=== PATIENT | female | born 1950 | race Caucasian/White ===

== ENCOUNTER 2016-09-11 22:02 | Observation (INO) | payer OTHER ==
[~2016-09-11] VITALS: Ht 149.9 cm; Wt 76.3 kg
[~2016-09-11 22:02] MED LIST: ALBU18HF IH; ALBU6.7H IH; AMOX500C; ASPI81TA50 PO; ATOR10TA PO; AZIT250T6 PO; BENZ100C2 PO; CALC200T3 PO; CETI10TA16 PO; CLON0.5T3 PO; CLOP75TA PO; EPIN0.3A4 IJ; FLUT1DIS3 IH; FLUT9.9S NS; GABA-585 PO; GUAI-42 PO; HYDR-2666 PO; HYDR-2762 PO; IPRA0.2S5 IH; IPRA3AMP IH; IPRA3AMP NEB; LEVO500T38 PO; LORA0.5T PO; METO10TA81 PO; METO25TA4 PO; MONT10TA6 PO; OMEP20CA5 PO; PANT40TA3 PO; PARO40TA3; PRED-220 PO; PRED20TA PO; RANI150T2 PO; RANI150T6 PO; SIMV10TA PO; SODI30SP NS; duoneb INH
--- NOTE | 2016-09-11 22:05 | ED.ADGEN ---
Past History Past Medical History: Asthma, CAD, COPD, GERD Past Surgical History: Knee Replacement, Tonsillectomy, Tubal ligation Smoking: Quit Greater Than 1 Year Alcohol Use: None Drug Use: None Adult General Chief Complaint Chief Complaint ".. I ve been short of breath...".. " I ve been sick the last 3 days.. fever, chills.. cough.. and now some yellow sputum.. I did go out to the bar last night... but now I am really short of breath..." HPI HPI Patient is a 66 year old female who presents with above hx and complaints of increased dyspnea. Found to be hypoxic 80 by paramedics. Pt. normally not on oxygen. Does have a history of cardiac disease and COPD. Patient no longer smokes. Patient did have stents placed in January and February for severe coronary artery stenosis. Patient has been seen both at [facility] and [facility] for her cardiac disease. Patient normally follows with Dr. Schmidt.. Patient denies any travel. Pt. denies any specific ill contacts. Patient denies any noncompliance with her hypertensive or other cardiac meds. Review of Systems Review of Systems Constitutional: Hx. of fever or chills [] Eyes: Denies change in visual acuity, redness, or eye pain [] HENT: Denies nasal congestion or sore throat [] Respiratory: hx of cough and shortness of breath [] Cardiovascular: No additional information not addressed in HPI [] GI: Denies abdominal pain, nausea, vomiting, bloody stools or diarrhea [] : Denies dysuria or hematuria [] Musculoskeletal: Denies back pain or joint pain [] Integument: Denies rash or skin lesions [] Neurologic: Denies headache, focal weakness or sensory changes [] Endocrine: Denies polyuria or polydipsia [] Family History Family History Noncontributory Current Medications Current Medications Current Medications Medications (Trade) Dose Ordered Sig/Linda Start Time Stop Time Status Last Admin Dose Admin Albuterol/ Ipratropium 3 ml 3 ml 1X ONCE 09/11/16 22:30 09/11/16 22:31 DC 09/11/16 22:47 3 ML Aspirin 324 mg 324 mg 1X ONCE 09/11/16 22:30 09/11/16 22:31 DC 09/12/16 00:46 324 MG Azithromycin (Zithromax) 500 mg 1X ONCE 09/11/16 23:00 09/11/16 23:01 DC 09/12/16 00:46 500 MG Ceftriaxone Sodium/Sodium Chloride (Rocephin/Iv Sodium Chloride 0.9% 50ml) 50 ml @ 100 mls/hr 1X ONCE 09/11/16 23:00 09/11/16 23:29 DC Enoxaparin Sodium (Lovenox 80mg Syringe) 80 mg Q12HR 09/12/16 00:00 09/12/16 00:45 80 MG Info (Anti-Coagulation Monitoring By Pharmacy) 1 each PRN DAILY PRN 09/11/16 23:45 Lactated Ringer's (Iv Lactated Ringers) 1,000 ml @ 100 mls/hr Q10H 09/11/16 22:30 09/12/16 00:47 100 MLS/HR Ondansetron HCl (Zofran) 4 mg PRN Q4HRS PRN 09/12/16 00:00 09/12/16 23:59 09/12/16 00:44 4 MG See Nursing for home meds Allergies Allergies Allergies Coded Allergies Type Severity Reaction Last Updated Verified venom-honey bee Allergy Severe Shortness of Air 11/22/13 Yes cimetidine Allergy Intermediate "toxic" 01/12/15 Yes cimetidine HCl Allergy Intermediate "toxic" 01/12/15 Yes Physical Exam Physical Exam Constitutional: Moderate distress, non-toxic appearance. [] HENT: Normocephalic, atraumatic, bilateral external ears normal, oropharynx moist, injected pharynx, , no oral exudates, nose rhinorrhea. Eyes: PERRLA, EOMI, conjunctiva normal, no discharge. [] Neck: Normal range of motion, no tenderness, supple, no stridor. [] Cardiovascular:bradycardia heart rate regular rhythm, no murmur , PMI to lt. Lungs & Thorax: Bilateral breath sounds equal at apexes with scattered wheezes on auscultation [] Abdomen: Bowel sounds normal, soft, no tenderness, no masses, no pulsatile masses. Obese. Old surgical scar. Skin: Warm, dry, no erythema, no rash. [] Back: No tenderness, no CVA tenderness. [] Extremities: No tenderness, no cyanosis, no clubbing, ROM intact, trace ankle edema. No cording. Neurologic: Alert and oriented X 3, normal motor function, normal sensory function, no focal deficits noted. [] Psychologic: Affect anxious, judgement normal, mood normal. [] Current Patient Data Vital Signs Vital Signs Date Time Temp Pulse Resp B/P Pulse Ox O2 Delivery O2 Flow Rate FiO2 09/11/16 22:48 99 Nasal Cannula 3.0 09/11/16 22:14 73 22 09/11/16 22:05 97.8 129/74 Lab Results Laboratory Tests Test 09/11/16 22:35 09/11/16 23:25 White Blood Count 6.1x10^3/uL (4.0-11.0) Red Blood Count 4.96x10^6/uL (3.50-5.40) Hemoglobin 14.4g/dL (12.0-15.5) Hematocrit 43.6% (36.0-47.0) Mean Corpuscular Volume 88fL (79-100) Mean Corpuscular Hemoglobin 29pg (25-35) Mean Corpuscular Hemoglobin Concent 33g/dL (31-37) Red Cell Distribution Width 15.0% (11.5-14.5) H Platelet Count 231x10^3/uL (140-400) Neutrophils (%) (Auto) 42% (31-73) Lymphocytes (%) (Auto) 35% (24-48) Monocytes (%) (Auto) 9% (0-9) Eosinophils (%) (Auto) 12% (0-3) H Basophils (%) (Auto) 2% (0-3) Neutrophils # (Auto) 2.6x10^3uL (1.8-7.7) Lymphocytes # (Auto) 2.2x10^3/uL (1.0-4.8) Monocytes # (Auto) 0.5x10^3/uL (0.0-1.1) Eosinophils # (Auto) 0.7x10^3/uL (0.0-0.7) Basophils # (Auto) 0.1x10^3/uL (0.0-0.2) Prothrombin Time 10.3SEC (9.4-11.4) Prothrombin Time INR 1.0 (0.9-1.1) PTT 24SEC (23-33) D-Dimer (Tracy) 0.43mg/L (0.00-0.50) Sodium Level 141mmol/L (136-145) Potassium Level 3.8mmol/L (3.5-5.1) Chloride Level 106mmol/L (98-107) Carbon Dioxide Level 29mmol/L (21-32) Anion Gap 6 (6-14) Blood Urea Nitrogen 12mg/dL (7-20) Creatinine 0.9mg/dL (0.6-1.0) Estimated GFR (Cockcroft-Gault) 63.0 Glucose Level 91mg/dL (70-99) Calcium Level 9.0mg/dL (8.5-10.1) Magnesium Level 2.1mg/dL (1.8-2.4) Total Bilirubin 0.3mg/dL (0.2-1.0) Direct Bilirubin 0.1mg/dL (0.0-0.2) Aspartate Amino Transferase (AST) 20U/L (15-37) Alanine Aminotransferase (ALT) 28U/L (14-59) Alkaline Phosphatase 58U/L (46-116) Creatine Kinase 67U/L (26-192) Creatine Kinase MB (Mass) 0.8ng/mL (0.0-3.6) Creatine Kinase MB Relative Index 1.2% (0-4) Troponin I Quantitative < 0.017ng/mL (0-0.055) Total Protein 6.8g/dL (6.4-8.2) Albumin 3.8g/dL (3.4-5.0) Lipase 216U/L (73-393) Urine Opiates Screen Pos (NEG) Urine Methadone Screen Neg (NEG) Urine Barbiturates Neg (NEG) Urine Phencyclidine Screen Neg (NEG) Urine Amphetamine/Methamphetamine Neg (NEG) Urine Benzodiazepines Screen Neg (NEG) Urine Cocaine Screen Neg (NEG) Urine Cannabinoids Screen Neg (NEG) Urine Ethyl Alcohol Neg (NEG) Group A Streptococcus Rapid Negative (NEGATIVE) EKG EKG My interpretation of EKG shows a rate of 66 with a Lt axis, and intra ventricular block. [] Radiology/Procedures Radiology/Procedures My interpretation of CXR shows chronic changes COPD in appearance.. Somewhat patchy in appearance. No large consolidation [] Course & Med Decision Making Course & Med Decision Making Pertinent Labs and Imaging studies reviewed. (See chart for details). Discussed presentation, testing and tx. plan with Dr. Walsh. Will admit for further eval. and tx. [] Final Impression Final Impression 1. Dyspnea[] 2. Respiratory Failure- Hypoxia 3. Hx of BBBlock- 4. Hx. CADz- Stents in and 2015. 5. Elevated eosinophils 6. COPD exacerbation Problems: Dragon Disclaimer Dragon Disclaimer This electronic medical record was generated, in whole or in part, using a voice recognition dictation system. DAVID MCLAUGHLIN MD Sep 11, 2016 22:05
[2016-09-11] MEDS ORDERED: ASPIRIN 81 MG TAB.CHEW PO ONE (22:30)
[2016-09-11] MEDS ORDERED: IPRATRPIUM/ALBUTEROL 0.5/2.5MG 3 ML NEBU. NEB ONE (22:30)
[2016-09-11] MEDS ORDERED: IV RINGERS SOLUTION,LACTATED 1,000 ML IV SCH (22:30)
--- NOTE | 2016-09-11 22:31 | EKG ---
[address] [address] Test Date: 2016-09-11 Test Time: 22:26:47 Pat Name: ALEXY LANGE Department: Room: Gender: F Facialist: FEI : 1950 Requested By: DAVID MCLAUGHLIN Order Number: [id number] Reading MD: Measurements Intervals [place] Rate: 66 P: 43 PA: 158 QRS: -14 QRSD: 126 T: 73 QT: 442 QTc: 465 Interpretive Statements SINUS RHYTHM LEFTWARD AXIS NON SPECIFIC INTRAVENTRICULAR BLOCK ABNORMAL ECG RI6.01 Unconfirmed report Compared to ECG 07/19/2016 18:37:15 Left-axis deviation now present
[2016-09-11] MEDS ORDERED: CEFTRIAXONE SODIUM 1 GM in IV NORMAL SALINE 50ML 50 ML IV ONE (23:00)
[2016-09-11] MEDS ORDERED: AZITHROMYCIN 250 MG TABLET. PO ONE (23:00)
[2016-09-11 23:02] LABS: BASO # 0.1 x10^3/uL (0.0-0.2); BASO % 2 % (0-3); EOS # 0.7 x10^3/uL (0.0-0.7); EOS % 12 % (0-3); HEMATOCRIT 43.6 % (36.0-47.0); HEMOGLOBIN 14.4 g/dL (12.0-15.5); LYMPH # 2.2 x10^3/uL (1.0-4.8); LYMPH % 35 % (24-48); MEAN CORPUSCULAR HEMOGLOBIN 29 pg (25-35); MEAN CORPUSCULAR HGB CONC 33 g/dL (31-37); MEAN CORPUSCULAR VOLUME 88 fL (79-100); MONO # 0.5 x10^3/uL (0.0-1.1); MONO % 9 % (0-9); NEUT # 2.6 x10^3uL (1.8-7.7); NEUT % 42 % (31-73); PLATELET COUNT 231 x10^3/uL (140-400); RED BLOOD COUNT 4.96 x10^6/uL (3.50-5.40); WHITE BLOOD COUNT 6.1 x10^3/uL (4.0-11.0)
[2016-09-11 23:27] LABS: ALBUMIN 3.8 g/dL (3.4-5.0); CREATININE 0.9 mg/dL (0.6-1.0); DIRECT BILIRUBIN 0.1 mg/dL (0.0-0.2); MAGNESIUM 2.1 mg/dL (1.8-2.4); POTASSIUM 3.8 mmol/L (3.5-5.1); TOTAL BILIRUBIN 0.3 mg/dL (0.2-1.0); TOTAL PROTEIN 6.8 g/dL (6.4-8.2)
[2016-09-11] MEDS ORDERED: ANTI-COAG MONITOR BY PHARMACY. MC PRN (23:45)
[2016-09-12 00:16] LABS: BARBITURATES NEG (NEG); BENZODIAZEPINES NEG (NEG); CANNABINOIDS NEG (NEG); COCAINE NEG (NEG); METHADONE NEG (NEG); OPIATES POS (NEG); PHENCYCLIDINE NEG (NEG)
[2016-09-12 00:17] LABS: AMPHETAMINE/METHAMPHETAMINE NEG (NEG)
[2016-09-12] MEDS ORDERED: IV NORMAL SALINE 50ML 50 ML ONE (00:36)
[2016-09-12] MEDS ORDERED: CEFTRIAXONE SODIUM 1 GM VIAL IV ONE (00:37)
[2016-09-12] MEDS: ONDANSETRON PF 4 MG/2 ML VIAL. IV PRN ×2 (00:44→19:02)
[2016-09-12] MEDS: ENOXAPARIN ** NOTE DOSE ** SYRINGE SQ SCH ×2 (00:45→08:18)
[2016-09-12] MEDS ORDERED: methylPREDNISolone SOD SUCC PF 125 MG/2 ML VIAL. IV ONE (00:55)
[2016-09-12] MEDS ORDERED: methylPREDNISolone SOD SUCC PF 125 MG/2 ML VIAL. ONE (00:56)
[2016-09-12] MEDS: CEFTRIAXONE SODIUM 1 GM in IV NORMAL SALINE 50ML 50 ML IV SCH (02:00)
[2016-09-12 02:16] LABS: INFLUENZA B PATIENT POSITIVE (NEGATIVE)
[2016-09-12 02:32] VITALS: BP 117/61
[2016-09-12] MEDS ORDERED: OSELTAMIVIR 75 MG CAPSULE PO ONE (02:37)
[2016-09-12 02:41] LABS: BILIRUBIN,URINE NEG (NEG); CLARITY,URINE HAZY; COLOR,URINE YELLOW; GLUCOSE,URINE NEG (NEG)
[2016-09-12 02:42] LABS: BACTERIA,URINE FEW /HPF (0-FEW); NITRITE,URINE NEG (NEG); RBC,URINE OCC /HPF (0-2); SQUAMOUS EPITHELIAL CELL,UR OCC /LPF; UROBILINOGEN,URINE 0.2 mg/dL (0.2 mg/dL)
[2016-09-12] MEDS ORDERED: IPRATRPIUM/ALBUTEROL 0.5/2.5MG 3 ML NEBU. ONE (03:49)
[2016-09-12] MEDS ORDERED: ALBUTEROL SULFATE 8GM INHALER. IH PRN (06:00)
[2016-09-12] MEDS ORDERED: LORAZEPAM 0.5 MG TABLET PO PRN (06:00)
[2016-09-12] MEDS ORDERED: ALBUTEROL SULFATE 2.5 MG/3 ML NEBU. NEB PRN (06:15)
[2016-09-12 06:48] LABS: BASO % 0 % (0-3); EOS % 1 % (0-3); HEMATOCRIT 43.9 % (36.0-47.0); HEMOGLOBIN 14.4 g/dL (12.0-15.5); LYMPH # 0.9 x10^3/uL (1.0-4.8); LYMPH % 15 % (24-48); MEAN CORPUSCULAR HEMOGLOBIN 29 pg (25-35); MEAN CORPUSCULAR HGB CONC 33 g/dL (31-37); MEAN CORPUSCULAR VOLUME 88 fL (79-100); MONO # 0.1 x10^3/uL (0.0-1.1); MONO % 1 % (0-9); NEUT % 83 % (31-73); PLATELET COUNT 224 x10^3/uL (140-400); RED BLOOD COUNT 4.99 x10^6/uL (3.50-5.40); RED CELL DISTRIBUTION WIDTH 15.1 % (11.5-14.5)
--- NOTE | 2016-09-12 06:54 | ACF ---
Admission Criteria Forms COPD Clinical Indications for Admission to Inpatient Care (Place 'X' for any and all applicable criteria): Admission is indicated for ANY ONE of the following (1)(2)(3): [ ]I. Acute exacerbation by high-risk comorbidity (e.g., pneumonia, dysrhythmia, heart failure, pleural effusion, pneumothorax) or severe underlying COPD (e.g., steroid dependent) [ ]II. Inpatient admission required rather than observation care (see Chronic Obstructive Pulmonary Disease: Observation Care) because of ANY ONE of the following: [ ]a) New or pre-existing signs or symptoms of COPD (eg, dyspnea or Tachypnea at rest or with minimal activity) that persist despite outpatient and observation care treatment [ ]b) New-onset hypoxemia (room air SaO2 less than 90%, PO2 less than 60 mm Hg (8.0 kPa)) that persists despite outpatient and observation care treatment [ ]c) Worsening of pre-existing hypoxemia (eg, new or increased requirement for supplemental oxygen to maintain oxygenation at baseline level) that persists despite outpatient and observation care treatment, with oxygen treatment needs performable only in acute inpatient setting [ ]d) Hypercarbia (PCO2 greater than 40 mm Hg (5.3 kPa))-induced respiratory acidosis (pH less than 7.35) that persists despite outpatient and observation care treatment [ ]e) Supplemental oxygen or respiratory treatments for over 24 hours that are performable only in acute inpatient setting [ ]f) Chest tube placement with active evacuation (e.g., suction, drainage) (5) [ ]g) Other condition, treatment or monitoring requiring inpatient admission [ ]III. Planned invasive surgical or diagnostic procedures requiring acute- care hospitalization [X]IV. Acute respiratory failure (e.g., uncompensated hypercarbia, severe hypoxemia) [ ]V. Severe comorbid condition (e.g., severe steroid myopathy, acute vertebral fracture) that has acutely worsened pulmonary function [ ]. Confusion state, lethargy, obtundation, stupor or coma Extended stay beyond goal length of stay may be needed for (31)(32): [ ]a ) Respiratory Failure. [ ]b) Severe or persisting hypoxemia or hypercarbia [ ]c) Severe or persistent dyspnea [ ]d) Comorbidities (e.g. chronic heart failure, atrial fibrillation with rapid response, pneumonia) [ ]e) Malnutrition The original [facility] content created by [facility] has been revised. The portions of the content which have been revised are identified through the use of italic text or in bold, and [facility] has neither reviewed nor approved the modified material. All other unmodified content is copyright [facility]. Please see references footnoted in the original [facility] edition 2016 Admission Criteria Met?: Yes VELMA WELCH Sep 12, 2016 06:54
[2016-09-12 07:08] LABS: ALBUMIN 3.6 g/dL (3.4-5.0); ALBUMIN/GLOBULIN RATIO 1.2 (1.0-1.7); CALCIUM 8.9 mg/dL (8.5-10.1); CREATININE 1.2 mg/dL (0.6-1.0); GFR 45.2; POTASSIUM 3.4 mmol/L (3.5-5.1); TOTAL BILIRUBIN 0.2 mg/dL (0.2-1.0); TOTAL PROTEIN 6.7 g/dL (6.4-8.2)
[2016-09-12] MEDS ORDERED: IPRATRPIUM/ALBUTEROL 0.5/2.5MG 3 ML NEBU. NEB SCH (08:00)
[2016-09-12] MEDS: AZITHROMYCIN 250 MG TABLET. PO SCH (08:15)
[2016-09-12] MEDS: OSELTAMIVIR 75 MG CAPSULE PO SCH ×2 (08:15→20:45)
[2016-09-12] MEDS: PANTOPRAZOLE 40 MG TABLET. PO SCH (08:15)
[2016-09-12] MEDS: ASPIRIN ENTERIC COATED 81 MG TABLET.DR. PO SCH (08:15)
--- NOTE | 2016-09-12 08:15 | RAD ---
Indication: Dyspnea today. Technique: Two-view chest radiograph was obtained and compared to a study from July 19, 2016. Findings: Minimal atelectasis or scarring is noted in the left lung base. The lungs otherwise are clear. Irregularity at the first costochondral junction is greater on the left, similar in appearance to prior. This has a similar appearance compared to a July 10, 2015 study as well. The heart is not enlarged and there is no heart failure. There is atheromatous disease in the thoracic aorta. There is no pleural effusion. Bony structures are intact. Impression: Minimal atelectasis or scarring in the left lung base.
[2016-09-12] MEDS: METOPROLOL TART IMMED RELEASE 25 MG TABLET PO SCH (08:16)
[2016-09-12] MEDS: CETIRIZINE HCL 10 MG TABLET PO SCH (08:16)
[2016-09-12] MEDS: CLOPIDOGREL BISULFATE 75 MG TABLET PO SCH (08:16)
[2016-09-12] MEDS: methylPREDNISolone SOD SUCC PF 125 MG/2 ML VIAL. IV SCH (08:17)
[2016-09-12 08:28] LABS: INFLUENZA A PATIENT POSITIVE (NEGATIVE)
[2016-09-12] MEDS ORDERED: FLUTICASONE 50MCG/NASAL SPRAY 16GM BOTTLE. NS SCH (09:00)
[2016-09-12] MEDS ORDERED: ASPIRIN 81 MG TAB.CHEW PO SCH (09:00)
[2016-09-12] MEDS ORDERED: ENOXAPARIN ** NOTE DOSE ** SYRINGE SQ SCH (09:00)
[2016-09-12] MEDS: HYDROCODONE/APAP 7.5/325MG TABLET. PO PRN ×3 (09:15→17:01)
--- NOTE | 2016-09-12 10:41 | PDOC ---
PROVIDER NOTE PROVIDER NOTE PROVIDER NOTE CARDIOLOGY CONSULT NOTE HPI Patient is a 66 y.o woman presenting with shortness of breath. Has a history of CAD but denies any chest pain. She has had multiple prior admissions for COPD exacerbation. Currently with Influenza a/b positivity on serology (rare but possible). Denies any syncope or palpitations. PAST MEDICAL HISTORY Cardiovascular: CAD (stent to unknown target 10/2015; remains on DAPT), HTN, Syncope Pulmonary: Asthma, COPD, Pneumonia CENTRAL NERVOUS SYSTEM: Other (none) GI: GERD, Other (esophageal stricture which needs repeat dilatation but can not be completed due to DAPT) Heme/Onc: No pertinent hx Hepatobiliary: Hep A/B/C (? of hepatitis B in her 20s) Psych: Anxiety Musculoskeletal: Osteoarthritis Rheumatologic: No pertinent hx Infectious disease: No pertinent hx ENT: Allergic Rhinitis Renal/: No pertinent hx ( ), Other (endometriosis) Endocrine: No pertinent hx Dermatology: No pertinent hx PAST SURGICAL HISTORY Past Surgical History: Total knee replacement (right), Tonsillectomy, Other ( left wrist compound fracture with surgical repair; [facility], 10/2015) FAMILY HISTORY Family History: Coronary Artery Disease (mother with CABG; half sister with heart disease - details unclear), Diabetes (maternal grandmother), Other ( father - cerebral aneurysm; sister with bipolar disorder) SOCIAL HISTORY Smoke: No ALCOHOL: occassional Drugs: None Lives: Friends (significant other) MEDS: Atorvastatin Plavix ASA Metoprolol 12.5mg bid PHYSICAL EXAM: VSS Gen: CVS: RRR, no m/r/g LUNGS: Rhonchi bilaterally ABD: Soft, NT/ND +BS EXT: No edema NEURO:No focal deficits MSK: No trauma Labs reviewed: Trop negative x 3 Echo in 12/2015 wnl Nuc 12/2015 wnl. Impression: 1. COPD exacerbation 2. Known CAD but stable RECS: 1. Supportive care from CV standpoint 2. Continue current medical therapy 3. Outpt f/u with primary cardiology for further eval as needed. LA RAMIREZ MD Sep 12, 2016 10:41
[2016-09-12 12:00] VITALS: BP 99/66
[2016-09-12] MEDS: IPRATRPIUM/ALBUTEROL 0.5/2.5MG 3 ML NEBU. NEB SCH ×3 (12:00→20:40)
--- NOTE | 2016-09-12 14:12 | HP ---
ADMIT DATE: 09/12/2016 HISTORY OF PRESENT ILLNESS: The patient is a 66-year-old female patient, who came to the Emergency Room complaining of shortness of breath, having been sick for the last 3 days. She has also fever, chills, and cough with some yellowish sputum. She was evaluated in the Emergency Room and was found to be positive for both influenza A and B and her chest x-ray showed that there is minimal atelectasis or scarring in the left lung base and basically she was admitted with flu and COPD exacerbation and was started on IV antibiotic in the form of ceftriaxone and Zithromax as well as Tamiflu. PAST MEDICAL HISTORY: Significant for gastroesophageal reflux disease, hyperlipidemia, chronic obstructive pulmonary disease, generalized osteoarthritis, gastritis and gastric ulcers. PAST SURGICAL HISTORY: Significant for left wrist fracture, status post open reduction and internal fixation, right total knee arthroplasty, tubal ligation and tonsillectomy. ALLERGIES: She is allergic to TAGAMET and BEE VENOM. FAMILY HISTORY: She has 2 half-brothers and 4 half-sisters. Her biological father because of ruptured cerebral aneurysm at the edge of 80 and her mother is still alive at age of 83. She is known to have coronary artery disease with 5 stents in her heart. SOCIAL HISTORY: She is , has 2 daughters. She quit smoking about 9 years ago. She used to smoke half to 1 pack a day and smoked for about 24 years. She does not drink alcohol or use recreational drugs. She is currently retired. REVIEW OF SYSTEMS: The patient denied any blurring of vision, cataract, glaucoma or macular degeneration. Denied any earache, tinnitus or sensorineural deafness. Denied any stuffy nose, nosebleed or postnasal drip. Denied any sore throat, sore tongue, toothache, hoarseness of voice or difficulty swallowing. Denied any nausea, vomiting, diarrhea or constipation. Denied any hematemesis, melena or hematochezia. Denied any dysuria, frequency, and hematuria. Did complain of shortness of breath, cough with yellowish sputum as well as fevers and chills. MEDICATIONS: She is currently on the following home medications. She is on albuterol sulfate 2 puffs every 4 hours, aspirin 81 mg once a day, atorvastatin calcium 10 mg at bedtime, cetirizine 10 mg, Plavix 75 mg once a day, epinephrine as needed for anaphylactic shock, Flonase 2 sprays to each nostril once a day, Advair Diskus 250/50 one puff twice a day, hydrocodone/APAP 7.5/325 one tablet every 8 hours. She is on DuoNeb 4 times a day, lorazepam 0.5 mg every 6 hours, metoprolol tartrate 25 mg half tablet once a day, Protonix 40 mg once a day, and prednisone 20 mg twice a day. PHYSICAL EXAMINATION: GENERAL: On arrival to the Emergency Room, the patient was clearly tachypneic, pale, but no jaundice, cyanosis or thyromegaly. No jugular venous distention. No limb edema. VITAL SIGNS: Her heart rate was 78, blood pressure was 129/74, temperature was 97.8, respiratory rate was 24, and oxygen saturation was 90% on room air. HEAD, EYES, EARS, NOSE, AND THROAT: Showed normocephalic, atraumatic. NECK: Supple. HEART: Showed normal first and second heart sounds with no gallop, rub or murmur. CHEST: Clear to auscultation. No crepitation or rhonchi. There were some scattered wheezes, but no crackles. ABDOMEN: Slightly distended, soft, and nontender. No guarding or rigidity. No organomegaly. All hernial orifices are intact. Bowel sounds are normal. NEUROLOGIC: She was awake, alert, responding appropriately. All cranial nerves are intact. EXTREMITIES: She moves her extremities without difficulty. She ambulates without assistance or assistive devices. LABORATORY DATA: While in the Emergency Room, she has had lab work done, showed that her white cell count was 6100, hemoglobin 14.4, hematocrit 44, MCV was 88 and platelet count 231,000. Her chemistry showed a serum sodium 141, potassium 3.8, chloride 106, bicarbonate 29, anion gap of 6, BUN 12, creatinine 0.9, estimated GFR was 63 mL per minute. Her glucose was 91, calcium was 9, magnesium 2.1. Total bilirubin, AST, ALT, and alkaline phosphatase were normal. Her total protein was 6.8, albumin was 3.8. Serum lipase was 216. Her prothrombin time was 10.3, INR of 1, aPTT was 24. D-dimer was 0.43. Urinalysis was unremarkable. Urine toxicology screen was positive for opiates and she tested positive for influenza A and B and was negative for group A streptococcus rapid test. IMAGING: Her chest x-ray was unremarkable and showed only minimal atelectasis or scarring in the left lung base. ASSESSMENT AND PLAN: This is a 66-year-old female patient, who came in with shortness of breath, cough with yellowish sputum. She was diagnosed with influenza A and B, acute bronchitis and chronic obstructive pulmonary disease exacerbation. We will continue with IV ceftriaxone and Zithromax as well as Tamiflu. Continue with steroids and inhalers. Continue with all other medications. Follow her closely and decide on further management accordingly. DANE CAMERON MD DR: VALORIE/nick JOB#: [id number] / [id number]
[2016-09-12] MEDS: POTASSIUM CHLORIDE 20 MEQ TABLET.ER. PO SCH ×2 (14:45→20:45)
[2016-09-12 19:00] VITALS: BP 104/56
[2016-09-12] MEDS: ATORVASTATIN CALCIUM 20 MG TABLET PO SCH (20:45)
[2016-09-12] MEDS ORDERED: TRIAMCINOLONE ACETONIDE 0.1% TOPICAL CREAM 15GM TUBE. TP PRN (21:00)
[2016-09-12] MEDS ORDERED: ATORVASTATIN CALCIUM 10 MG TABLET. PO SCH (21:00)
[2016-09-13 05:36] VITALS: BP 112/61
[2016-09-13] MEDS: PANTOPRAZOLE 40 MG TABLET. PO SCH (05:48)
[2016-09-13] MEDS: IPRATRPIUM/ALBUTEROL 0.5/2.5MG 3 ML NEBU. NEB SCH ×4 (05:58→19:21)
[2016-09-13] MEDS: HYDROCODONE/APAP 7.5/325MG TABLET. PO PRN ×3 (06:13→16:07)
[2016-09-13 06:47] LABS: BASO % 0 % (0-3); EOS % 0 % (0-3); HEMATOCRIT 38.3 % (36.0-47.0); HEMOGLOBIN 12.6 g/dL (12.0-15.5); LYMPH % 15 % (24-48); MEAN CORPUSCULAR HEMOGLOBIN 29 pg (25-35); MEAN CORPUSCULAR HGB CONC 33 g/dL (31-37); MEAN CORPUSCULAR VOLUME 88 fL (79-100); MONO % 8 % (0-9); NEUT # 10.1 x10^3uL (1.8-7.7); NEUT % 77 % (31-73); PLATELET COUNT 217 x10^3/uL (140-400); RED BLOOD COUNT 4.37 x10^6/uL (3.50-5.40); RED CELL DISTRIBUTION WIDTH 15.2 % (11.5-14.5); WHITE BLOOD COUNT 13.1 x10^3/uL (4.0-11.0)
[2016-09-13 06:55] LABS: CALCIUM 8.5 mg/dL (8.5-10.1); GFR 55.8; POTASSIUM 4.6 mmol/L (3.5-5.1)
[2016-09-13] MEDS: FLUTICASONE 50MCG/NASAL SPRAY 16GM BOTTLE. NS SCH (09:00)
[2016-09-13] MEDS: OSELTAMIVIR 75 MG CAPSULE PO SCH (09:44)
[2016-09-13] MEDS: ASPIRIN ENTERIC COATED 81 MG TABLET.DR. PO SCH (09:44)
[2016-09-13] MEDS: AZITHROMYCIN 250 MG TABLET. PO SCH (09:44)
[2016-09-13] MEDS: CLOPIDOGREL BISULFATE 75 MG TABLET PO SCH (09:44)
[2016-09-13] MEDS: POTASSIUM CHLORIDE 20 MEQ TABLET.ER. PO SCH ×3 (09:44→20:53)
[2016-09-13] MEDS: methylPREDNISolone SOD SUCC PF 125 MG/2 ML VIAL. IV SCH (09:44)
[2016-09-13] MEDS: CETIRIZINE HCL 10 MG TABLET PO SCH (09:46)
[2016-09-13] MEDS: ENOXAPARIN 40 MG/0.4 ML DISP.SYRIN. SQ SCH (09:47)
[2016-09-13 10:00] VITALS: BP 108/52
[2016-09-13] MEDS: METOPROLOL TART IMMED RELEASE 25 MG TABLET PO SCH (10:02)
[2016-09-13 16:00] VITALS: BP 112/60
[2016-09-13] MEDS ORDERED: ONDANSETRON ODT 4 MG TAB.RAPDIS PO PRN (18:00)
[2016-09-13] MEDS: CEFTRIAXONE SODIUM 1 GM in IV NORMAL SALINE 50ML 50 ML IV SCH (20:53)
[2016-09-13] MEDS: ATORVASTATIN CALCIUM 20 MG TABLET PO SCH (20:53)
[2016-09-13] MEDS: OSELTAMIVIR 30 MG CAPSULE PO SCH (20:53)
[2016-09-13] MEDS ORDERED: SENNOSIDES/DOCUSATE 8.6/50MG TABLET. PO ONE (21:00)
--- NOTE | 2016-09-13 22:45 | PN ---
DATE: 09/13/2016 PROBLEMS: 1. Influenza type B. 2. Dyspnea. 3. History of coronary artery disease. 4. COPD exacerbation. 5. Anxiety. SUBJECTIVE: A 66-year-old female who states that she had gone into bar that was a private club and so was smoking there. Since she had a poor sense of smile she did not realize it until she had been there for 3 hours when she noticed someone smoking. She has not feel well since then and tested positive for both influenza type A and B. She is on antibiotics, Tamiflu, breathing treatments, and steroids. She is complaining of a little left-sided rib pain. OBJECTIVE: VITAL SIGNS: Blood pressure 108/52, pulse is 93, respirations 20, pulse ox is 97% on room air, height 59 inches, and weight 163.3 pounds. GENERAL: She is resting comfortably in bed. HEENT: Her throat was clear. She is edentulous. NECK: Supple. LUNGS: With a few scattered wheezes very few, moving air well. CARDIOVASCULAR: Regular rhythm and rate. ABDOMEN: Soft and nontender. EXTREMITIES: Without edema. She does have some left-sided rib pain and did hear her coughing earlier. PLAN: Decrease steroids and start planning for discharge possible tomorrow . MALORIE YANEZ DO DR: NADER/nick JOB#: [id number] / [id number]
[2016-09-14 00:28] VITALS: BP 115/62
[2016-09-14] MEDS: IPRATRPIUM/ALBUTEROL 0.5/2.5MG 3 ML NEBU. NEB SCH ×2 (05:37→09:39)
[2016-09-14] MEDS: HYDROCODONE/APAP 7.5/325MG TABLET. PO PRN (06:06)
[2016-09-14 07:28] LABS: BASO % 0 % (0-3); EOS % 0 % (0-3); HEMATOCRIT 39.3 % (36.0-47.0); HEMOGLOBIN 12.9 g/dL (12.0-15.5); LYMPH # 2.8 x10^3/uL (1.0-4.8); LYMPH % 25 % (24-48); MEAN CORPUSCULAR HEMOGLOBIN 29 pg (25-35); MEAN CORPUSCULAR HGB CONC 33 g/dL (31-37); MEAN CORPUSCULAR VOLUME 88 fL (79-100); MONO # 0.7 x10^3/uL (0.0-1.1); MONO % 6 % (0-9); NEUT % 69 % (31-73); PLATELET COUNT 216 x10^3/uL (140-400); RED BLOOD COUNT 4.46 x10^6/uL (3.50-5.40); RED CELL DISTRIBUTION WIDTH 15.3 % (11.5-14.5); WHITE BLOOD COUNT 11.5 x10^3/uL (4.0-11.0)
[2016-09-14 07:43] LABS: ALBUMIN 3.4 g/dL (3.4-5.0); ALBUMIN/GLOBULIN RATIO 1.2 (1.0-1.7); CALCIUM 8.7 mg/dL (8.5-10.1); CREATININE 0.9 mg/dL (0.6-1.0); MAGNESIUM 2.1 mg/dL (1.8-2.4); POTASSIUM 4.1 mmol/L (3.5-5.1); TOTAL BILIRUBIN 0.2 mg/dL (0.2-1.0); TOTAL PROTEIN 6.3 g/dL (6.4-8.2)
[2016-09-14] MEDS: FLUTICASONE 50MCG/NASAL SPRAY 16GM BOTTLE. NS SCH (08:55)
[2016-09-14] MEDS: ENOXAPARIN 40 MG/0.4 ML DISP.SYRIN. SQ SCH (08:55)
[2016-09-14] MEDS: PANTOPRAZOLE 40 MG TABLET. PO SCH (08:55)
[2016-09-14] MEDS: ASPIRIN ENTERIC COATED 81 MG TABLET.DR. PO SCH (08:55)
[2016-09-14] MEDS: METOPROLOL TART IMMED RELEASE 25 MG TABLET PO SCH (08:56)
[2016-09-14] MEDS: OSELTAMIVIR 30 MG CAPSULE PO SCH (08:56)
[2016-09-14] MEDS: POTASSIUM CHLORIDE 20 MEQ TABLET.ER. PO SCH (08:56)
[2016-09-14] MEDS: CLOPIDOGREL BISULFATE 75 MG TABLET PO SCH (08:56)
[2016-09-14] MEDS: CETIRIZINE HCL 10 MG TABLET PO SCH (08:56)
[2016-09-14] MEDS: AZITHROMYCIN 250 MG TABLET. PO SCH (08:57)
[2016-09-14] MEDS ORDERED: methylPREDNISolone SOD SUCC PF 40 MG/ML VIAL. IV SCH ×2 (09:00)
[2016-09-14 09:39] VITALS: BP 119/68
[2016-09-14 10:03] VITALS: BP 106/66
[2016-09-14] MEDS ORDERED: DOXY100C14 PO (10:33)
[2016-09-14] MEDS ORDERED: PRED20TA PO (10:33)
--- NOTE | 2016-09-14 17:25 | DS ---
DATE OF DISCHARGE: 09/14/2016 DISCHARGE DIAGNOSES: 1. Influenza type A. 2. Influenza type B. 3. Dyspnea. 4. Acute exacerbation of chronic obstructive pulmonary disease. 5. Coronary artery disease -- stable. 6. Anxiety. HOSPITAL COURSE: A 66-year-old female developed dyspnea and a fever after a night in a private club where there was smoking. She was not aware, total a 3 hours that there had been smoking. She was treated with Tamiflu, antibiotics and oral steroids, tolerated well and has had breathing treatments. PHYSICAL EXAMINATION: VITAL SIGNS: On the day of discharge, her blood pressure 106/66, pulse 72, respirations 20, temperature 97.9. Pulse ox 93% on room air, 95% on room air. LUNGS: Clear and did not hear her cough. CARDIOVASCULAR: Regular rhythm and rate. EXTREMITIES: Without edema. DISPOSITION: To home. DISCHARGE MEDICATIONS: See MRAD. MALORIE YANEZ DO DR: NADER/nick JOB#: [id number] / [id number]
== END 2016-09-14 11:30 | disposition home or self-care (01) ==
LOC: ER 22:02 → INTOOBSV 09-12 00:03 → 1 SOUTH 09-12 00:03
PROVIDERS: ADMIT Internal Medicine; ATTEND Internal Medicine
DX: J09.X2 Influenza due to identified novel influenza A virus with other respiratory manifestations (principal); J11.1 Influenza due to unidentified influenza virus with other respiratory manifestations; J44.1 Chronic obstructive pulmonary disease with (acute) exacerbation; I25.10 Atherosclerotic heart disease of native coronary artery without angina pectoris; J44.0 Chronic obstructive pulmonary disease with (acute) lower respiratory infection; F41.9 Anxiety disorder, unspecified; K21.9 Gastro-esophageal reflux disease without esophagitis; E78.5 Hyperlipidemia, unspecified; M15.9 Polyosteoarthritis, unspecified; J45.909 Unspecified asthma, uncomplicated; I10 Essential (primary) hypertension; F17.210 Nicotine dependence, cigarettes, uncomplicated; Z79.899 Other long term (current) drug therapy; Z82.49 Family history of ischemic heart disease and other diseases of the circulatory system; Z83.3 Family history of diabetes mellitus
CPT/HCPCS: 36415; 71020; 80048; 80053; 80076; 81001; 82553; 83690; 83735; 84443; 84484; 85027; 85379; 85610; 85730; 87040; 87070; 87086; 87186; 87804; 87880; 93005; 94640; 94760; 96361; 96365; 96366; 96372; 96375; 96376; 99285; G0238; G0378; G0481; J0456; J0696; J1650; J2405; J2920; J2930; J7120; J7613; J7620; Q0162; G0379

== ENCOUNTER 2016-09-16 10:07 | Emergency (ER) | payer OTHER ==
[~2016-09-16 10:07] MED LIST changes: +DOXY100C14 PO
[2016-09-16] MEDS ORDERED: ONDANSETRON ODT 4 MG TAB.RAPDIS ONE (10:22)
[2016-09-16] MEDS: ONDANSETRON ODT 4 MG TAB.RAPDIS PO ONE (10:24)
[2016-09-16 11:40] VITALS: BP 131/78
--- NOTE | 2016-09-20 08:25 | ED.ADGEN ---
Past History Past Medical History: Asthma, CAD, COPD, GERD Past Surgical History: Knee Replacement, Tonsillectomy, Tubal ligation Smoking: Quit Greater Than 1 Year Alcohol Use: Occasionally Drug Use: None Adult General Chief Complaint Chief Complaint Vomiting and diarrhea [facility] HPI Patient is a 66-year-old female presents with acute onset of vomiting diarrhea earlier today. Patient reports nausea. Denies abdominal pain. Denies dizziness lightheadedness, blood in stool or blood in vomit. No recent antibiotic use or known GI illness exposures. No other acute symptoms or complaints. Review of Systems Review of Systems ROS as per HPI. All other review symptoms regular. Current Medications Current Medications Current Medications Medications (Trade) Dose Ordered Sig/Linda Start Time Stop Time Status Last Admin Dose Admin Ondansetron HCl (Zofran Odt) 4 mg STK-MED ONCE 09/16/16 10:22 09/16/16 10:23 DC Allergies Allergies Allergies Coded Allergies Type Severity Reaction Last Updated Verified venom-honey bee Allergy Severe Shortness of Air 11/22/13 Yes cimetidine Allergy Intermediate "toxic" 01/12/15 Yes cimetidine HCl Allergy Intermediate "toxic" 01/12/15 Yes Physical Exam Physical Exam Constitutional: Well developed, well nourished, no acute distress, non-toxic appearance. [] HENT: Normocephalic, atraumatic, bilateral external ears normal, oropharynx moist, no oral exudates, nose normal. [] Eyes: PERRLA, EOMI, conjunctiva normal, no discharge. [] Neck: Normal range of motion, no tenderness, supple, no stridor. [] Cardiovascular:Heart rate regular rhythm, no murmur [] Lungs & Thorax: Bilateral breath sounds clear to auscultation [] Abdomen: Bowel sounds normal, soft, no tenderness, no masses, no pulsatile masses. [] Skin: Warm, dry, no erythema, no rash. [] Back: No tenderness, no CVA tenderness. [] Extremities: No tenderness, no cyanosis, no clubbing, ROM intact, no edema. [] Neurologic: Alert and oriented X 3, normal motor function, normal sensory function, no focal deficits noted. [] Psychologic: Affect normal, judgement normal, mood normal. [] Current Patient Data Vital Signs Vital Signs Date Time Temp Pulse Resp B/P Pulse Ox O2 Delivery O2 Flow Rate FiO2 09/16/16 11:40 67 18 131/78 95 Room Air 09/16/16 10:07 97.7 EKG EKG [] Radiology/Procedures Radiology/Procedures [] Impressions: Vomiting and diarrhea Course & Med Decision Making Course & Med Decision Making Pertinent Labs and Imaging studies reviewed. (See chart for details) [Symptoms improved with medication in the ED]. Treat supportively with PCP follow-up. Return precautions reviewed. Final Impression Final Impression [Vomiting and diarrhea] Problems: Dragon Disclaimer Dragon Disclaimer This electronic medical record was generated, in whole or in part, using a voice recognition dictation system. ELADIO CORNELL DO Sep 20, 2016 08:25
== END 2016-09-16 11:40 | disposition home or self-care (01) ==
LOC: ER 10:07
DX: R11.10 Vomiting, unspecified (principal); R19.7 Diarrhea, unspecified; K21.9 Gastro-esophageal reflux disease without esophagitis; J44.9 Chronic obstructive pulmonary disease, unspecified; I25.10 Atherosclerotic heart disease of native coronary artery without angina pectoris; J45.909 Unspecified asthma, uncomplicated; Z87.891 Personal history of nicotine dependence; Z88.8 Allergy status to other drugs, medicaments and biological substances; Z91.030 Bee allergy status
CPT/HCPCS: 99283; Q0162

== ENCOUNTER 2017-01-04 00:24 | Emergency (ER) | payer MEDICAID, OTHER ==
[~2017-01-04 00:24] MED LIST changes: +BENZ100C15 PO; -BENZ100C2 PO; +GUAI-107 PO; -GUAI-42 PO; -HYDR-2666 PO; +HYDR-2758 PO; -LEVO500T38 PO; +LEVO500T59 PO
[2017-01-04] MEDS ORDERED: CYCL-331 PO (01:47)
[2017-01-04] MEDS ORDERED: METH4TAB2 PO (01:47)
--- NOTE | 2017-01-04 01:48 | PHYS DOC ---
Past History Past Medical History: Asthma, CAD, COPD, GERD Past Surgical History: Knee Replacement, Tonsillectomy, Tubal ligation Smoking: Quit Greater Than 1 Year Alcohol Use: Occasionally Drug Use: None Adult General Chief Complaint Chief Complaint: LOWER EXT PAIN HPI HPI Patient is a 66 year old female who presents with complaint of left hip pain. Patient states that her pain has been present over the past 3 weeks. Patient states that the pain has come and gone but over the past week the pain has become more constant. Patient states that the pain is sharp and radiates from her left hip all the way down to her toes. Patient states that the pain worsens with movement. Patient states that she has been taking Tylenol with no relief in symptoms. Patient states that she has [place] prescription at home from a previous knee replacement. Patient states she has taken only one of these tablets which she stated did not help much with her pain. Patient denies history of similar symptoms. Patient denies any trauma associated with onset of symptoms. Patient denies saddle anesthesia, loss of bowel or bladder control, or foot drop. Review of Systems Review of Systems Constitutional: Denies fever or chills [] Eyes: Denies change in visual acuity, redness, or eye pain [] HENT: Denies nasal congestion or sore throat [] Respiratory: Denies cough or shortness of breath [] Cardiovascular: Denies chest pain or edema [] GI: Denies abdominal pain, nausea, vomiting, bloody stools or diarrhea [] : Denies dysuria or hematuria [] Musculoskeletal: Left hip and lower extremity pain [] Integument: Denies rash or skin lesions [] Neurologic: Denies headache, focal weakness or sensory changes [] Allergies Allergies Allergies Coded Allergies Type Severity Reaction Last Updated Verified venom-honey bee Allergy Severe Shortness of Air 11/22/13 Yes cimetidine Allergy Intermediate "toxic" 01/12/15 Yes cimetidine HCl Allergy Intermediate "toxic" 01/12/15 Yes Physical Exam Physical Exam Constitutional: Alert, afebrile, appears in mild to moderate discomfort. [] HENT: Normocephalic, atraumatic, bilateral external ears normal, oropharynx moist, no oral exudates, nose normal. [] Eyes: PERRLA, EOMI, conjunctiva normal, no discharge. [] Neck: Normal range of motion, no tenderness, supple, no stridor. [] Cardiovascular:Heart rate regular rhythm, no murmur [] Lungs & Thorax: Bilateral breath sounds clear to auscultation [] Abdomen: Bowel sounds normal, soft, no tenderness, no masses, no pulsatile masses. [] Skin: Warm, dry, no erythema, no rash. [] Back: No midline tenderness or paraspinous muscle tenderness, tenderness to palpation along left upper portion of bilateral ear distribution of sciatic nerve, positive straight leg test in left lower extremity. [] Extremities: No obvious deformities, no cyanosis, no clubbing, ROM intact, no edema. [] Neurologic: Alert and oriented X 3, normal motor function, normal sensory function, no focal deficits noted. [] Current Patient Data Vital Signs Vital Signs Date Time Temp Pulse Resp B/P (MAP) Pulse Ox O2 Delivery O2 Flow Rate FiO2 01/04/17 00:31 98.1 85 18 94 Room Air EKG EKG Not performed [] Radiology/Procedures Radiology/Procedures Not performed [] Course & Med Decision Making Course & Med Decision Making Pertinent Labs and Imaging studies reviewed. (See chart for details) Patient's symptoms appear consistent with sciatica. Patient given IM Toradol in the emergency department. The patient will continue on outpatient treatment with Flexeril and Medrol Dosepak. Advise follow-up in 3-4 days with patient's primary doctor for reevaluation and return to emergency department for any worsening symptoms. Patient voiced understanding and in agreement with treatment plan. Dragon Disclaimer Dragon Disclaimer This chart was dictated in whole or in part using Voice Recognition software in a busy, high-work load, and often noisy Emergency Department environment. It may contain unintended and wholly unrecognized errors or omissions. Departure Departure: Impression: Primary Impression: Sciatic leg pain Disposition: HOME, SELF-CARE Condition: STABLE Referrals: PRAKASH LUU (PCP) Patient Instructions: Sciatica Additional Instructions: Follow-up with your primary doctor in the next 3-4 days for reevaluation. Return to emergency department for any worsening symptoms. Scripts Cyclobenzaprine Hcl (CYCLOBENZAPRINE HCL) 10 Mg Tablet 1 TAB PO TID Y for MUSCLE PAIN, #30 TAB Prov: KATHRYN SALES MD 01/04/17 Methylprednisolone (MEDROL) 4 Mg Tab.ds.pk 1 PKG PO UD, #1 PKG Prov: KATHRYN SALES MD 01/04/17 KATHRYN SALES MD Jan 04, 2017 01:48
[2017-01-04 02:00] VITALS: BP 148/84
[2017-01-04] MEDS ORDERED: KETOROLAC 60 MG/2 ML VIAL. IM ONE (02:00)
[2017-01-05] MEDS ORDERED: NAPR250T2 PO (20:40)
[2017-01-05] MEDS ORDERED: OXYC-323 PO (20:40)
[2017-01-05] MEDS ORDERED: DOCU-109 PO (20:40)
== END 2017-01-04 02:13 | disposition home or self-care (01) ==
LOC: ER 00:24
DX: M54.32 Sciatica, left side (principal); M25.552 Pain in left hip; I25.10 Atherosclerotic heart disease of native coronary artery without angina pectoris; J44.9 Chronic obstructive pulmonary disease, unspecified; K21.9 Gastro-esophageal reflux disease without esophagitis; Z87.891 Personal history of nicotine dependence; Z88.8 Allergy status to other drugs, medicaments and biological substances; Z91.038 Other insect allergy status
CPT/HCPCS: 96372; 99283; J1885

== ENCOUNTER 2017-01-05 19:04 | Emergency (ER) | payer OTHER ==
[~2017-01-05 19:04] MED LIST changes: +CYCL-331 PO; +METH4TAB2 PO
[2017-01-05 19:21] VITALS: BP 154/87
--- NOTE | 2017-01-05 19:35 | ED.ADGEN ---
Past History Past Medical History: Anxiety, Asthma, CAD, COPD, GERD Past Surgical History: Knee Replacement, Tonsillectomy, Tubal ligation Smoking: Quit Greater Than 1 Year Alcohol Use: Occasionally Drug Use: None Adult General HPI HPI Patient is a 46-year-old woman, history of COPD, CAD, anxiety, hypertension, who presents to the emergency department with complaint of right hand pain after a fall. Patient states that she tripped over her dog, and fell landing on her outstretched hand, states that "I landed straight on my thumb". She states that this occurred about 20 minutes prior to arrival. She has not taken any medication prior to come to the ED, is complaining of pain in the thumb and in the palmar aspect of the hand. No elbow pain, no shoulder pain, denies striking her head, denies pain in any other extremities. No shortness of breath or chest pain, no headache, no numbness or tingling, denies any preceding symptoms. Patient was brought to the ED by family. Review of Systems Review of Systems Constitutional: Denies fever or chills [] Eyes: Denies change in visual acuity, redness, or eye pain [] HENT: Denies nasal congestion or sore throat [] Respiratory: Denies cough or shortness of breath [] Cardiovascular: No additional information not addressed in HPI [] GI: Denies abdominal pain, nausea, vomiting, bloody stools or diarrhea [] : Denies dysuria or hematuria [] Musculoskeletal: Denies back pain, pain in the right thumb, wrist, and palmar aspect of the right hand. Integument: Denies rash or skin lesions [] Neurologic: Denies headache, focal weakness or sensory changes [] Endocrine: Denies polyuria or polydipsia [] Current Medications Current Medications Current Medications Medications (Trade) Dose Ordered Sig/Linda Start Time Stop Time Status Last Admin Dose Admin Oxycodone/ Acetaminophen (Percocet 5/325) 1 tab 1X ONCE 01/05/17 19:45 01/05/17 19:46 DC 01/05/17 19:37 1 TAB Allergies Allergies Allergies Coded Allergies Type Severity Reaction Last Updated Verified venom-honey bee Allergy Severe Shortness of Air 11/22/13 Yes cimetidine Allergy Intermediate "toxic" 01/12/15 Yes cimetidine HCl Allergy Intermediate "toxic" 01/12/15 Yes Physical Exam Physical Exam Constitutional: Well developed, well nourished, mild distress secondary to pain , ice pack in place over hand, non-toxic appearance. [] HENT: Normocephalic, atraumatic, bilateral external ears normal, oropharynx moist, no oral exudates, nose normal. [] Eyes: PERRLA, EOMI, conjunctiva normal, no discharge. [] Neck: Normal range of motion, no tenderness, supple, no stridor. [] Cardiovascular:Heart rate regular rhythm, no murmur, S1, S2, rubs or gallops. [] Lungs & Thorax: Bilateral breath sounds clear to auscultation, no wheezing, rhonchi, rales. No chest wall crepitus or tenderness. [] Abdomen: Bowel sounds normal, soft, no rebound, rigidity, no guarding, no tenderness, no masses, no pulsatile masses. [] Skin: Warm, dry, no erythema, no rash. [] Back: No midline or paraspinal tenderness, no CVA tenderness. [] Extremities: Patient with tenderness palpation across the thenar eminence of the right hand, no deformity identified, no tenderness to palpation across the dorsal aspect, patient with full range of motion of the fingers aside from the thumb, mild pain with axial loading, does have range of motion of the wrist with some pain, no tenderness to palpation or pain in the forearm, elbow, shoulder, other extremities, skin is intact. No cyanosis, no clubbing, ROM intact, no edema. [] Neurologic: Alert and oriented X 3, normal motor function, normal sensory function, no focal deficits noted. [] Psychologic: Affect normal, judgement normal, mood normal. [] Current Patient Data Vital Signs Vital Signs Date Time Temp Pulse Resp B/P (MAP) Pulse Ox O2 Delivery O2 Flow Rate FiO2 01/05/17 19:37 20 96 Room Air 01/05/17 19:21 97.6 77 EKG EKG Not indicated. [] Radiology/Procedures Radiology/Procedures Right hand x-ray: Three-view: Patient with evidence of degenerative joint changes, no evidence of acute fracture or subluxation noted, no significant soft tissue swelling or other concerning findings identified. As interpreted by me. [] Course & Med Decision Making Course & Med Decision Making Pertinent Labs and Imaging studies reviewed. (See chart for details) Patient without significant swelling or obvious deformity to the hand. X-ray does not reveal evidence of acutely concerning findings. However, patient patient's pain with axial loading, and location of pain along the thenar eminence, thumb and into the wrist, patient was placed in a thumb spica splint for support and protection, and instructed to follow-up with Dr. lesa de la torre of orthopedics for additional evaluation and repeat x-ray as needed. Discussed with patient that sometimes x-ray findings can be delayed, also discussed the patient's x-rays of the over read by radiology in the morning and if any changes are identified she'll be contacted via telephone. Patient received Percocet in the emergency department, with improvement of symptoms, although she continued to have pain. We discussed concerning symptoms that were prompt return to the emergency department, and states use of medication. Patient discharged home in stable condition with prescription, precautions and plan as above Final Impression Final Impression [] Problems: Dragon Disclaimer Dragon Disclaimer This electronic medical record was generated, in whole or in part, using a voice recognition dictation system. Departure: Impression: Primary Impression: Right hand pain Disposition: 01 HOME, SELF-CARE Condition: IMPROVED Scripts Naproxen (NAPROXEN) 250 Mg Tablet 250 MG PO PRN BID Y for PAIN, #8 TAB Prov: NIURKA DUMONT DO 01/05/17 Docusate Sodium (COLACE) 100 Mg Capsule 1 CAP PO BID Y for CONSTIPATION, #20 CAP Prov: NIURKA DUMONT DO 01/05/17 Oxycodone Hcl/Acetaminophen (PERCOCET 5-325 MG TABLET) 1 Each Tablet 1 EACH PO PRN Q6HRS Y for PAIN, #12 TAB Prov: NIURKA DUMONT DO 01/05/17 Splinting [PATIENT/GUARDIAN/FAMILY:"Patient"] informed of findings. Right thumb spica splint applied by nurse Wendy, patient evaluated by myself, Dr. Dumont. Approximate stabilization, patient neurovascularly intact pre-and post- application. NIURKA DUMONT DO Jan 05, 2017 19:35
[2017-01-05] MEDS ORDERED: oxyCODONE/APAP 5/325 1 TAB TABLET PO ONE (19:45)
[2017-01-05] MEDS ORDERED: DOCU-109 PO (20:40)
[2017-01-05] MEDS ORDERED: OXYC-323 PO (20:40)
[2017-01-05] MEDS ORDERED: NAPR250T2 PO (20:40)
--- NOTE | 2017-01-06 07:51 | RAD ---
Right hand and right wrist radiograph 01/05/2017 at 1958 hours Indication: Fall, hand/wrist pain Comparison: None available Technique: 3 views of the right hand and 3 views of the right wrist are provided. Findings: Right hand: There is no acute fracture or dislocation. Mild interphalangeal joint space narrowing. No soft tissue swelling. No osseous erosion or soft tissue gas. Mild demineralization of the visualized osseous structures. Right wrist: There is joint space narrowing at the first carpometacarpal joint with tiny osteophytes. Distal radius and ulna are intact. Mild soft tissue swelling is noted. Impression: 1. No acute fracture or dislocation. 2. 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
== END 2017-01-05 21:05 | disposition home or self-care (01) ==
LOC: ER 19:04
DX: M79.641 Pain in right hand (principal); I25.10 Atherosclerotic heart disease of native coronary artery without angina pectoris; J44.9 Chronic obstructive pulmonary disease, unspecified; K21.9 Gastro-esophageal reflux disease without esophagitis; I10 Essential (primary) hypertension; Z87.891 Personal history of nicotine dependence; Z88.8 Allergy status to other drugs, medicaments and biological substances; Z91.030 Bee allergy status; W01.0XXA Fall on same level from slipping, tripping and stumbling without subsequent striking against object, initial encounter; Y93.89 Activity, other specified; Y99.8 Other external cause status; Y92.89 Other specified places as the place of occurrence of the external cause
CPT/HCPCS: 29125; 73110; 73130; 99284-25

== ENCOUNTER 2017-02-05 15:52 | Emergency (ER) | payer OTHER ==
[~2017-02-05] VITALS: Ht 149.9 cm; Wt 77.7 kg
[~2017-02-05 15:52] MED LIST changes: +DOCU-109 PO; +NAPR250T2 PO; +OXYC-323 PO
--- NOTE | 2017-02-05 17:08 | RAD ---
EXAM: Head CT without contrast. HISTORY: Fall. Headache. Dizziness. TECHNIQUE: Computed tomographic images of the head were obtained without contrast. *One or more of the following individualized dose reduction techniques were utilized for this examination: 1. Automated exposure control. 2. Adjustment of the mA and/or kV according to patient size. 3. Use of iterative reconstruction technique. COMPARISON: None. FINDINGS: There is no acute or subacute extra-axial or intraparenchymal hemorrhage. There is no mass effect or midline shift. There is no hydrocephalus. There are areas of decreased attenuation within the cerebral white matter, nonspecific and likely related to chronic small vessel disease. There is moderate to severe ethmoid sinus mucosal thickening. The mastoid air cells and orbits are unremarkable. No calvarial lesion is seen. IMPRESSION: 1. No acute intracranial finding. 2. Subtle areas of hypodensity within the cerebral white matter, a nonspecific finding likely due to chronic small vessel disease. Electronically signed by: Vikki Ceballos MD (02/05/2017 5:05 PM) [facility]
--- NOTE | 2017-02-05 17:42 | PHYS DOC ---
Past History Past Medical History: Anxiety, Asthma, CAD, COPD, GERD Past Surgical History: Knee Replacement, Tonsillectomy, Tubal ligation Smoking: Quit Greater Than 1 Year Alcohol Use: Occasionally Drug Use: None Adult General Chief Complaint Chief Complaint: HEAD INJURY/TRAUMA [facility] HPI Patient is a 66 year old F who presents with a fall. Lucia states that she fell just prior to arrival hitting her head. She feels that the pain in her head and neck are not different from her chronic pain. Review of Systems Review of Systems Constitutional: Denies fever or chills [] Eyes: Denies change in visual acuity, redness, or eye pain [] HENT: Denies nasal congestion or sore throat [] Respiratory: Denies cough or shortness of breath [] Cardiovascular: No additional information not addressed in HPI [] GI: Denies abdominal pain, nausea, vomiting, bloody stools or diarrhea [] : Denies dysuria or hematuria [] Musculoskeletal: Denies back pain or joint pain [] Integument: Denies rash or skin lesions [] Neurologic: Negative except history of present illness Endocrine: Denies polyuria or polydipsia [] Family History Family History Noncontributory Current Medications Current Medications Medications reviewed Allergies Allergies Allergies Coded Allergies Type Severity Reaction Last Updated Verified venom-honey bee Allergy Severe Shortness of Air 11/22/13 Yes cimetidine Allergy Intermediate "toxic" 01/12/15 Yes cimetidine HCl Allergy Intermediate "toxic" 01/12/15 Yes Physical Exam Physical Exam Constitutional: Well developed, well nourished, no acute distress, non-toxic appearance. [] HENT: Normocephalic, atraumatic, bilateral external ears normal, oropharynx moist, no oral exudates, nose normal. [] Eyes: PERRLA, EOMI, conjunctiva normal, no discharge. [] Neck: Normal range of motion,supple, no stridor. [] Perispinal muscle spasms Cardiovascular:Heart rate regular rhythm, no murmur [] Lungs & Thorax: Bilateral breath sounds clear to auscultation [] Abdomen: Bowel sounds normal, soft, no tenderness, no masses, no pulsatile masses. [] Skin: Warm, dry, no erythema, no rash. [] Back: No tenderness, no CVA tenderness. [] Extremities: No tenderness, no cyanosis, no clubbing, ROM intact, no edema. [] Neurologic: Alert and oriented X 3, normal motor function, normal sensory function, no focal deficits noted. [] Psychologic: Affect normal, judgement normal, mood normal. [] Current Patient Data Vital Signs Reviewed and within normal limits EKG EKG [] Radiology/Procedures Radiology/Procedures Head CT showed no acute disease [] Course & Med Decision Making Course & Med Decision Making Pertinent Labs and Imaging studies reviewed. (See chart for details) [] Dragon Disclaimer Dragon Disclaimer This chart was dictated in whole or in part using Voice Recognition software in a busy, high-work load, and often noisy Emergency Department environment. It may contain unintended and wholly unrecognized errors or omissions. Departure Departure: Impression: Primary Impression: Muscle spasm Disposition: 01 HOME, SELF-CARE Condition: STABLE Referrals: PRAKASH LUU (PCP) Additional Instructions: Lucia was seen in the ER for a fall. No emergency medical condition was found on his and physical exam. She did have normal imaging of her head. Her symptoms are most consistent with muscle spasm. She was given a prescription for muscle relaxer. She was strongly advised to consider yoga. She was advised to follow- up with her primary care doctor as soon as possible for further management of her chronic medical condition TREVOR ELAM MD Feb 05, 2017 17:42
[2017-02-05 17:55] VITALS: BP 159/85
== END 2017-02-05 17:55 | disposition home or self-care (01) ==
LOC: ER 15:52
DX: M62.838 Other muscle spasm (principal); G89.29 Other chronic pain; R51 Headache; M54.2 Cervicalgia; J44.9 Chronic obstructive pulmonary disease, unspecified; K21.9 Gastro-esophageal reflux disease without esophagitis; I25.10 Atherosclerotic heart disease of native coronary artery without angina pectoris; Z87.891 Personal history of nicotine dependence; Z88.8 Allergy status to other drugs, medicaments and biological substances; Z91.030 Bee allergy status; W18.09XA Striking against other object with subsequent fall, initial encounter; Y93.89 Activity, other specified; Y99.8 Other external cause status; Y92.89 Other specified places as the place of occurrence of the external cause
CPT/HCPCS: 70450; 99284-25

== ENCOUNTER 2017-04-16 17:48 | Emergency (ER) | payer OTHER ==
[~2017-04-16] VITALS: Ht 149.9 cm; Wt 77.7 kg
[~2017-04-16 17:48] MED LIST changes: -GUAI-107 PO; +GUAI-108 PO; -NAPR250T2 PO; +NAPR250T6 PO
[2017-04-16 18:20] VITALS: BP 110/65
--- NOTE | 2017-04-16 18:20 | ED.ADGEN ---
Past History Past Medical History: Anxiety, Asthma, CAD, COPD, GERD Past Surgical History: Knee Replacement, Tonsillectomy, Tubal ligation Smoking: Quit Greater Than 1 Year Alcohol Use: Occasionally Drug Use: None Adult General Chief Complaint Chief Complaint " My dog '[place]".. she tripped me up yesterday.. and I went down.. and hurt this hand and wrist..." (rt) " I am here with Mrs. Banks.. We are Neighbors.. are husbands hated each other... but they both this year... And we are the best friends now..." HPI HPI Patient is a 66 year old female who presents with Rt. hand wrist pain. Distal capillary refill less than 2 seconds. Patient is right hand dominant. Patient localizes pain in right scaphoid area and up on loading of thumb and first finger. Patient unable to pinch left forefinger and thumb because of pain. Patient does have findings of neuropathy on percussion of the medial nerve area. Patient does have findings of arthritic changes. Initial injury was a FOOSH type injury during a fall when she tripped over her dog yesterday. Patient does do extensive computer typing which seems to exacerbate the pain in right median nerve. Pain is worse at night. Patient denies history of gout or pseudogout. Patient denies any history of other injury from the fall. Patient normally follows with Dr. Hou. No recent travel or immunosuppression. Does have a history of hypertension. She has also lost her this year and accompanied patient in room A who has dental pain. Review of Systems Review of Systems Constitutional: Denies fever or chills [] Eyes: Denies change in visual acuity, redness, or eye pain [] HENT: Denies nasal congestion or sore throat [] Respiratory: Denies cough or shortness of breath [] Cardiovascular: No additional information not addressed in HPI [] GI: Denies abdominal pain, nausea, vomiting, bloody stools or diarrhea [] : Denies dysuria or hematuria [] Musculoskeletal: Denies back pain or joint pain [] Integument: Denies rash or skin lesions [] Neurologic: Denies headache, focal weakness or sensory changes [] Endocrine: Denies polyuria or polydipsia [] Family History Family History Noncontributory Current Medications Current Medications Current Medications Medications (Trade) Dose Ordered Sig/Linda Start Time Stop Time Status Last Admin Dose Admin Ketorolac Tromethamine (Toradol) 60 mg 1X ONCE 04/16/17 18:30 04/16/17 18:31 DC 04/16/17 18:30 60 MG See nursing for home medications Allergies Allergies Allergies Coded Allergies Type Severity Reaction Last Updated Verified venom-honey bee Allergy Severe Shortness of Air 11/22/13 Yes cimetidine Allergy Intermediate "toxic" 01/12/15 Yes cimetidine HCl Allergy Intermediate "toxic" 01/12/15 Yes Physical Exam Physical Exam Constitutional: Well developed, well nourished, in moderately acute distress, non-toxic appearance. [] HENT: Normocephalic, atraumatic, bilateral external ears normal, oropharynx moist, no oral exudates, nose normal. [] Eyes: PERRLA, EOMI, conjunctiva normal, no discharge. [] Neck: Normal range of motion, no tenderness, supple, no stridor. [] Cardiovascular:Heart rate regular rhythm, no murmur [] Lungs & Thorax: Bilateral breath sounds clear to auscultation [] Abdomen: Bowel sounds normal, soft, no tenderness, no masses, no pulsatile masses. [] Skin: Warm, dry, no erythema, no rash. [] Back: No tenderness, no CVA tenderness. [] Extremities: Right wrist and hand tenderness as per history of present illness, no cyanosis, no clubbing, ROM intact, no edema except in right hand. Patient is right-hand dominant. Arthritic changes. Bilateral knee surgery scars Neurologic: Alert and oriented X 3, normal motor function, normal sensory function, no focal deficits noted. [] Psychologic: Affect anxious, judgement normal, mood normal. [] Current Patient Data Vital Signs Vital Signs Date Time Temp Pulse Resp B/P (MAP) Pulse Ox O2 Delivery O2 Flow Rate FiO2 04/16/17 18:20 97.8 83 16 93 Room Air EKG EKG [] Radiology/Procedures Radiology/Procedures My interpretation of hand and wrist shows degenerative joint changes. There is some suspect degenerative joint area in right scaphoid and base of right thumb. [] Course & Med Decision Making Course & Med Decision Making Pertinent Labs and Imaging studies reviewed. (See chart for details). Ice, rest, elevation, splint, and consider re-x-ray in 2 weeks to see if there is callus formation of scaphoid. This may require orthopedic follow-up. Would not return to extensive computer work up to allow healing. May eventually need surgery consult for carpal tunnel syndrome. Tylenol and ibuprofen for pain. Follow-up primary care. Return if any concerns. Recommend follow-up orthopedics. [] Final Impression Final Impression 1. Hand Rt.[] and wrist injury 2. Degenerative joint changes 3. Possible scaphoid injury-fracture 4. Findings consistent with carpal tunnel syndrome Problems: Dragon Disclaimer Dragon Disclaimer This electronic medical record was generated, in whole or in part, using a voice recognition dictation system. DAVID MCLAUGHLIN MD Apr 16, 2017 18:20
[2017-04-16] MEDS ORDERED: KETOROLAC 60 MG/2 ML VIAL. IM ONE (18:30)
[2017-04-16] MEDS ORDERED: HYDR-79 PO (19:02)
--- NOTE | 2017-04-17 08:24 | RAD ---
Three-view right wrist radiographs 04/16/2017 Clinical history: Fall with injury to the right wrist. PA, lateral and oblique digital radiographs of the right wrist were obtained. No fracture or dislocation of the right wrist is seen. Mild to moderate degenerative changes are seen involving the radiocarpal joint, midcarpal joint and first carpometacarpal joint. Impression: No fracture or dislocation of the right wrist is seen.
--- NOTE | 2017-04-17 08:25 | RAD ---
Three-view right hand radiographs 04/16/2017 Clinical history: Fall with injury to the right hand. PA, lateral and oblique digital radiographs of the right hand were obtained. No fracture or dislocation of the right hand is seen. Mild to moderate degenerative changes are seen throughout the interphalangeal joints of the right hand along with the MCP joints and first carpometacarpal joint. Impression: No fracture or dislocation of the right hand is seen.
== END 2017-04-16 19:20 | disposition home or self-care (01) ==
LOC: ER 17:48
DX: S69.91XA Unspecified injury of right wrist, hand and finger(s), initial encounter (principal); G56.01 Carpal tunnel syndrome, right upper limb; M19.031 Primary osteoarthritis, right wrist; I25.10 Atherosclerotic heart disease of native coronary artery without angina pectoris; J44.9 Chronic obstructive pulmonary disease, unspecified; K21.9 Gastro-esophageal reflux disease without esophagitis; I10 Essential (primary) hypertension; F41.9 Anxiety disorder, unspecified; Z87.891 Personal history of nicotine dependence; Z88.8 Allergy status to other drugs, medicaments and biological substances; Z91.030 Bee allergy status; W01.0XXA Fall on same level from slipping, tripping and stumbling without subsequent striking against object, initial encounter; Y93.89 Activity, other specified; Y99.8 Other external cause status; Y92.89 Other specified places as the place of occurrence of the external cause
CPT/HCPCS: 29125; 73110; 73130; 96372; 99284; J1885; 99283

== ENCOUNTER 2017-08-17 01:25 | Observation (INO) | payer MEDICARE, OTHER ==
[~2017-08-17] VITALS: Ht 152.4 cm; Wt 77.6 kg
[~2017-08-17 01:25] MED LIST changes: +BENZ-8 PO; -BENZ100C15 PO; +HYDR-79 PO
--- NOTE | 2017-08-17 01:33 | ED.ADGEN ---
Past History Past Medical History: Anxiety, Asthma, CAD, COPD, GERD Past Surgical History: Knee Replacement, Tonsillectomy, Tubal ligation Smoking: Quit Greater Than 1 Year Alcohol Use: Occasionally Drug Use: None Adult General Chief Complaint Chief Complaint ".. This asthma and copd thing is kicking me again..." HPI HPI Patient is a 67 year old female who presents with above hx and complaints dyspnea, severe coughing episodes, wheezing, myalgia, malaise, and fevers. No recent travel or specific ill contacts. No history immunosuppression. Patient normally follows with Dr. Schmidt. Pt. does have hx of COPD, Asthma, and Arthritis. Review of Systems Review of Systems Constitutional: Subjective history of fever or chills [] Eyes: Denies change in visual acuity, redness, or eye pain [] HENT: History of nasal congestion and sore throat [] Respiratory: Severe coughing spasms and wheezing] Cardiovascular: No additional information not addressed in HPI [] GI: Denies abdominal pain, nausea, vomiting, bloody stools or diarrhea [] : Denies dysuria or hematuria [] Musculoskeletal: Denies back pain or joint pain [] Integument: Denies rash or skin lesions [] Neurologic: Denies headache, focal weakness or sensory changes [] Endocrine: Denies polyuria or polydipsia [] All other systems were reviewed and found to be within normal limits, except as documented in this note. Family History Family History Noncontributory Current Medications Current Medications Current Medications Medications (Trade) Dose Ordered Sig/Linda Start Time Stop Time Status Last Admin Dose Admin Albuterol/ Ipratropium (Duoneb) 3 ml 1X ONCE 08/17/17 04:00 08/17/17 04:15 DC 08/17/17 04:00 3 ML Aspirin (Huyen Aspirin) 325 mg 1X ONCE 08/17/17 02:00 08/17/17 02:01 DC 08/17/17 03:58 325 MG Azithromycin (Zithromax) 500 mg 1X ONCE 08/17/17 02:00 08/17/17 02:01 DC 08/17/17 03:58 500 MG Ceftriaxone Sodium 1 gm/ Sodium Chloride 50 ml @ 100 mls/hr 1X ONCE 08/17/17 01:45 08/17/17 02:14 UNV Ceftriaxone Sodium (Rocephin) 1 gm 1X ONCE 08/17/17 02:00 08/17/17 02:01 DC 08/17/17 02:00 1 GM Diphenhydramine HCl (Benadryl Oral Elixir) 25 mg 1X ONCE 08/17/17 05:30 08/17/17 05:31 DC 08/17/17 05:24 25 MG Enoxaparin Sodium (Lovenox 60mg Syringe) 60 mg 1X ONCE 08/17/17 05:15 08/17/17 05:16 UNV Enoxaparin Sodium (Lovenox 80mg Syringe) 70 mg BID 08/17/17 05:30 08/17/17 05:24 70 MG Info (Anti-Coagulation Monitoring By Pharmacy) 1 each PRN DAILY PRN 08/17/17 05:30 Methylprednisolone Sodium Succinate (SOLU-Medrol 125MG VIAL) 125 mg 1X ONCE 08/17/17 02:00 08/17/17 02:01 DC 08/17/17 03:58 125 MG Morphine Sulfate (Morphine 10mg Syringe) 10 mg 1X ONCE 08/17/17 05:30 08/17/17 05:31 DC 08/17/17 05:24 10 MG Ondansetron HCl (Zofran) 4 mg PRN Q4HRS PRN 08/17/17 05:00 08/18/17 04:59 Potassium Chloride (KCl Oral Soln) 40 meq 1X ONCE 08/17/17 05:30 08/17/17 05:31 DC Sodium Chloride 1,000 ml @ 100 mls/hr Q10H 08/17/17 02:00 08/17/17 11:59 08/17/17 03:58 100 MLS/HR See nursing for home meds Allergies Allergies Allergies Coded Allergies Type Severity Reaction Last Updated Verified venom-honey bee Allergy Severe Shortness of Air 11/22/13 Yes adhesive Allergy Intermediate 08/17/17 Yes cimetidine Allergy Intermediate "toxic" 01/12/15 Yes cimetidine HCl Allergy Intermediate "toxic" 01/12/15 Yes Physical Exam Physical Exam Constitutional: Moderately acute distress, non-toxic appearance. [] HENT: Normocephalic, atraumatic, bilateral external ears normal, oropharynx moist, injected pharynx, no oral exudates, nose rhinorrhea Eyes: PERRLA, EOMI, conjunctiva normal, no discharge. [] Neck: Normal range of motion, no tenderness, supple, no stridor. [] Cardiovascular:Heart rate regular rhythm, no murmur [] Lungs & Thorax: Bilateral breath sounds equal with scattered wheezes throughout on auscultation []Severe episodes of periodic coughing spasms. Abdomen: Bowel sounds normal, soft, no tenderness, no masses, no pulsatile masses. [] Skin: Warm, dry, no erythema, no rash. [] Back: No tenderness, no CVA tenderness. [] Extremities: No tenderness, no cyanosis, no clubbing, ROM intact, no edema. No cording appreciated. Knee surgical scars. Neurologic: Alert and oriented X 3, normal motor function, normal sensory function, no focal deficits noted. [] Psychologic: Affect anxious, judgement normal, mood normal. [] Current Patient Data Vital Signs Vital Signs Date Time Temp Pulse Resp B/P (MAP) Pulse Ox O2 Delivery O2 Flow Rate FiO2 08/17/17 05:32 104 18 122/65 (84) 94 Room Air 08/17/17 02:34 98.7 Lab Results Laboratory Tests Test 08/17/17 01:47 08/17/17 01:51 08/17/17 01:55 08/17/17 04:08 Urine Collection Type Unknown Urine Color Yellow Urine Clarity Clear Urine pH 5.0 Urine Specific [place] 1.015 Urine Protein Neg (NEG-TRACE) Urine Glucose (UA) Neg mg/dL (NEG) Urine Ketones (Stick) Trace mg/dL (NEG) Urine Blood Small (NEG) Urine Nitrite Neg (NEG) Urine Bilirubin Neg (NEG) Urine Urobilinogen Dipstick 0.2 mg/dL (0.2 mg/dL) Urine Leukocyte Esterase Large (NEG) Urine RBC Occ /HPF (0-2) Urine WBC >40 /HPF (0-4) Urine Squamous Epithelial Cells Occ /LPF Urine Bacteria Few /HPF (0-FEW) Urine Opiates Screen Neg (NEG) Urine Methadone Screen Neg (NEG) Urine Barbiturates Neg (NEG) Urine Phencyclidine Screen Neg (NEG) Urine Amphetamine/Methamphetamine Neg (NEG) Urine Benzodiazepines Screen Neg (NEG) Urine Cocaine Screen Neg (NEG) Urine Cannabinoids Screen Neg (NEG) Urine Ethyl Alcohol Neg (NEG) Influenza Type A (Rapid) Negative (NEGATIVE) Influenza Type B (Rapid) Negative (NEGATIVE) Group A Streptococcus Rapid Negative (NEGATIVE) White Blood Count 12.8 x10^3/uL (4.0-11.0) H Red Blood Count 5.22 x10^6/uL (3.50-5.40) Hemoglobin 15.5 g/dL (12.0-15.5) Hematocrit 46.3 % (36.0-47.0) Mean Corpuscular Volume 89 fL (79-100) Mean Corpuscular Hemoglobin 30 pg (25-35) Mean Corpuscular Hemoglobin Concent 33 g/dL (31-37) Red Cell Distribution Width 14.3 % (11.5-14.5) Platelet Count 221 x10^3/uL (140-400) Neutrophils (%) (Auto) 67 % (31-73) Lymphocytes (%) (Auto) 22 % (24-48) L Monocytes (%) (Auto) 7 % (0-9) Eosinophils (%) (Auto) 4 % (0-3) H Basophils (%) (Auto) 1 % (0-3) Neutrophils # (Auto) 8.5 x10^3uL (1.8-7.7) H Lymphocytes # (Auto) 2.8 x10^3/uL (1.0-4.8) Monocytes # (Auto) 0.8 x10^3/uL (0.0-1.1) Eosinophils # (Auto) 0.5 x10^3/uL (0.0-0.7) Basophils # (Auto) 0.1 x10^3/uL (0.0-0.2) Prothrombin Time 10.7 SEC (9.4-11.4) Prothrombin Time INR 1.0 (0.9-1.1) PTT 22 SEC (23-33) L D-Dimer (Tracy) 0.55 mg/L (0.00-0.50) H Sodium Level 140 mmol/L (136-145) Potassium Level 3.2 mmol/L (3.5-5.1) L Chloride Level 104 mmol/L (98-107) Carbon Dioxide Level 24 mmol/L (21-32) Anion Gap 12 (6-14) Blood Urea Nitrogen 9 mg/dL (7-20) Creatinine 0.7 mg/dL (0.6-1.0) Estimated GFR (Cockcroft-Gault) 84.0 Glucose Level 117 mg/dL (70-99) H Calcium Level 8.6 mg/dL (8.5-10.1) Magnesium Level 1.8 mg/dL (1.8-2.4) Total Bilirubin 0.5 mg/dL (0.2-1.0) Direct Bilirubin 0.1 mg/dL (0.0-0.2) Aspartate Amino Transferase (AST) 21 U/L (15-37) Alanine Aminotransferase (ALT) 27 U/L (14-59) Alkaline Phosphatase 56 U/L (46-116) Creatine Kinase 158 U/L (26-192) Creatine Kinase MB (Mass) < 0.5 ng/mL (0.0-3.6) Creatine Kinase MB Relative Index 0.3 % (0-4) Troponin I Quantitative < 0.017 ng/mL (0-0.055) XN-Sxc-I-Type Natriuretic Peptide 54 pg/mL (0-124) Total Protein 6.9 g/dL (6.4-8.2) Albumin 3.8 g/dL (3.4-5.0) Lipase 135 U/L (73-393) EKG EKG My interpretation EKG shows a sinus rhythm at 88 bpm. No findings acute STEMI. With contralateral changes .There is some nonspecific T-wave changes in the lateral leads.[] Radiology/Procedures Radiology/Procedures My interpretation chest x-ray shows emphysema/COPD type pattern. No large infiltrate. [] Course & Med Decision Making Course & Med Decision Making Pertinent Labs and Imaging studies reviewed. (See chart for details)- Pt. has had multiple blood draws- Full labs pending at time of admission. Discussed presentation, testing and tx. plan with Dr. Canas.- will admit for further eval and tx. 0500. [] Final Impression Final Impression 1. COPD exacerbation[] 2. Leukocytosis 3. UTI 4. Hypokalemia 5. Elevated D-dimer Problems: Dragon Disclaimer Dragon Disclaimer This electronic medical record was generated, in whole or in part, using a voice recognition dictation system. DAVID MCLAUGHLIN MD Aug 17, 2017 01:33
--- NOTE | 2017-08-17 01:47 | EKG ---
[address] [address] Test Date: 2017-08-17 Test Time: 01:35:48 Pat Name: ALEXY LANGE Department: Room: Gender: F Drilling Inspector: : [id number] Requested By: DAVID MCLAUGHLIN Order Number: [id number] Reading MD: Tito Rooney Measurements Intervals [place] Rate: 88 P: 17 WV: 140 QRS: 33 QRSD: 94 T: 84 QT: 350 QTc: 427 Interpretive Statements SINUS RHYTHM ANTERIOR ST ELEVATION T ABNORMALITY IN LATERAL LEADS ABNORMAL ECG RI6.01 Electronically Signed On 08-17-2017 12:43:56 HANDICAPPED TEACHER by Tito Rooney
[2017-08-17] MEDS ORDERED: IV NORMAL SALINE 1,000ML 1,000 ML IV SCH (02:00)
[2017-08-17] MEDS ORDERED: AZITHROMYCIN 250 MG TABLET. PO ONE (02:00)
[2017-08-17] MEDS ORDERED: methylPREDNISolone SOD SUCC PF 125 MG/2 ML VIAL. IV ONE (02:00)
[2017-08-17] MEDS ORDERED: ASPIRIN 325 MG TABLET PO ONE (02:00)
[2017-08-17] MEDS ORDERED: cefTRIAXone IV Push 1 GM VIAL. IVP ONE (02:00)
[2017-08-17] MEDS ORDERED: IPRATRPIUM/ALBUTEROL 0.5/2.5MG 3 ML NEBU. NEB ONE ×3 (02:00→10:15)
[2017-08-17 02:28] LABS: AMPHETAMINE/METHAMPHETAMINE NEG (NEG); BARBITURATES NEG (NEG); BENZODIAZEPINES NEG (NEG); CANNABINOIDS NEG (NEG); COCAINE NEG (NEG); METHADONE NEG (NEG); OPIATES NEG (NEG); PHENCYCLIDINE NEG (NEG)
[2017-08-17 02:41] LABS: BACTERIA,URINE FEW /HPF (0-FEW); BILIRUBIN,URINE NEG (NEG); CLARITY,URINE CLEAR; COLOR,URINE YELLOW; GLUCOSE,URINE NEG (NEG); NITRITE,URINE NEG (NEG); RBC,URINE OCC /HPF (0-2); SQUAMOUS EPITHELIAL CELL,UR OCC /LPF; UROBILINOGEN,URINE 0.2 mg/dL (0.2 mg/dL); WBC,URINE >40 /HPF (0-4)
[2017-08-17 02:45] LABS: INFLUENZA A PATIENT NEGATIVE (NEGATIVE); INFLUENZA B PATIENT NEGATIVE (NEGATIVE)
[2017-08-17 04:28] LABS: BASO # 0.1 x10^3/uL (0.0-0.2); BASO % 1 % (0-3); EOS # 0.5 x10^3/uL (0.0-0.7); EOS % 4 % (0-3); HEMATOCRIT 46.3 % (36.0-47.0); HEMOGLOBIN 15.5 g/dL (12.0-15.5); LYMPH # 2.8 x10^3/uL (1.0-4.8); LYMPH % 22 % (24-48); MEAN CORPUSCULAR HEMOGLOBIN 30 pg (25-35); MEAN CORPUSCULAR HGB CONC 33 g/dL (31-37); MEAN CORPUSCULAR VOLUME 89 fL (79-100); MONO # 0.8 x10^3/uL (0.0-1.1); MONO % 7 % (0-9); NEUT # 8.5 x10^3uL (1.8-7.7); NEUT % 67 % (31-73); PLATELET COUNT 221 x10^3/uL (140-400); RED BLOOD COUNT 5.22 x10^6/uL (3.50-5.40); RED CELL DISTRIBUTION WIDTH 14.3 % (11.5-14.5); WHITE BLOOD COUNT 12.8 x10^3/uL (4.0-11.0)
[2017-08-17] MEDS ORDERED: ONDANSETRON PF 4 MG/2 ML VIAL. IV PRN (05:00)
[2017-08-17 05:02] LABS: ALBUMIN 3.8 g/dL (3.4-5.0); ALK PHOS 56 U/L (46-116); ALT (SGPT) 27 U/L (14-59); ANION GAP 12 (6-14); AST (SGOT) 21 U/L (15-37); BLOOD UREA NITROGEN 9 mg/dL (7-20); CALCIUM 8.6 mg/dL (8.5-10.1); CARBON DIOXIDE 24 mmol/L (21-32); CHLORIDE 104 mmol/L (98-107); CREATININE 0.7 mg/dL (0.6-1.0); DIRECT BILIRUBIN 0.1 mg/dL (0.0-0.2); GLUCOSE 117 mg/dL (70-99); LIPASE 135 U/L (73-393); MAGNESIUM 1.8 mg/dL (1.8-2.4); POTASSIUM 3.2 mmol/L (3.5-5.1); SODIUM 140 mmol/L (136-145); TOTAL BILIRUBIN 0.5 mg/dL (0.2-1.0); TOTAL PROTEIN 6.9 g/dL (6.4-8.2)
[2017-08-17] MEDS ORDERED: ENOXAPARIN ** NOTE DOSE ** SYRINGE SQ ONE (05:15)
[2017-08-17] MEDS ORDERED: diphenhydrAMINE ORAL ELIXIR 12.5 MG/5 ML ML PO ONE (05:30)
[2017-08-17] MEDS ORDERED: ENOXAPARIN ** NOTE DOSE ** SYRINGE SQ SCH (05:30)
[2017-08-17] MEDS ORDERED: ANTI-COAG MONITOR BY PHARMACY. MC PRN (05:30)
[2017-08-17] MEDS ORDERED: POTASSIUM CHLORIDE 20 MEQ/15 ML ORAL LIQUID. PO ONE (05:30)
[2017-08-17] MEDS ORDERED: MORPHINE SULFATE 10 MG/ML SYRINGE. SQ ONE (05:30)
[2017-08-17 06:48] VITALS: BP 103/62
--- NOTE | 2017-08-17 07:13 | RAD ---
Chest, 2 views, 08/17/2017: History: Cough, dyspnea Comparison is made to a study from 09/11/2016. The heart size and pulmonary vascularity are within normal limits. There is calcific plaquing of the thoracic aorta. No pulmonary infiltrate is seen. There is no evidence of pleural fluid. Mild scattered spurs are present in the spine. IMPRESSION: No acute cardiopulmonary abnormality is detected.
[2017-08-17] MEDS: methylPREDNISolone SOD SUCC PF 125 MG/2 ML VIAL. IV SCH (09:00)
[2017-08-17] MEDS ORDERED: METO25TA2 PO (09:05)
[2017-08-17] MEDS ORDERED: OXYC-323 PO (09:05)
[2017-08-17] MEDS ORDERED: MONT10TA9 PO (09:05)
--- NOTE | 2017-08-17 09:21 | RAD ---
Bilateral lower extremity venous ultrasound, 08/17/2017: History: Elevated d-dimer Duplex evaluation of the deep veins in the lower extremities was performed including grayscale, color-flow and spectral Doppler analysis. The femoral and popliteal veins demonstrate normal compressibility and normal responses to distal augmentation maneuvers. Color imaging of those vessels shows no evidence of intraluminal clot. The visualized deep veins in both calves are patent. IMPRESSION: There is no sonographic evidence of deep vein thrombosis in either lower extremity.
[2017-08-17] MEDS ORDERED: CLOPIDOGREL BISULFATE 75 MG TABLET PO SCH (09:30)
[2017-08-17] MEDS ORDERED: ASPIRIN ENTERIC COATED 81 MG TABLET.DR. PO SCH (09:30)
[2017-08-17] MEDS ORDERED: METOPROLOL SUCC 24HR ER 25 MG TAB.ER.24H. PO SCH (09:30)
[2017-08-17] MEDS ORDERED: MONTELUKAST 10 MG TABLET. PO SCH (09:30)
[2017-08-17] MEDS: LACTOBACILLUS RHAMNOSUS GG 1 CAPSULE. PO SCH ×2 (10:02→20:33)
[2017-08-17] MEDS: FLUTICASONE 50MCG/NASAL SPRAY 16GM BOTTLE. NS SCH (10:03)
[2017-08-17] MEDS: METOPROLOL SUCC 24HR ER 25 MG TAB.ER.24H. PO SCH (10:03)
[2017-08-17] MEDS: IPRATRPIUM/ALBUTEROL 0.5/2.5MG 3 ML NEBU. NEB SCH ×4 (10:03→21:01)
[2017-08-17] MEDS: ASPIRIN ENTERIC COATED 81 MG TABLET.DR. PO SCH (10:03)
[2017-08-17] MEDS: CLOPIDOGREL BISULFATE 75 MG TABLET PO SCH (10:03)
[2017-08-17] MEDS: MONTELUKAST 10 MG TABLET. PO SCH (10:10)
[2017-08-17] MEDS ORDERED: HYDROcodone/CHLORPHEN POLIS 5 ML SUS.ER.12H PO PRN (10:15)
[2017-08-17] MEDS ORDERED: HYDROcodone/CHLORPHEN POLIS 5 ML SUS.ER.12H PO ONE (10:15)
[2017-08-17 10:26] VITALS: BP 103/55
[2017-08-17] MEDS: ALBUTEROL SULFATE 2.5 MG/3 ML NEBU. NEB SCH ×2 (12:00→18:00)
[2017-08-17] MEDS: BUDESONIDE 0.5 MG/2 ML NEBU NEB SCH ×2 (12:00→21:01)
--- NOTE | 2017-08-17 13:34 | HP ---
ADMIT DATE: 08/17/2017 REASON FOR ADMISSION: This is a 67-year-old female who I previously cared for, who reports a 2-3 day history of aching and being cold. She tried to treat herself with some chicken noodle soup and home remedies; however, continued to be achy and cold and with some sputum production went from [id number], now it's greenish-yellow. Blood pressure also was up 2 nights ago and was up a lot yesterday. She also felt quite sick Tuesday night, was dizzy and disoriented and weak. She is due to have a knee replacement this week, but it will have to be postponed. PAST MEDICAL HISTORY: Reflux, hyperlipidemia, COPD, osteoarthritis, gastritis, gastric ulcers, anxiety. PAST SURGICAL HISTORY: Left wrist fracture, had an open reduction and internal fixation of the left wrist, right total knee, tubal ligation and tonsillectomy. ALLERGIES: TAGAMET and BEE VENOM, and ADHESIVE. REVIEW OF SYSTEMS: As per HPI, also chronic left knee pain due to osteoarthritis and need for knee replacement. OBJECTIVE: VITAL SIGNS: Blood pressure is 103/55, pulse 97, temperature 97.7, respirations 20, pulse ox 99% on room air. She also had 92% on room air earlier this morning noted. GENERAL: Mildly ill appearing. She had a high-pitched cough. HEENT: Hearing is normal. Eyes clear. Throat is clear. She is edentulous, does have some congestion. NECK: Supple without adenopathy. LUNGS: With diffuse wheezes. CARDIOVASCULAR: Regular rhythm and rate. ABDOMEN: Soft, nontender. EXTREMITIES: Without edema. LABORATORY AND DIAGNOSTIC DATA: White blood cell count 12.8. Chemistry: Potassium 3.2. Troponin is 0.017. D-dimer is 0.55, V/Q scan is pending. Urinalysis is greater than 40 white cells, leukocyte esterase large. Influenza is negative. Strep is negative. ASSESSMENT: 1. Acute exacerbation of chronic obstructive pulmonary disease. 2. Acute bronchitis. 3. Leukocytosis does not appear septic. 4. Elevated D-dimer. VQ scan is pending. 5. Hypokalemia. We will replace. 6. Urinary tract infection. PLAN: IV antibiotics, steroids, breathing treatments, V/Q scan, and IV fluids. MALORIE YANEZ DO DR: Sebas JOB#: [id number] / [id number]
[2017-08-17 14:41] VITALS: BP 98/64
--- NOTE | 2017-08-17 15:53 | RAD ---
Ventilation/perfusion lung scan, 08/17/1999 813: History: Elevated d-dimer The ventilation study was performed utilizing 10 mCi of xenon-133. Activity in the lungs is homogeneous. There is mild patchy retention of activity in both lungs on the washout phase. Perfusion imaging was performed utilizing 5.5 mCi of technetium 99m MAA. A similar pattern of activity is present in the lungs. No segmental or unmatched perfusion defects are seen. IMPRESSION: 1. Abnormal ventilation study suggesting obstructive pulmonary disease. 2. No VQ findings to suggest pulmonary emboli.
[2017-08-17 19:23] VITALS: BP 113/63
[2017-08-17] MEDS: ATORVASTATIN CALCIUM 20 MG TABLET PO SCH (20:33)
[2017-08-17] MEDS ORDERED: NON FORMULARY ITEM (Fluticasone/Salmeterol (Advair 250-50 Diskus) 1 EACH) IH SCH (21:00)
[2017-08-17] MEDS: cefTRIAXone IV Push 1 GM VIAL. IVP SCH (21:52)
[2017-08-17 22:55] VITALS: BP 102/58
[2017-08-18] MEDS: oxyCODONE/APAP 5/325 1 TAB TABLET PO PRN ×2 (02:18→23:49)
[2017-08-18 04:50] VITALS: BP 125/74
[2017-08-18] MEDS: ALBUTEROL SULFATE 2.5 MG/3 ML NEBU. NEB SCH ×5 (05:58→21:45)
[2017-08-18 06:58] LABS: BASO % 0 % (0-3); EOS % 0 % (0-3); HEMATOCRIT 41.3 % (36.0-47.0); HEMOGLOBIN 13.7 g/dL (12.0-15.5); LYMPH # 2.2 x10^3/uL (1.0-4.8); LYMPH % 18 % (24-48); MEAN CORPUSCULAR HEMOGLOBIN 30 pg (25-35); MEAN CORPUSCULAR HGB CONC 33 g/dL (31-37); MEAN CORPUSCULAR VOLUME 90 fL (79-100); MONO # 1.1 x10^3/uL (0.0-1.1); MONO % 9 % (0-9); NEUT # 9.1 x10^3uL (1.8-7.7); NEUT % 73 % (31-73); PLATELET COUNT 219 x10^3/uL (140-400); RED BLOOD COUNT 4.61 x10^6/uL (3.50-5.40); RED CELL DISTRIBUTION WIDTH 14.6 % (11.5-14.5); WHITE BLOOD COUNT 12.4 x10^3/uL (4.0-11.0)
[2017-08-18 07:17] LABS: ALBUMIN 3.4 g/dL (3.4-5.0); ALBUMIN/GLOBULIN RATIO 1.1 (1.0-1.7); CALCIUM 8.3 mg/dL (8.5-10.1); CREATININE 0.8 mg/dL (0.6-1.0); POTASSIUM 3.8 mmol/L (3.5-5.1); TOTAL BILIRUBIN 0.2 mg/dL (0.2-1.0); TOTAL PROTEIN 6.5 g/dL (6.4-8.2)
[2017-08-18] MEDS ORDERED: METOPROLOL TART IMMED RELEASE 25 MG TABLET PO SCH (09:00)
[2017-08-18] MEDS: FLUTICASONE 50MCG/NASAL SPRAY 16GM BOTTLE. NS SCH (09:00)
[2017-08-18] MEDS ORDERED: NON FORMULARY ITEM (Fluticasone Propionate (Flonase Allergy Relief) 2 SPRAYS) NS SCH (09:00)
[2017-08-18] MEDS: MONTELUKAST 10 MG TABLET. PO SCH (09:33)
[2017-08-18] MEDS: ASPIRIN ENTERIC COATED 81 MG TABLET.DR. PO SCH (09:33)
[2017-08-18] MEDS: LACTOBACILLUS RHAMNOSUS GG 1 CAPSULE. PO SCH ×2 (09:33→20:06)
[2017-08-18] MEDS: METOPROLOL SUCC 24HR ER 25 MG TAB.ER.24H. PO SCH (09:34)
[2017-08-18] MEDS: CLOPIDOGREL BISULFATE 75 MG TABLET PO SCH (09:34)
[2017-08-18] MEDS: AZITHROMYCIN 250 MG TABLET. PO SCH (09:34)
[2017-08-18] MEDS: methylPREDNISolone SOD SUCC PF 125 MG/2 ML VIAL. IV SCH (09:35)
[2017-08-18] MEDS: ENOXAPARIN 40 MG/0.4 ML DISP.SYRIN. SQ SCH (09:50)
[2017-08-18] MEDS: BUDESONIDE 0.5 MG/2 ML NEBU NEB SCH ×3 (10:51→21:45)
[2017-08-18 11:00] VITALS: BP 118/75
[2017-08-18] MEDS ORDERED: SODIUM CHLORIDE 0.65% NASAL SPRAY 45ML BOTTLE. NS PRN (12:30)
--- NOTE | 2017-08-18 12:49 | PN ---
DATE: 08/18/2017 CURRENT PROBLEMS: 1. Sepsis with UTI, culture pending. 2. Acute exacerbation of COPD. 3. Acute on chronic hypoxic respiratory failure. 4. Elevated D-dimer. V/Q scan negative. Doing a little bit better today, still short of breath, still sat 91% on room air, still very congested and weak. OBJECTIVE: VITAL SIGNS: Blood pressure 102/58, pulse 102, respirations 18, temperature 98.3, pulse ox 91-93% on room air. HEENT: The patient still has a lot of nasal congestion. Throat was clear. NECK: Supple. LUNGS: With scattered wheezes. CARDIOVASCULAR: Regular rhythm and rate. ABDOMEN: Soft, nontender. EXTREMITIES: Without edema. LABORATORY DATA: Shows elevated white count, probably compounded by steroids. PLAN: Continue antibiotics and wait for the urine culture, probably could benefit from ____. She is drinking fluids, so we will not initiate IV fluids, but we will keep an eye on her blood pressure. MALORIE YANEZ DO DR: NADER/nick JOB#: [id number] / [id number]
[2017-08-18 14:57] VITALS: BP 99/56
[2017-08-18 19:11] VITALS: BP 107/66
[2017-08-18] MEDS: cefTRIAXone IV Push 1 GM VIAL. IVP SCH (20:06)
[2017-08-18] MEDS: ATORVASTATIN CALCIUM 20 MG TABLET PO SCH (20:06)
[2017-08-18 23:05] VITALS: BP 136/68
[2017-08-19 05:02] VITALS: BP 136/76
[2017-08-19] MEDS: ALBUTEROL SULFATE 2.5 MG/3 ML NEBU. NEB SCH ×2 (05:56→09:47)
[2017-08-19] MEDS: FLUTICASONE 50MCG/NASAL SPRAY 16GM BOTTLE. NS SCH (09:00)
[2017-08-19] MEDS: CLOPIDOGREL BISULFATE 75 MG TABLET PO SCH (09:02)
[2017-08-19] MEDS: ASPIRIN ENTERIC COATED 81 MG TABLET.DR. PO SCH (09:02)
[2017-08-19] MEDS: AZITHROMYCIN 250 MG TABLET. PO SCH (09:02)
[2017-08-19] MEDS: LACTOBACILLUS RHAMNOSUS GG 1 CAPSULE. PO SCH (09:02)
[2017-08-19] MEDS: methylPREDNISolone SOD SUCC PF 125 MG/2 ML VIAL. IV SCH (09:02)
[2017-08-19] MEDS: ENOXAPARIN 40 MG/0.4 ML DISP.SYRIN. SQ SCH (09:03)
[2017-08-19] MEDS: MONTELUKAST 10 MG TABLET. PO SCH (09:03)
[2017-08-19] MEDS: METOPROLOL SUCC 24HR ER 25 MG TAB.ER.24H. PO SCH (09:03)
[2017-08-19] MEDS ORDERED: PRED20TA PO (09:31)
[2017-08-19] MEDS ORDERED: HYDROcodone/CHLORPHEN POLIS PO (09:31)
[2017-08-19] MEDS ORDERED: DOXY100C14 PO (09:36)
[2017-08-19] MEDS ORDERED: PANT40TA3 PO (09:43)
[2017-08-19] MEDS: BUDESONIDE 0.5 MG/2 ML NEBU NEB SCH (09:47)
[2017-08-19 11:03] VITALS: BP 110/64
[2017-08-19] MEDS ORDERED: FOSFOMYCIN TROMETHAMINE 3 GM PACKET PO ONE (13:00)
--- NOTE | 2017-08-19 22:20 | DS ---
DATE OF DISCHARGE: 08/19/2017 DISCHARGE DIAGNOSES: 1. Sepsis with urinary tract infection. Culture is pending. 2. Acute exacerbation of chronic obstructive pulmonary disease. 3. Hypoxic respiratory failure. HOSPITAL COURSE: A 67-year-old was admitted for the above problems. She was treated with IV steroids, IV antibiotics. ____her VQ scan was negative for PE. She improved during her hospital stay and was ready for discharge on 08/19/2017. Blood pressure 99/56, temperature 97.3, pulse 88, respirations 20, pulse ox was 91% to 93% on room air. DISPOSITION: To home. She received Zithromax and ceftriaxone in the hospital. We will give her 1 dose of fosfomycin prior to discharge. MALORIE YANEZ DO DR: NADER/nick JOB#: [id number] / [id number]
== END 2017-08-19 14:41 | disposition home or self-care (01) ==
LOC: ER 01:25 → INTOOBSV 05:59 → 1 SOUTH 05:59
PROVIDERS: ADMIT Family Medicine; ATTEND Family Medicine
DX: A41.9 Sepsis, unspecified organism (principal); J96.00 Acute respiratory failure, unspecified whether with hypoxia or hypercapnia; J44.1 Chronic obstructive pulmonary disease with (acute) exacerbation; D72.829 Elevated white blood cell count, unspecified; R79.1 Abnormal coagulation profile; E87.6 Hypokalemia; N39.0 Urinary tract infection, site not specified; J20.9 Acute bronchitis, unspecified; E78.5 Hyperlipidemia, unspecified; M19.90 Unspecified osteoarthritis, unspecified site; K21.9 Gastro-esophageal reflux disease without esophagitis; Z87.891 Personal history of nicotine dependence
CPT/HCPCS: 36415; 71046; 78582; 80048; 80053; 80076; 80307; 81001; 82553; 83690; 83735; 83880; 84443; 84484; 85025; 85379; 85610; 85730; 87040; 87070; 87086; 87804; 87880; 93005; 93970; 94640; 96361; 96372; 96374; 96375; 96376; 99285; A9540; A9558; G0378; J0456; J0696; J1650; J2270; J2930; J7613; J7620; J7626; 96360; G0379; G0479; J7030

== ENCOUNTER 2017-12-28 01:02 | Observation (INO) | payer OTHER ==
[2017-12-28] VITALS (8 sets, daily range): BP systolic 106–148; BP diastolic 60–86
[~2017-12-28] VITALS: Ht 152.4 cm; Wt 76.7 kg
[~2017-12-28 01:02] MED LIST changes: +CLON0.5T11 PO; -CLON0.5T3 PO; +HYDROcodone/CHLORPHEN POLIS PO; -IPRA3AMP IH; -IPRA3AMP NEB; +IPRA3AMP29 IH; +IPRA3AMP29 NEB; +METO25TA2 PO; +MONT10TA9 PO; +RANI150T21 PO; -RANI150T6 PO
--- NOTE | 2017-12-28 01:13 | ED.ADGEN ---
Past History Past Medical History: Anxiety, Asthma, Bronchitis, COPD, Depression, GERD, IBS , Other Past Surgical History: No Surgical History, Angioplasty, Hysterectomy, Knee Replacement, Other Smoking: Quit Greater Than 1 Year Alcohol Use: None Drug Use: None Adult General Chief Complaint Chief Complaint ".. I was diagnosed with Rhinovirus.. but I have not gotten better... still short of breath.. fatigued..." " Tonight I started getting Hives.. itchy everywhere.. . .. almost like I got an allergic reaction...but I am not on any antibiotics.. and have done nothing new" HPI HPI Patient is a 67 year old female who presents with above hx and complaints congestion, hives, urticaria, pruritus, nausea, dyspnea, fever, malaise, myalgia and fatigue. Pt. follows with Dr. Schmidt as primary and Dr. Mcfadden cardiology. Pt. last admitted at [facility]. 12/14/17. Pt. completed medrol dose pack 4 days ago. Non- productive cough. Denies hx of immunosuppression, specific ill contacts or recent travel. No changes in foods , hygiene products, soaps, or new meds such as antibiotics. Pt has hx of exacerbation of Asthma like complaints with abrupt cessation of steroids. No specific hx of triggers of her asthma exacerbations. Pt. has not smoked for years. Est. 40 pack yrs. Tob. use. Pt. does not know her best peak flow or PFT's findings. Pt. has hx of rheumatological modalities. Pt. denies any work up for vasculitis or specific inflammatory disorders. Pt. has hx COPD, CARDz with 3 stents, HTN, Hx. Steroid dependent Asthma / Reactive airway, Nausea, GERD, Depression, Anxiety, Dysphagia, Chronic Pain, LBB, Osteoarthritis , IBS, Chronic Pain, Gait disorder ect. Review of Systems Review of Systems Constitutional: Hx. of fever or chills [] Eyes: Denies change in visual acuity, redness, or eye pain [] HENT: Hx. nasal congestion and sore throat [] Respiratory: Hx of cough , wheezing and shortness of breath [] Cardiovascular: No additional information not addressed in HPI [] GI: Denies abdominal pain,, vomiting, bloody stools or diarrhea [] Hx. of nausea : Denies dysuria or hematuria [] Musculoskeletal: Denies back pain or joint pain [] Integument: Denies rash or skin lesions [] Neurologic: Denies headache, focal weakness or sensory changes [] Endocrine: Denies polyuria or polydipsia [] All other systems were reviewed and found to be within normal limits, except as documented in this note. Family History Family History CADz, HTN, DM Current Medications Current Medications Current Medications Medications (Trade) Dose Ordered Sig/Linda Start Time Stop Time Status Last Admin Dose Admin Albuterol/ Ipratropium (Duoneb) 3 ml 1X ONCE 12/28/17 01:30 12/28/17 01:31 DC 12/28/17 01:47 3 ML Aspirin (Children'S Aspirin) 324 mg 1X ONCE 12/28/17 01:30 12/28/17 01:31 DC 12/28/17 01:46 324 MG Ceftriaxone Sodium 1 gm/ Sodium Chloride 50 ml @ 100 mls/hr 1X ONCE 12/28/17 02:30 12/28/17 02:59 UNV Diphenhydramine HCl (Benadryl) 25 mg 1X ONCE 12/28/17 02:00 12/28/17 02:01 DC 12/28/17 02:12 25 MG Famotidine (Pepcid Vial) 20 mg 1X ONCE 12/28/17 02:00 12/28/17 02:01 DC 12/28/17 02:04 20 MG Lactated Ringer's 1,000 ml @ 100 mls/hr Q10H 12/28/17 01:30 12/28/17 11:29 12/28/17 01:50 100 MLS/HR Methylprednisolone Sodium Succinate (SOLU-Medrol 125MG VIAL) 125 mg 1X ONCE 12/28/17 01:30 12/28/17 01:31 DC 12/28/17 01:51 125 MG See Nursing for home Allergies Allergies Allergies Coded Allergies Type Severity Reaction Last Updated Verified venom-honey bee Allergy Severe Shortness of Air 11/22/13 Yes adhesive Allergy Intermediate 08/17/17 Yes cimetidine Allergy Intermediate "toxic" 01/12/15 Yes cimetidine HCl Allergy Intermediate "toxic" 01/12/15 Yes Physical Exam Physical Exam Constitutional: in acute distress, non-toxic appearance. [] HENT: Normocephalic, atraumatic, bilateral external ears normal, oropharynx moist, no oral exudates, nose normal. [] Eyes: PERRLA, EOMI, conjunctiva normal, no discharge. [] Neck: Normal range of motion, no tenderness, supple, no stridor. [] Cardiovascular:Heart rate regular rhythm, no murmur []PMI to the left. Lungs & Thorax: Bilateral breath sounds equal at apex, few scattered wheezes, decreased bases bilaterally on auscultation [] Abdomen: Bowel sounds normal, soft, no tenderness, no masses, no pulsatile masses. Old surgery scar. Skin: Warm, dry, scattered erythemic hives and urticaria Back: No tenderness, no CVA tenderness. [] Extremities: No tenderness, no cyanosis, no clubbing, ROM intact, no edema. Bilateral knee scars. No cording appreciated. Neurologic: Alert and oriented X 3, normal motor function, normal sensory function, no focal deficits noted. [] Psychologic: Affect anxious, judgement normal, mood normal. [] Current Patient Data Vital Signs Vital Signs Date Time Temp Pulse Resp B/P (MAP) Pulse Ox O2 Delivery O2 Flow Rate FiO2 12/28/17 02:24 75 20 162/62 (95) 95 Room Air 12/28/17 01:05 98.3 Lab Results Laboratory Tests Test 12/28/17 01:13 12/28/17 01:20 12/28/17 01:25 Urine Collection Type Unknown Urine Color Yellow Urine Clarity Clear Urine pH 8.0 Urine Specific [place] 1.015 Urine Protein Neg (NEG-TRACE) Urine Glucose (UA) Neg mg/dL (NEG) Urine Ketones (Stick) Neg mg/dL (NEG) Urine Blood Neg (NEG) Urine Nitrite Neg (NEG) Urine Bilirubin Neg (NEG) Urine Urobilinogen Dipstick 0.2 mg/dL (0.2 mg/dL) Urine Leukocyte Esterase Small (NEG) Urine RBC 0 /HPF (0-2) Urine WBC 5-10 /HPF (0-4) Urine Squamous Epithelial Cells Occ /LPF Urine Bacteria Few /HPF (0-FEW) Urine Mucus Slight /LPF White Blood Count 8.4 x10^3/uL (4.0-11.0) Red Blood Count 5.26 x10^6/uL (3.50-5.40) Hemoglobin 15.4 g/dL (12.0-15.5) Hematocrit 46.6 % (36.0-47.0) Mean Corpuscular Volume 89 fL (79-100) Mean Corpuscular Hemoglobin 29 pg (25-35) Mean Corpuscular Hemoglobin Concent 33 g/dL (31-37) Red Cell Distribution Width 14.9 % (11.5-14.5) H Platelet Count 301 x10^3/uL (140-400) Neutrophils (%) (Auto) 64 % (31-73) Lymphocytes (%) (Auto) 26 % (24-48) Monocytes (%) (Auto) 6 % (0-9) Eosinophils (%) (Auto) 4 % (0-3) H Basophils (%) (Auto) 1 % (0-3) Neutrophils # (Auto) 5.4 x10^3uL (1.8-7.7) Lymphocytes # (Auto) 2.1 x10^3/uL (1.0-4.8) Monocytes # (Auto) 0.5 x10^3/uL (0.0-1.1) Eosinophils # (Auto) 0.3 x10^3/uL (0.0-0.7) Basophils # (Auto) 0.1 x10^3/uL (0.0-0.2) Erythrocyte Sedimentation Rate 5 (0-25) Prothrombin Time 9.6 SEC (9.4-11.4) Prothrombin Time INR 0.9 (0.9-1.1) PTT 24 SEC (23-33) D-Dimer (Tracy) 0.83 mg/L (0.00-0.50) H Sodium Level 137 mmol/L (136-145) Potassium Level 3.7 mmol/L (3.5-5.1) Chloride Level 101 mmol/L (98-107) Carbon Dioxide Level 26 mmol/L (21-32) Anion Gap 10 (6-14) Blood Urea Nitrogen 9 mg/dL (7-20) Creatinine 0.8 mg/dL (0.6-1.0) Estimated GFR (Cockcroft-Gault) 72.0 Glucose Level 106 mg/dL (70-99) H Calcium Level 8.9 mg/dL (8.5-10.1) Magnesium Level 2.2 mg/dL (1.8-2.4) Total Bilirubin 0.3 mg/dL (0.2-1.0) Direct Bilirubin 0.1 mg/dL (0.0-0.2) Aspartate Amino Transferase (AST) 22 U/L (15-37) Alanine Aminotransferase (ALT) 28 U/L (14-59) Alkaline Phosphatase 69 U/L (46-116) Creatine Kinase 157 U/L (26-192) Creatine Kinase MB (Mass) 1.1 ng/mL (0.0-3.6) Creatine Kinase MB Relative Index 0.7 % (0-4) Troponin I Quantitative < 0.017 ng/mL (0-0.055) C-Reactive Protein 2.1 mg/L (0-3.3) EG-Ffw-X-Type Natriuretic Peptide 267 pg/mL (0-124) H Total Protein 7.3 g/dL (6.4-8.2) Albumin 3.8 g/dL (3.4-5.0) Lipase 138 U/L (73-393) Urine Opiates Screen Pos (NEG) Urine Methadone Screen Neg (NEG) Urine Barbiturates Neg (NEG) Urine Phencyclidine Screen Neg (NEG) Urine Amphetamine/Methamphetamine Neg (NEG) Urine Benzodiazepines Screen Neg (NEG) Urine Cocaine Screen Neg (NEG) Urine Cannabinoids Screen Neg (NEG) Urine Ethyl Alcohol Neg (NEG) Group A Streptococcus Rapid Negative (NEGATIVE) EKG EKG My interpretation of EKG shows a sinus rhythm at 67 bpm. There is some nonspecific left bundle-branch block/interventricular delay. No findings acute STEMI with contralateral changes.[] Radiology/Procedures Radiology/Procedures My interpretation chest x-ray shows no free air under the diaphragm. Some chronic changes. Possible hilar adenopathy. Some linear atelectasis . Cardiac Stents are visible on the lateral film. []DJD. Calcified aorta. No obvious large consolidations. Course & Med Decision Making Course & Med Decision Making Pertinent Labs and Imaging studies reviewed. (See chart for details) Request for records from [facility]- pending at time of admit. Discussed presentation, testing and tx plan with Dr. Walsh- will admit for further tx. and evaluation. Pt. symptoms had improved at time of admission, but still complained of some dyspnea. CT and US pending at time of admit. [] Final Impression Final Impression 1. Hx. recent Upper Respiratory Infection[] 2. Asthma /COPD exacerbation 3. Hives- Allergic rx.-Urticaria 4. UTI 5. Lt. Bundle Branch Block 6. Chronic Pain 7. Elevated D-dimer 8, Chronic Cough- Asthma, GERD, Inflammatory Disorders. Dragon Disclaimer Dragon Disclaimer This electronic medical record was generated, in whole or in part, using a voice recognition dictation system. DAVID MCLAUGHLIN MD Dec 28, 2017 01:13
[2017-12-28] MEDS ORDERED: IV RINGERS SOLUTION,LACTATED 1,000 ML IV SCH ×2 (01:30→09:00)
[2017-12-28] MEDS ORDERED: ASPIRIN 81 MG TAB.CHEW PO ONE (01:30)
[2017-12-28] MEDS ORDERED: methylPREDNISolone SOD SUCC PF 125 MG/2 ML VIAL. IV ONE (01:30)
[2017-12-28] MEDS ORDERED: IPRATRPIUM/ALBUTEROL 0.5/2.5MG 3 ML NEBU. NEB ONE (01:30)
[2017-12-28 01:48] LABS: BASO # 0.1 x10^3/uL (0.0-0.2); BASO % 1 % (0-3); EOS # 0.3 x10^3/uL (0.0-0.7); EOS % 4 % (0-3); HEMATOCRIT 46.6 % (36.0-47.0); HEMOGLOBIN 15.4 g/dL (12.0-15.5); LYMPH # 2.1 x10^3/uL (1.0-4.8); LYMPH % 26 % (24-48); MEAN CORPUSCULAR HEMOGLOBIN 29 pg (25-35); MEAN CORPUSCULAR HGB CONC 33 g/dL (31-37); MEAN CORPUSCULAR VOLUME 89 fL (79-100); MONO # 0.5 x10^3/uL (0.0-1.1); MONO % 6 % (0-9); NEUT # 5.4 x10^3uL (1.8-7.7); NEUT % 64 % (31-73); PLATELET COUNT 301 x10^3/uL (140-400); RED BLOOD COUNT 5.26 x10^6/uL (3.50-5.40); RED CELL DISTRIBUTION WIDTH 14.9 % (11.5-14.5); WHITE BLOOD COUNT 8.4 x10^3/uL (4.0-11.0)
[2017-12-28 01:52] LABS: AMPHETAMINE/METHAMPHETAMINE NEG (NEG); BARBITURATES NEG (NEG); BENZODIAZEPINES NEG (NEG); CANNABINOIDS NEG (NEG); COCAINE NEG (NEG); METHADONE NEG (NEG); OPIATES POS (NEG); PHENCYCLIDINE NEG (NEG)
[2017-12-28 01:56] LABS: BACTERIA,URINE FEW /HPF (0-FEW); BILIRUBIN,URINE NEG (NEG); CLARITY,URINE CLEAR; COLOR,URINE YELLOW; GLUCOSE,URINE NEG (NEG); NITRITE,URINE NEG (NEG); RBC,URINE 0 /HPF (0-2); SQUAMOUS EPITHELIAL CELL,UR OCC /LPF; UROBILINOGEN,URINE 0.2 mg/dL (0.2 mg/dL)
[2017-12-28] MEDS ORDERED: diphenhydrAMINE 50 MG/ML VIAL IVP ONE (02:00)
[2017-12-28] MEDS ORDERED: FAMOTIDINE 20 MG/2 ML VIAL IVP ONE (02:00)
[2017-12-28 02:05] LABS: ALBUMIN 3.8 g/dL (3.4-5.0); CALCIUM 8.9 mg/dL (8.5-10.1); CREATININE 0.8 mg/dL (0.6-1.0); DIRECT BILIRUBIN 0.1 mg/dL (0.0-0.2); MAGNESIUM 2.2 mg/dL (1.8-2.4); POTASSIUM 3.7 mmol/L (3.5-5.1); TOTAL BILIRUBIN 0.3 mg/dL (0.2-1.0); TOTAL PROTEIN 7.3 g/dL (6.4-8.2)
[2017-12-28] MEDS ORDERED: ENOXAPARIN ** NOTE DOSE ** SYRINGE SQ ONE (03:00)
[2017-12-28] MEDS ORDERED: cefTRIAXone IV Push 1 GM VIAL. IVP ONE ×2 (03:00→03:15)
[2017-12-28] MEDS ORDERED: CONTRAST GIVEN MC PRN (03:00)
[2017-12-28] MEDS ORDERED: IOHEXOL 300 MG/ML 75 ML VIAL. IV ONE (03:00)
--- NOTE | 2017-12-28 03:48 | RAD ---
INDICATION: [id number] Omni 300 75cc: PE protocol: Dyspnea, cough, congestion, elevated d-dimer COMPARISON: Chest x-ray earlier same day TECHNIQUE: Axial CT images obtained through the chest. Intravenous contrast utilized. Angiogram 3D images processed per protocol. One or more of the following individualized dose reduction techniques were utilized for this examination: 1. Automated exposure control; 2. Adjustment of the mA and/or kV according to patient size; 3. Use of iterative reconstruction technique. FINDINGS: Nodular opacity in the lingula measuring up to about 13 mm. Linear opacities lower lungs. No evidence of pneumothorax. There are some minimal groundglass opacities. Partially visualized liver is low-attenuation. Exophytic cystic lesion right kidney. Nodular thickening of the right adrenal gland. Moderate calcific atherosclerosis. Portion of a ascending thoracic aorta obscured by motion but no definite aneurysm or dissection flap in the visualized portions. Coronary artery calcific atherosclerosis as well as suspected stent at right coronary artery. If the patient does not have a stent the region and could be from calcific atherosclerosis. Small fluid in pericardial recess which is a common finding. There are some scattered prominent lymph nodes in the mediastinum. Degenerative changes spine. No central pulmonary embolus IMPRESSION: No central pulmonary embolus. There is some linear opacities at lung bases as well as a nodular opacity within the lingula. These could all be from atelectasis but given that the lingular opacity is nodular in nature may be helpful to obtain a follow-up exam in a few months to ensure no growth to exclude other causes such as a lung nodule. Electronically signed by: Silas Nicholson MD (12/28/2017 3:45 AM) [facility]
[2017-12-28] MEDS: IPRATRPIUM/ALBUTEROL 0.5/2.5MG 3 ML NEBU. NEB SCH ×4 (05:47→20:47)
[2017-12-28] MEDS ORDERED: HYDR-2758 PO (05:57)
[2017-12-28] MEDS ORDERED: LORA0.5T PO (05:57)
[2017-12-28] MEDS ORDERED: ATOR10TA60 PO (05:57)
[2017-12-28] MEDS ORDERED: FLUT9.9S16 NS (05:57)
[2017-12-28] MEDS ORDERED: DIPH25CA58 PO (05:57)
[2017-12-28] MEDS ORDERED: CYPR4TAB31 PO (05:57)
[2017-12-28] MEDS ORDERED: METO25TA4 PO (05:57)
[2017-12-28] MEDS ORDERED: ALBU8.5H8 INH (05:57)
[2017-12-28] MEDS ORDERED: OLOP5DRO EACHEYE (05:57)
[2017-12-28] MEDS ORDERED: MONT10TA6 PO (05:57)
[2017-12-28] MEDS ORDERED: NITR0.4T22 SL (05:57)
--- NOTE | 2017-12-28 06:24 | EKG ---
[address] [address] Test Date: 2017-12-28 Test Time: 01:39:48 Pat Name: ALEXY LANGE Department: Room: 105 A Gender: F Pre Press Manager: JEFF : 1950 Requested By: DAVID MCLAUGHLIN Order Number: [id number] Reading MD: Clay So MD Measurements Intervals [place] Rate: 67 P: 52 WA: 156 QRS: 1 QRSD: 126 T: 54 QT: 436 QTc: 464 Interpretive Statements SINUS RHYTHM LBBB Electronically Signed On 12-29-2017 12:57:36 CDT by Clay So MD
--- NOTE | 2017-12-28 07:40 | RAD ---
EXAM: Chest, 2 views HISTORY: Dyspnea COMPARISON: 08/17/2017 FINDINGS: Frontal and lateral views of the chest are obtained. There is suspected lingular and left lower lobe atelectasis. There is no infiltrate, pleural effusion or pneumothorax. The heart is normal in size. IMPRESSION: Suspected lingular and left lower lobe atelectasis. Electronically signed by: Vikki Ceballos MD (12/28/2017 7:37 AM) [facility]
[2017-12-28] MEDS ORDERED: HYDROcodone/APAP 5/325MG 1 TAB TABLET PO PRN ×2 (09:30)
[2017-12-28] MEDS ORDERED: ONDANSETRON PF 4 MG/2 ML VIAL. IV PRN (09:30)
[2017-12-28] MEDS: methylPREDNISolone SOD SUCC PF 40 MG/ML VIAL. IV SCH (09:34)
[2017-12-28] MEDS: FAMOTIDINE 20 MG TABLET PO SCH (09:35)
[2017-12-28] MEDS: LACTOBACILLUS RHAMNOSUS GG 1 CAPSULE. PO SCH ×2 (09:35→21:19)
[2017-12-28] MEDS: diphenhydrAMINE 50 MG/ML VIAL IVP SCH ×4 (09:35→21:19)
--- NOTE | 2017-12-28 15:22 | RAD ---
EXAM: Bilateral lower extremity venous Doppler sonogram. HISTORY: Elevated d-dimer. Swelling. TECHNIQUE: Marc scale and color Doppler sonographic evaluation of the bilateral lower extremity veins with spectral waveform analysis was performed. FINDINGS: There is normal color flow, normal compressibility and there are normal spectral waveforms in the common femoral, superficial femoral, popliteal, posterior tibial and greater saphenous veins. IMPRESSION: No Doppler evidence of lower extremity deep venous thrombosis. Electronically signed by: Vikki Ceballos MD (12/28/2017 3:19 PM) [facility]
[2017-12-28] MEDS: IV RINGERS SOLUTION,LACTATED 1,000 ML IV SCH (18:32)
[2017-12-28] MEDS ORDERED: ENOXAPARIN 40 MG/0.4 ML SYRINGE. SQ SCH (21:00)
[2017-12-28] MEDS ORDERED: ENOXAPARIN ** NOTE DOSE ** SYRINGE SQ SCH (21:00)
[2017-12-29] MEDS: IV RINGERS SOLUTION,LACTATED 1,000 ML IV SCH ×2 (00:45→06:59)
[2017-12-29 05:31] VITALS: BP 124/81
[2017-12-29] MEDS: IPRATRPIUM/ALBUTEROL 0.5/2.5MG 3 ML NEBU. NEB SCH ×2 (05:58→11:15)
[2017-12-29] MEDS ORDERED: cefTRIAXone IV Push 1 GM VIAL. IVP SCH (06:00)
[2017-12-29 06:24] LABS: BASO % 0 % (0-3); EOS % 0 % (0-3); HEMATOCRIT 41.2 % (36.0-47.0); HEMOGLOBIN 13.4 g/dL (12.0-15.5); LYMPH # 1.9 x10^3/uL (1.0-4.8); LYMPH % 13 % (24-48); MEAN CORPUSCULAR HEMOGLOBIN 29 pg (25-35); MEAN CORPUSCULAR HGB CONC 33 g/dL (31-37); MEAN CORPUSCULAR VOLUME 89 fL (79-100); MONO # 0.7 x10^3/uL (0.0-1.1); MONO % 5 % (0-9); NEUT # 11.9 x10^3uL (1.8-7.7); NEUT % 82 % (31-73); PLATELET COUNT 259 x10^3/uL (140-400); RED BLOOD COUNT 4.63 x10^6/uL (3.50-5.40); RED CELL DISTRIBUTION WIDTH 15.1 % (11.5-14.5); WHITE BLOOD COUNT 14.6 x10^3/uL (4.0-11.0)
[2017-12-29 06:34] LABS: ALBUMIN 3.1 g/dL (3.4-5.0); CALCIUM 8.5 mg/dL (8.5-10.1); CREATININE 0.7 mg/dL (0.6-1.0); POTASSIUM 3.9 mmol/L (3.5-5.1); TOTAL BILIRUBIN 0.2 mg/dL (0.2-1.0); TOTAL PROTEIN 6.2 g/dL (6.4-8.2)
[2017-12-29 08:55] LABS: % BANDS 0 % (0-9); % BASOS 0 % (0-3); % EOS 1 % (0-5); % LYMPHS 13 % (24-48); % MONOS 5 % (0-10); % SEGS 81 % (35-66); PLT ESTIMATE ADEQUATE (ADEQUATE)
[2017-12-29] MEDS: diphenhydrAMINE 50 MG/ML VIAL IVP SCH (09:29)
[2017-12-29] MEDS: methylPREDNISolone SOD SUCC PF 40 MG/ML VIAL. IV SCH (09:29)
[2017-12-29] MEDS: LACTOBACILLUS RHAMNOSUS GG 1 CAPSULE. PO SCH (09:29)
[2017-12-29] MEDS: FAMOTIDINE 20 MG TABLET PO SCH (09:30)
[2017-12-29 10:33] VITALS: BP 173/68
[2017-12-29] MEDS ORDERED: CEFP200T PO (11:43)
--- NOTE | 2017-12-29 13:38 | DS ---
DATE OF DISCHARGE: 12/29/2017 HOSPITAL COURSE: The patient was admitted with multiple complaints including congestion, hives, urticaria, pruritus, nausea, dyspnea, fever, malaise, myalgia, fatigue. She follows with Dr. Jiang, primary care physician. She was admitted recently to [facility] on 12/14/2017. She has completed Medrol Dosepak 4 days ago and started having nonproductive cough. Denied any history of venous suppression. She was evaluated in the Emergency Room and was admitted with upper respiratory tract infection, asthma, COPD exacerbation, allergic reaction, UTI, left bundle branch block, chronic pain syndrome, elevated D-dimer. Given she has elevated D-dimer, she was started on Lovenox. She underwent CT angio of the chest, which was negative for pulmonary emboli. Bilateral Doppler ultrasound was negative for lower extremity deep vein thrombosis. She did actually very well and has had no further episode of skin rash, no cough, and generally stated that she is back to her baseline and would like to go home. PHYSICAL EXAMINATION: GENERAL: When I saw her today, she looked well and was clearly in no apparent respiratory distress, pale, but no jaundice, cyanosis, or thyromegaly. No jugular venous distention. No limb edema. VITAL SIGNS: Her heart rate was 79, blood pressure was 170/68, temperature was 97.3, respiratory rate was 20, and oxygen saturation was 98% on room air. HEAD, EYES, EARS, NOSE AND THROAT: Showed normocephalic, atraumatic. NECK: Supple. HEART: Showed normal first and second heart sounds with no gallop, rub, or murmur. CHEST: Clear to auscultation. No crepitation or rhonchi. ABDOMEN: Distended, soft, nontender. No guarding or rigidity. No organomegaly. All hernia orifices intact. Bowel sounds normal. NEUROLOGIC: She was awake, alert, responding appropriately. All her cranial nerves are intact. She moves extremities without difficulty. She was actually able to walk with her cane steadily without any problem. Her intake over the last 24 hours was 3400 and no output was recorded. LABORATORY DATA: Her lab work showed a white cell count of 14,600, hemoglobin 13, hematocrit 41, MCV 89, and platelet count of 259,000. Her prothrombin time was 9.6, INR was 0.9, aPTT was 24, and D-dimer was 0.83. Her chemistry today showed a serum sodium 142, potassium 3.9, chloride 107, bicarbonate 27, anion gap of 8, BUN 9, creatinine 0.7, estimated GFR was 84 mL per minute. Her glucose was 137, calcium was 8.5. Total bilirubin, AST, ALT, alkaline phosphatase were normal. Total protein was 6.2, albumin was 3.1. Her TSH was 2.436. C-reactive protein was 2.1. Her sedimentation rate was only 5 mm per hour. Urinalysis was unremarkable and tox screen was positive only for opiates. DISCHARGE MEDICATIONS: She was discharged home to continue on cefpodoxime 200 mg twice a day for 5 more days, albuterol sulfate 2 puffs every 4 hours, aspirin 81 mg once a day, atorvastatin 20 mg at bedtime, Plavix 75 mg once a day, cyproheptadine 4 mg 3 times a day, diphenhydramine 25 mg every 6 hours as needed for itching, Flonase 2 sprays to each nostril daily, fluticasone/Advair 250/50 one puff twice a day, hydrocodone/APAP 5/325 one to two tablets twice a day, lorazepam 0.5 mg once a day, metoprolol tartrate 12.5 mg twice a day, nitroglycerin 0.4 mg sublingually for 5 minutes x 3, olopatadine for Patanol 1 drop to each eye twice a day, and Protonix 40 mg once a day. FINAL DISCHARGE DIAGNOSES: Asthma, chronic obstructive pulmonary disease exacerbation, allergic reaction, urinary tract infection, chronic pain syndrome, elevated D-dimer with negative CT angiogram of the chest as well as bilateral Doppler ultrasound. DANE CAMERON MD DR: VALORIE/nick JOB#: [id number] / [id number]
--- NOTE | 2017-12-30 10:14 | HP ---
ADMIT DATE: 12/28/2017 HISTORY OF PRESENT ILLNESS: The patient is a 67-year-old female patient who came to the Emergency Room complaining of congestion, hives, urticaria, pruritus, nausea, dyspnea, fever, malaise, myalgia, fatigue. She follows with Dr. Schmidt, her primary care physician and Dr. Mcfadden, her digital media sales consultant. She was admitted recently to [facility] on 12/14/2017. She completed Medrol Dosepak 4 days ago and started having nonproductive cough. Denied any history of immunosuppression. Denied any specific ill contact or recent travel. She has a history of exacerbation of asthma. The patient has not smoked for years. She quit smoking 15 years ago. She smoked for 40 years. Does not know her best peak flow. She was evaluated in the Emergency Room extensively and was admitted with a recent upper respiratory tract infection, asthma/COPD exacerbation, allergic reaction, UTI, left bundle branch block, chronic pain syndrome, elevated D-dimer, chronic cough. She was started on IV antibiotic, IV fluid as well as steroids and Lovenox as her D-dimer was elevated. She underwent CT angiogram, which basically showed no central pulmonary emboli. There are some linear opacities at lung bases as well as nodular opacity within the lingula. These could be due from atelectasis, but given that the lingular opacity is nodular in nature, it may be helpful to obtain a followup exam in a few months to ensure no growth to exclude other causes such as lung nodes. PAST MEDICAL HISTORY: Significant for bronchial asthma/COPD, gastroesophageal reflux disease, hypertension, hyperlipidemia, left bundle branch block. She has coronary artery disease status post PCI with stent deployment x 3. Her last stress test was about a year ago. PAST SURGICAL HISTORY: Significant for percutaneous coronary intervention with stent deployment x 3, exploratory laparotomy for endometriosis, tonsillectomy, left wrist compound fracture, and bilateral total knee arthroplasty. ALLERGIES: She is allergic to ADHESIVES, CIMETIDINE, VENOM HONEY BEE. MEDICATIONS: She is currently on following medications: She is on diphenhydramine 25 mg every 6 hours, cyproheptadine 4 mg 3 times a day, albuterol sulfate 2 puffs every 4 hours. She is on Plavix 75 mg once a day, atorvastatin calcium 10 mg at bedtime, nitroglycerin 0.4 mg sublingual every 5 minutes x 3, metoprolol tartrate 12.5 mg twice a day, aspirin 81 mg once a day, hydrocodone/APAP 5/325 1-2 tablets twice a day, lorazepam 0.5-1 mg daily, Advair Diskus 250/50 one puff twice a day. She is on montelukast for Singulair 10 mg at bedtime, olopatadine for Patanol 1 drop to each eye twice a day, Flonase 2 sprays to each nostril once a day, Protonix 40 mg once a day. FAMILY HISTORY: She has no full brothers or sisters. Her father at the age of 71 because of brain cancer. Her mother is still alive and has breast cancer for which she is getting oral chemotherapy and radiation treatment. SOCIAL HISTORY: She is twice. She has 2 daughters. She quit smoking about 15 years ago. She smoked half to 1 pack a day for almost 40 years. She does not drink alcohol or use any recreational drugs. REVIEW OF SYSTEMS: The patient denied any blurring of vision, cataract, glaucoma, or macular degeneration. Did complain of tinnitus. Denied any earache or sensorineural deafness. Denied any nosebleed, but did complain of nasal stuffiness and postnasal drip. Denied any sore throat, sore tongue, toothache, hoarseness of voice, or difficulty swallowing. Denied any nausea, vomiting, diarrhea, or constipation. Denied any hematemesis, melena, or hematochezia. Denied any dysuria, frequency, or hematuria. Denied any chest pain. Did complain of shortness of breath and cough. No hemoptysis. Did complain of dizziness, lightheadedness, but no vertigo. PHYSICAL EXAMINATION: GENERAL: On arrival to the Emergency Room, the patient looked slightly pale, but no jaundice, cyanosis, or thyromegaly. No jugular venous distention. No limb edema. VITAL SIGNS: Her heart rate was 75, blood pressure was 162/62, temperature was 98.3, respiratory rate 22, and oxygen saturation was 95% on room air. HEAD, EYES, EARS, NOSE AND THROAT: Showed normocephalic, atraumatic. NECK: Supple. HEART: Showed normal first and second heart sounds. No gallop, rub, or murmur. CHEST: Clear to auscultation. No crepitation or rhonchi. ABDOMEN: Distended, soft, nontender. No guarding or rigidity. No organomegaly. All hernial orifices intact. Bowel sounds normal. NEUROLOGIC: She is awake, alert, responding appropriately. All cranial nerves intact. She moves extremities without difficulty. She ambulates without assistance or assistive devices. LABORATORY DATA: While in the Emergency Room, she had lab work done which showed a white cell count of 8400, hemoglobin 15, hematocrit 45, MCV 89, and platelet count of 301,000 with normal manual differential. Her sed rate was only 4 mm per hour. Her chemistry showed a serum sodium of 137, potassium 3.7, chloride 101, bicarbonate 26, anion gap of 10, BUN 9, creatinine 0.98. Estimated GFR was 72 mL per minute. Her glucose was 106. Calcium was 8.9. Total protein 7.3, albumin 3.8, calcium was 8.9, magnesium 2.2. Total bilirubin, AST, ALT, alkaline phosphatase were normal. Her lipase was 138. TSH was 2.436 and C-reactive protein was 2.1 mg/dL. Her prothrombin time was 9.6, INR was 0.9, APTT was 24, and D-dimer was 0.83. Urinalysis showed the urine was yellow, clear with pH of 8, specific gravity of 1.015. The urine was negative for glucose, ketones, blood, nitrite, bilirubin, and dipstick. Her urine toxicology screen was positive for opiates, negative for all other medications. Her group A Streptococcus rapid test was negative. Her chest x-ray showed that there is suspected lingular and left lower lobe atelectasis. There is no infiltrate, pleural effusion, or pneumothorax. The heart is normal in size. Given the elevated D-dimer, she underwent CT angio which basically showed that there is no central pulmonary embolism. There is some linear opacities at the lung bases as well as nodular opacity within the lingula. These could all be from atelectasis, but given that the lingular opacity is nodular in nature, it may be helpful to obtain a followup exam in a few months. Her bilateral lower extremities Doppler ultrasound showed no evidence of deep vein thrombosis. PLAN: My plan is to cut down her Lovenox. Meanwhile, we will continue with all other medications. DANE CAMERON MD DR: Roxann JOB#: [id number] / [id number]
[2018-01-02 16:18] LABS: C ANCA <1:20 titer (Neg:<1:20); P ANCA <1:20 titer (Neg:<1:20)
[2018-01-02 19:14] LABS: ANA INTERP Negative (.)
== END 2017-12-29 13:10 | disposition home or self-care (01) ==
LOC: ER 01:02 → INTOOBSV 02:30 → 1 SOUTH 02:30
PROVIDERS: ADMIT Internal Medicine; ATTEND Internal Medicine
DX: J44.1 Chronic obstructive pulmonary disease with (acute) exacerbation (principal); L50.9 Urticaria, unspecified; L29.9 Pruritus, unspecified; R11.0 Nausea; R50.9 Fever, unspecified; R53.1 Weakness; M79.1 Myalgia; E78.5 Hyperlipidemia, unspecified; I10 Essential (primary) hypertension; I25.10 Atherosclerotic heart disease of native coronary artery without angina pectoris; I44.7 Left bundle-branch block, unspecified; K21.9 Gastro-esophageal reflux disease without esophagitis; K58.9 Irritable bowel syndrome, unspecified; N39.0 Urinary tract infection, site not specified; Z80.3 Family history of malignant neoplasm of breast; Z80.8 Family history of malignant neoplasm of other organs or systems; Z82.49 Family history of ischemic heart disease and other diseases of the circulatory system; Z83.3 Family history of diabetes mellitus; Z87.891 Personal history of nicotine dependence; Z95.5 Presence of coronary angioplasty implant and graft; G89.4 Chronic pain syndrome; Z79.52 Long term (current) use of systemic steroids; Z79.899 Other long term (current) drug therapy
CPT/HCPCS: 36415; 71046; 71275; 80048; 80053; 80076; 80307; 81001; 82553; 83690; 83735; 83880; 84443; 84484; 85007; 85025; 85379; 85610; 85651; 85730; 86021; 86038; 86140; 87040; 87070; 87086; 87880; 93005; 93970; 94640; 96361; 96372; 96374; 96375; 96376; 99285; G0238; G0378; J0696; J1200; J1650; J2405; J2920; J2930; J7120; J7620; Q9967; S0028; G0379; G0479

== ENCOUNTER 2018-01-24 14:24 | Emergency (ER) | payer OTHER ==
[~2018-01-24 14:24] MED LIST changes: +ALBU8.5H8 INH; +ATOR10TA60 PO; +CEFP200T PO; +CYPR4TAB31 PO; +DIPH25CA58 PO; +FLUT9.9S16 NS; +NITR0.4T22 SL; +OLOP5DRO EACHEYE
[2018-01-24] MEDS ORDERED: LORazepam 2 MG/ML VIAL IV ONE (15:15)
[2018-01-24 15:33] LABS: BASO # 0.1 x10^3/uL (0.0-0.2); BASO % 1 % (0-3); EOS # 0.5 x10^3/uL (0.0-0.7); EOS % 9 % (0-3); HEMATOCRIT 43.5 % (36.0-47.0); HEMOGLOBIN 14.7 g/dL (12.0-15.5); LYMPH # 1.4 x10^3/uL (1.0-4.8); LYMPH % 23 % (24-48); MEAN CORPUSCULAR HEMOGLOBIN 30 pg (25-35); MEAN CORPUSCULAR HGB CONC 34 g/dL (31-37); MEAN CORPUSCULAR VOLUME 87 fL (79-100); MONO # 0.6 x10^3/uL (0.0-1.1); MONO % 11 % (0-9); NEUT # 3.3 x10^3uL (1.8-7.7); NEUT % 56 % (31-73); PLATELET COUNT 272 x10^3/uL (140-400); RED BLOOD COUNT 4.99 x10^6/uL (3.50-5.40); RED CELL DISTRIBUTION WIDTH 14.5 % (11.5-14.5); WHITE BLOOD COUNT 5.9 x10^3/uL (4.0-11.0)
--- NOTE | 2018-01-24 15:34 | RAD ---
Single view of the chest. 01/24/2018 3:24 PM Indication: CHEST PAIN AND DIZZY Comparison: Chest radiograph December 28, 2017 Findings: Mild interstitial coarsening is stable from prior study. No pneumothorax or pleural effusion is identified. Heart size is within normal limits. No focal infiltrate is seen. Coronary stents noted. No acute osseous changes are identified. IMPRESSION: No evidence of acute cardiopulmonary process is identified. Electronically signed by: Jose Elias Salazar MD (01/24/2018 3:30 PM) [facility]
--- NOTE | 2018-01-24 15:44 | EKG ---
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
--- NOTE | 2018-01-24 15:46 | PHYS DOC ---
Past History Past Medical History: Anxiety, Asthma, Bronchitis, COPD, Depression, GERD, Hypertension, IBS, Other Past Surgical History: Angioplasty, Hysterectomy, Knee Replacement, Other Smoking: Non-smoker, Quit Greater Than 1 Year Alcohol Use: Rarely Drug Use: None Adult General Chief Complaint Chief Complaint: SHORTNESS OF BREATH [facility] HPI 67-year-old female patient being of several medical problem. Patient complaining of intermittent episodes of dizziness with a standing up for one week and episodes of fall because of dizziness since yesterday. Patient states she had 3 episodes of fall today without loss of consciousness or injury to her head. Patient also complaining of episodes of substernal chest pain for the last 2 days as a aching pain in substernal area without radiation. Patient complaining of intermittent episodes of shortness of breath and palpitation and lightheadedness. Patient also complaining of episodes of diarrhea and states she had 3 episodes of diarrhea yesterday and 3 episodes of diarrhea today. She denies fever and chills, cough and congestion, focal neuro deficit. Review of Systems Review of Systems Constitutional: Denies fever or chills [] Eyes: Denies change in visual acuity, redness, or eye pain [] HENT: Denies nasal congestion or sore throat [] Respiratory: Reports shortness of breath [] Cardiovascular: No additional information not addressed in HPI [] GI: Denies abdominal pain, nausea, vomiting, bloody stools or diarrhea [] : Denies dysuria or hematuria [] Musculoskeletal: Denies back pain or joint pain [] Integument: Denies rash or skin lesions [] Neurologic: Denies headache, focal weakness or sensory changes, [reports dizziness] Endocrine: Denies polyuria or polydipsia [] All other systems were reviewed and found to be within normal limits, except as documented in this note. Current Medications Current Medications Current Medications Medications (Trade) Dose Ordered Sig/Linda Start Time Stop Time Status Last Admin Dose Admin Lorazepam (Ativan) 1 mg 1X ONCE 01/24/18 15:15 01/24/18 15:16 DC Allergies Allergies Allergies Coded Allergies Type Severity Reaction Last Updated Verified venom-honey bee Allergy Severe Shortness of Air 11/22/13 Yes adhesive Allergy Intermediate 08/17/17 Yes cimetidine Allergy Intermediate "toxic" 01/12/15 Yes cimetidine HCl Allergy Intermediate "toxic" 7/19/15 Yes Physical Exam Physical Exam Constitutional: Well developed, well nourished, mild distress, non-toxic appearance. [] HENT: Normocephalic, atraumatic, bilateral external ears normal, oropharynx moist, no oral exudates, nose normal. [] Eyes: PERRLA, EOMI, conjunctiva normal, no discharge. [] Neck: Normal range of motion, no tenderness, supple, no stridor. [] Cardiovascular:Heart rate regular rhythm, no murmur [] Lungs & Thorax: Bilateral breath sounds clear to auscultation [] Abdomen: Bowel sounds normal, soft, no tenderness, no masses, no pulsatile masses. [] Skin: Warm, dry, no erythema, no rash. [] Back: No tenderness, no CVA tenderness. [] Extremities: No tenderness, no cyanosis, no clubbing, ROM intact, no edema. [] Neurologic: Alert and oriented X 3, normal motor function, normal sensory function, no focal deficits noted, NIH scale of 0 Psychologic: Affect anxious, judgement normal, mood normal. [] Current Patient Data Vital Signs Vital Signs Date Time Temp Pulse Resp B/P (MAP) Pulse Ox O2 Delivery O2 Flow Rate FiO2 01/24/18 14:30 97.7 73 24 94 Room Air Lab Results Laboratory Tests Test 01/24/18 15:15 White Blood Count 5.9 x10^3/uL (4.0-11.0) Red Blood Count 4.99 x10^6/uL (3.50-5.40) Hemoglobin 14.7 g/dL (12.0-15.5) Hematocrit 43.5 % (36.0-47.0) Mean Corpuscular Volume 87 fL (79-100) Mean Corpuscular Hemoglobin 30 pg (25-35) Mean Corpuscular Hemoglobin Concent 34 g/dL (31-37) Red Cell Distribution Width 14.5 % (11.5-14.5) Platelet Count 272 x10^3/uL (140-400) Neutrophils (%) (Auto) 56 % (31-73) Lymphocytes (%) (Auto) 23 % (24-48) L Monocytes (%) (Auto) 11 % (0-9) H Eosinophils (%) (Auto) 9 % (0-3) H Basophils (%) (Auto) 1 % (0-3) Neutrophils # (Auto) 3.3 x10^3uL (1.8-7.7) Lymphocytes # (Auto) 1.4 x10^3/uL (1.0-4.8) Monocytes # (Auto) 0.6 x10^3/uL (0.0-1.1) Eosinophils # (Auto) 0.5 x10^3/uL (0.0-0.7) Basophils # (Auto) 0.1 x10^3/uL (0.0-0.2) EKG EKG EKG interpreted by me. EKG at 1536 showed normal sinus rhythm at rate of 70, left fourth axis, left bundle branch block,, no acute ST and T-wave abnormalities[] Radiology/Procedures Radiology/Procedures [][address] [address] IMAGING REPORT Signed PATIENT: ALEXY LANGE ACCOUNT: [id number] : 1950 LOCATION: ER AGE: 67 SEX: F EXAM STATUS: REG ER ORD. PHYSICIAN: OMA MCGEE MD REASON: dizziness and chest pain PROCEDURE: PORTABLE CHEST 1V Single view of the chest. 01/24/2018 3:24 PM Indication: CHEST PAIN AND DIZZY Comparison: Chest radiograph December 28, 2017 Findings: Mild interstitial coarsening is stable from prior study. No pneumothorax or pleural effusion is identified. Heart size is within normal limits. No focal infiltrate is seen. Coronary stents noted. No acute osseous changes are identified. IMPRESSION: No evidence of acute cardiopulmonary process is identified. Electronically signed by: Jose Elias Hope MD (01/24/2018 3:30 PM) [id number] DICTATED AND SIGNED BY: JOSE ELIAS HOPE MD DATE: 01/24/18 1529 CC: PRAKASH LUU MD; OMA MCGEE MD ~ [address] [address] IMAGING REPORT Signed PATIENT: ALEXY LANGE ACCOUNT: [id number] : 1950 LOCATION: ER AGE: 67 SEX: F EXAM STATUS: REG ER ORD. PHYSICIAN: OMA MCGEE MD REASON: dizziness and chest pain PROCEDURE: CT HEAD WO CONTRAST CT HEAD INDICATION: FREQUENT FALLS, HEADACHE AND DIZZINESS COMPARISON: None Available. TECHNIQUE: 5 mm contiguous axial images were obtained from the skull base to the vertex in both bone and soft tissue algorithm. Exposure: One or more of the following individualized dose reduction techniques were utilized for this examination: 1. Automated exposure control 2. Adjustment of the mA and/or kV according to patient size 3. Use of iterative reconstruction technique FINDINGS: No abnormal attenuation within the brain parenchyma. No evidence of acute intracranial hemorrhage. No extra-axial fluid collections. No mass effect or midline shift. Ventricular size is appropriate. Basal cisterns are patent. No fractures identified.Marc-white differentiation is preserved.Globes and orbits are within normal limits. Mild mucosal thickening identified in the maxillary sinuses IMPRESSION: No acute intracranial findings. Electronically signed by: Brandon Hadley MD (01/24/2018 3:44 PM) [id number] DICTATED AND SIGNED BY: BRANDON HADLEY MD DATE: 01/24/18 1536 CC: PRAKASH LUU MD; OMA MCGEE MD ~ Course & Med Decision Making Course & Med Decision Making Pertinent Labs and Imaging studies reviewed. (See chart for details) Evaluation of patient in ER showed 67-year-old female patient with multiple complaints including dizziness, shortness of breath, frequent falls, and intermittent episodes of chest pain for several days. Patient had unremarkable physical exam and labs and CT head and chest x-ray. She treated with Ativan and felt better. Patient was interpreted without problem. Patient psychiatric to follow up with her primary care physician regarding dizziness and increase fluid intake. Dragon Disclaimer Dragon Disclaimer This electronic medical record was generated, in whole or in part, using a voice recognition dictation system. Departure Departure: Impression: Primary Impression: Anxiety Additional Impressions: Dizziness Fall at home Chest pain Disposition: HOME, SELF-CARE (At 1627) Condition: IMPROVED Referrals: PRAKASH LUU MD (PCP) Patient Instructions: Anxiety and Panic Attacks, Chest Pain (Nonspecific), Dizziness, Fall Prevention and Home Safety Additional Instructions: Drink plenty of liquids Follow-up with your primary care physician in 3-5 days Return to ER if not getting better Problem Qualifiers OMA MCGEE MD Jan 24, 2018 15:45
[2018-01-24 15:52] LABS: ALBUMIN 3.5 g/dL (3.4-5.0); CALCIUM 9.2 mg/dL (8.5-10.1); CREATININE 0.8 mg/dL (0.6-1.0); MAGNESIUM 2.3 mg/dL (1.8-2.4); POTASSIUM 3.6 mmol/L (3.5-5.1); TOTAL BILIRUBIN 0.5 mg/dL (0.2-1.0); TOTAL PROTEIN 6.9 g/dL (6.4-8.2)
[2018-01-24 16:12] LABS: BACTERIA,URINE FEW /HPF (0-FEW); BILIRUBIN,URINE NEG (NEG); CLARITY,URINE CLEAR; COLOR,URINE YELLOW; GLUCOSE,URINE NEG (NEG); NITRITE,URINE NEG (NEG); RBC,URINE RARE /HPF (0-2); SQUAMOUS EPITHELIAL CELL,UR OCC /LPF; UROBILINOGEN,URINE 0.2 mg/dL (0.2 mg/dL)
[2018-01-24 16:45] VITALS: BP 147/75
== END 2018-01-24 16:45 | disposition home or self-care (01) ==
LOC: ER 14:24
DX: F41.9 Anxiety disorder, unspecified (principal); R42 Dizziness and giddiness; R07.89 Other chest pain; R29.6 Repeated falls; J44.9 Chronic obstructive pulmonary disease, unspecified; F32.9 Major depressive disorder, single episode, unspecified; K21.9 Gastro-esophageal reflux disease without esophagitis; I10 Essential (primary) hypertension; Z87.891 Personal history of nicotine dependence; Z98.61 Coronary angioplasty status; Z88.8 Allergy status to other drugs, medicaments and biological substances; Z91.030 Bee allergy status; W19.XXXA Unspecified fall, initial encounter; Y93.89 Activity, other specified; Y92.89 Other specified places as the place of occurrence of the external cause; Y99.8 Other external cause status
CPT/HCPCS: 36415; 70450; 71045; 80053; 81001; 82553; 83735; 83880; 84484; 85025; 85610; 87086; 93005; 96374; 99285; J2060

== ENCOUNTER 2019-03-03 00:40 | Emergency (ER) | payer MEDICAID, OTHER ==
[~2019-03-03] VITALS: Ht 152.4 cm; Wt 74.8 kg
[~2019-03-03 00:40] MED LIST changes: -ALBU18HF IH; +ALBU2.5V8 IH; +ALBU2.5V8 INH; -ALBU6.7H IH; -ALBU8.5H8 INH; +HYDR-1179 PO; +HYDR-2155 PO; -HYDR-2758 PO; -HYDR-2762 PO; +HYDR-2765 PO; -HYDR-79 PO; -MONT10TA6 PO; +MONT10TA80 PO; -MONT10TA9 PO; -OXYC-323 PO; +OXYC1TAB15 PO; +RANI-376 PO; -RANI150T21 PO
[2019-03-03] MEDS ORDERED: IPRATRPIUM/ALBUTEROL 0.5/2.5MG 3 ML NEBU. NEB ONE (01:00)
[2019-03-03] MEDS ORDERED: IV NORMAL SALINE 50ML 50 ML ONE (01:11)
[2019-03-03] MEDS ORDERED: cefTRIAXone SODIUM 1 GM VIAL ONE (01:12)
[2019-03-03] MEDS ORDERED: IV RINGERS SOLUTION,LACTATED 1,000 ML IV SCH (01:15)
[2019-03-03] MEDS ORDERED: ASPIRIN 81 MG TAB.CHEW PO ONE (01:15)
[2019-03-03] MEDS ORDERED: methylPREDNISolone SOD SUCC PF 125 MG/2 ML VIAL. IV ONE (01:15)
[2019-03-03] MEDS ORDERED: AZITHROMYCIN 250 MG TABLET. PO ONE (01:15)
[2019-03-03] MEDS ORDERED: MORPHINE SULFATE 10 MG/ML SYRINGE. SQ ONE (01:15)
--- NOTE | 2019-03-03 01:22 | ED.ADGEN ---
Past History Past Medical History: Anxiety, Arthritis, Asthma, COPD, GERD, Hypertension Past Surgical History: Tonsillectomy, Tubal ligation, Other Additional Past Surgical Histo: Left wrist fracture repair Smoking: Non-smoker, Quit Greater Than 1 Year Alcohol Use: Occasionally Drug Use: None Adult General Chief Complaint Chief Complaint ".. We were having a great time.. at the bar... until the smoke got to me... " HPI HPI Patient is a 68 year old female who presents with right neck pain and torticollis, accelerated hypertension, dyspnea and wheezing. Patient is known to ED staff for previous episodes of bronchial asthma and COPD, hypertension and coronary artery disease. Patient has been doing well outpatient and not seen in the ED since December of this year. Patient denies any specific ill contacts or travel. Patient denies any recent changes in medications. Patient normally follows with Dr. Luu. Patient follows with Dr. Mcfadden for cardiology. No history immunosuppression. Patient has known history of asthma. Patient quit smoking approximately 15 years ago but had approximately 40 years of use up to 1 pack a day. Patient known history of COPD, asthma, allergies, UTI, left bundle- branch block, chronic pain, chronic cough, and history of elevated d-dimer. Patient has had 3 coronary artery stents past stress test approximately a year and a half ago. Patient has a history of laparotomy for endometriosis, tonsillectomy, left wrist compound fracture repair and bilateral total knee arthroplasties. Review of Systems Review of Systems Constitutional: Denies fever or chills [] Eyes: Denies change in visual acuity, redness, or eye pain [] HENT: Denies nasal congestion or sore throat [] Respiratory: Denies cough or shortness of breath [] Cardiovascular: No additional information not addressed in HPI [] GI: Denies abdominal pain, nausea, vomiting, bloody stools or diarrhea [] : Denies dysuria or hematuria [] Musculoskeletal: Denies back pain or joint pain [] Integument: Denies rash or skin lesions [] Neurologic: Denies headache, focal weakness or sensory changes [] Endocrine: Denies polyuria or polydipsia [] All other systems were reviewed and found to be within normal limits, except as documented in this note. Family History Family History Noncontributory father at age 71 because of brain cancer others had breast cancer Current Medications Current Medications Current Medications Medications (Trade) Dose Ordered Sig/Linda Start Time Stop Time Status Last Admin Dose Admin Albuterol/ Ipratropium (Duoneb) 3 ml 1X ONCE 03/03/19 01:00 03/03/19 01:08 DC 03/03/19 01:07 3 ML Aspirin (Children'S Aspirin) 324 mg 1X ONCE 03/03/19 01:15 03/03/19 01:16 DC 03/03/19 02:51 324 MG Azithromycin (Zithromax) 500 mg 1X ONCE 03/03/19 01:15 03/03/19 01:16 DC 03/03/19 02:51 500 MG Ceftriaxone Sodium 1 gm/ Sodium Chloride 50 ml @ 100 mls/hr 1X ONCE 03/03/19 01:15 03/03/19 01:44 DC 03/03/19 02:53 100 MLS/HR Ceftriaxone Sodium (Rocephin) 1 gm STK-MED ONCE 03/03/19 01:12 03/03/19 01:12 DC Lactated Ringer's 1,000 ml @ 100 mls/hr Q10H 03/03/19 01:15 03/03/19 04:28 DC 03/03/19 02:51 100 MLS/HR Methylprednisolone Sodium Succinate (SOLU-Medrol 125MG VIAL) 125 mg 1X ONCE 03/03/19 01:15 03/03/19 01:16 DC 03/03/19 02:51 125 MG Morphine Sulfate (Morphine 10mg Syringe) 10 mg 1X ONCE 03/03/19 01:15 03/03/19 02:14 DC 03/03/19 02:17 10 MG Orphenadrine Citrate (Norflex) 60 mg 1X ONCE 03/03/19 02:30 03/03/19 03:15 DC 03/03/19 03:03 60 MG Potassium Chloride (Klor-Con) 20 meq STK-MED ONCE 03/03/19 03:39 03/03/19 04:28 DC Sodium Chloride 50 ml @ As Directed STK-MED ONCE 03/03/19 01:11 03/03/19 01:12 DC See nursing for home medications Allergies Allergies Allergies Coded Allergies Type Severity Reaction Last Updated Verified venom-honey bee Allergy Severe Shortness of Air 11/22/13 Yes adhesive Allergy Intermediate 08/17/17 Yes cimetidine Allergy Intermediate "toxic" 01/12/15 Yes cimetidine HCl Allergy Intermediate "toxic" 01/12/15 Yes Physical Exam Physical Exam Constitutional: Moderately acute distress, non-toxic appearance. [] HENT: Normocephalic, atraumatic, bilateral external ears normal, oropharynx moist, no oral exudates, nose normal. [] Eyes: PERRLA, EOMI, conjunctiva normal, no discharge. [] Neck: Admitted range of motion, due to muscle spasm and tenderness, right trapezius spasms and torticollis, no stridor. [] Cardiovascular:Heart rate regular rhythm, no murmur. PMI to the left Lungs & Thorax: Bilateral breath sounds equal at apex with scattered wheezes on auscultation [] Abdomen: Bowel sounds normal, soft, no tenderness, no masses, no pulsatile mass es. [Old surgery scar Skin: Warm, dry, no erythema, no rash. [] Back: No tenderness, no CVA tenderness. [] Extremities: No tenderness, no cyanosis, no clubbing, ROM intact, no edema. [No cording appreciated. Lt. wirist scar. Neurologic: Alert and oriented X 3, normal motor function, normal sensory function, no gross focal deficits noted. [] Psychologic: Affect anxious, judgement normal, mood normal. [] Current Patient Data Vital Signs Vital Signs Date Time Temp Pulse Resp B/P (MAP) Pulse Ox O2 Delivery O2 Flow Rate FiO2 03/03/19 04:02 91 18 145/79 (101) 96 Room Air 03/03/19 00:51 97.7 Lab Results Laboratory Tests Test 03/03/19 02:00 03/03/19 03:05 White Blood Count 8.9 x10^3/uL (4.0-11.0) Red Blood Count 4.92 x10^6/uL (3.50-5.40) Hemoglobin 14.6 g/dL (12.0-15.5) Hematocrit 44.0 % (36.0-47.0) Mean Corpuscular Volume 90 fL (79-100) Mean Corpuscular Hemoglobin 30 pg (25-35) Mean Corpuscular Hemoglobin Concent 33 g/dL (31-37) Red Cell Distribution Width 14.1 % (11.5-14.5) Platelet Count 259 x10^3/uL (140-400) Neutrophils (%) (Auto) 57 % (31-73) Lymphocytes (%) (Auto) 30 % (24-48) Monocytes (%) (Auto) 9 % (0-9) Eosinophils (%) (Auto) 4 % (0-3) H Basophils (%) (Auto) 0 % (0-3) Neutrophils # (Auto) 5.1 x10^3uL (1.8-7.7) Lymphocytes # (Auto) 2.6 x10^3/uL (1.0-4.8) Monocytes # (Auto) 0.8 x10^3/uL (0.0-1.1) Eosinophils # (Auto) 0.3 x10^3/uL (0.0-0.7) Basophils # (Auto) 0.0 x10^3/uL (0.0-0.2) Urine Collection Type Unknown Urine Color Straw Urine Clarity Hazy Urine pH 6.5 Urine Specific [place] 1.015 Urine Protein Neg (NEG-TRACE) Urine Glucose (UA) Neg mg/dL (NEG) Urine Ketones (Stick) Neg mg/dL (NEG) Urine Blood Neg (NEG) Urine Nitrite Neg (NEG) Urine Bilirubin Neg (NEG) Urine Urobilinogen Dipstick 0.2 mg/dL (0.2 mg/dL) Urine Leukocyte Esterase Neg (NEG) Urine RBC 0 /HPF (0-2) Urine WBC Occ /HPF (0-4) Urine Squamous Epithelial Cells Few /LPF Urine Transitional Epithelial Cells Occ /LPF Urine Renal Epithelial Cells Occ /LPF Urine Bacteria Few /HPF (0-FEW) Urine Mucus Slight /LPF Sodium Level 139 mmol/L (136-145) Potassium Level 3.1 mmol/L (3.5-5.1) L Chloride Level 104 mmol/L (98-107) Carbon Dioxide Level 22 mmol/L (21-32) Anion Gap 13 (6-14) Blood Urea Nitrogen 5 mg/dL (7-20) L Creatinine 0.8 mg/dL (0.6-1.0) Estimated GFR (Cockcroft-Gault) 71.8 Glucose Level 125 mg/dL (70-99) H Calcium Level 8.8 mg/dL (8.5-10.1) Magnesium Level 2.1 mg/dL (1.8-2.4) Total Bilirubin 0.7 mg/dL (0.2-1.0) Direct Bilirubin 0.2 mg/dL (0.0-0.2) Aspartate Amino Transferase (AST) 18 U/L (15-37) Alanine Aminotransferase (ALT) 15 U/L (14-59) Alkaline Phosphatase 52 U/L (46-116) Creatine Kinase 113 U/L (26-192) Troponin I Quantitative < 0.017 ng/mL (0-0.055) IT-Vww-J-Type Natriuretic Peptide 255 pg/mL (0-124) H Total Protein 7.0 g/dL (6.4-8.2) Albumin 3.7 g/dL (3.4-5.0) Lipase 166 U/L (73-393) Urine Opiates Screen Neg (NEG) Urine Methadone Screen Neg (NEG) Urine Barbiturates Neg (NEG) Urine Phencyclidine Screen Neg (NEG) Urine Amphetamine/Methamphetamine Neg (NEG) Urine Benzodiazepines Screen Neg (NEG) Urine Cocaine Screen Neg (NEG) Urine Cannabinoids Screen Neg (NEG) Urine Ethyl Alcohol Neg (NEG) Prothrombin Time 10.0 SEC (9.4-11.4) Prothrombin Time INR 1.0 (0.9-1.1) Activated Partial Thromboplast Time 25 SEC (23-33) D-Dimer (Tracy) 0.44 mg/L (0.00-0.50) EKG EKG My interpretation EKG shows a sinus rhythm at 80 bpm left axis and intraventricular block.[] Radiology/Procedures Radiology/Procedures [][place] [address] IMAGING REPORT Signed PATIENT: ALEXY LANGE LACCOUNT: [id number] : 1950 LOCATION: ER AGE: 68 SEX: F EXAM STATUS: REG ER ORD. PHYSICIAN: DAVID MCLAUGHLIN MD REASON: dyspnea, cough PROCEDURE: PORTABLE CHEST 1V AP chest. HISTORY: Dyspnea, cough AP view was taken of the chest. There is density at the left heart apex which was not evident on the old study from December 2017. Focal atelectasis or infiltrate or scarring could have this pattern. No other infiltrates are noted. There is no pleural effusion. IMPRESSION: 1. Scarring or atelectasis or developing density at the left cardiac apex. 2. No other acute chest disease. Electronically signed by: Gilberto Mckeon MD (03/03/2019 1:21 AM) [facility] DICTATED AND SIGNED BY: GILBERTO MCKEON MD DATE: 03/03/19 0121 CC: PRAKASH LUU MD; DAVID MCLAUGHLIN MD ~ Course & Med Decision Making Course & Med Decision Making Pertinent Labs and Imaging studies reviewed. (See chart for details) Avoid smoke-filled bars. Avoid tobacco smoke. We'll take his Zithromax 250 a day for 5 days. Take prednisone 50 mg a day for 5 days. Follow-up primary care. Push fruit juices. Return if any concerns. Use MDI or albuterol treatments 4 times a day. [] Final Impression Final Impression 1. Asthma exacerbation/COPD 2. Right trapezius spasm and torticollis 3. Accelerated hypertension[] 4. Hypokalemia 3.1 5. Mild elevation in BNP =255 Dragon Disclaimer Dragon Disclaimer This electronic medical record was generated, in whole or in part, using a voice recognition dictation system. Dragon Disclaimer This chart was dictated in whole or in part using Voice Recognition software in a busy, high-work load, and often noisy Emergency Department environment. It may contain unintended and wholly unrecognized errors or omissions. DAVID MCLAUGHLIN MD Mar 03, 2019 01:22
[2019-03-03 02:29] LABS: BARBITURATES NEG (NEG); BENZODIAZEPINES NEG (NEG); CANNABINOIDS NEG (NEG); COCAINE NEG (NEG); METHADONE NEG (NEG); OPIATES NEG (NEG); PHENCYCLIDINE NEG (NEG)
[2019-03-03] MEDS ORDERED: ORPHENADRINE CITRATE 60 MG/2 ML VIAL. IV ONE (02:30)
[2019-03-03 02:35] LABS: BASO % 0 % (0-3); BILIRUBIN,URINE NEG (NEG); CLARITY,URINE HAZY; COLOR,URINE STRAW; EOS # 0.3 x10^3/uL (0.0-0.7); EOS % 4 % (0-3); GLUCOSE,URINE NEG (NEG); HEMOGLOBIN 14.6 g/dL (12.0-15.5); LYMPH # 2.6 x10^3/uL (1.0-4.8); LYMPH % 30 % (24-48); MEAN CORPUSCULAR HEMOGLOBIN 30 pg (25-35); MEAN CORPUSCULAR HGB CONC 33 g/dL (31-37); MEAN CORPUSCULAR VOLUME 90 fL (79-100); MONO # 0.8 x10^3/uL (0.0-1.1); MONO % 9 % (0-9); NEUT # 5.1 x10^3uL (1.8-7.7); NEUT % 57 % (31-73); PLATELET COUNT 259 x10^3/uL (140-400); RED BLOOD COUNT 4.92 x10^6/uL (3.50-5.40); RED CELL DISTRIBUTION WIDTH 14.1 % (11.5-14.5); WHITE BLOOD COUNT 8.9 x10^3/uL (4.0-11.0)
[2019-03-03 02:36] LABS: BACTERIA,URINE FEW /HPF (0-FEW); NITRITE,URINE NEG (NEG); RBC,URINE 0 /HPF (0-2); SQUAMOUS EPITHELIAL CELL,UR FEW /LPF; UROBILINOGEN,URINE 0.2 mg/dL (0.2 mg/dL); WBC,URINE OCC /HPF (0-4)
[2019-03-03 02:38] LABS: AMPHETAMINE/METHAMPHETAMINE NEG (NEG)
[2019-03-03 02:43] LABS: ALBUMIN 3.7 g/dL (3.4-5.0); CALCIUM 8.8 mg/dL (8.5-10.1); CREATININE 0.8 mg/dL (0.6-1.0); DIRECT BILIRUBIN 0.2 mg/dL (0.0-0.2); GFR 71.8; MAGNESIUM 2.1 mg/dL (1.8-2.4); POTASSIUM 3.1 mmol/L (3.5-5.1); TOTAL BILIRUBIN 0.7 mg/dL (0.2-1.0)
[2019-03-03] MEDS ORDERED: POTASSIUM CHLORIDE 20 MEQ TABLET.ER. PO ONE ×2 (03:30→03:39)
[2019-03-03] MEDS ORDERED: PRED50TA PO (03:55)
[2019-03-03] MEDS ORDERED: AZIT250T PO (03:55)
[2019-03-03] MEDS ORDERED: HYDR-1179 PO (04:00)
[2019-03-03] MEDS ORDERED: CYCL-331 PO (04:00)
[2019-03-03 04:02] VITALS: BP 145/79
--- NOTE | 2019-03-05 03:41 | EKG ---
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
== END 2019-03-03 04:10 | disposition home or self-care (01) ==
LOC: ER 00:40
DX: J44.1 Chronic obstructive pulmonary disease with (acute) exacerbation (principal); M43.6 Torticollis; M62.838 Other muscle spasm; I10 Essential (primary) hypertension; E87.6 Hypokalemia; R79.89 Other specified abnormal findings of blood chemistry; M19.90 Unspecified osteoarthritis, unspecified site; K21.9 Gastro-esophageal reflux disease without esophagitis; Z87.891 Personal history of nicotine dependence; Z88.8 Allergy status to other drugs, medicaments and biological substances; Z91.030 Bee allergy status
CPT/HCPCS: 36415; 71045; 80048; 80076; 80307; 81001; 82550; 83690; 83735; 83880; 84443; 84484; 85025; 85379; 85610; 85730; 87040; 93005; 94640; 96365; 96372; 96375; 99285; J0456; J0696; J2270; J2360; J2930; J7120; J7620

== ENCOUNTER 2019-04-05 00:53 | Emergency (ER) | payer OTHER ==
[~2019-04-05] VITALS: Ht 152.4 cm; Wt 75.4 kg
[~2019-04-05 00:53] MED LIST changes: +AZIT250T PO; +PRED50TA PO
[2019-04-05 01:07] VITALS: BP 145/79
[2019-04-05] MEDS ORDERED: HYDR-3165 PO (01:44)
--- NOTE | 2019-04-05 01:45 | PHYS DOC ---
Past History Past Medical History: Anxiety, Arthritis, Asthma, COPD, GERD, Hypertension Past Surgical History: Tonsillectomy, Tubal ligation, Other Additional Past Surgical Histo: Left wrist fracture repair Smoking: Quit Greater Than 1 Year Alcohol Use: Occasionally Drug Use: None Adult General Chief Complaint Chief Complaint: HAND PROBLEM HPI HPI 68-year-old female presents with report of swelling to dorsum of right hand which occurred earlier tonight. Patient reports she was out playing pool. Patient reports some discomfort to the back of her hand. Denies trauma. Patient has been drinking here this evening. Reports has had 2 beers. Patient reports she is currently treated with Plavix and aspirin. Review of Systems Review of Systems Constitutional: Denies fever or chills Eyes: Denies redness or eye pain HENT: Denies nasal congestion or sore throat Respiratory: Denies cough or shortness of breath Cardiovascular: Denies chest pain or palpitations GI: Denies abdominal pain, nausea, or vomiting : Denies dysuria or hematuria Musculoskeletal: Denies back pain; reports pain to dorsum of right hand Integument: Reports right hand swelling and bruising Neurologic: Denies headache, focal weakness or sensory changes Complete systems were reviewed and found to be within normal limits, except as documented in this note. Current Medications Current Medications Current Medications Medications (Trade) Dose Ordered Sig/Linda Start Time Stop Time Status Last Admin Dose Admin Acetaminophen/ Hydrocodone Bitart (Lortab 5/325) 1 tab 1X ONCE 04/05/19 02:00 04/05/19 02:01 Allergies Allergies Allergies Coded Allergies Type Severity Reaction Last Updated Verified venom-honey bee Allergy Severe Shortness of Air 11/22/13 Yes adhesive Allergy Intermediate 08/17/17 Yes cimetidine Allergy Intermediate "toxic" 01/12/15 Yes cimetidine HCl Allergy Intermediate "toxic" 01/12/15 Yes Physical Exam Physical Exam Constitutional: Well developed, well nourished, no acute distress, non-toxic appearance HENT: Normocephalic, atraumatic, oropharynx moist Eyes: Conjunctiva normal, no discharge Neck: Normal range of motion, no tenderness, supple Cardiovascular: Heart rate normal, regular rhythm Lungs & Thorax: Bilateral breath sounds clear to auscultation, no wheezing Abdomen: Soft, no tenderness Skin: Warm, dry, no erythema, hematoma noted to dorsum of right hand Extremities: Tenderness to right hand metacarpals 2-4, ROM intact Neurologic: Alert and oriented X 3, no focal deficits noted Psychologic: Affect normal, judgement normal Current Patient Data Vital Signs Vital Signs Date Time Temp Pulse Resp B/P (MAP) Pulse Ox O2 Delivery O2 Flow Rate FiO2 04/05/19 01:07 98.2 81 16 95 Room Air EKG EKG [] Radiology/Procedures Radiology/Procedures PROCEDURE: HAND RIGHT 3V Study: HAND RIGHT 3V Indication: Pain/swelling/hematoma of the right hand. Comparison: 04/16/2017 Findings: Prominent soft tissue prominence seen along the dorsum of the hand at the level of the distal metacarpals/MCP joints. No subjacent bony abnormality is identified. Alignment is maintained. Multifocal degenerative changes throughout the hand and wrist with osteophytosis and regions of joint space narrowing. Mineralization along the thumb IP joint was present on the 2017 comparison. Impression: 1. Prominent soft tissue swelling along the dorsum of the hand at the level of the distal metacarpals/MCP joints. No subjacent acute fracture or erosive bony change. No retained radiopaque foreign body. 2. Multifocal degenerative changes throughout the hand and wrist with osteophytosis and joint space narrowing. Electronically signed by: AZEB WOODARD MD (04/05/2019 1:52 AM) [facility] [place] Course & Med Decision Making Course & Med Decision Making Pertinent Imaging studies reviewed. (See chart for details) Patient presents with history of present illness and physical exam consistent for hematoma to dorsum of right hand. Ice applied. Pain addressed. X-ray obtained without fracture dislocation. Matt bandage applied. Patient stable for discharge with outpatient follow-up with PCP. Discussed findings and plan with patient and family, who acknowledge understanding and agreement. Dragon Disclaimer Dragon Disclaimer This electronic medical record was generated, in whole or in part, using a voice recognition dictation system. Splinting Splinting : Location: right hand Pre-Made Type: Matt bandage Pre-Proc Neuro Vasc Exam: normal Post-Proc Neuro Vasc Exam: normal, unchanged from pre-exam Departure Departure: Impression: Primary Impression: Traumatic hematoma of right hand Disposition: HOME, SELF-CARE Condition: STABLE Referrals: PRAKASH LUU MD (PCP) Patient Instructions: Hand Hematoma-SportsMed Scripts Hydrocodone Bit/Acetaminophen (NORCO 5-325 TABLET) 1 Each Tablet 0.5-1 TAB PO Q6HRS PRN for PAIN, #6 TAB Prov: ASHLEY TREVIÑO DO 04/05/19 Problem Qualifiers Primary Impression: Traumatic hematoma of right hand Encounter type: initial encounter Qualified Codes: S60.221A - Contusion of right hand, initial encounter ASHLEY TREVIÑO DO Apr 05, 2019 01:45
--- NOTE | 2019-04-05 01:55 | RAD ---
Study: HAND RIGHT 3V Indication: Pain/swelling/hematoma of the right hand. Comparison: 04/16/2017 Findings: Prominent soft tissue prominence seen along the dorsum of the hand at the level of the distal metacarpals/MCP joints. No subjacent bony abnormality is identified. Alignment is maintained. Multifocal degenerative changes throughout the hand and wrist with osteophytosis and regions of joint space narrowing. Mineralization along the thumb IP joint was present on the 2017 comparison. Impression: 1. Prominent soft tissue swelling along the dorsum of the hand at the level of the distal metacarpals/MCP joints. No subjacent acute fracture or erosive bony change. No retained radiopaque foreign body. 2. Multifocal degenerative changes throughout the hand and wrist with osteophytosis and joint space narrowing. Electronically signed by: AZEB WOODARD MD (04/05/2019 1:52 AM) [facility]
[2019-04-05] MEDS ORDERED: HYDROcodone/APAP 5/325MG 1 TAB TABLET PO ONE (02:00)
== END 2019-04-05 02:12 | disposition home or self-care (01) ==
LOC: ER 00:53
DX: S60.221A Contusion of right hand, initial encounter (principal); M19.90 Unspecified osteoarthritis, unspecified site; J44.9 Chronic obstructive pulmonary disease, unspecified; K21.9 Gastro-esophageal reflux disease without esophagitis; I10 Essential (primary) hypertension; Z87.891 Personal history of nicotine dependence; Z88.8 Allergy status to other drugs, medicaments and biological substances; Z91.030 Bee allergy status; X50.9XXA Other and unspecified overexertion or strenuous movements or postures, initial encounter; Y93.89 Activity, other specified; Y92.89 Other specified places as the place of occurrence of the external cause; Y99.8 Other external cause status
CPT/HCPCS: 73130; 99284

== ENCOUNTER 2019-04-14 13:21 | Emergency (ER) | payer OTHER ==
[~2019-04-14] VITALS: Ht 152.4 cm; Wt 75.4 kg
[~2019-04-14 13:21] MED LIST changes: +HYDR-3165 PO
[2019-04-14 13:25] VITALS: BP 145/84
--- NOTE | 2019-04-14 13:50 | PHYS DOC ---
Past History Past Medical History: Anxiety, Arthritis, Asthma, COPD, GERD, Hypertension Past Surgical History: Tonsillectomy, Tubal ligation, Other Additional Past Surgical Histo: Left wrist fracture repair Smoking: Quit Greater Than 1 Year Alcohol Use: Occasionally Drug Use: None Adult General Chief Complaint Chief Complaint: WRIST PAIN HPI HPI 68-year-old female presenting the emergency department today with right hand pain after injuring it a few days ago. She had an x-ray of the hand on the 10th when she injured it. It is much better than it was before. X-rays were negative then. Over the past 24-48 hours her swelling has increased mildly and the pain is coming back a little worse. She is not followed up with her doctor. She is using a simple wrist/hand splint which is helping her pain. Review of systems is negative for chest pain shortness of breath or any other injury. All other review of systems negative ED course: 68-year-old female presenting with pain in the hand. X-rays previously obtained were unremarkable. We will refer her to her primary physician within one to 2 days for an MRI of the hand for possible occult injury. In the interim she will wear the splint that she was given. Allergies Allergies Allergies Coded Allergies Type Severity Reaction Last Updated Verified venom-honey bee Allergy Severe Shortness of Air 11/22/13 Yes adhesive Allergy Intermediate 08/17/17 Yes cimetidine Allergy Intermediate "toxic" 01/12/15 Yes cimetidine HCl Allergy Intermediate "toxic" 01/12/15 Yes Physical Exam Physical Exam Constitutional: Well developed, well nourished, no acute distress, non-toxic appearance. [] HENT: Normocephalic, atraumatic, bilateral external ears normal, oropharynx moist, no oral exudates, nose normal. [] Eyes: PERRLA, EOMI, conjunctiva normal, no discharge. [] Neck: Normal range of motion, no tenderness, supple, no stridor. [] Cardiovascular:Heart rate regular rhythm, no murmur [] Lungs & Thorax: Bilateral breath sounds clear to auscultation [] Abdomen: Bowel sounds normal, soft, no tenderness, no masses, no pulsatile theo s. [] Skin: Warm, dry, no erythema, no rash. [] Back: No tenderness, no CVA tenderness. [] Extremities: The patient's hand has mild tenderness palpation along the third metacarpal distally. There is mild amount of swelling at the third metacarpal phalangeal joint. It is not warm to touch. There are no abrasions or lacerations over the skin. Otherwise nontender scaphoid. Nontender wrist. Normal neurovascular status. No signs of tendon injury. Neurologic: Alert and oriented X 3, normal motor function, normal sensory function, no focal deficits noted. [] Psychologic: Affect normal, judgement normal, mood normal. [] Current Patient Data Vital Signs Vital Signs Date Time Temp Pulse Resp B/P (MAP) Pulse Ox O2 Delivery O2 Flow Rate FiO2 04/14/19 13:21 97.5 67 20 145/84 (104) 95 Room Air EKG EKG [] Radiology/Procedures Radiology/Procedures [] Course & Med Decision Making Course & Med Decision Making Pertinent Labs and Imaging studies reviewed. (See chart for details) [] Dragon Disclaimer Dragon Disclaimer This electronic medical record was generated, in whole or in part, using a voice recognition dictation system. Departure Departure: Impression: Primary Impression: Hand injury Disposition: 01 HOME, SELF-CARE Condition: STABLE Referrals: PRAKASH LUU MD (PCP) Patient Instructions: Hand Injuries Additional Instructions: Thank you for allowing us to participate in your care today. Return to the emergency department you have any new or worsening symptoms, or if you are concerned for any reason. Return to emergency department if you have any new or concerning symptoms including but not limited to fever, chills, nausea, vomiting, intractable pain, any new rashes, chest pain, shortness of air, uncontrolled bleeding, difficulty breathing, and/or vision loss. Follow up with your primary care physician within 1-2 days to get an MRI of the hand . Call your Primary Doctor tomorrow and inform them of your visit today. If you do not have a primary care provider we are happy to provide you with a list of our primary care providers contact information. This condition should be evaluated by your primary care physician and any recommended consulting services for continued management within 2 days after discharge. If at any time, you are having difficulty getting into your primary care doctor or a specialist, return to the emergency department. RYAN LECHUGA MD Apr 14, 2019 13:50
== END 2019-04-14 14:00 | disposition home or self-care (01) ==
LOC: ER 13:21
DX: S69.91XD Unspecified injury of right wrist, hand and finger(s), subsequent encounter (principal); F41.9 Anxiety disorder, unspecified; M19.90 Unspecified osteoarthritis, unspecified site; J44.9 Chronic obstructive pulmonary disease, unspecified; K21.9 Gastro-esophageal reflux disease without esophagitis; I10 Essential (primary) hypertension; Z87.891 Personal history of nicotine dependence; Z88.8 Allergy status to other drugs, medicaments and biological substances; Z91.030 Bee allergy status; X58.XXXD Exposure to other specified factors, subsequent encounter
CPT/HCPCS: 99281

== ENCOUNTER 2019-06-24 09:49 | Emergency (ER) | payer OTHER ==
[~2019-06-24] VITALS: Ht 152.4 cm; Wt 75.3 kg
[~2019-06-24 09:49] MED LIST changes: -CLON0.5T11 PO; +CLON0.5T4 PO
[2019-06-24] MEDS ORDERED: IPRATRPIUM/ALBUTEROL 0.5/2.5MG 3 ML NEBU. ONE (09:55)
[2019-06-24] MEDS ORDERED: IV NORMAL SALINE 1,000ML 1,000 ML IV SCH (09:57)
[2019-06-24 09:59] VITALS: BP 143/53
[2019-06-24] MEDS ORDERED: ONDANSETRON PF 4 MG/2 ML VIAL. IVP ONE (10:00)
[2019-06-24] MEDS ORDERED: IPRATRPIUM/ALBUTEROL 0.5/2.5MG 3 ML NEBU. NEB ONE (10:00)
[2019-06-24 10:15] LABS: BASO # 0.1 x10^3/uL (0.0-0.2); BASO % 1 % (0-3); EOS # 0.4 x10^3/uL (0.0-0.7); EOS % 7 % (0-3); HEMATOCRIT 43.9 % (36.0-47.0); HEMOGLOBIN 14.7 g/dL (12.0-15.5); LYMPH # 1.6 x10^3/uL (1.0-4.8); LYMPH % 25 % (24-48); MEAN CORPUSCULAR HEMOGLOBIN 30 pg (25-35); MEAN CORPUSCULAR HGB CONC 34 g/dL (31-37); MEAN CORPUSCULAR VOLUME 88 fL (79-100); MONO # 0.4 x10^3/uL (0.0-1.1); MONO % 7 % (0-9); NEUT # 3.9 x10^3uL (1.8-7.7); NEUT % 60 % (31-73); PLATELET COUNT 244 x10^3/uL (140-400); RED BLOOD COUNT 4.99 x10^6/uL (3.50-5.40); RED CELL DISTRIBUTION WIDTH 13.7 % (11.5-14.5); WHITE BLOOD COUNT 6.5 x10^3/uL (4.0-11.0)
[2019-06-24] MEDS ORDERED: diphenhydrAMINE 50 MG/ML VIAL IVP ONE (10:15)
[2019-06-24 10:17] LABS: CALCIUM 8.3 mg/dL (8.5-10.1); CREATININE 0.8 mg/dL (0.6-1.0); GFR 71.5; POTASSIUM 3.6 mmol/L (3.5-5.1)
[2019-06-24 10:25] LABS: ALBUMIN 3.6 g/dL (3.4-5.0); ALBUMIN/GLOBULIN RATIO 1.4 (1.0-1.7); TOTAL BILIRUBIN 0.4 mg/dL (0.2-1.0); TOTAL PROTEIN 6.1 g/dL (6.4-8.2)
--- NOTE | 2019-06-24 10:27 | RAD ---
EXAM: CHEST 1 VIEW History: Shortness of breath COMPARISON: 03/03/2019 TECHNIQUE: Single portable radiograph of the chest FINDINGS: The cardiac silhouette is unremarkable. The lungs are clear bilaterally. The costophrenic sulci are clear and well demarcated. IMPRESSION: No radiographic evidence of an acute cardiopulmonary process. Electronically signed by: Brandon Renee MD (06/24/2019 10:24 AM) [facility]
--- NOTE | 2019-06-24 10:36 | PHYS DOC ---
Past History Past Medical History: Anxiety, Asthma, COPD, High Cholesterol Past Surgical History: Tubal ligation, Other Additional Past Surgical Histo: 3 stents placed Smoking: Quit Greater Than 1 Year Alcohol Use: None Drug Use: None Adult General Chief Complaint Chief Complaint: ITCHING HPI HPI Patient is a 69-year-old female who presents with complaint of nausea and itching all over. Patient states that the itching started yesterday. She states that she is not sure what is causing the itching. Patient is also complaining of a lot of acid reflux. She denies any chest pain or shortness of breath. She also denies any abdominal pain. She states that symptoms are not getting any better.[] Review of Systems Review of Systems Constitutional: Denies fever or chills [] Respiratory: Denies cough or shortness of breath [] Cardiovascular: No additional information not addressed in HPI [] GI: Denies abdominal pain. Complains of nausea without vomiting or diarrhea [] Integument: Denies rash or skin lesions [] Neurologic: Denies headache, focal weakness or sensory changes [] All other systems were reviewed and found to be within normal limits, except as documented in this note. Current Medications Current Medications Current Medications Medications (Trade) Dose Ordered Sig/Linda Start Time Stop Time Status Last Admin Dose Admin Albuterol/ Ipratropium (Duoneb) 3 ml 1X ONCE 06/24/19 10:00 06/24/19 10:15 DC 06/24/19 10:00 3 ML Diphenhydramine HCl (Benadryl) 25 mg 1X ONCE 06/24/19 10:15 06/24/19 10:16 DC 06/24/19 10:18 25 MG Ondansetron HCl (Zofran) 4 mg 1X ONCE 06/24/19 10:00 06/24/19 10:15 DC 06/24/19 10:18 4 MG Sodium Chloride 1,000 ml @ 1,000 mls/hr Q1H 06/24/19 09:57 06/24/19 10:56 06/24/19 10:18 1,000 MLS/HR Allergies Allergies Allergies Coded Allergies Type Severity Reaction Last Updated Verified venom-honey bee Allergy Severe Shortness of Air 11/22/13 Yes adhesive Allergy Intermediate 08/17/17 Yes cimetidine Allergy Intermediate "toxic" 01/12/15 Yes cimetidine HCl Allergy Intermediate "toxic" 01/12/15 Yes Physical Exam Physical Exam Constitutional: Well developed, well nourished, no acute distress, non-toxic appearance. [] HENT: Normocephalic, atraumatic, bilateral external ears normal, oropharynx moist, no oral exudates, nose normal. [] Eyes: PERRLA, EOMI, conjunctiva normal, no discharge. [] Neck: Normal range of motion, no tenderness, supple, no stridor. [] Cardiovascular: Regular rate and rhythm[] Lungs & Thorax: Bilateral breath sounds clear to auscultation [] Abdomen: Bowel sounds normal, soft, no tenderness. [] Skin: Warm, dry, no erythema, no rash. [] Extremities: No tenderness, no cyanosis, no clubbing, ROM intact. [] Neurologic: Alert and oriented X 3, no focal deficits noted. [] Current Patient Data Vital Signs Vital Signs Date Time Temp Pulse Resp B/P (MAP) Pulse Ox O2 Delivery O2 Flow Rate FiO2 06/24/19 10:00 95 Room Air 06/24/19 09:59 97.0 90 18 Lab Results Laboratory Tests Test 06/24/19 10:00 White Blood Count 6.5 x10^3/uL (4.0-11.0) Red Blood Count 4.99 x10^6/uL (3.50-5.40) Hemoglobin 14.7 g/dL (12.0-15.5) Hematocrit 43.9 % (36.0-47.0) Mean Corpuscular Volume 88 fL (79-100) Mean Corpuscular Hemoglobin 30 pg (25-35) Mean Corpuscular Hemoglobin Concent 34 g/dL (31-37) Red Cell Distribution Width 13.7 % (11.5-14.5) Platelet Count 244 x10^3/uL (140-400) Neutrophils (%) (Auto) 60 % (31-73) Lymphocytes (%) (Auto) 25 % (24-48) Monocytes (%) (Auto) 7 % (0-9) Eosinophils (%) (Auto) 7 % (0-3) H Basophils (%) (Auto) 1 % (0-3) Neutrophils # (Auto) 3.9 x10^3uL (1.8-7.7) Lymphocytes # (Auto) 1.6 x10^3/uL (1.0-4.8) Monocytes # (Auto) 0.4 x10^3/uL (0.0-1.1) Eosinophils # (Auto) 0.4 x10^3/uL (0.0-0.7) Basophils # (Auto) 0.1 x10^3/uL (0.0-0.2) Sodium Level 144 mmol/L (136-145) Potassium Level 3.6 mmol/L (3.5-5.1) Chloride Level 107 mmol/L (98-107) Carbon Dioxide Level 26 mmol/L (21-32) Anion Gap 11 (6-14) Blood Urea Nitrogen 11 mg/dL (7-20) Creatinine 0.8 mg/dL (0.6-1.0) Estimated GFR (Cockcroft-Gault) 71.5 BUN/Creatinine Ratio 14 (6-20) Glucose Level 92 mg/dL (70-99) Calcium Level 8.3 mg/dL (8.5-10.1) L Total Bilirubin 0.4 mg/dL (0.2-1.0) Aspartate Amino Transferase (AST) 20 U/L (15-37) Alanine Aminotransferase (ALT) 28 U/L (14-59) Alkaline Phosphatase 58 U/L (46-116) Total Protein 6.1 g/dL (6.4-8.2) L Albumin 3.6 g/dL (3.4-5.0) Albumin/Globulin Ratio 1.4 (1.0-1.7) Lipase 257 U/L (73-393) EKG EKG [] Radiology/Procedures Radiology/Procedures [] Impressions: PROCEDURE: PORTABLE CHEST 1V EXAM: CHEST 1 VIEW History: Shortness of breath COMPARISON: 03/03/2019 TECHNIQUE: Single portable radiograph of the chest FINDINGS: The cardiac silhouette is unremarkable. The lungs are clear bilaterally. The costophrenic sulci are clear and well demarcated. IMPRESSION: No radiographic evidence of an acute cardiopulmonary process. Electronically signed by: Brandon Renee MD (06/24/2019 10:24 AM) [facility] Course & Med Decision Making Course & Med Decision Making Pertinent Labs and Imaging studies reviewed. (See chart for details) [] Dragon Disclaimer Dragon Disclaimer This electronic medical record was generated, in whole or in part, using a voice recognition dictation system. Departure Departure: Impression: Primary Impression: Skin pruritus Additional Impression: Nausea Disposition: 01 HOME, SELF-CARE Condition: STABLE Referrals: PRAKASH LUU MD (PCP) Patient Instructions: Nausea, Adult, Pruritus Scripts Ondansetron (ONDANSETRON ODT) 4 Mg Tab.rapdis 1 TAB PO PRN Q6-8HRS PRN for NAUSEA, #12 TAB Prov: KATHERIN YODER Jr. DO 06/24/19 Problem Qualifiers KATHERIN YODER Jr. DO Jun 24, 2019 10:36
[2019-06-24 11:01] LABS: BACTERIA,URINE FEW /HPF (0-FEW); BILIRUBIN,URINE NEG (NEG); CLARITY,URINE HAZY; COLOR,URINE YELLOW; GLUCOSE,URINE NEG (NEG); NITRITE,URINE NEG (NEG); SQUAMOUS EPITHELIAL CELL,UR MOD /LPF; UROBILINOGEN,URINE 0.2 mg/dL (0.2 mg/dL); WBC,URINE OCC /HPF (0-4)
[2019-06-24 11:03] LABS: HYALINE CASTS, URINE OCC /HPF
[2019-06-24] MEDS ORDERED: ONDA4TAB12 PO (11:07)
== END 2019-06-24 11:31 | disposition home or self-care (01) ==
LOC: ER 09:49
DX: L29.9 Pruritus, unspecified (principal); R11.0 Nausea; F41.9 Anxiety disorder, unspecified; J44.9 Chronic obstructive pulmonary disease, unspecified; E78.00 Pure hypercholesterolemia, unspecified; Z87.891 Personal history of nicotine dependence; Z88.8 Allergy status to other drugs, medicaments and biological substances; Z91.030 Bee allergy status
CPT/HCPCS: 36415; 71045; 80053; 81001; 83690; 85025; 94640; 96374; 96375; 99285; J1200; J2405; J7620; J7030

== ENCOUNTER 2019-08-02 17:52 | Observation (INO) | payer MEDICARE, OTHER ==
[~2019-08-02] VITALS: Ht 149.9 cm; Wt 74.9 kg
[~2019-08-02 17:52] MED LIST changes: +ONDA4TAB12 PO
[2019-08-02] MEDS ORDERED: IV NORMAL SALINE 1,000ML 1,000 ML IV SCH (18:32)
[2019-08-02] MEDS ORDERED: methylPREDNISolone SOD SUCC PF 125 MG/2 ML VIAL. ONE (18:32)
[2019-08-02] MEDS ORDERED: IPRATRPIUM/ALBUTEROL 0.5/2.5MG 3 ML NEBU. ONE (18:36)
[2019-08-02] MEDS ORDERED: methylPREDNISolone SOD SUCC PF 125 MG/2 ML VIAL. IV ONE (18:45)
[2019-08-02] MEDS ORDERED: IPRATRPIUM/ALBUTEROL 0.5/2.5MG 3 ML NEBU. NEB ONE (18:45)
[2019-08-02] MEDS ORDERED: ALBUTEROL SULFATE 2.5 MG/3 ML NEBU. NEB ONE (18:45)
[2019-08-02 19:00] LABS: BASO # 0.1 x10^3/uL (0.0-0.2); BASO % 1 % (0-3); EOS # 0.7 x10^3/uL (0.0-0.7); EOS % 8 % (0-3); HEMATOCRIT 47.3 % (36.0-47.0); HEMOGLOBIN 15.3 g/dL (12.0-15.5); LYMPH # 1.3 x10^3/uL (1.0-4.8); LYMPH % 14 % (24-48); MEAN CORPUSCULAR HEMOGLOBIN 29 pg (25-35); MEAN CORPUSCULAR HGB CONC 32 g/dL (31-37); MEAN CORPUSCULAR VOLUME 90 fL (79-100); MONO # 0.7 x10^3/uL (0.0-1.1); MONO % 7 % (0-9); NEUT # 6.9 x10^3uL (1.8-7.7); NEUT % 71 % (31-73); PLATELET COUNT 278 x10^3/uL (140-400); RED BLOOD COUNT 5.24 x10^6/uL (3.50-5.40); RED CELL DISTRIBUTION WIDTH 14.2 % (11.5-14.5); WHITE BLOOD COUNT 9.7 x10^3/uL (4.0-11.0)
--- NOTE | 2019-08-02 19:06 | PHYS DOC ---
Past History Past Medical History: Anxiety, Asthma, COPD, GERD, High Cholesterol Past Surgical History: Tonsillectomy, Tubal ligation, Other Additional Past Surgical Histo: 3 stents placed; esophageal strictures stretch; fx left wrist repair Smoking: Quit Greater Than 1 Year Alcohol Use: Occasionally Drug Use: None Adult General Chief Complaint Chief Complaint: COUGH HPI HPI Patient is a 69 year old female who presents with complaint of cough and shortness of breath. Patient notes that her cough started worsening 4 days ago. Has history of COPD, GERD, and coronary artery disease with chronic left bundle branch block. Denies any chest pain but states that she is had tightness and difficulty breathing. Increased wheezing. Cough has been productive of yellowish whitish sputum. Last used albuterol 1 hour prior to arrival with no significant relief. Not currently on daily oral steroid. Denies fever. States that she has significantly worsening symptoms while walking inside her own home. States that she is very concerned as she lives alone and that she has gotten significantly more short of breath. She called a friend who helped bring her to the emergency department for further care. Review of Systems Review of Systems Constitutional: Denies fever or chills [] Eyes: Denies change in visual acuity, redness, or eye pain [] HENT: Nasal congestion, ear pain[] Respiratory: Cough, shortness of breath, wheezing[] Cardiovascular: Denies chest pain or edema[] GI: Denies abdominal pain, nausea, vomiting, bloody stools or diarrhea [] : Denies dysuria or hematuria [] Musculoskeletal: Denies back pain or joint pain [] Integument: Denies rash or skin lesions [] Neurologic: Denies headache, focal weakness or sensory changes [] All other systems were reviewed and found to be within normal limits, except as documented in this note. Current Medications Current Medications Current Medications Medications (Trade) Dose Ordered Sig/Linda Start Time Stop Time Status Last Admin Dose Admin Albuterol Sulfate (Ventolin) 2.5 mg 1X ONCE 08/02/19 18:45 08/02/19 18:46 DC 08/02/19 18:56 2.5 MG Albuterol/ Ipratropium (Duoneb) 3 ml STK-MED ONCE 08/02/19 18:36 08/02/19 18:37 DC Methylprednisolone Sodium Succinate (SOLU-Medrol 125MG VIAL) 125 mg 1X ONCE 08/02/19 18:45 08/02/19 18:46 DC 08/02/19 18:48 125 MG Sodium Chloride 1,000 ml @ 1,000 mls/hr Q1H 08/02/19 18:32 08/02/19 19:31 08/02/19 18:46 1,000 MLS/HR Allergies Allergies Allergies Coded Allergies Type Severity Reaction Last Updated Verified venom-honey bee Allergy Severe Shortness of Air 08/02/19 Yes adhesive Allergy Intermediate 08/02/19 Yes cimetidine Allergy Intermediate "toxic" 08/02/19 Yes cimetidine HCl Allergy Intermediate "toxic" 08/02/19 Yes Physical Exam Physical Exam Constitutional: Alert, afebrile, appears in moderate respiratory distress. [] HENT: Normocephalic, atraumatic, bilateral external ears normal, oropharynx moist, no oral exudates, nose normal. [] Eyes: PERRLA, EOMI, conjunctiva normal, no discharge. [] Neck: Normal range of motion, no tenderness, supple, no stridor. [] Cardiovascular:Heart rate regular rhythm, no murmur [] Lungs & Thorax: Prolonged expiratory phase, expiratory wheezes bilaterally, no rales, mild accessory muscle usage present[] Abdomen: Bowel sounds normal, soft, no tenderness, no masses, no pulsatile masses. [] Skin: Warm, dry, no erythema, no rash. [] Back: No tenderness, no CVA tenderness. [] Extremities: No tenderness, no cyanosis, no clubbing, ROM intact, no edema. [] Neurologic: Alert and oriented X 3, normal motor function, normal sensory fun ction, no focal deficits noted. [] Current Patient Data Vital Signs Vital Signs Date Time Temp Pulse Resp B/P (MAP) Pulse Ox O2 Delivery O2 Flow Rate FiO2 08/02/19 18:57 94 Room Air 08/02/19 18:50 91 28 160/83 (108) 08/02/19 18:01 98.4 Lab Results Laboratory Tests Test 08/02/19 18:40 08/02/19 18:45 White Blood Count 9.7 x10^3/uL Red Blood Count 5.24 x10^6/uL Hemoglobin 15.3 g/dL Hematocrit 47.3 % Mean Corpuscular Volume 90 fL Mean Corpuscular Hemoglobin 29 pg Mean Corpuscular Hemoglobin Concent 32 g/dL Red Cell Distribution Width 14.2 % Platelet Count 278 x10^3/uL Neutrophils (%) (Auto) 71 % Lymphocytes (%) (Auto) 14 % Monocytes (%) (Auto) 7 % Eosinophils (%) (Auto) 8 % Basophils (%) (Auto) 1 % Neutrophils # (Auto) 6.9 x10^3uL Lymphocytes # (Auto) 1.3 x10^3/uL Monocytes # (Auto) 0.7 x10^3/uL Eosinophils # (Auto) 0.7 x10^3/uL Basophils # (Auto) 0.1 x10^3/uL Sodium Level 143 mmol/L Potassium Level 3.8 mmol/L Chloride Level 106 mmol/L Carbon Dioxide Level 26 mmol/L Anion Gap 11 Blood Urea Nitrogen 7 mg/dL Creatinine 0.8 mg/dL Estimated GFR (Cockcroft-Gault) 71.5 BUN/Creatinine Ratio 9 Glucose Level 90 mg/dL Calcium Level 8.9 mg/dL Total Bilirubin 0.5 mg/dL Aspartate Amino Transf (AST/SGOT) 18 U/L Alanine Aminotransferase (ALT/SGPT) 23 U/L Alkaline Phosphatase 60 U/L Creatine Kinase 73 U/L Creatine Kinase MB (Mass) 1.1 ng/mL Creatine Kinase MB Relative Index 1.5 % Troponin I Quantitative < 0.017 ng/mL NF-Mcp-E-Type Natriuretic Peptide 116 pg/mL Total Protein 7.2 g/dL Albumin 3.5 g/dL Albumin/Globulin Ratio 0.9 Influenza Type A (Rapid) Negative Influenza Type B (Rapid) Negative Current Medications Medications (Trade) Dose Ordered Sig/Linda Route PRN Reason Start Time Stop Time Status Last Admin Dose Admin Methylprednisolone Sodium Succinate (SOLU-Medrol 125MG VIAL) 125 mg STK-MED ONCE .ROUTE 08/02/19 18:32 08/02/19 18:33 DC Sodium Chloride 1,000 ml @ 1,000 mls/hr Q1H IV 08/02/19 18:32 08/02/19 19:31 DC 08/02/19 18:46 Albuterol/ Ipratropium (Duoneb) 3 ml 1X ONCE NEB 08/02/19 18:45 08/02/19 18:46 DC 08/02/19 18:57 Methylprednisolone Sodium Succinate (SOLU-Medrol 125MG VIAL) 125 mg 1X ONCE IV 08/02/19 18:45 08/02/19 18:46 DC 08/02/19 18:48 Albuterol Sulfate (Ventolin) 2.5 mg 1X ONCE NEB 08/02/19 18:45 08/02/19 18:46 DC 08/02/19 18:56 Albuterol/ Ipratropium (Duoneb) 3 ml STK-MED ONCE .ROUTE 08/02/19 18:36 08/02/19 18:37 DC Acetaminophen (Tylenol) 650 mg 1X ONCE PO 08/02/19 20:00 08/02/19 20:01 DC 08/02/19 20:01 Acetaminophen (Tylenol) 325 mg STK-MED ONCE PO 08/02/19 19:59 08/02/19 19:59 DC EKG EKG Interpreted by me: Heart rate 79 sinus rhythm, left bundle branch block, no acute ST elevations or depressions[] Radiology/Procedures Radiology/Procedures One view AP chest x-ray interpreted by me: No infiltrate, no effusions, normal cardiac silhouette[] Course & Med Decision Making Course & Med Decision Making Pertinent Labs and Imaging studies reviewed. (See chart for details) The patient was given IV Solu-Medrol, one unit dose of DuoNeb per nebulizer, and one unit dose of albuterol sulfate per nebulizer in the emergency department. Patient notes slight improvement in symptoms. Patient attempted ambulation in the emergency department with worsening shortness of breath and coughing which improves while at rest. Patient's oxygen saturation saturations during mild exertion do drop to 88% but improved while at rest to 94%. Patient lives by herself and states that she does not feel comfortable going back home and her current state as she does not feel well enough to take care of herself. Patient will be admitted to the hospital for continued treatment of acute COPD exacerbation. I spoke with Dr. Walsh who will except care patient in hospital for continued care. [] Dragon Disclaimer Dragon Disclaimer This electronic medical record was generated, in whole or in part, using a voice recognition dictation system. Departure Departure: Impression: Primary Impression: COPD with acute exacerbation Disposition: ADMITTED INPATIENT Admitting Physician: Bella Walsh Condition: STABLE Referrals: PRAKASH LUU MD (PCP) KATHRYN SALES MD Aug 02, 2019 19:06
[2019-08-02 19:08] LABS: CALCIUM 8.9 mg/dL (8.5-10.1); CREATININE 0.8 mg/dL (0.6-1.0); GFR 71.5; POTASSIUM 3.8 mmol/L (3.5-5.1)
[2019-08-02 19:15] LABS: INFLUENZA A PATIENT NEGATIVE (NEGATIVE); INFLUENZA B PATIENT NEGATIVE (NEGATIVE)
[2019-08-02 19:24] LABS: ALBUMIN 3.5 g/dL (3.4-5.0); ALBUMIN/GLOBULIN RATIO 0.9 (1.0-1.7); TOTAL BILIRUBIN 0.5 mg/dL (0.2-1.0); TOTAL PROTEIN 7.2 g/dL (6.4-8.2)
[2019-08-02] MEDS ORDERED: ACETAMINOPHEN 325 MG TABLET PO ONE ×2 (19:59→20:00)
[2019-08-02] MEDS ORDERED: ACETAMINOPHEN 325 MG TABLET PO PRN (20:15)
[2019-08-02] MEDS ORDERED: ONDANSETRON PF 4 MG/2 ML VIAL. IV PRN (20:15)
--- NOTE | 2019-08-02 20:35 | RAD ---
EXAM: AP View of the chest DATE: 08/02/2019 6:34 PM INDICATION: cough, shortness of breath COMPARISON: 06/24/2019, 03/03/2019 FINDINGS: The heart is not enlarged. Mediastinal and hilar contours are normal. Linear opacities left lung base likely scarring/atelectasis. No pneumothorax. Trace blunting left costophrenic angle, likely trace left pleural effusion. IMPRESSION: Linear opacities left lung base likely scarring/atelectasis. Electronically signed by: Angel Winters MD (08/02/2019 8:32 PM) [id number]
[2019-08-02 21:38] VITALS: BP 147/85
--- NOTE | 2019-08-02 21:47 | EKG ---
[address] [address] Test Date: 2019-08-02 Test Time: 18:44:49 Pat Name: ALEXY LANGE Department: Room: Gender: F Drug Safety Specialist: : [id number] Requested By: KATHRYN SALES Order Number: [id number] Reading MD: Measurements Intervals [place] Rate: 79 P: 44 DE: 148 QRS: -11 QRSD: 124 T: 89 QT: 404 QTc: 464 Interpretive Statements SINUS RHYTHM LEFTWARD AXIS T ABNORMALITY IN HIGH LATERAL LEADS ABNORMAL ECG RI6.01 No previous ECG available for comparison
[2019-08-02] MEDS ORDERED: FLUT1BLS3 INH (23:34)
[2019-08-02] MEDS ORDERED: PARO20TA3 PO (23:34)
[2019-08-02] MEDS ORDERED: ESTR42.58 VAG (23:34)
[2019-08-02] MEDS ORDERED: HYDR-2759 PO (23:34)
[2019-08-02] MEDS ORDERED: HYDR25TA PO (23:34)
[2019-08-03] MEDS: HYDROcodone/APAP 5/325MG 1 TAB TABLET PO SCH ×4 (00:06→21:37)
[2019-08-03] MEDS: methylPREDNISolone SOD SUCC PF 125 MG/2 ML VIAL. IV SCH ×5 (00:07→23:40)
[2019-08-03 04:42] VITALS: BP 144/86
[2019-08-03 05:01] VITALS: BP 144/86
[2019-08-03 06:16] LABS: BASO % 0 % (0-3); EOS % 0 % (0-3); HEMOGLOBIN 14.2 g/dL (12.0-15.5); LYMPH # 0.6 x10^3/uL (1.0-4.8); LYMPH % 8 % (24-48); MEAN CORPUSCULAR HEMOGLOBIN 29 pg (25-35); MEAN CORPUSCULAR HGB CONC 32 g/dL (31-37); MEAN CORPUSCULAR VOLUME 90 fL (79-100); MONO % 1 % (0-9); NEUT # 6.4 x10^3uL (1.8-7.7); NEUT % 91 % (31-73); PLATELET COUNT 277 x10^3/uL (140-400); RED CELL DISTRIBUTION WIDTH 14.1 % (11.5-14.5); WHITE BLOOD COUNT 7.1 x10^3/uL (4.0-11.0)
[2019-08-03 06:20] LABS: CALCIUM 8.5 mg/dL (8.5-10.1); CREATININE 0.7 mg/dL (0.6-1.0); GFR 83.5; POTASSIUM 3.8 mmol/L (3.5-5.1)
[2019-08-03] MEDS: IPRATRPIUM/ALBUTEROL 0.5/2.5MG 3 ML NEBU. NEB SCH ×4 (08:29→20:44)
[2019-08-03 11:06] VITALS: BP 129/78
[2019-08-03 14:52] VITALS: BP 119/77
[2019-08-03] MEDS ORDERED: diphenhydrAMINE HCL 25 MG CAPSULE PO PRN (16:15)
[2019-08-03] MEDS ORDERED: ALBUTEROL SULFATE 2.5 MG/3 ML NEBU. INH PRN (16:15)
[2019-08-03] MEDS ORDERED: hydrOXYzine HCL 25 MG TABLET PO PRN (16:30)
--- NOTE | 2019-08-03 17:32 | HP ---
ADMIT DATE: 08/02/2019 HISTORY OF PRESENT ILLNESS: The patient is 69-year-old female patient who came to the Emergency Room with complaint of cough and shortness of breath. The cough initially was dry and now it is productive with scanty yellowish sputum. She denied any chest pain. Did complain of chest tightness and difficulty breathing, increased wheezing. She has been using her inhalers without any significant relief. She is not on any steroids. Denied any fever. She has had significant worsening symptoms while walking inside her own home. She said she is very concerned that she lives alone and that she has gotten significantly more short of breath. She called her friend who helped bring her to the Emergency Department for further care. In the Emergency Room, she was extensively evaluated. Her lab work showed that her white cell count was normal. Her chemistry was unremarkable. Her influenza A and B were negative. Her chest x-ray showed that the heart is not enlarged. Mediastinal hilar contours are normal. Linear opacity with left lung base, likely scarring atelectasis, no pneumothorax. Trace blunting, left costophrenic angle likely trace left pleural effusion. The patient was admitted with COPD exacerbation. She was started on steroids and albuterol. She was given a liter of normal saline and was admitted to continue with bronchodilator and steroids. PAST MEDICAL HISTORY: Significant for chronic obstructive pulmonary disease, although she has never required intubation and mechanical ventilation, gastroesophageal reflux disease, esophageal stricture that was dilated once before. She has hyperlipidemia, hypertension, chronic left bundle-branch block, coronary artery disease, status post PCI with stent deployment x 3. PAST SURGICAL HISTORY: Significant for PCI with stent deployment x 3; left wrist fracture, status post open reduction and internal fixation; tubal ligation; tonsillectomy; exploratory laparotomy for endometriosis; bilateral total knee arthroplasty; EGD. She is scheduled also for colonoscopy. ALLERGIES: SHE IS ALLERGIC TO ADHESIVES, CIMETIDINE AND HONEY BEE VENOM. MEDICATIONS: She is currently on following medications: She is on diphenhydramine 25 mg every 6 hours, albuterol sulfate or ProAir 2 puffs every 4 hours, Plavix 75 mg daily, atorvastatin calcium 20 mg at bedtime, metoprolol tartrate 12.5 mg twice a day, hydrocodone/APAP 5/325 three times a day, paroxetine 20 mg daily, hydroxyzine 75 mg 4 times a day, Trelegy Ellipta 1 puff once a day, montelukast sodium (Singulair) 10 mg once a day at bedtime. She is on Protonix 40 mg once a day and estradiol cream vaginally daily. FAMILY HISTORY: She has no full brothers or sisters. Her father had in his 80s because of cerebral aneurysm. Mother is alive at the age of 90, has metastatic breast cancer and congestive heart failure. SOCIAL HISTORY: She is . She has 2 daughters who live out of the state. She is an ex-smoker, quit 12 years ago. She smoked for about 40 years. She smokes between half to 1 pack a day, drinks alcohol on the weekend. She drinks 2 beers and shots, does not use any drugs. 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 REVIEW OF SYSTEMS: The patient denied any blurring of vision, cataract, glaucoma or macular degeneration. Denied any earache, tinnitus or sensorineural deafness. Denied any nosebleeds, stuffy nose or postnasal drip. Denied any sore throat, sore tongue, toothache, hoarseness of voice. Did complain of difficulty swallowing to both solids and liquids. Denied any weight loss. Denied any nausea, vomiting, diarrhea or constipation. Denied any hematemesis, melena or hematochezia. Denied any dysuria, frequency or hematuria. Denied any chest pain. Did complain of shortness of breath, cough with yellowish sputum. PHYSICAL EXAMINATION: GENERAL: On arrival to the Emergency Room, she was clearly tachypneic with no pallor, jaundice, cyanosis or thyromegaly. No jugular venous distention or limb edema. VITAL SIGNS: Her heart rate was 88, blood pressure 143/54, temperature 98.4, respiratory rate 25, and oxygen saturation was 88% on room air. HEAD, EYES, EARS, NOSE AND THROAT: Showed normocephalic, atraumatic. NECK: Supple. HEART: Showed normal first and second heart sounds. No gallop, rub or murmur. CHEST: Shows central trachea, equally reduced expansion, reduced air entry, vesicular breath sounds with prolonged expiratory phase and wheezes. Extensive wheezes bilaterally. No crepitation. She was also using her accessory muscles. ABDOMEN: Distended, soft, nontender. NEUROLOGIC: She was awake, alert, responding appropriately. All cranial nerves intact. EXTREMITIES: She moves extremities without difficulty. LABORATORY DATA: While in the Emergency Room, she has had lab work done, which showed a white cell count 9700, hemoglobin 15, hematocrit 43, MCV 90, and platelet count of 278,000. Her serum sodium was 143, potassium 3.8, chloride 106, bicarbonate 26, anion gap of 11, BUN 7, creatinine 0.8, estimated GFR was 71 mL per minute. Her glucose was 90, calcium was 8.9. Total bilirubin, AST, ALT, alkaline phosphatase were normal. Total protein was 7.2, albumin was 3.5. Her beta natriuretic peptide was only 116. Her first troponin was less than 0.017. Her serology showed influenza A and B were negative. Her chest x-ray showed that the heart is not enlarged. Mediastinal hilar contours are normal. Linear opacities in the left lung base, likely scarring atelectasis. There is no pneumothorax. Trace blunting with the left costophrenic angle, likely trace left pleural effusion. ASSESSMENT AND PLAN: The patient was admitted with acute chronic obstructive pulmonary disease exacerbation. She was treated with IV steroids and bronchodilators. We will continue with Solu-Medrol and bronchodilator. We will resume all her medication and monitor her on a daily basis and when her symptoms will improve and wheezing disappears, then we will discharge her home. DANE CAMERON MD DR: VALORIE/nick JOB#: [id number] / [id number]
[2019-08-03 18:55] VITALS: BP 129/76
[2019-08-03] MEDS: BUDESONIDE 0.5 MG/2 ML NEBU NEB SCH (20:44)
[2019-08-03] MEDS ORDERED: ATORVASTATIN CALCIUM 10 MG TABLET. PO SCH (21:00)
[2019-08-03] MEDS: METOPROLOL TART IMMED RELEASE 25 MG TABLET PO SCH (21:36)
--- NOTE | 2019-08-03 22:00 | PN ---
DATE: 08/03/2019 SUBJECTIVE: The patient is resting, slightly propped up in bed, in no apparent distress. She is feeling much better, continued to have some cough with scanty yellowish sputum and chest tightness is much improved. She continued to have shortness of breath on exertion. PHYSICAL EXAMINATION: GENERAL: When I examined her this afternoon, she looked well and was clearly in no apparent respiratory distress. No pallor, jaundice, cyanosis or thyromegaly. No jugular venous distention. No lower limb edema. VITAL SIGNS: Her heart rate was 81, blood pressure was 119/77, temperature was 97.5, respiratory rate 20, and oxygen saturation was 95% on 1 liter of oxygen. HEAD, EYES, EARS, NOSE AND THROAT: Showed normocephalic, atraumatic. NECK: Supple. HEART: Showed normal first and second heart sounds. No gallop or murmur. CHEST: Shows central trachea, equally bilaterally, equal chest expansion, reduced air entry, vesicular sounds with a few bilateral scattered rhonchi. I could not appreciate any crepitation. ABDOMEN: Distended, soft, nontender. NEUROLOGIC: She is awake, alert, responding appropriately. All cranial nerves are intact. She moves extremities without difficulty. She ambulates without assistance or assistive devices. Her intake over the last 24 hours was 1465, no output was recorded. LABORATORY DATA: Her lab work this morning showed a white cell count 7100, hemoglobin 14, hematocrit 44, MCV 90 and platelet count 277,000. Serum sodium 143, potassium 3.8, chloride 107, bicarbonate 24, anion gap of 12, BUN 8, creatinine 0.7, estimated GFR was 83 mL per minute. Her glucose 170, calcium was 8.5. ASSESSMENT: This is a 69-year-old female patient who was admitted with chronic obstructive pulmonary disease exacerbation. She has a multitude of other medical problems including coronary artery disease, status post PCI with stent deployment, hypertension, hyperlipidemia, chronic left bundle-branch block, esophageal stricture and gastroesophageal reflux disease. PLAN: To continue with steroids and bronchodilator. We will evaluate her tomorrow. If feeling better, she can be discharged home tomorrow. DANE CAMERON MD DR: VALORIE/nick JOB#: [id number] / [id number]
[2019-08-03 23:21] VITALS: BP 119/70
[2019-08-04] MEDS: IPRATRPIUM/ALBUTEROL 0.5/2.5MG 3 ML NEBU. NEB SCH ×2 (05:20→11:00)
[2019-08-04 05:21] VITALS: BP 114/68
[2019-08-04] MEDS: methylPREDNISolone SOD SUCC PF 125 MG/2 ML VIAL. IV SCH ×2 (05:31→11:02)
[2019-08-04] MEDS: HYDROcodone/APAP 5/325MG 1 TAB TABLET PO SCH ×2 (08:50→13:47)
[2019-08-04] MEDS: METOPROLOL TART IMMED RELEASE 25 MG TABLET PO SCH (08:50)
[2019-08-04] MEDS ORDERED: CLOPIDOGREL BISULFATE 75 MG TABLET PO SCH (09:00)
[2019-08-04] MEDS ORDERED: MONTELUKAST 10 MG TABLET. PO SCH (09:00)
[2019-08-04] MEDS ORDERED: NON FORMULARY ITEM (Fluticasone/Umeclidin/Vilanter (Trelegy Ellipta 100-62.5-25) 1 PUFF) INH SCH (09:00)
[2019-08-04] MEDS ORDERED: PARoxetine 20 MG TABLET PO SCH (09:00)
[2019-08-04] MEDS ORDERED: PANTOPRAZOLE 40 MG TABLET. PO SCH (09:00)
[2019-08-04] MEDS ORDERED: ESTRADIOL 0.01% VAGINAL CREAM 42.5GM TUBE. VG SCH (09:00)
[2019-08-04 10:52] VITALS: BP 113/69
[2019-08-04] MEDS: BUDESONIDE 0.5 MG/2 ML NEBU NEB SCH (11:00)
--- NOTE | 2019-08-04 15:20 | DS ---
DATE OF DISCHARGE: HOSPITAL COURSE: The patient is a 69-year-old female patient who was admitted with a complaint of cough and shortness of breath that was initially dry and complex with scanty yellowish sputum. Denied any chest pain. Did complain of chest tightness and difficulty breathing and increased wheezing. She has been using her inhalers without any significant relief. She was not on any steroids. Denied any fever. She has had significant worsening symptoms while walking inside her own house and therefore she came to the Emergency Room where she was evaluated. Her influenza A and B were negative. Chest x-ray showed the heart is not enlarged. Mediastinal and hilar contours are normal. Linear opacity in the left lung base, likely scarring atelectasis, no pneumothorax. She was admitted with diagnosis of COPD exacerbation, was started on steroids as well as nebulized albuterol and Atrovent and she actually did very well. PHYSICAL EXAMINATION: GENERAL: When I saw her this afternoon, she was sitting on the edge of the bed comfortably, in no apparent distress. No pallor, jaundice, cyanosis or thyromegaly. No jugular venous distention. No lower limb edema. VITAL SIGNS: Her heart rate was 75, blood pressure was 113/69, temperature was 98.1, respiratory rate was 16, and oxygen saturation was 94% on room air. HEAD, EYES, EARS, NOSE AND THROAT: Showed normocephalic, atraumatic. NECK: Supple. HEART: Showed normal first and second heart sounds. No gallop or murmur. CHEST: Showed central trachea, equal bilateral expansion, air entry, vesicular sounds. No crepitation or rhonchi. ABDOMEN: Distended, soft, nontender. NEUROLOGIC: She is awake, alert, responding appropriately. All cranial nerves intact. She moves extremities without difficulty. She has ambulated throughout the corridors of hospital without difficulty without dropping her oxygen. LABORATORY DATA: Showed that her white cell count was 7000, hemoglobin 14, hematocrit 44, MCV 90 and platelet count 277,000. Her serum sodium was 143, potassium 3.8, chloride 107, bicarbonate 24, anion gap of 12, BUN 8, creatinine 0.7, estimated GFR was 83 mL per minute. Her glucose 170, calcium was 8.5. Her influenza A and B were negative. DISCHARGE MEDICATIONS: The patient was discharged home to continue a tapering course of steroids, should continue on all other medication including diphenhydramine 25 mg every 6 hours as needed, albuterol sulfate inhaler 2 puffs every 4 hours, Plavix 75 mg once a day, atorvastatin 10 mg at bedtime, metoprolol tartrate 12.5 mg twice a day, hydrocodone/APAP 5/325 one tablet 3 times a day. She is on paroxetine 20 mg once a day, hydroxyzine 75 mg 4 times a day, Trelegy Ellipta 1 puff once a day, montelukast 10 mg at bedtime, Protonix 40 mg once a day, estradiol 42.5 grams cream vaginally daily. FINAL DISCHARGE DIAGNOSES: Chronic obstructive pulmonary disease exacerbation, gastroesophageal reflux disease, esophageal stricture that was dilated once before, hyperlipidemia, hypertension, chronic left bundle-branch block, coronary artery disease, status post PCI with stent deployment. DANE CAMERON MD DR: VALORIE/nick JOB#: [id number] / [id number]
== END 2019-08-04 15:01 | disposition home or self-care (01) ==
LOC: ER 17:52 → 1 SOUTH 20:03 → INTOOBSV 20:03
PROVIDERS: ADMIT Internal Medicine; ATTEND Internal Medicine
DX: J44.1 Chronic obstructive pulmonary disease with (acute) exacerbation (principal); K21.9 Gastro-esophageal reflux disease without esophagitis; K22.2 Esophageal obstruction; E78.5 Hyperlipidemia, unspecified; I44.7 Left bundle-branch block, unspecified; I25.10 Atherosclerotic heart disease of native coronary artery without angina pectoris; I10 Essential (primary) hypertension; Z95.5 Presence of coronary angioplasty implant and graft; Z96.653 Presence of artificial knee joint, bilateral; Z87.891 Personal history of nicotine dependence
CPT/HCPCS: 36415; 71045; 80048; 80053; 82553; 83880; 84484; 85025; 87804; 93005; 94640; 96374; 96375; 96376; 99284; G0378; J2405; J2930; J7613; J7620; J7626; 96361; 99285; G0379; J7030

== ENCOUNTER 2019-12-07 20:23 | Emergency (ER) | payer MEDICARE ==
[~2019-12-07] VITALS: Ht 149.9 cm; Wt 77.5 kg
[~2019-12-07 20:23] MED LIST changes: +ESTR42.58 VAG; +FLUT1BLS3 INH; +HYDR-2759 PO; +HYDR25TA PO; +PARO20TA3 PO
[2019-12-07 20:25] VITALS: BP 148/89
[2019-12-07] MEDS ORDERED: [UNRECOGNIZED DRUG - OTHER] (20:34)
[2019-12-07] MEDS ORDERED: ASPI81TA59 PO (20:34)
--- NOTE | 2019-12-07 20:38 | PHYS DOC ---
Past History Past Medical History: Anxiety, Asthma, COPD, GERD, High Cholesterol Past Surgical History: Tonsillectomy, Tubal ligation, Other Additional Past Surgical Histo: 3 stents placed; esophageal strictures stretch; fx left wrist repair Smoking: Quit Greater Than 1 Year Alcohol Use: Occasionally Drug Use: None General Adult EDM: Chief Complaint: ANKLE PROBLEM HPI: HPI: ".. I was stepping out pickup last night.. I was in the back.. and I inverted this Rt. ankle.. it still hurts this morning.. I ve been using my walker... but it still hurts.. and now more swollen and turning purple..." Patient is a 69 year old female who presents with above hx and complaints injury to right ankle last night. Patient has persistent swelling ecchymosis and pain. Patient has been weightbearing with pain. Patient has multiple medical issues. Patient follows with Dr. hurst for cardiology, Dr. Lester for orthopedics, Dr. Martínez for GI and Dr. Venkata Caba for primary. Pt. denies any travel or specific ill contacts. No history of immunosuppression. Patient denies any history of osteoporosis Review of Systems: Review of Systems: Constitutional: Denies fever or chills Eyes: Denies change in visual acuity HENT: Denies nasal congestion or sore throat Respiratory: Denies cough or shortness of breath Cardiovascular: Denies chest pain or edema GI: Denies abdominal pain, nausea, vomiting, bloody stools or diarrhea : Denies dysuria Musculoskeletal: Denies back pain or joint pain Integument: Denies rash Neurologic: Denies headache, focal weakness or sensory changes Endocrine: Denies polyuria or polydipsia Lymphatic: Denies swollen glands Psychiatric: Denies depression or anxiety Heart Score: Risk Factors: Risk Factors: DM, Current or recent (<one month) smoker, HTN, HLP, family history of CAD, obesity. Risk Scores: Score 0 - 3: 2.5% MACE over next 6 weeks - Discharge Home Score 4 - 6: 20.3% MACE over next 6 weeks - Admit for Clinical Observation Score 7 - 10: 72.7% MACE over next 6 weeks - Early Invasive Strategies Family History: Family History: Noncontributory Current Medications: Current Meds: See nursing for home meds Allergies: Allergies: Allergies Coded Allergies Type Severity Reaction Last Updated Verified venom-honey bee Allergy Severe Shortness of Air 2/6/20 Yes adhesive Allergy Intermediate 08/02/19 Yes cimetidine Allergy Intermediate "toxic" 08/02/19 Yes cimetidine HCl Allergy Intermediate "toxic" 08/02/19 Yes Physical Exam: PE: Constitutional: Well developed, well nourished, no acute distress, non-toxic appearance. [] HENT: Normocephalic, atraumatic, bilateral external ears normal, oropharynx moist, no oral exudates, nose normal. [] Eyes: PERRLA, EOMI, conjunctiva normal, no discharge. [] Neck: Normal range of motion, no tenderness, supple, no stridor. [] Cardiovascular:Heart rate regular rhythm, no murmur [] Lungs & Thorax: Bilateral breath sounds clear to auscultation [] Abdomen: Bowel sounds normal, soft, no tenderness, no masses, no pulsatile masses. [] Skin: Warm, dry, no erythema, no rash. [] Back: No tenderness, no CVA tenderness. [] Extremities: No tenderness, no cyanosis, no clubbing, ROM intact, no edema. [] Neurologic: Alert and oriented X 3, normal motor function, normal sensory function, no focal deficits noted. [] Psychologic: Affect normal, judgement normal, mood normal. [] EKG: EKG: [] Radiology/Procedures: Radiology/Procedures: [][place] [address] IMAGING REPORT Signed PATIENT: ALEXY LANGE LACCOUNT: [id number] : 1950 LOCATION: ER AGE: 69 SEX: F EXAM STATUS: PRE ER ORD. PHYSICIAN: DAVID MCLAUGHLIN MD REASON: Right ankle injury 12/06/19, pain PROCEDURE: ANKLE RIGHT 3V Right ANKLE AP, LATERAL, OBLIQUE Clinical Indication: Reason: Right ankle injury 12/06/19, pain / Comparison: None. Findings: There is no acute fracture or dislocation. Mineralization is normal. Joint spaces are maintained. Mild lateral ankle soft tissue swelling. There is a thin sclerotic metaphyseal band of the distal tibia of uncertain significance. The ankle mortise is intact. There is no obvious ankle joint effusion. IMPRESSION: No acute fracture. Electronically signed by: Raj Kamara MD (12/07/2019 9:20 PM) [facility] DICTATED AND SIGNED BY: RAJ KAMARA MD DATE: 12/07/192119 CC: PRAKASH LUU MD; DAVID MCLAUGHLIN MD ~ Course & Med Decision Making: Course & Med Decision Making Pertinent Labs and Imaging studies reviewed. (See chart for details) Ice, elevation, rest, splint, use crutches or walker. Re- xray in two weeks if still pain. Evaluation fracture not evident on current film. Follow up with primary. Tylenol and Ibuprofen for pain. Marked pain take Vicoprofen. 1. Rt. ankle sprain [] Dragon Disclaimer: Dragon Disclaimer: This electronic medical record was generated, in whole or in part, using a voice recognition dictation system. Departure Departure: Disposition: 01 HOME/RESIDENCE PRIOR TO ADM Condition: STABLE Referrals: PRAKASH LUU MD (PCP) Scripts Hydrocodone/Ibuprofen (HYDROCODONE-IBUPROFEN 7.5-200 ) 1 Each Tablet 1 TAB PO PRN Q6HRS PRN for PAIN, #30 TAB 0 Refills Prov: DAVID MCLAUGHLIN MD 12/07/19 Justification of Admission: Justification of Admission: Justification of Admission Dx: N/A Dragon Disclaimer This chart was dictated in whole or in part using Voice Recognition software in a busy, high-work load, and often noisy Emergency Department environment. It may contain unintended and wholly unrecognized errors or omissions. DAVID MCLAUGHLIN MD Dec 07, 2019 20:38
[2019-12-07] MEDS ORDERED: HYDROcodon/IBUPROFEN 7.5/200MG 1 TAB TABLET PO ONE (20:45)
--- NOTE | 2019-12-07 21:23 | RAD ---
Right ANKLE AP, LATERAL, OBLIQUE Clinical Indication: Reason: Right ankle injury 12/06/19, pain / Comparison: None. Findings: There is no acute fracture or dislocation. Mineralization is normal. Joint spaces are maintained. Mild lateral ankle soft tissue swelling. There is a thin sclerotic metaphyseal band of the distal tibia of uncertain significance. The ankle mortise is intact. There is no obvious ankle joint effusion. IMPRESSION: No acute fracture. Electronically signed by: Raj Kamara MD (12/07/2019 9:20 PM) [facility]
[2019-12-07] MEDS ORDERED: HYDR-1179 PO (21:30)
== END 2019-12-07 22:05 | disposition home or self-care (01) ==
LOC: ER 20:23
DX: S93.401A Sprain of unspecified ligament of right ankle, initial encounter (principal); J44.9 Chronic obstructive pulmonary disease, unspecified; K21.9 Gastro-esophageal reflux disease without esophagitis; E78.00 Pure hypercholesterolemia, unspecified; Z87.891 Personal history of nicotine dependence; Z88.8 Allergy status to other drugs, medicaments and biological substances; Z91.030 Bee allergy status; X50.9XXA Other and unspecified overexertion or strenuous movements or postures, initial encounter; Y93.89 Activity, other specified; Y92.89 Other specified places as the place of occurrence of the external cause; Y99.8 Other external cause status
CPT/HCPCS: 29515; 73610; 99284

== ENCOUNTER 2020-01-03 04:03 | Emergency (ER) | payer MEDICARE, MEDICAID ==
[~2020-01-03] VITALS: Ht 149.9 cm; Wt 77.5 kg
[~2020-01-03 04:03] MED LIST changes: +ASPI81TA59 PO; +[UNRECOGNIZED DRUG - OTHER]
[2020-01-03 04:09] VITALS: BP 129/71
--- NOTE | 2020-01-03 04:44 | PHYS DOC ---
Past History Past Medical History: Anxiety, Asthma, CAD, COPD, GERD, High Cholesterol, Heart Disease Past Surgical History: Tonsillectomy, Tubal ligation, Other Additional Past Surgical Histo: 3 stents placed; esophageal strictures stretch; fx left wrist repair Smoking: Quit Greater Than 1 Year Alcohol Use: Occasionally Drug Use: None General Adult EDM: Chief Complaint: PAIN CONTROL HPI: HPI: 69-year-old female presents with right forearm pain. The patient broke her radius and ulna. She had surgery about a week ago where plates and screws were inserted. The patient was then placed in a splint and a sling. She has had continual pain since his surgery. Her pain level is always at least a 4 or higher. She has been on oxycodone 5/325 increased to 2 pills per dose. She got a new prescription of oxycodone 7.5/325 yesterday. She states she is supposed to take 1 every 6 hours. The patient tells me that this is not covering her pain. She has intermittent episodes of stabbing pain. These bring her to tears and make it impossible for her to sleep. She is not scheduled to go back to the surgeon for another week. She does not think she can make it that long. She has sensation in all 5 fingers. She is not always wearing her sling because it was irritating her neck. She denies any new injuries. Review of Systems: Review of Systems: Constitutional: Denies fever or chills Eyes: Denies change in visual acuity HENT: Denies nasal congestion or sore throat Respiratory: Denies cough or shortness of breath Cardiovascular: Denies chest pain or edema GI: Denies abdominal pain, nausea, vomiting, bloody stools or diarrhea : Denies dysuria Musculoskeletal: Right forearm pain Integument: Denies rash Neurologic: Denies headache, focal weakness or sensory changes Endocrine: Denies polyuria or polydipsia Lymphatic: Denies swollen glands Psychiatric: Denies depression or anxiety Heart Score: Risk Factors: Risk Factors: DM, Current or recent (<one month) smoker, HTN, HLP, family history of CAD, obesity. Risk Scores: Score 0 - 3: 2.5% MACE over next 6 weeks - Discharge Home Score 4 - 6: 20.3% MACE over next 6 weeks - Admit for Clinical Observation Score 7 - 10: 72.7% MACE over next 6 weeks - Early Invasive Strategies Allergies: Allergies: Allergies Coded Allergies Type Severity Reaction Last Updated Verified venom-honey bee Allergy Severe Shortness of Air 08/02/19 Yes adhesive Allergy Intermediate 08/02/19 Yes cimetidine Allergy Intermediate "toxic" 08/02/19 Yes cimetidine HCl Allergy Intermediate "toxic" 08/02/19 Yes Physical Exam: PE: Constitutional: Well developed, well nourished, mild acute distress, non-toxic appearance. [] HENT: Normocephalic, atraumatic, bilateral external ears normal, oropharynx moist, no oral exudates, nose normal. [] Eyes: PERRLA, EOMI, conjunctiva normal, no discharge. [] Neck: Normal range of motion, no tenderness, supple, no stridor. [] Cardiovascular:Heart rate regular rhythm, no murmur [] Lungs & Thorax: Bilateral breath sounds clear to auscultation [] Abdomen: Bowel sounds normal, soft, no tenderness, no masses, no pulsatile masses. [] Skin: Incisions are clean dry and intact with sutures in place. Some surrounding ecchymosis. No erythema or warmth. [] Back: No tenderness, no CVA tenderness. [] Extremities: Right forearm tender to the touch and pain with and without moving the arm. No cyanosis, no clubbing, ROM intact, no edema. [] Neurologic: Alert and oriented X 3, normal motor function, normal sensory function, no focal deficits noted. [] Psychologic: Affect normal, judgement normal, mood normal. [] Current Patient Data: Vital Signs: Vital Signs Date Time Temp Pulse Resp B/P (MAP) Pulse Ox O2 Delivery O2 Flow Rate FiO2 01/03/20 04:09 98.6 67 18 129/71 (90) 96 Room Air EKG: EKG: [] Radiology/Procedures: Radiology/Procedures: [] Course & Med Decision Making: Course & Med Decision Making Pertinent Labs and Imaging studies reviewed. (See chart for details) Review of the [place] drug database does confirm the patient's prescriptions are as she stated. During my exam, the patient had several episodes of this shooting pain. This appears to be consistent with nerve irritation pain. She is already on high-dose medication. I will give her 4 mg of morphine IM as well as 200 mg of Neurontin by mouth. I have advised that she call the surgeon first thing in the morning and explained the situation so she can be seen sooner than next week. Her incisions do not appear infected. We will rewrap and splint the arm. She is stable for discharge at this time. [] Lyn Disclaimer: Lyn Disclaimer: This electronic medical record was generated, in whole or in part, using a voice recognition dictation system. Departure Departure: Impression: Primary Impression: Pain following surgery or procedure Additional Impression: Radius and ulna distal fracture Qualified Codes: S52.501A - Unspecified fracture of the lower end of right radius, initial encounter for closed fracture; S52.601A - Unspecified fracture of lower end of right ulna, initial encounter for closed fracture Disposition: HOME/RESIDENCE PRIOR TO ADM Condition: STABLE Referrals: PRAKASH LUU MD (PCP) Patient Instructions: Pain, Neuropathic-Brief, Wrist Pain, [id number] Justification of Admission: Justification of Admission: Justification of Admission Dx: N/A ELADIO TITUS DO Jan 03, 2020 04:44
[2020-01-03] MEDS ORDERED: GABAPENTIN 100 MG CAPSULE. PO ONE (04:45)
[2020-01-03] MEDS ORDERED: MORPHINE SULFATE 4 MG/ML DISP.SYRIN. IM ONE (04:45)
== END 2020-01-03 05:45 | disposition home or self-care (01) ==
LOC: ER 04:03
DX: S52.501A Unspecified fracture of the lower end of right radius, initial encounter for closed fracture (principal); S52.601A Unspecified fracture of lower end of right ulna, initial encounter for closed fracture; G89.18 Other acute postprocedural pain; J44.9 Chronic obstructive pulmonary disease, unspecified; I25.10 Atherosclerotic heart disease of native coronary artery without angina pectoris; K21.9 Gastro-esophageal reflux disease without esophagitis; E78.00 Pure hypercholesterolemia, unspecified; Z87.891 Personal history of nicotine dependence; Z88.8 Allergy status to other drugs, medicaments and biological substances; Z91.030 Bee allergy status; X58.XXXA Exposure to other specified factors, initial encounter; Y93.89 Activity, other specified; Y92.89 Other specified places as the place of occurrence of the external cause; Y99.8 Other external cause status
CPT/HCPCS: 96372; 99283; J2270

== ENCOUNTER → 2020-01-07 | Outpatient (CLI) | payer MEDICARE, MEDICAID ==
[2020-01-03 04:09] VITALS: BP 129/71
--- NOTE | 2020-01-07 17:35 | RAD ---
Right wrist 3 views. HISTORY: Post wrist fracture with surgery 3 views were taken of the right wrist. There is no recent study for comparison. There are plates on the distal radius and ulna. There is still mild angulation of the ulnar fracture. There is a slight step-off on the AP view of the distal radius fracture. On the lateral view there are displaced fracture fragments dorsal to the radius, the exact etiology of the fracture is not identified. Posterior displacement of the head of the ulna is possible, displaced fragments off the radius possible. Correlation with old studies would be of benefit. CT could be of benefit. IMPRESSION: 1. Displaced fracture fragments on the lateral view. Additional imaging would be of benefit. Electronically signed by: Gilberto Mckeon MD (01/07/2020 5:32 PM) [id number]
== END ==
LOC: DXRAD 13:16
PROVIDERS: ATTEND Physician Assistant
DX: S52.91XA Unspecified fracture of right forearm, initial encounter for closed fracture (principal); X58.XXXA Exposure to other specified factors, initial encounter; Y93.89 Activity, other specified; Y92.89 Other specified places as the place of occurrence of the external cause; Y99.8 Other external cause status
CPT/HCPCS: 73110

== ENCOUNTER 2020-02-27 20:47 | Emergency (ER) | payer MEDICARE, MEDICAID ==
[~2020-02-27] VITALS: Ht 152.4 cm; Wt 72.5 kg
[2020-02-27] MEDS ORDERED: ONDANSETRON PF 4 MG/2 ML VIAL. IVP ONE (21:15)
[2020-02-27] MEDS ORDERED: IV NORMAL SALINE 1,000ML 1,000 ML IV ONE (21:15)
[2020-02-27] MEDS ORDERED: ACETAMINOPHEN 325 MG TABLET PO ONE (21:15)
[2020-02-27 21:48] VITALS: BP 161/92
[2020-02-27 22:11] LABS: BASO % 1 % (0-3); EOS # 0.1 x10^3/uL (0.0-0.7); EOS % 3 % (0-3); HEMATOCRIT 44.4 % (36.0-47.0); HEMOGLOBIN 14.7 g/dL (12.0-15.5); LYMPH # 0.6 x10^3/uL (1.0-4.8); LYMPH % 11 % (24-48); MEAN CORPUSCULAR HEMOGLOBIN 30 pg (25-35); MEAN CORPUSCULAR HGB CONC 33 g/dL (31-37); MEAN CORPUSCULAR VOLUME 91 fL (79-100); MONO # 0.8 x10^3/uL (0.0-1.1); MONO % 15 % (0-9); NEUT # 3.5 x10^3uL (1.8-7.7); NEUT % 70 % (31-73); PLATELET COUNT 212 x10^3/uL (140-400); RED BLOOD COUNT 4.89 x10^6/uL (3.50-5.40); RED CELL DISTRIBUTION WIDTH 13.9 % (11.5-14.5)
[2020-02-27 22:15] LABS: CALCIUM 8.9 mg/dL (8.5-10.1); CREATININE 0.9 mg/dL (0.6-1.0); GFR 62.5; POTASSIUM 3.6 mmol/L (3.5-5.1)
--- NOTE | 2020-02-27 22:18 | RAD ---
Exam: Chest one view INDICATION: Shortness of breath TECHNIQUE: Frontal view of the chest Comparisons: 08/02/2019 FINDINGS: The cardiomediastinal silhouette and pulmonary vessels are within normal limits. Strandy opacities at the left lung base. No pleural effusion. IMPRESSION: Left basilar atelectasis. Electronically signed by: Desean Novak MD (02/27/2020 10:15 PM) [id number]
[2020-02-27 22:21] LABS: ALBUMIN/GLOBULIN RATIO 1.1 (1.0-1.7); TOTAL BILIRUBIN 0.4 mg/dL (0.2-1.0); TOTAL PROTEIN 7.6 g/dL (6.4-8.2)
--- NOTE | 2020-02-27 22:31 | PHYS DOC ---
Past History Past Medical History: Anxiety, Asthma, CAD, COPD, GERD, High Cholesterol, Heart Disease, Hypertension Past Surgical History: Tonsillectomy, Tubal ligation, Other Additional Past Surgical Histo: 3 stents placed; esophageal stretch; fx left wrist repair, right RADIAL/ULN Smoking: Quit Greater Than 1 Year Alcohol Use: Occasionally Drug Use: None General Adult EDM: Chief Complaint: HEADACHE HPI: HPI: 69-year-old female presents with headache. She has had a headache most of the day. Is a global throbbing sensation. She felt like she was feverish at home, but did not measure a fever. She has had no persistent cough all day. She has some mild generalized body aches and nausea. No known COVID-19 exposures. Review of Systems: Review of Systems: Constitutional: Fever Eyes: Denies change in visual acuity HENT: Denies nasal congestion or sore throat Respiratory: Cough without shortness of breath Cardiovascular: Denies chest pain or edema GI: Denies abdominal pain, nausea, vomiting, bloody stools or diarrhea : Denies dysuria Musculoskeletal: Denies back pain or joint pain Integument: Denies rash Neurologic: Headache. Denies focal weakness or sensory changes Endocrine: Denies polyuria or polydipsia Lymphatic: Denies swollen glands Psychiatric: Denies depression or anxiety Heart Score: Risk Factors: Risk Factors: DM, Current or recent (<one month) smoker, HTN, HLP, family history of CAD, obesity. Risk Scores: Score 0 - 3: 2.5% MACE over next 6 weeks - Discharge Home Score 4 - 6: 20.3% MACE over next 6 weeks - Admit for Clinical Observation Score 7 - 10: 72.7% MACE over next 6 weeks - Early Invasive Strategies Current Medications: Current Meds: Current Medications Medications (Trade) Dose Ordered Sig/Linda Start Time Stop Time Status Last Admin Dose Admin Acetaminophen (Tylenol) 650 mg 1X ONCE 02/27/20 21:15 02/27/20 21:16 DC 02/27/20 21:32 650 MG Ondansetron HCl (Zofran) 4 mg 1X ONCE 02/27/20 21:15 02/27/20 21:16 DC 02/27/20 21:34 4 MG Sodium Chloride 1,000 ml @ 1,000 mls/hr 1X ONCE 02/27/20 21:15 02/27/20 22:14 DC 02/27/20 21:30 1,000 MLS/HR Allergies: Allergies: Allergies Coded Allergies Type Severity Reaction Last Updated Verified venom-honey bee Allergy Severe Shortness of Air 08/02/19 Yes adhesive Allergy Intermediate 08/02/19 Yes cimetidine Allergy Intermediate "toxic" 08/02/19 Yes cimetidine HCl Allergy Intermediate "toxic" 08/02/19 Yes Physical Exam: PE: Constitutional: Well developed, well nourished, no acute distress, non-toxic appearance. [] HENT: Normocephalic, atraumatic, bilateral external ears normal, oropharynx moist, no oral exudates, nose normal. [] Eyes: PERRLA, EOMI, conjunctiva normal, no discharge. [] Neck: Normal range of motion, no tenderness, supple, no stridor. [] Cardiovascular: Heart rate regular rhythm, no murmur [] Lungs & Thorax: Bilateral breath sounds diminished but clear to auscultation [] Abdomen: Bowel sounds normal, soft, no tenderness, no masses, no pulsatile masses. [] Skin: Warm, dry, no erythema, no rash. [] Back: No tenderness, no CVA tenderness. [] Extremities: No tenderness, no cyanosis, no clubbing, ROM intact, no edema. [] Neurologic: Alert and oriented X 3, normal motor function, normal sensory function, no focal deficits noted. [] Psychologic: Affect normal, judgement normal, mood normal. [] Current Patient Data: Labs: Laboratory Tests Test 02/27/20 21:30 White Blood Count 5.0 x10^3/uL (4.0-11.0) Red Blood Count 4.89 x10^6/uL (3.50-5.40) Hemoglobin 14.7 g/dL (12.0-15.5) Hematocrit 44.4 % (36.0-47.0) Mean Corpuscular Volume 91 fL (79-100) Mean Corpuscular Hemoglobin 30 pg (25-35) Mean Corpuscular Hemoglobin Concent 33 g/dL (31-37) Red Cell Distribution Width 13.9 % (11.5-14.5) Platelet Count 212 x10^3/uL (140-400) Neutrophils (%) (Auto) 70 % (31-73) Lymphocytes (%) (Auto) 11 % (24-48) L Monocytes (%) (Auto) 15 % (0-9) H Eosinophils (%) (Auto) 3 % (0-3) Basophils (%) (Auto) 1 % (0-3) Neutrophils # (Auto) 3.5 x10^3uL (1.8-7.7) Lymphocytes # (Auto) 0.6 x10^3/uL (1.0-4.8) L Monocytes # (Auto) 0.8 x10^3/uL (0.0-1.1) Eosinophils # (Auto) 0.1 x10^3/uL (0.0-0.7) Basophils # (Auto) 0.0 x10^3/uL (0.0-0.2) Sodium Level 135 mmol/L (136-145) L Potassium Level 3.6 mmol/L (3.5-5.1) Chloride Level 100 mmol/L (98-107) Carbon Dioxide Level 25 mmol/L (21-32) Anion Gap 10 (6-14) Blood Urea Nitrogen 10 mg/dL (7-20) Creatinine 0.9 mg/dL (0.6-1.0) Estimated GFR (Cockcroft-Gault) 62.5 BUN/Creatinine Ratio 11 (6-20) Glucose Level 92 mg/dL (70-99) Calcium Level 8.9 mg/dL (8.5-10.1) Total Bilirubin 0.4 mg/dL (0.2-1.0) Aspartate Amino Transferase (AST) 23 U/L (15-37) Alanine Aminotransferase (ALT) 20 U/L (14-59) Alkaline Phosphatase 58 U/L (46-116) Total Protein 7.6 g/dL (6.4-8.2) Albumin 4.0 g/dL (3.4-5.0) Albumin/Globulin Ratio 1.1 (1.0-1.7) Vital Signs: Vital Signs Date Time Temp Pulse Resp B/P (MAP) Pulse Ox O2 Delivery O2 Flow Rate FiO2 02/27/20 21:48 97 20 161/92 (115) 92 Room Air 02/27/20 20:55 100.9 EKG: EKG: [] Radiology/Procedures: Radiology/Procedures: [] Impressions: Exam: Chest one view INDICATION: Shortness of breath TECHNIQUE: Frontal view of the chest Comparisons: 08/02/2019 FINDINGS: The cardiomediastinal silhouette and pulmonary vessels are within normal limits. Strandy opacities at the left lung base. No pleural effusion. IMPRESSION: Left basilar atelectasis. Electronically signed by: Desean Patel MD (02/27/2020 10:15 PM) [id number] DICTATED AND SIGNED BY: DESEAN PATEL MD DATE: 02/27/202214 CC: ELADIO TITUS DO; PRAKASH LUU MD ~ Course & Med Decision Making: Course & Med Decision Making Pertinent Labs and Imaging studies reviewed. (See chart for details) On arrival, the patient had a fever of 100.9. We gave her 650 of Tylenol. Her chest x-ray shows some atelectasis, but no focal consolidation. Her COVID-19 swab is pending. Her labs are unremarkable. For her headache I have given her a liter normal saline, 15 mg of Toradol, 10 mg Reglan, 25 mg of Benadryl. Her urinalysis is negative for infection. This is likely a viral illness. I have advised that she self isolate pending her COVID results. Was encouraged to stay well-hydrated at home. She is stable for discharge at this time. [] Dragon Disclaimer: Dragon Disclaimer: This electronic medical record was generated, in whole or in part, using a voice recognition dictation system. Departure Departure: Impression: Primary Impression: Headache Additional Impression: Viral syndrome Disposition: 01 HOME/RESIDENCE PRIOR TO ADM Condition: STABLE Referrals: PRAKASH LUU MD (PCP) Patient Instructions: Viral Syndrome Scripts Ondansetron (ONDANSETRON ODT) 4 Mg Tab.rapdis 1 TAB PO PRN Q6-8HRS PRN for VOMITING, #16 TAB Prov: ELADIO TITUS DO 02/27/20 Justification of Admission: Justification of Admission: Justification of Admission Dx: N/A ELADIO TITUS DO Feb 27, 2020 22:31
[2020-02-27 22:33] LABS: BILIRUBIN,URINE NEG (NEG); CLARITY,URINE CLEAR; COLOR,URINE STRAW; GLUCOSE,URINE NEG (NEG)
[2020-02-27 22:34] LABS: BACTERIA,URINE FEW /HPF (0-FEW); NITRITE,URINE NEG (NEG); RBC,URINE 0 /HPF (0-2); UROBILINOGEN,URINE 0.2 mg/dL (0.2 mg/dL); WBC,URINE OCC /HPF (0-4)
[2020-02-27] MEDS ORDERED: diphenhydrAMINE 50 MG/ML VIAL IVP ONE (22:45)
[2020-02-27] MEDS ORDERED: KETOROLAC 15 MG/ML VIAL. IVP ONE (22:45)
[2020-02-27] MEDS ORDERED: METOCLOPRAMIDE HCL 10 MG/2 ML VIAL. IVP ONE (22:45)
[2020-02-27] MEDS ORDERED: ONDA4TAB12 PO (23:21)
== END 2020-02-27 23:55 | disposition home or self-care (01) ==
LOC: ER 20:47
DX: U07.1 COVID-19 (principal); B34.9 Viral infection, unspecified; R51 Headache; F41.9 Anxiety disorder, unspecified; J45.909 Unspecified asthma, uncomplicated; I25.10 Atherosclerotic heart disease of native coronary artery without angina pectoris; K21.9 Gastro-esophageal reflux disease without esophagitis; E78.00 Pure hypercholesterolemia, unspecified; I11.9 Hypertensive heart disease without heart failure; Z87.891 Personal history of nicotine dependence; Z88.8 Allergy status to other drugs, medicaments and biological substances
CPT/HCPCS: 36415; 71045; 80053; 81001; 85025; 96361; 96374; 96375; 99284; C9803; J1200; J1885; J2405; J2765; J7030; U0003

== ENCOUNTER 2020-02-29 09:56 | Emergency (ER) | payer MEDICARE, MEDICAID ==
[~2020-02-29] VITALS: Ht 152.4 cm; Wt 72.5 kg
--- NOTE | 2020-02-29 10:22 | PHYS DOC ---
Past History Past Medical History: Anxiety, Asthma, CAD, COPD, GERD, High Cholesterol, Heart Disease, Hypertension Past Surgical History: Knee Replacement, Tonsillectomy, Tubal ligation, Other Additional Past Surgical Histo: 3 stents placed; esophageal stretch; fx left wrist repair, right RADIAL/ULN Smoking: Quit Greater Than 1 Year Alcohol Use: Occasionally Drug Use: None General Adult EDM: Chief Complaint: SHORTNESS OF BREATH HPI: HPI: 69 yo F PMH CAD w/3 stents (on plavix), copd, asthma, chronic pain and cough, that started 2 days ago after pt was in a smokey bar. Complains of troubles breathing with increased work of breathing, productive cough, headache "behind my eyes" and nasal congestion w/maxillary sinus pressure. States oxygen is helping her breath. Was dc'ed a few days ago from ed on z-pac and prednisone. D- dimer was 0.44. Covid test pending. Pt recently had right wrist sx November 2019. Does not take any estrogen products (not on estradiol). ROS: Denies associated fever, chills, nausea, vomiting, diarrhea, neck stiffness, sore throat, chest pressure or pain, hemoptysis, orthopnea, leg swelling, abdominal pain, diaphoresis, rash or neuro deficits. Review of Systems: Review of Systems: Constitutional: Denies fever or chills Eyes: Denies change in visual acuity HENT: Denies nasal congestion or sore throat Respiratory: Denies cough or shortness of breath Cardiovascular: Denies chest pain or edema GI: Denies abdominal pain, nausea, vomiting, bloody stools or diarrhea : Denies dysuria Musculoskeletal: Denies back pain or joint pain Integument: Denies rash Neurologic: Denies headache, focal weakness or sensory changes Endocrine: Denies polyuria or polydipsia Lymphatic: Denies swollen glands Psychiatric: Denies depression or anxiety Heart Score: Risk Factors: Risk Factors: DM, Current or recent (<one month) smoker, HTN, HLP, family history of CAD, obesity. Risk Scores: Score 0 - 3: 2.5% MACE over next 6 weeks - Discharge Home Score 4 - 6: 20.3% MACE over next 6 weeks - Admit for Clinical Observation Score 7 - 10: 72.7% MACE over next 6 weeks - Early Invasive Strategies Allergies: Allergies: Allergies Coded Allergies Type Severity Reaction Last Updated Verified venom-honey bee Allergy Severe Shortness of Air 02/29/20 Yes adhesive Allergy Intermediate 08/02/19 Yes cimetidine Allergy Intermediate "toxic" 02/29/20 Yes cimetidine HCl Allergy Intermediate "toxic" 02/29/20 Yes Physical Exam: PE: Constitutional: Well developed, well nourished, no acute distress, non-toxic appearance. [] HENT: Normocephalic, atraumatic, bilateral external ears normal, oropharynx moist, no oral exudates, Eyes: EOMI, conjunctiva normal, no discharge. [] Neck: Normal range of motion, no tenderness, supple, no stridor. [] Cardiovascular:Heart rate regular rhythm, no murmur [] Lungs & Thorax: Bilateral breath sounds equal with slight expiratory wheezing, speaking in full sentences, no increased work of breathing, retractions or tachypnea Abdomen: Bowel sounds normal, soft, no tenderness, no masses, no pulsatile masses. [] Skin: Warm, dry, no erythema, no rash. [] Back: No tenderness, no CVA tenderness. [] Extremities: No tenderness, no cyanosis, no clubbing, ROM intact, no edema. [] Neurologic: Alert and oriented X 3, normal motor function, normal sensory function, no focal deficits noted. [] Psychologic: Affect normal, judgement normal, mood normal. [] Current Patient Data: Vital Signs: Vital Signs Date Time Temp Pulse Resp B/P (MAP) Pulse Ox O2 Delivery O2 Flow Rate FiO2 02/29/20 10:02 98.6 74 18 156/101 (119) 95 Room Air EKG: EKG: Sinus rhythm at 70 bpm, no axis deviation, QRS 124, LBBB, T wave inversion 1 and aVL, no ST elevations or ST depressions, no significant change from prior EKG March 03, 2019 Radiology/Procedures: Radiology/Procedures: IMAGING REPORT Signed PATIENT: ALEXY LANGE LACCOUNT: [id number] : 1950 LOCATION: ER AGE: 69 SEX: F EXAM STATUS: REG ER ORD. PHYSICIAN: SUE KNOX DO REASON: short of breath, productive cough, fever 100mls omni 350 PROCEDURE: CT ANGIOGRAPHY CHEST EXAM: CT Pulmonary Angiogram INDICATION: Reason: short of breath, productive cough, fever 100mls omni 350 / Spl. Instructions: / History: TECHNIQUE: Multi-detector row images were acquired from the thoracic inlet through the upper abdomen with the use of IV contrast. Sagittal and coronal images were acquired from the transaxial data. MIP images of the pulmonary arteries were obtained. All CT scans performed at this facility utilize dose optimization techniques as appropriate to the exam, including the following: Automated exposure control and adjustment of the mA and/or KV according to patient size (this includes techniques or standardized protocols for targeted exams where dose is indication/reason for exam). IV CONTRAST: Administered COMPARISON: Chest x-ray of 02/27/2020, CT pulmonary angiogram of 12/28/2017 FINDINGS: PULMONARY ARTERIES: No pulmonary emboli are identified. CARDIOVASCULAR: Dense multivessel coronary calcifications. Normal heart size. Aorta is normal caliber. MEDIASTINUM & ANABEL: Extensive mediastinal adenopathy and bilateral hilar adenopathy is present, more apparent in the interval. The largest lymph node is a right lower paratracheal node 1 cm in short axis and 1.7 cm in long axis. LUNGS: No pulmonary infiltrate, nodule, or other focal abnormality. There is minimal mosaic attenuation to the superior left upper lobe, suggesting scattered areas of air-trapping. PLEURAL SPACE: No pleural effusions or pneumothorax. OSSEOUS & SOFT TISSUE: Unremarkable ABDOMEN: Nodular fullness in the medial limb of the left adrenal gland is suggestive of a small adrenal adenoma. Low-density 1.3 cm exophytic lesion from the superior pole right kidney is compatible with a cyst. This requires no additional imaging follow-up. Normal variant origin of the right hepatic artery from the abdominal aorta and an accessory left hepatic artery from the left gastric artery. IMPRESSION: No evidence of pulmonary emboli or other acute cardiopulmonary process. Mild mediastinal adenopathy remains present Electronically signed by: Jose Alfredo Reno MD (02/29/2020 12:34 PM) [id number] DICTATED AND SIGNED BY: JOSE ALFREDO RENO MD DATE: 02/29/20 1234 CC: PRAKASH LUU MD; SUE BLUM DO ~ Course & Med Decision Making: Course & Med Decision Making Pertinent Labs and Imaging studies reviewed. (See chart for details) Dyspnea for the past 4 days, requiring no oxygen supplementation. Concern for sinusitis-we will have patient discontinue her azithromycin and start Augmentin. Due to recent surgical history, CTA was ordered, no pulmonary emboli, normal aorta, dense coronary artery calcifications. 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 Patient will be given outpt pulm referral. Strict ED return cautions were given for increased work of breathing, hemoptysis, fatigue or worsening shortness of breath. She is hemodynamically stable. Encouraged urgent outpatient follow-up with PMD and pulmonology. Life-threatening processes were considered but are low suspicion at this time, given history and physical exam. Pt was educated on all prescription medications and adverse effects. All patient's questions were answered and pt was stable at time of discharge. Differential includes ACS, dysrhythmia, pneumothorax or hemothorax, pulmonary embolus, pneumonia, bronchoconstriction, pulmonary edema, angioedema, epiglottitis, tracheitis, Pito's angina, RPA/DIRECTOR OF STRATEGIC COMMUNICATIONS, anaphylaxis, angioedema, cardiac tamponade or murmurs, pericarditis, myocarditis, poisoning or toxicity, sepsis or autoimmune/neurologic disease. I spoken with the patient and her caregivers. I explained the patient's condition, diagnoses and treatment plan based on the information available to me at this time. I have answered the patient and her caregiver's questions and addressed any concerns. The patient and her caregivers have a good understanding of patient's diagnosis, condition and treatment plan as can be expected at this point. Vital signs have been stable. Patient's condition is stable and appropriate for discharge from the emergency department. Patient will pursue further outpatient evaluation with primary care physician or other designated or consulting physician as outlined in the discharge instructions. The patient and/or caregivers are agreeable to this plan of care and follow-up instructions have been explained in detail. The patient and/or caregivers have received these instructions in written form and have expressed an understanding of the discharge instructions. The patient and/or caregivers are aware that any significant change of condition or worsening of symptoms should prompt immediate return to this or the closest emergency department or call to 911. COVID-19 CRITERIA: The patient was evaluated during the global COVID-19 pandemic, and that diagnosis was suspected/considered upon their initial presentation. Their evaluation, treatment and testing was consistent with current guidelines for patients who present with complaints or symptoms that may be related to COVID-19. Pt was called 03/01/20 0930am - Pt was informed her covid result was positive. Patient states she feels a little winded but no signficant change from yesterday. Was speaking in full sentences on the phone with no labored speech. I gave patient strict ED return precautions for increased work of breathing, shortness of breath, sternal or subcostal retractions, chest pain or strokelike symptoms. I also encourage patient to obtain a pulse oximeter and to return to ED if her level fall below 92%. Patient was advised to quarantine for 14 days since symptom onset continue wearing a mask with hand hygiene directions. All of patient's questions were answered. Dragon Disclaimer: Dragon Disclaimer: This electronic medical record was generated, in whole or in part, using a voice recognition dictation system. Departure Departure: Impression: Primary Impression: Dyspnea Additional Impressions: COPD exacerbation Sinusitis Disposition: 01 HOME/RESIDENCE PRIOR TO ADM Condition: STABLE Referrals: PRAKASH LUU MD (PCP) Patient Instructions: Sinusitis Scripts Amoxicillin/Potassium Clav (AUGMENTIN 875-125 TABLET) 1 Each Tablet 1 TAB PO BID for sinusitis for 10 Days, #20 TAB 0 Refills Prov: SUE KNOX DO 02/29/20 Justification of Admission: Justification of Admission: Justification of Admission Dx: N/A SUE KNOX DO Feb 29, 2020 10:22
[2020-02-29] MEDS ORDERED: methylPREDNISolone SOD SUCC PF 125 MG/2 ML VIAL. IV ONE (10:45)
--- NOTE | 2020-02-29 10:48 | EKG ---
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
[2020-02-29 10:52] LABS: BASO % 1 % (0-3); EOS % 0 % (0-3); HEMATOCRIT 47.6 % (36.0-47.0); HEMOGLOBIN 15.8 g/dL (12.0-15.5); LYMPH % 29 % (24-48); MEAN CORPUSCULAR HEMOGLOBIN 30 pg (25-35); MEAN CORPUSCULAR HGB CONC 33 g/dL (31-37); MEAN CORPUSCULAR VOLUME 89 fL (79-100); MONO # 0.5 x10^3/uL (0.0-1.1); MONO % 16 % (0-9); NEUT # 1.8 x10^3uL (1.8-7.7); NEUT % 54 % (31-73); PLATELET COUNT 195 x10^3/uL (140-400); RED BLOOD COUNT 5.33 x10^6/uL (3.50-5.40); RED CELL DISTRIBUTION WIDTH 13.9 % (11.5-14.5); WHITE BLOOD COUNT 3.4 x10^3/uL (4.0-11.0)
[2020-02-29] MEDS ORDERED: IOHEXOL 350 MG/ML 100 ML VIAL. IV ONE (11:00)
[2020-02-29] MEDS ORDERED: CONTRAST GIVEN. MC PRN (11:00)
[2020-02-29 11:04] LABS: CALCIUM 8.8 mg/dL (8.5-10.1); CREATININE 0.8 mg/dL (0.6-1.0); GFR 71.5; POTASSIUM 3.6 mmol/L (3.5-5.1)
[2020-02-29 11:08] LABS: ALBUMIN 3.8 g/dL (3.4-5.0); TOTAL BILIRUBIN 0.4 mg/dL (0.2-1.0); TOTAL PROTEIN 7.5 g/dL (6.4-8.2)
--- NOTE | 2020-02-29 12:38 | RAD ---
EXAM: CT Pulmonary Angiogram INDICATION: Reason: short of breath, productive cough, fever 100mls omni 350 / Spl. Instructions: / History: TECHNIQUE: Multi-detector row images were acquired from the thoracic inlet through the upper abdomen with the use of IV contrast. Sagittal and coronal images were acquired from the transaxial data. MIP images of the pulmonary arteries were obtained. All CT scans performed at this facility utilize dose optimization techniques as appropriate to the exam, including the following: Automated exposure control and adjustment of the mA and/or KV according to patient size (this includes techniques or standardized protocols for targeted exams where dose is indication/reason for exam). IV CONTRAST: Administered COMPARISON: Chest x-ray of 02/27/2020, CT pulmonary angiogram of 12/28/2017 FINDINGS: PULMONARY ARTERIES: No pulmonary emboli are identified. CARDIOVASCULAR: Dense multivessel coronary calcifications. Normal heart size. Aorta is normal caliber. MEDIASTINUM & ANABEL: Extensive mediastinal adenopathy and bilateral hilar adenopathy is present, more apparent in the interval. The largest lymph node is a right lower paratracheal node 1 cm in short axis and 1.7 cm in long axis. LUNGS: No pulmonary infiltrate, nodule, or other focal abnormality. There is minimal mosaic attenuation to the superior left upper lobe, suggesting scattered areas of air-trapping. PLEURAL SPACE: No pleural effusions or pneumothorax. OSSEOUS & SOFT TISSUE: Unremarkable ABDOMEN: Nodular fullness in the medial limb of the left adrenal gland is suggestive of a small adrenal adenoma. Low-density 1.3 cm exophytic lesion from the superior pole right kidney is compatible with a cyst. This requires no additional imaging follow-up. Normal variant origin of the right hepatic artery from the abdominal aorta and an accessory left hepatic artery from the left gastric artery. IMPRESSION: No evidence of pulmonary emboli or other acute cardiopulmonary process. Mild mediastinal adenopathy remains present Electronically signed by: Key Reno MD (02/29/2020 12:34 PM) [id number]
[2020-02-29 13:23] VITALS: BP 141/89
[2020-02-29] MEDS ORDERED: AMOX1TAB61 PO (13:27)
[2020-02-29] MEDS ORDERED: KETOROLAC 15 MG/ML VIAL. IVP ONE (13:30)
== END 2020-02-29 13:29 | disposition home or self-care (01) ==
LOC: ER 09:56
DX: J44.1 Chronic obstructive pulmonary disease with (acute) exacerbation (principal); J32.9 Chronic sinusitis, unspecified; F41.9 Anxiety disorder, unspecified; I25.10 Atherosclerotic heart disease of native coronary artery without angina pectoris; K21.9 Gastro-esophageal reflux disease without esophagitis; E78.00 Pure hypercholesterolemia, unspecified; I11.9 Hypertensive heart disease without heart failure; Z87.891 Personal history of nicotine dependence; Z91.030 Bee allergy status; Z88.8 Allergy status to other drugs, medicaments and biological substances
CPT/HCPCS: 36415; 71275; 80053; 83880; 84484; 85025; 93005; 96374; 96375; 99285; J1885; J2930; Q9967

== ENCOUNTER 2020-03-02 20:39 | Emergency (ER) | payer MEDICARE, MEDICAID ==
[~2020-03-02] VITALS: Ht 152.4 cm; Wt 73.4 kg
[~2020-03-02 20:39] MED LIST changes: +AMOX1TAB61 PO
[2020-03-02] MEDS ORDERED: IV NORMAL SALINE 1,000ML 1,000 ML IV ONE (21:30)
[2020-03-02] MEDS ORDERED: LOPERAMIDE 2 MG CAPSULE PO ONE ×2 (21:45→22:15)
[2020-03-02 22:30] LABS: CALCIUM 8.6 mg/dL (8.5-10.1); CREATININE 0.8 mg/dL (0.6-1.0); GFR 71.5; POTASSIUM 3.4 mmol/L (3.5-5.1)
[2020-03-02 22:41] LABS: ALBUMIN 3.6 g/dL (3.4-5.0); TOTAL BILIRUBIN 0.4 mg/dL (0.2-1.0); TOTAL PROTEIN 7.1 g/dL (6.4-8.2)
[2020-03-02 23:00] VITALS: BP 136/65
--- NOTE | 2020-03-02 23:02 | PHYS DOC ---
Past History Past Medical History: Anxiety, Asthma, CAD, COPD, GERD, High Cholesterol, Heart Disease, Hypertension Past Surgical History: Knee Replacement, Tonsillectomy, Tubal ligation, Other Additional Past Surgical Histo: 3 stents placed; esophageal stretch; fx left wrist repair, right RADIAL/ULN Smoking: Quit Greater Than 1 Year Alcohol Use: Occasionally Drug Use: None Adult General Chief Complaint Chief Complaint: DIARRHEA HPI HPI Patient is a 69-year-old female who presents for diarrhea. Onset was 2 days ago. Nothing known makes better or worse. Patient reports generalized abdominal discomfort and watery, foul-smelling diarrhea. She reports greater than 3 episodes daily for the past 48 hours. Associated symptoms include URI- like symptoms, mild shortness of breath, abdominal discomfort, nausea, and generalized malaise. She reports not being able to eat food but is able to keep down liquids at this time. Patient denies any fever, syncope, dizziness/lightheadedness, falls, chest pain, blood loss of any kind. Patient reports URI-like symptoms started approximately 1 week ago, she was seen and evaluated by a PCP 5 days ago and tested positive for COVID 19. At that time, she was also given Augmentin for sinusitis infection. Review of Systems Review of Systems Fourteen body systems of review of systems have been reviewed. See HPI for pertinent positives and negative responses, other sibley all other systems are negative, non-pertinent or non-contributory Current Medications Current Medications Current Medications Medications (Trade) Dose Ordered Sig/Linda Start Time Stop Time Status Last Admin Dose Admin Loperamide HCl (Imodium) 4 mg 1X ONCE 03/02/20 22:15 03/02/20 22:16 DC 03/02/20 22:15 4 MG Sodium Chloride 1,000 ml @ 1,000 mls/hr 1X ONCE 03/02/20 21:30 03/02/20 22:29 DC 03/02/20 21:30 1,000 MLS/HR Allergies Allergies Allergies Coded Allergies Type Severity Reaction Last Updated Verified venom-honey bee Allergy Severe Shortness of Air 02/29/20 Yes adhesive Allergy Intermediate 08/02/19 Yes cimetidine Allergy Intermediate "toxic" 02/29/20 Yes cimetidine HCl Allergy Intermediate "toxic" 02/29/20 Yes Physical Exam Physical Exam Constitutional: Well developed, well nourished, no acute distress, non-toxic appearance. Clinically dehydrated HENT: Normocephalic, atraumatic, bilateral external ears normal, bilateral TMs without any findings of acute infection, postnasal drip present oropharynx dry, no oral exudates, external nose normal, engorged bilateral turbinates with clear rhinorrhea present, no sinus tenderness to frontal or maxillary sinuses with palpation Eyes: PERRLA, EOMI, conjunctiva normal, no discharge. Neck: Normal range of motion, no tenderness, supple, no stridor. Cardiovascular: Heart rate regular, sinus rhythm, no murmurs rubs or gallops Lungs & Thorax: Bilateral breath sounds clear to auscultation Abdomen: Bowel sounds normal, soft, no tenderness, no guarding, no rebound no masses, no pulsatile masses. Nonsurgical abdomen, no peritoneal signs Skin: Warm, dry, no erythema, no rash. Back: No tenderness, no CVA tenderness. Extremities: No tenderness, no cyanosis, no clubbing, ROM intact, no edema. Neurologic: Alert and oriented X 3, grossly normal motor & sensory function, no focal deficits noted. Psychologic: Affect normal, judgement normal, anxious mood Current Patient Data Lab Results Laboratory Tests Test 03/02/20 21:43 Sodium Level 136 mmol/L (136-145) Potassium Level 3.4 mmol/L (3.5-5.1) L Chloride Level 101 mmol/L (98-107) Carbon Dioxide Level 25 mmol/L (21-32) Anion Gap 10 (6-14) Blood Urea Nitrogen 11 mg/dL (7-20) Creatinine 0.8 mg/dL (0.6-1.0) Estimated GFR (Cockcroft-Gault) 71.5 BUN/Creatinine Ratio 14 (6-20) Glucose Level 87 mg/dL (70-99) Calcium Level 8.6 mg/dL (8.5-10.1) Total Bilirubin 0.4 mg/dL (0.2-1.0) Aspartate Amino Transferase (AST) 21 U/L (15-37) Alanine Aminotransferase (ALT) 22 U/L (14-59) Alkaline Phosphatase 47 U/L (46-116) Total Protein 7.1 g/dL (6.4-8.2) Albumin 3.6 g/dL (3.4-5.0) Albumin/Globulin Ratio 1.0 (1.0-1.7) EKG EKG [] Radiology/Procedures Radiology/Procedures [] Course & Med Decision Making Course & Med Decision Making Ambulatory overall well-appearing patient seen on ER arrival ABCs grossly non-concerning, IV access obtained Comprehensive history and physical exam obtained 2 L IV normal saline and 4 mg loperamide administered with moderate relief in symptomology Discussed with patient given timeline of events, most likely diagnosis is diarr hea related to active COVID-19 infection. Patient rehydrated this visit, she has Zofran at home for as needed nausea, she is tolerating p.o. intake and stable for discharge I cannot definitively exclude C. difficile infection in an elderly female with recent Augmentin use. I have discontinued this medication as I do not think it is necessary and could potentially be contributing to patient's presenting symptoms. Patient's loose stool was sent for PCR for C. difficile infection and results will be called back to her. Joint decision to take a wait and see approach to determine if C. difficile treatment is indicated Ultimately, joint decision to discharge home with continued supportive care advised. Strict return precautions were discussed with good understanding by patient, all questions and concerns addressed prior to ER departure in stable condition Dragon Disclaimer Dragon Disclaimer This electronic medical record was generated, in whole or in part, using a voice recognition dictation system. Departure Departure: Impression: Primary Impression: COVID-19 Additional Impression: Diarrhea Disposition: 01 HOME/RESIDENCE PRIOR TO ADM Condition: STABLE Referrals: PRAKASH LUU MD (PCP) Patient Instructions: Diarrhea, Diet for Diarrhea, Adult Additional Instructions: Short You were evaluated in the Emergency Department today for a cough. Your evaluation suggests a viral infection such as Coronavirus. It is important that you continue to self isolate and practice good hygiene at home. Please follow up with your primary care physician as discussed. Return to the Emergency Department if you experience worsening cough, fever, shortness of breath, recurrent vomiting, lethargy, or any other concerning symptoms. Thank you for choosing us for your care. Usted fue evaluado en el Departamento de Emergencia hoy por tos. Weathers evaluacin sugiere ole infeccin viral mickey el coronavirus. Es importante que contine aislndose y practicando ole buena higiene en el hogar. Crystal un seguimiento con weathers mdico de atencin primaria mickey se discuti. Regrese al Departamento de Emergencias si experimenta un empeoramiento de la tos, fiebre, falta de aliento, vmitos recurrentes, letargo o cualquier otro sntoma relacionado. Yuki por elegir nosotros para weathers atencin. Home Care Instructions for Patients with Mild Respiratory Infection Most people with respiratory infections like colds, the flu, and Coronavirus Disease (COVID-19) will have mild illness and can get better with appropriate home care and without the need to see a provider. People who are elderly, , or have a weak immune system, or other medical problem are at higher risk of more serious illness or complications. It is recommended that they carefully monitor their symptoms closely and seek medical care early if their symptoms get worse. TREATMENT AND MEDICAL CARE Treatment There is no specific treatment for most viruses including those that that cause the common cold and those that cause COVID-19. Sometimes there is treatment for the viruses that cause influenza if given early. Antibiotics treat infections caused by bacteria, but they do not work against viruses.Most people recover on their own from these viruses, including COVID-19. Here are steps that you can take to help you get better: Rest Drink plenty of fluids Take kpwk-zxc-scwnijz cold and flu medications to reduce fever and pain. Follow the instructions on the package, unless your doctor gave you instructions. Note that these medicines do not ``cure the illness and therefore do not stop you from spreading germs. Children should not be given medication that contains aspirin (acetylsalicylic acid) because it can cause a rare but serious illness called Jonathon syndrome. Medicines without aspirin include acetaminophen (Tylenol) and ibuprofen (Advil, Motrin). Children younger than age 2 should not be given any muih-xxk-[id number] cold medications without first speaking with a doctor.Seeking Medical Care You should seek medical care if you are not getting better within a week, or if your symptoms get worse. If you are elderly, , have a weak immune system, or other medical problems, call your doctor right away. It is best to call ahead of time to discuss your symptoms, if possible. This may allow you to receive the advice you need by phone. By avoiding a visit to a healthcare facility, you protect yourself from getting a new infection and protect others from catching an infection from you. If you do visit a healthcare facility, put on a mask to protect other patients and staff. It is recommended that you seek medical care for serious symptoms, such as: People with potentially life-threatening symptoms should call 911. If possible, put on a facemask before emergency medical services arrive.PROTECTING OTHERS Follow the steps below to help prevent the disease from spreading to people in your home and community.Stay home when you are sick Stay home - do not go to work, school, or public areas. Stay home for at least 24 hours after your symptoms have gone away without the use of fever-reducing medicines. If you must leave home while you are sick, try to avoid using public transportation, ride-shares, and taxis. Wear a mask if possible. Separate yourself from other people and animals in your home Stay in a specific room and away from other people in your home as much as pos sible. Use a separate bathroom, if available. Try to stay at least 6 feet from others. Do not handle pets or other animals while you are sick. Cover your coughs and sneezes Cover your mouth and nose with a tissue when you cough or sneeze. Throw used tissues in a lined trash can; immediately wash your hands. Avoid sharing personal household items Do not share dishes, drinking glasses, cups, eating utensils, towels, or bedding with other people or pets in your home. Wash them thoroughly with soap a nd water after use. Clean your hands often Wash your hands often with soap and water for at least 20 seconds. If soap and water are not available, clean your hands with an alcohol-based hand pushcart peddler that contains at least 60% alcohol, covering all surfaces of your hands and rubbing them together until they feel dry. Use soap and water if your hands are visibly dirty. Clean all ``high-touch surfaces every day High touch surfaces include counters, tabletops, doorknobs, bathroom fixtures, toilets, phones, keyboards, tablets, and bedside tables. Also, clean any surfaces that may have body fluids on them. Use a household cleaning spray or wipe, according to the product label instructions. COVID-19 (Novel Coronavirus) FAQs for Inquiring Patients What do you do if you are worried that you have been exposed to COVID-19 but are without any symptoms? If you develop symptoms that may indicate an infection, contact your physician. These include fever, cough, and shortness of breath. Testing is not available for asymptomatic individuals, regardless of travel history. To reduce the chance of getting sick use general infection prevention measures such as hand washing, covering your mouth and nose when you cough or sneeze and discarding any tissues carefully, and staying home when you are sick.Can exceptions be made for patients who are really worried and want to be tested? Presently testing is only available through the [facility] Department of Public Health and Centers for Disease Control and Prevention. Only patients who meet the updated COVID-19 PUI definition may be tested. We do not control or set the PUI definition or evaluation criteria. We are unable to provide testing to patients who do not meet the strict criteria. Should patients cancel or postpone an upcoming trip? The decision about travel is personal and should be made in the context of a persons underlying health conditions, reason for travel and necessity of travel. Travel insurance generally does not cover cancellations due to concerns of in fectious disease outbreaks. The Center for Disease Control has a section on travel notices. Situations are changing frequently and you should monitor the site for updates. Should situations change rapidly in a foreign country while they are traveling, you could be subject to quarantine or restrictions upon return to the [place]. It is best to have a plan on how to return urgently if needed during a trip abroad. Because of how air circulates and is filtered on airplanes, most viruses do not spread easily on airplanes. CDC does not recommend use of facemasks during air travel.What other general precautions are advised? Patients should be instructed to: Avoid close contact with people who are sick. Avoid touching your eyes, nose and mouth. Stay home from work or school when they are sick. If you have a fever, you should remain home until 24 hours after fever resolves. Clean and disinfect frequently touched objects and surfaces using a regular household cleaning spray or wipe. Sneeze/cough into their elbow, not your hand. Practice frequent hand hygiene with soap and water (at least 20 seconds) or alcohol-based hand rub. Consider avoiding crowded places or mass gatherings, especially if you are immunocompromised or have chronic lung disease. There is no evidence to support transmission of COVID-19 from goods imported from [place]. Are there any special precautions that are recommended if I am ? There is not yet any information available about the susceptibility of women to COVID-19. As a general rule, women may be more susceptible to viral respiratory infections and at risk for more severe illness. The CDC guidance for COVID-19 and has answers to questions about transmission during delivery, as well as other situations. Should food, water, or medications be stockpiled? Should people telecommute? The CDC has excellent information on this. Please visit the CDCs guidance for getting your household ready for COVID-19. What should I do if I start feeling sick at work? And what should the workplace do for anyone exposed? Anyone who is sick with a fever and cough should stay home from work until at least 24 hours after resolution of fever, regardless of concerns for COVID-19. It is still influenza (flu) season and influenza remains far more common. Justification of Admission: Justification of Admission: Justification of Admission Dx: N/A Problem Qualifiers VALERIA MAURICE DO Mar 02, 2020 23:02
== END 2020-03-02 23:35 | disposition home or self-care (01) ==
LOC: ER 20:39
DX: U07.1 COVID-19 (principal); R19.7 Diarrhea, unspecified; F41.9 Anxiety disorder, unspecified; J44.9 Chronic obstructive pulmonary disease, unspecified; I25.10 Atherosclerotic heart disease of native coronary artery without angina pectoris; K21.9 Gastro-esophageal reflux disease without esophagitis; E78.00 Pure hypercholesterolemia, unspecified; I11.9 Hypertensive heart disease without heart failure; Z87.891 Personal history of nicotine dependence; Z91.030 Bee allergy status; Z88.8 Allergy status to other drugs, medicaments and biological substances
CPT/HCPCS: 36415; 80053; 96360; 99285; J7030

== ENCOUNTER → 2020-03-17 | Outpatient (CLI) | payer MEDICARE, MEDICAID ==
[2020-03-02 23:00] VITALS: BP 136/65
--- NOTE | 2020-03-17 15:57 | RAD ---
Examination: 3 views of the right wrist HISTORY: History of right wrist pain COMPARISON: 01/07/2020 Findings/ impression: Plate and screw fixation of the distal radius and ulna again identified. Severe joint space loss identified in the radiocarpal joint and first carpometacarpal joint. Electronically signed by: Brandon Renee MD (03/17/2020 3:55 PM) [id number]
== END | disposition home or self-care (01) ==
LOC: RAD 12:40
PROVIDERS: ATTEND Physician Assistant
DX: S52.321D Displaced transverse fracture of shaft of right radius, subsequent encounter for closed fracture with routine healing (principal); X58.XXXD Exposure to other specified factors, subsequent encounter
CPT/HCPCS: 73110

== ENCOUNTER 2020-07-05 20:53 | Emergency (ER) | payer MEDICARE, MEDICAID ==
[~2020-07-05] VITALS: Ht 152.4 cm; Wt 77.2 kg
[2020-07-05 21:20] VITALS: BP 153/67
--- NOTE | 2020-07-05 21:49 | PHYS DOC ---
Past History Past Medical History: Anxiety, Asthma, CAD, COPD, Depression, GERD, High Cholesterol, Hypertension, Other Additional Past Medical Histor: COVID-19 Past Surgical History: Knee Replacement, Tonsillectomy, Tubal ligation, Other Additional Past Surgical Histo: SCOT knee repl; 3 card stents;esoph dil;lt wrist repair; rt rad/uln open red Smoking: Quit Greater Than 1 Year Alcohol Use: Occasionally Drug Use: None Adult General Chief Complaint Chief Complaint: VAGINAL PROBLEM HPI HPI Patient is a 70-year-old female who presents with a chief complaint of genital itching. States that she went out on [place] and drank too much alcohol whe never she does that she has diarrhea for the next day or 2. States that this did happen. States that she was on the way to a well visit at her physicians when she had diarrhea/accident in the car on the way. States that she sat in the diarrhea for approximately 20 to 30 minutes until she was able to get home and get cleaned off. States that about 2 days later she began to have some itching down around her anus and genitals and then over the last 2 days has had some dysuria. Denies any fevers, chest pain, shortness of breath, abdominal pain, nausea, vomiting, diarrhea has ceased, hematuria or blood in the stool. Denies any vaginal bleeding, discharge, internal vaginal itching. States she otherwise feels well. Review of Systems Review of Systems Review of systems otherwise unremarkable except for noted in HPI Allergies Allergies Allergies Coded Allergies Type Severity Reaction Last Updated Verified venom-honey bee Allergy Severe Shortness of Air 03/03/20 Yes adhesive Allergy Intermediate 03/03/20 Yes cimetidine Allergy Intermediate "toxic" 03/03/20 Yes cimetidine HCl Allergy Intermediate "toxic" 03/03/20 Yes Physical Exam Physical Exam Constitutional: Well developed, well nourished, no acute distress, non-toxic appearance. [] HENT: Normocephalic, atraumatic, bilateral external ears normal, oropharynx moist, no oral exudates, nose normal. [] Eyes: PERRLA, EOMI, conjunctiva normal, no discharge. [] Cardiovascular:Heart rate regular rhythm, no murmur [] Lungs & Thorax: Bilateral breath sounds clear to auscultation [] Abdomen: Bowel sounds normal, soft, no tenderness, no masses, no pulsatile masses. [] Skin: Patient has mild irritation/erythema on inner thighs around anus and just outside labia. Does not appear to be fungal in nature, but more a contact dermatitis picture. Back: no CVA tenderness. [] Extremities: No tenderness, no cyanosis, no clubbing, ROM intact, no edema. [] Neurologic: Alert and oriented X 3, normal motor function, normal sensory function, no focal deficits noted. [] Psychologic: Affect normal, judgement normal, mood normal. [] Current Patient Data Vital Signs Vital Signs Date Time Temp Pulse Resp B/P (MAP) Pulse Ox O2 Delivery O2 Flow Rate FiO2 07/05/20 21:20 97.7 68 18 153/67 (95) 98 Room Air EKG EKG [] Radiology/Procedures Radiology/Procedures [] Heart Score Risk Factors: Risk Factors: DM, Current or recent (<one month) smoker, HTN, HLP, family history of CAD, obesity. Risk Scores: Risk Factors: DM, Current or recent (<one month) smoker, HTN, HLP, family h istory of CAD, obesity. Course & Med Decision Making Course & Med Decision Making Patient is a 70-year-old female who presents with dysuria and some itching in the urogenital region Vital signs not concerning. Physical exam noted above. Urogenital exam with possible contact dermatitis irritation but not impressive. Discussed with patient the need for keeping the area clean, dry and put barrier creams. Discussed all findings with patient advised to follow-up with primary care physician first thing Tuesday morning to discuss ED visit and set up post ER follow-up visit. Patient grateful, verbalized understanding and agreed with plan of discharge. [] Dragon Disclaimer Dragon Disclaimer This electronic medical record was generated, in whole or in part, using a voice recognition dictation system. Departure Departure: Referrals: PRAKASH LUU MD (PCP) SHANTE TAPIA MD Jul 05, 2020 21:49
[2020-07-05 22:42] LABS: BILIRUBIN,URINE NEG (NEG); CLARITY,URINE CLEAR; COLOR,URINE YELLOW; GLUCOSE,URINE NEG (NEG)
[2020-07-05 22:43] LABS: BACTERIA,URINE 0 /HPF (0-FEW); NITRITE,URINE NEG (NEG); RBC,URINE RARE /HPF (0-2); SQUAMOUS EPITHELIAL CELL,UR OCC /LPF; UROBILINOGEN,URINE 0.2 mg/dL (0.2 mg/dL)
== END 2020-07-05 23:00 | disposition home or self-care (01) ==
LOC: ER 20:53
DX: R19.7 Diarrhea, unspecified (principal); R30.0 Dysuria; F41.9 Anxiety disorder, unspecified; J44.9 Chronic obstructive pulmonary disease, unspecified; I11.9 Hypertensive heart disease without heart failure; F32.9 Major depressive disorder, single episode, unspecified; K21.9 Gastro-esophageal reflux disease without esophagitis; E78.00 Pure hypercholesterolemia, unspecified; Z98.51 Tubal ligation status; Z98.890 Other specified postprocedural states; Z90.89 Acquired absence of other organs; Z87.891 Personal history of nicotine dependence; Z91.030 Bee allergy status; Z88.8 Allergy status to other drugs, medicaments and biological substances
CPT/HCPCS: 81001; 87086; 99283

== ENCOUNTER 2020-07-20 16:39 | Emergency (ER) | payer MEDICARE, MEDICAID ==
[~2020-07-20] VITALS: Ht 152.4 cm; Wt 80.5 kg
--- NOTE | 2020-07-20 17:42 | PHYS DOC ---
Past History Past Medical History: Anxiety, Asthma, CAD, COPD, Depression, GERD, High Cholesterol, Hypertension, Other Additional Past Medical Histor: COVID-19 (GISELLE NICE MD) Past Surgical History: Knee Replacement, Tonsillectomy, Tubal ligation, Other Additional Past Surgical Histo: SCOT knee repl; 3 card stents;esoph dil;lt wrist repair; rt rad/uln open red (GISELLE NICE MD) Smoking: Quit Greater Than 1 Year Alcohol Use: Occasionally Drug Use: None (GISELLE NICE MD) General Adult EDM: Chief Complaint: VAGINAL PROBLEM HPI: HPI: Patient is a 70-year-old female coming in for burning vaginal pain and burning with urination. That she also has itching around her cranium. Patient was sexually active last night and used flavored lubrication. Patient states she used a condom. Patient states she had to stop backwards because of the burning vaginal pain. Patient has a history of hemorrhoids and rectal itching but this is different. Denies any vaginal bleeding or discharge. States she otherwise has been well (GISELLE NICE MD) Review of Systems: Review of Systems: All other systems within normal limits except for as noted in the HPI (GISELLE NICE MD) Allergies: Allergies: Allergies Coded Allergies Type Severity Reaction Last Updated Verified venom-honey bee Allergy Severe Shortness of Air 07/20/20 Yes adhesive Allergy Intermediate 07/20/20 Yes cimetidine Allergy Intermediate "toxic" 07/20/20 Yes cimetidine HCl Allergy Intermediate "toxic" 07/20/20 Yes (GISELLE NICE MD) Physical Exam: PE: Constitutional: Well developed, well nourished, no acute distress, non-toxic appearance. [] HENT: Normocephalic, atraumatic, bilateral external ears normal, nose normal. [] Eyes: PERRLA, conjunctiva normal, no discharge. [] Neck: No rigidity, supple, no stridor. [] Cardiovascular: Regular rate and rhythm, brisk cap refill [] Lungs & Thorax: Non labored symmetric respirations, no tachypnea or respiratory distress [] Abdomen: Soft, nondistended. Skin: Warm, dry, no erythema, no rash. Superficial erosions of vaginal mucosa, no tears or lesions. Slight erythematous rash near anus [] Back: Unremarkable Extremities: No deformities, range of motion grossly intact, no lower extremity edema [] Neurologic: Alert and oriented X 3, no focal deficits noted. [] Psychologic: Affect normal, judgement normal, mood normal. [] (GISELLE NICE MD) Current Patient Data: Vital Signs: Vital Signs Date Time Temp Pulse Resp B/P (MAP) Pulse Ox O2 Delivery O2 Flow Rate FiO2 07/20/20 16:50 98.2 75 18 137/62 (87) 98 Room Air (GISELLE NICE MD) EKG: EKG: [] (GISELLE NICE MD) Radiology/Procedures: Radiology/Procedures: [] (GISELLE NICE MD) Heart Score: Risk Factors: Risk Factors: DM, Current or recent (<one month) smoker, HTN, HLP, family history of CAD, obesity. Risk Scores: Score 0 - 3: 2.5% MACE over next 6 weeks - Discharge Home Score 4 - 6: 20.3% MACE over next 6 weeks - Admit for Clinical Observation Score 7 - 10: 72.7% MACE over next 6 weeks - Early Invasive Strategies (GISELLE NICE MD) Course & Med Decision Making: Course & Med Decision Making Pain likely due to abrasions, ordered benzocaine spray given patient instructions. Pending vaginal swabs and urine at shift change. Discussed plan with patient, transitioned care to Dr. Bowling [] (GISELLE NICE MD) Course & Med Decision Making See Dr. Nice chart for details. Keflex 500 three times a day. After you complete the Keflex take Diflucan 100 mg daily for 3 days. Try the 2% lidocaine gel or ointment to the area of abrasion up to 4 times a day. Follow-up cultures. Follow-up primary care. Return if any concerns. Impression: 1. UTI/dysuria 2. Abrasion (DAVID BOWLING MD) Dragon Disclaimer: Dragon Disclaimer: This electronic medical record was generated, in whole or in part, using a voice recognition dictation system. (GISELLE NICE MD) Departure Departure: Referrals: PRAKASH LUU MD (PCP) Scripts Fluconazole (DIFLUCAN) 100 Mg Tablet 100 MG PO DAILY for POST ANTIBIOTIC for 3 Days, #3 TAB Prov: DAVID BOWLING MD 07/20/20 Cephalexin (KEFLEX) 750 Mg Capsule 500 MG PO TID for UTI for 10 Days, #20 CAP Prov: DAVID BOWLING MD 07/20/20 Mupirocin/Lidocaine (Lidocaine 2%-Mupirocin 2% Oint) 30 Gm Oint...g. 30 GM TP apply to abrasion for ABRASION, #1 MISC Prov: DAVID BOWLING MD 07/20/20 Dragon Disclaimer This chart was dictated in whole or in part using Voice Recognition software in a busy, high-work load, and often noisy Emergency Department environment. It may contain unintended and wholly unrecognized errors or omissions. (DAVID BOWLING MD) GISELLE NICE MD Jul 20, 2020 17:42 DAVID BOWLING MD Jul 20, 2020 20:24
[2020-07-20] MEDS ORDERED: BENZOCAINE ONE 20% MUCOSAL SPRAY. MM (17:45)
[2020-07-20 18:04] LABS: BILIRUBIN,URINE NEG (NEG); CLARITY,URINE CLEAR; COLOR,URINE YELLOW; GLUCOSE,URINE NEG (NEG)
[2020-07-20 18:05] LABS: BACTERIA,URINE MOD /HPF (0-FEW); NITRITE,URINE NEG (NEG); SQUAMOUS EPITHELIAL CELL,UR MOD /LPF; UROBILINOGEN,URINE 0.2 mg/dL (0.2 mg/dL)
[2020-07-20] MEDS ORDERED: MUPI30OI TP (20:18)
[2020-07-20] MEDS ORDERED: CEPH750C9 PO (20:20)
[2020-07-20] MEDS ORDERED: FLUC100T7 PO (20:20)
[2020-07-20] MEDS ORDERED: CEPHALEXIN 250 MG CAPSULE PO ONE (20:30)
[2020-07-20 20:35] VITALS: BP 138/91
[2020-07-22 19:11] LABS: CHLAMYDIA PROBE Negative (Negative)
== END 2020-07-20 20:35 | disposition home or self-care (01) ==
LOC: ER 16:39
DX: S30.814A Abrasion of vagina and vulva, initial encounter (principal); J44.9 Chronic obstructive pulmonary disease, unspecified; I25.10 Atherosclerotic heart disease of native coronary artery without angina pectoris; K21.9 Gastro-esophageal reflux disease without esophagitis; E78.00 Pure hypercholesterolemia, unspecified; I10 Essential (primary) hypertension; F41.9 Anxiety disorder, unspecified; Z87.891 Personal history of nicotine dependence; Z88.8 Allergy status to other drugs, medicaments and biological substances; Z91.030 Bee allergy status; X58.XXXA Exposure to other specified factors, initial encounter; Y93.89 Activity, other specified; Y92.89 Other specified places as the place of occurrence of the external cause; Y99.8 Other external cause status
CPT/HCPCS: 36415; 81001; 87086; 87491; 87591; 99283; Q0111

== ENCOUNTER 2020-08-14 15:58 | Emergency (ER) | payer MEDICARE, MEDICAID ==
[~2020-08-14] VITALS: Ht 152.4 cm; Wt 70.0 kg
[~2020-08-14 15:58] MED LIST changes: +CEPH750C9 PO; +FLUC100T7 PO; +MUPI30OI TP
[2020-08-14] MEDS ORDERED: IV NORMAL SALINE 500ML 500 ML IV ONE (16:15)
[2020-08-14] MEDS ORDERED: IPRATRPIUM/ALBUTEROL 0.5/2.5MG 3 ML NEBU. NEB ONE (16:15)
[2020-08-14] MEDS ORDERED: methylPREDNISolone SOD SUCC PF 125 MG/2 ML VIAL. IV ONE (16:15)
--- NOTE | 2020-08-14 16:37 | EKG ---
[address] [address] Test Date: 2020-08-14 Test Time: 16:14:15 Pat Name: ALEXY LANGE Department: Room: Gender: F Supervisor Decorating: KEVIN : 1950 Requested By: GISELLE NICE Order Number: [id number] Reading MD: Measurements Intervals [place] Rate: 62 P: 48 WV: 162 QRS: -3 QRSD: 128 T: 116 QT: 456 QTc: 465 Interpretive Statements SINUS RHYTHM LEFTWARD AXIS LEFT BUNDLE BRANCH BLOCK ABNORMAL ECG RI6.02 No previous ECG available for comparison
--- NOTE | 2020-08-14 16:44 | PHYS DOC ---
Past History Past Medical History: Anxiety, Asthma, CAD, COPD, Depression, GERD, High Cholesterol, Hypertension, Other Additional Past Medical Histor: COVID-19 Past Surgical History: Knee Replacement, Tonsillectomy, Tubal ligation, Other Additional Past Surgical Histo: SCOT knee repl; 3 card stents;esoph dil;lt wrist repair; rt rad/uln open red Smoking: Quit Greater Than 1 Year Alcohol Use: Occasionally Drug Use: None General Adult EDM: Chief Complaint: SHORTNESS OF BREATH HPI: HPI: Patient is a 70-year-old female brought in by EMS for COPD exacerbation. Patient states that since this morning she has been having a difficult time catching her breath. Wheezing inhaler without improvement. Has a nebulizer at home but was unable to find it. Says she really has flareups. Does not have any cough but has had some congestion. Patient states that yesterday she spent some time outside in the cold air last night and was cleaning yesterday during the day, she thinks her trigger was a combination of both of those. States she otherwise been well and has had no fevers, vomiting, diarrhea, change in urination. Denies any chest pain or pressure. Review of Systems: Review of Systems: All other systems within normal limits except for as noted in the HPI Current Medications: Current Meds: Current Medications Medications (Trade) Dose Ordered Sig/Linda Start Time Stop Time Status Last Admin Dose Admin Albuterol/ Ipratropium (Duoneb) 3 ml 1X ONCE 08/14/20 16:15 08/14/20 16:35 DC Methylprednisolone Sodium Succinate (SOLU-Medrol 125MG VIAL) 125 mg 1X ONCE 08/14/20 16:15 08/14/20 16:35 DC Sodium Chloride 500 ml @ 0 mls/hr 1X ONCE 08/14/20 16:15 08/14/20 16:35 DC Allergies: Allergies: Allergies Coded Allergies Type Severity Reaction Last Updated Verified venom-honey bee Allergy Severe Shortness of Air 07/20/20 Yes adhesive Allergy Intermediate 07/20/20 Yes cimetidine Allergy Intermediate "toxic" 07/20/20 Yes cimetidine HCl Allergy Intermediate "toxic" 07/20/20 Yes Physical Exam: PE: Constitutional: Well developed, well nourished, no acute distress, non-toxic appearance. [] HENT: Normocephalic, atraumatic, bilateral external ears normal, nose normal. [] Eyes: PERRLA, conjunctiva normal, no discharge. [] Neck: No rigidity, supple, no stridor. [] Cardiovascular: Regular rate and rhythm, brisk cap refill [] Lungs & Thorax: Non labored symmetric respirations, no tachypnea or respiratory distress, bilateral diminished breath sounds, no wheezing, rhonchi or rales [] Abdomen: Soft, nondistended. Skin: Warm, dry, no erythema, no rash. [] Back: Unremarkable Extremities: No deformities, range of motion grossly intact, no lower extremity edema [] Neurologic: Alert and oriented X 3, no focal deficits noted. [] Psychologic: Affect normal, judgement normal, mood normal. [] EKG: EKG: Normal sinus rhythm, left axis deviation, left bundle branch block, no ST elevation depression, no ectopy. [] Radiology/Procedures: Radiology/Procedures: [] Heart Score: Risk Factors: Risk Factors: DM, Current or recent (<one month) smoker, HTN, HLP, family history of CAD, obesity. Risk Scores: Score 0 - 3: 2.5% MACE over next 6 weeks - Discharge Home Score 4 - 6: 20.3% MACE over next 6 weeks - Admit for Clinical Observation Score 7 - 10: 72.7% MACE over next 6 weeks - Early Invasive Strategies Course & Med Decision Making: Course & Med Decision Making Pertinent Labs and Imaging studies reviewed. (See chart for details) [] Dragon Disclaimer: Dragon Disclaimer: This electronic medical record was generated, in whole or in part, using a voice recognition dictation system. Departure Departure: Impression: Primary Impression: COPD exacerbation Disposition: 01 DC HOME SELF CARE/HOMELESS Condition: IMPROVED Referrals: PRAKASH LUU MD (PCP) Patient Instructions: Nebulizer, Using a Scripts Ipratropium/Albuterol Sulfate (DUONEB 0.5-3(2.5) MG/3 ML) 3 Ml Ampul.neb 3 ML NEB QID PRN for SHORTNESS OF BREATH for 10 Days, #40 EACH Prov: GISELLE NICE MD 08/14/20 Prednisone (PREDNISONE) 50 Mg Tablet 1 TAB PO DAILY for steroid, #4 TAB You received this medication in the emergency room today. You will starting your next dose tomorrow. Prov: GISELLE NICE MD 08/14/20 GISELLE NICE MD Aug 14, 2020 16:43
[2020-08-14 17:19] LABS: BASO # 0.1 x10^3/uL (0.0-0.2); BASO % 1 % (0-3); EOS # 0.3 x10^3/uL (0.0-0.7); EOS % 4 % (0-3); HEMATOCRIT 44.4 % (36.0-47.0); HEMOGLOBIN 14.6 g/dL (12.0-15.5); LYMPH # 1.3 x10^3/uL (1.0-4.8); LYMPH % 19 % (24-48); MEAN CORPUSCULAR HEMOGLOBIN 29 pg (25-35); MEAN CORPUSCULAR HGB CONC 33 g/dL (31-37); MEAN CORPUSCULAR VOLUME 89 fL (79-100); MONO # 0.4 x10^3/uL (0.0-1.1); MONO % 6 % (0-9); NEUT # 4.8 x10^3uL (1.8-7.7); NEUT % 70 % (31-73); PLATELET COUNT 238 x10^3/uL (140-400); RED BLOOD COUNT 4.98 x10^6/uL (3.50-5.40); RED CELL DISTRIBUTION WIDTH 14.7 % (11.5-14.5); WHITE BLOOD COUNT 6.8 x10^3/uL (4.0-11.0)
[2020-08-14 17:31] LABS: CREATININE 0.8 mg/dL (0.6-1.0); GFR 71.3; POTASSIUM 3.7 mmol/L (3.5-5.1)
[2020-08-14 17:42] LABS: ALBUMIN 3.7 g/dL (3.4-5.0); ALBUMIN/GLOBULIN RATIO 1.1 (1.0-1.7); TOTAL BILIRUBIN 0.6 mg/dL (0.2-1.0); TOTAL PROTEIN 7.1 g/dL (6.4-8.2)
[2020-08-14] MEDS ORDERED: IPRA3AMP29 NEB (17:53)
[2020-08-14] MEDS ORDERED: PRED50TA PO (17:53)
[2020-08-14 18:56] VITALS: BP 148/76
== END 2020-08-14 18:00 | disposition home or self-care (01) ==
LOC: ER 15:58
DX: J44.1 Chronic obstructive pulmonary disease with (acute) exacerbation (principal); F41.9 Anxiety disorder, unspecified; F32.9 Major depressive disorder, single episode, unspecified; K21.9 Gastro-esophageal reflux disease without esophagitis; E78.00 Pure hypercholesterolemia, unspecified; I10 Essential (primary) hypertension; Z98.51 Tubal ligation status; Z98.890 Other specified postprocedural states; Z87.891 Personal history of nicotine dependence; Z91.030 Bee allergy status; Z88.8 Allergy status to other drugs, medicaments and biological substances; Z88.6 Allergy status to analgesic agent
CPT/HCPCS: 36415; 80053; 82803; 83880; 84484; 85025; 93005; 94640; 96361; 96374; 99284; J2930; J7040

== ENCOUNTER 2020-08-24 12:04 | Emergency (ER) | payer MEDICARE, MEDICAID ==
[~2020-08-24] VITALS: Ht 152.4 cm; Wt 80.0 kg
[~2020-08-24 12:04] MED LIST changes: +NAPR-699 PO; -NAPR250T6 PO
--- NOTE | 2020-08-24 12:16 | PHYS DOC ---
Past History Past Medical History: COPD Additional Past Medical Histor: COVID-19 Past Surgical History: No Surgical History Additional Past Surgical Histo: SCOT knee repl; 3 card stents;esoph dil;lt wrist repair; rt rad/uln open red Smoking: Quit Greater Than 1 Year Alcohol Use: None Drug Use: None Adult General Chief Complaint Chief Complaint: CHEST PAIN HPI HPI Patient is a 70-year-old female presents emergency department complaining of left-sided chest pain started approximately 2 hours ago while she was watching T [place]. Patient denies any injury or trauma to her chest. Patient denies any radiation of this pain, denies any diaphoretic episodes, denies nausea, vomiting, diarrhea, or abdominal pain. Patient states that she feels a little short of breath however she has a history of COPD and states that she always feels short of breath like this and it has not increased from her baseline. Patient describes her pain as a sharp stabbing pain. Patient reports her pain at its worst a 7/10 pain on a 1-10 pain scale however the pain has decreased since onset and is currently a 4/10 pain. Patient states that the pain does not get any worse or better with position change, there is no change in pain with deep inspiration or expiration. Patient states this pain is similar but not exactly like her chest pain that required stent placement. Patient denies any numbness or tingling to her extremities, denies dizziness, denies head pain, denies chest congestion or nasal congestion. Patient denies any heart palpitations. Patient reports having 3 cardiac stents placed in March 2016 at [facility]. Patient reports a history of COPD, left bundle branch block, and acid reflux. Patient states that she took 181 mg aspirin as part of her normal medication regimen when she woke up this morning. Patient denies any loss of taste or loss of smell, denies fever or chills, denies body aches or general malaise, has not had a recent flu vaccination nor a recent COVID-19 vaccination. Patient reports she was a former cigarette smoker and quit years ago. Review of Systems Review of Systems 14 body systems of review of systems have been reviewed. See HPI for pertinent positives and negative responses, otherwise all other systems are negative, nonpertinent or noncontributory. Allergies Allergies Allergies Coded Allergies Type Severity Reaction Last Updated Verified venom-honey bee Allergy Severe Shortness of Air 07/20/20 Yes adhesive Allergy Intermediate 07/20/20 Yes cimetidine Allergy Intermediate "toxic" 07/20/20 Yes cimetidine HCl Allergy Intermediate "toxic" 07/20/20 Yes Physical Exam Physical Exam Constitutional: Well developed, well nourished, no acute distress, non-toxic appearance. 70-year-old female in no apparent distress, no respiratory distress. HENT: Normocephalic, atraumatic, bilateral external ears normal, oropharynx moist, no oral exudates, nose normal. Eyes: PERRLA, EOMI, conjunctiva normal, no discharge. Neck: Normal range of motion, no tenderness, supple, no stridor. Cardiovascular:Heart rate regular rhythm, no murmur Lungs & Thorax: Bilateral breath sounds clear to auscultation all lung choi. Increased pain to palpation left lateral ribs directly inferior to axillary area, no crepitus appreciated, no bruising noted, no radiation of pain during palpation. No increased pain with deep inspiration expiration, no increased pain with movement of left or right upper extremities. Abdomen: Bowel sounds normal, soft, no tenderness, no masses, no pulsatile masses. Skin: Warm, dry, no erythema, no rash. Back: No tenderness, no CVA tenderness. Extremities: No tenderness, no cyanosis, no clubbing, ROM intact, no edema. Patient is wearing a Velcro wrist splint to the right wrist related to old injury. Patient's right hand neurovascular intact, distal cap refill less than 2 seconds. Neurologic: Alert and oriented X 3, normal motor function, normal sensory function, no focal deficits noted. Psychologic: Affect normal, judgement normal, mood normal. Current Patient Data Lab Results Laboratory Tests Test 08/24/20 12:15 White Blood Count 5.8 x10^3/uL Red Blood Count 4.67 x10^6/uL Hemoglobin 13.7 g/dL Hematocrit 41.5 % Mean Corpuscular Volume 89 fL Mean Corpuscular Hemoglobin 29 pg Mean Corpuscular Hemoglobin Concent 33 g/dL Red Cell Distribution Width 14.8 % Platelet Count 242 x10^3/uL Neutrophils (%) (Auto) 45 % Lymphocytes (%) (Auto) 34 % Monocytes (%) (Auto) 10 % Eosinophils (%) (Auto) 10 % Basophils (%) (Auto) 1 % Neutrophils # (Auto) 2.6 x10^3uL Lymphocytes # (Auto) 1.9 x10^3/uL Monocytes # (Auto) 0.6 x10^3/uL Eosinophils # (Auto) 0.6 x10^3/uL Basophils # (Auto) 0.1 x10^3/uL Prothrombin Time 9.7 SEC Prothromb Time International Ratio 0.9 Activated Partial Thromboplast Time 23 SEC Sodium Level 142 mmol/L Potassium Level 3.9 mmol/L Chloride Level 105 mmol/L Carbon Dioxide Level 25 mmol/L Anion Gap 12 Blood Urea Nitrogen 12 mg/dL Creatinine 0.8 mg/dL Estimated GFR (Cockcroft-Gault) 71.3 BUN/Creatinine Ratio 15 Glucose Level 109 mg/dL Calcium Level 8.8 mg/dL Magnesium Level 1.9 mg/dL Total Bilirubin 0.6 mg/dL Aspartate Amino Transf (AST/SGOT) 28 U/L Alanine Aminotransferase (ALT/SGPT) 35 U/L Alkaline Phosphatase 55 U/L Creatine Kinase 93 U/L Creatine Kinase MB (Mass) 1.5 ng/mL Creatine Kinase MB Relative Index 1.6 % Troponin I Quantitative < 0.017 ng/mL UM-Eem-O-Type Natriuretic Peptide 98 pg/mL Total Protein 6.7 g/dL Albumin 3.4 g/dL Albumin/Globulin Ratio 1.0 Current Medications Medications (Trade) Dose Ordered Sig/Linda Route PRN Reason Start Time Stop Time Status Last Admin Dose Admin Aspirin (Aspirin Chewable) 243 mg 1X ONCE PO 08/24/20 12:30 08/24/20 12:31 DC 08/24/20 12:24 Aspirin (Aspirin Chewable) 81 mg STK-MED ONCE .ROUTE 08/24/20 12:23 08/24/20 12:24 DC Nitroglycerin (Nitrostat) 0.4 mg STK-MED ONCE SL 08/24/20 12:39 08/24/20 12:39 DC Nitroglycerin (Nitrostat) 0.4 mg PRN Q5MIN PRN SL CHEST PAIN 08/24/20 12:45 08/24/20 12:42 Acetaminophen/ Hydrocodone Bitart (Lortab 5/325) 1 tab 1X ONCE PO 08/24/20 13:00 08/24/20 13:01 DC 08/24/20 13:05 Ketorolac Tromethamine (Toradol 15mg Vial) 15 mg 1X ONCE IVP 08/24/20 13:00 08/24/20 13:01 DC 08/24/20 13:05 EKG EKG EKG performed at 1216 by house respiratory therapy staff, shows a normal sinus rhythm without ectopy with a heart rate of 65 bpm, [place] interval 0.168, QTc interval 0.473, no acute STEMI, no ACS, no ACS appreciated, EKG shows a leftward axis with a left bundle branch block, no ST elevation greater than 1 mm. EKG interpreted by ED attending physician Dr. Roberto. Radiology/Procedures Radiology/Procedures PATIENT: ALEXY LANGE LACCOUNT: [id number] : 1950 LOCATION: ER AGE: 70 SEX: F EXAM STATUS: REG ER ORD. PHYSICIAN: ASHLEY MATTHEW APRN REASON: CHEST PAIN PROCEDURE: CHEST AP ONLY Chest AP portable 08/24/2020. Reason for exam: Chest pain. Comparison is made with a study of 02/27/2020. No infiltrate or effusion is seen. Heart size and pulmonary vascularity appear normal. IMPRESSION: No acute abnormality. Electronically signed by: Monalisa Renee Jr., MD (08/24/2020 12:49 PM) RUST DICTATED AND SIGNED BY: MONALISA RENEE Jr, MD DATE: 08/24/20 1248 CC: ASHLEY MATTHEW APRN; PRAKASH LUU MD ~MTH0 0 Heart Score HEART Score for Chest Pain: HEART Score for Chest Pain Response (Comments) Value History Slighlty/Non-Suspicious 0 ECG Normal 0 Age > 65 2 Risk Factors 1 or 2 Risk Factors 1 Troponin < Normal Limit 0 Total 3 Risk Factors: Risk Factors: DM, Current or recent (<one month) smoker, HTN, HLP, family history of CAD, obesity. Risk Scores: Risk Factors: DM, Current or recent (<one month) smoker, HTN, HLP, family history of CAD, obesity. Course & Med Decision Making Course & Med Decision Making Pertinent Labs and Imaging studies reviewed. (See chart for details) 70-year-old female, vital signs reviewed, presents to the emergency department concerning for chest pain. Patient's physical examination is consistent with chest wall pain, however with patient's history of stent placement and complaints of similarities of this pain with the pain she had when she required stent placement, a cardiopulmonary work-up was initiated in the ED. Patient EKG showed a left bundle branch block, however does not meet Sgarbossa's criteria for AR, a 0.4 mg of sublingual nitroglycerin was given. Upon reexamination of the patient, there is no change with sublingual nitroglycerin, patient states that pain worsened when her chest was palpated during physical examination however is still currently a 4/10 pain. Will give IV Toradol 15 mg along with 1 5/325 [place] for pain pending lab results. Chest x-ray interpreted by house radiologist nonconcerning for cardiopulmonary pr ocess. Serum labs nonconcerning for cardiopulmonary process. Upon reexamination of the patient, the patient states she is now pain-free. Patient does reveal that she has been using her left arm a lot more lately since she temporarily sprained her right wrist and believes she may have pulled a muscle in her right chest area lifting heavy baggage yesterday. This is a low probability of cardiopulmonary process most likely a chest wall pain related to a strain or contusion injury. The patient is not hypoxic, the patient is not short of breath, the patient is in no apparent distress, the patient is in no respiratory distress, the patient does not appear toxic. Discussed findings with patient, patient gave verbal understanding of discharge home instructions, prescription home use, follow-up with primary care for ongoing aches and pains, return to ER precautions or concerns, was discharged to home without incident. Dragon Disclaimer Dragon Disclaimer This electronic medical record was generated, in whole or in part, using a voice recognition dictation system. Departure Departure: Impression: Primary Impression: Chest wall pain Disposition: 01 DC HOME SELF CARE/HOMELESS Condition: GOOD Referrals: PRAKASH LUU MD (PCP) Patient Instructions: Chest Wall Pain Additional Instructions: We have done an extensive investigation of your chest pain, EKG, chest x-ray, and blood lab work did not indicate any findings concerning for cardiac or pulmonary disease, we have discussed your pain, I believe this chest pain is from either a strain or other injury to your chest wall, I am diagnosing you with chest wall pain. Please take medications as prescribed, follow-up with your primary care doctor for ongoing aches and pains, return to the emergency department for worsening symptoms or other concerns. EMERGENCY DEPARTMENT GENERAL DISCHARGE INSTRUCTIONS Thank you for coming to [facility] (ED) today and trusting us with you care. We trust that you had a positivie experience in our Emergency Department. If you wish to speak to the department management, you may call the director at [phone]. YOUR FOLLOW UP INSTRUCTIONS ARE FOLLOWS: 1. Do you have a private Doctor? If you do not have a private doctor, please ask for a resource list of physicians or clinics that may be able to assist you with follow up care. 2. The Emergency Physician has interpreted your x-rays. The X-Ray specialist will also review them. If there is a change in the findings, you will be notified in 48 hours when at all possible. 3. A lab test or culture has been done, your results will be reviewed and you will be notified if you need a change in treatment. ADDITIONAL INSTRUCTIONS AND INFORMATION: 1. Your care today has been supervised by a physician who is specially trained in emergency care. Many problems require more than one evaluation for a complete diagnosis and treatment. We recommend that you schedule your follow up appointment as recommended to ensure complete treatment of you illness or injury. If you are unable to obtain follow up care and continue to have a problem, or if your condition worsens, we recommend that you return to the ED. 2. We are not able to safely determine your condition over the phone nor are we able to give sound medical advice over the phone. For these safety reasons, if you call for medical advice we will ask you to come to the ED for further evaluation. 3. If you have any questions regarding these discharge instructions please call the ED at [phone]. SAFETY INFORMATION: In the interest of safety, wellness, and injury prevention; we encourage you to wear your sealbelt, if you smoke; quite smoking, and we encourage family to use a protective helmet for bicycling and other sporting events that present an increased risk for head injury. IF YOUR SYMPTOMS WORSEN OR NEW SYMPTOMS DEVELOP, OR YOU HAVE CONCERNS ABOUT YOUR CONDITION; OR IF YOUR CONDITION WORSENS WHILE YOU ARE WAITING FOR YOUR FOLLOW UP APPOINTMENT; EITHER CONTACT YOUR PRIMARY CARE DOCTOR, THE PHYSICIAN WHOSE NAME AND NUMBER YOU WERE GIVEN, OR RETURN TO THE ED IMMEDIATELY. Scripts Ibuprofen (IBUPROFEN) 600 Mg Tablet 600 MG PO TID PRN PRN for PAIN, #20 TAB 0 Refills Prov: ASHLEY MATTHEW APRN 08/24/20 ASHLEY MATTHEW APRN Aug 24, 2020 12:16
[2020-08-24] MEDS ORDERED: ASPIRIN CHEWABLE 81 MG TABLET. ONE (12:23)
[2020-08-24] MEDS ORDERED: ASPIRIN CHEWABLE 81 MG TABLET. PO ONE (12:30)
[2020-08-24 12:34] LABS: BASO # 0.1 x10^3/uL (0.0-0.2); BASO % 1 % (0-3); EOS # 0.6 x10^3/uL (0.0-0.7); EOS % 10 % (0-3); HEMATOCRIT 41.5 % (36.0-47.0); HEMOGLOBIN 13.7 g/dL (12.0-15.5); LYMPH # 1.9 x10^3/uL (1.0-4.8); LYMPH % 34 % (24-48); MEAN CORPUSCULAR HEMOGLOBIN 29 pg (25-35); MEAN CORPUSCULAR HGB CONC 33 g/dL (31-37); MEAN CORPUSCULAR VOLUME 89 fL (79-100); MONO # 0.6 x10^3/uL (0.0-1.1); MONO % 10 % (0-9); NEUT # 2.6 x10^3uL (1.8-7.7); NEUT % 45 % (31-73); PLATELET COUNT 242 x10^3/uL (140-400); RED BLOOD COUNT 4.67 x10^6/uL (3.50-5.40); RED CELL DISTRIBUTION WIDTH 14.8 % (11.5-14.5); WHITE BLOOD COUNT 5.8 x10^3/uL (4.0-11.0)
--- NOTE | 2020-08-24 12:35 | EKG ---
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
[2020-08-24] MEDS ORDERED: NITROGLYCERIN SUBLINGUAL 0.4 MG BOTTLE OF 25. SL ONE (12:39)
[2020-08-24] MEDS ORDERED: NITROGLYCERIN SUBLINGUAL 0.4 MG BOTTLE OF 25. SL PRN (12:45)
[2020-08-24 12:48] LABS: CALCIUM 8.8 mg/dL (8.5-10.1); CREATININE 0.8 mg/dL (0.6-1.0); GFR 71.3; POTASSIUM 3.9 mmol/L (3.5-5.1)
--- NOTE | 2020-08-24 12:51 | RAD ---
Chest AP portable 08/24/2020. Reason for exam: Chest pain. Comparison is made with a study of 02/27/2020. No infiltrate or effusion is seen. Heart size and pulmonary vascularity appear normal. IMPRESSION: No acute abnormality. Electronically signed by: Tito Renee Jr., MD (08/24/2020 12:49 PM) [facility]
[2020-08-24] MEDS ORDERED: KETOROLAC 15 MG/ML VIAL. IVP ONE (13:00)
[2020-08-24] MEDS ORDERED: HYDROcodone/APAP 5/325MG 1 TAB TABLET PO ONE (13:00)
[2020-08-24 13:04] LABS: ALBUMIN 3.4 g/dL (3.4-5.0); MAGNESIUM 1.9 mg/dL (1.8-2.4); TOTAL BILIRUBIN 0.6 mg/dL (0.2-1.0); TOTAL PROTEIN 6.7 g/dL (6.4-8.2)
[2020-08-24 13:42] VITALS: BP 124/89
[2020-08-24] MEDS ORDERED: IBUP600T16 PO (13:51)
== END 2020-08-24 13:53 | disposition home or self-care (01) ==
LOC: ER 12:04
DX: R07.89 Other chest pain (principal); J44.9 Chronic obstructive pulmonary disease, unspecified; Z86.16 Personal history of COVID-19; Z87.891 Personal history of nicotine dependence; Z88.8 Allergy status to other drugs, medicaments and biological substances; Z91.030 Bee allergy status
CPT/HCPCS: 36415; 71045; 80053; 82553; 83735; 83880; 84484; 85025; 85379; 85610; 85730; 93005; 96374; 99285; J1885

== ENCOUNTER 2020-10-04 16:55 | Emergency (ER) | payer MEDICARE, MEDICAID ==
[~2020-10-04] VITALS: Ht 152.4 cm; Wt 80.0 kg
[2020-10-04 16:55] VITALS: BP 142/89
[~2020-10-04 16:55] MED LIST changes: +IBUP600T16 PO
--- NOTE | 2020-10-04 16:59 | PHYS DOC ---
Past History Past Medical History: Anxiety, COPD, GERD, Hypertension Additional Past Medical Histor: COVID-19, 3 stents Past Surgical History: No Surgical History Additional Past Surgical Histo: SCOT knee repl; 3 card stents;esoph dil;lt wrist repair; rt rad/uln open red Smoking: Quit Greater Than 1 Year Alcohol Use: Occasionally Drug Use: None Adult General Chief Complaint Chief Complaint: CHEST PAIN HPI HPI Patient is a 70-year-old female presenting for left back pain. Reports onset was this morning shortly after waking up. Reports pain over left shoulder blade area along muscular portions of left parathoracic muscles. No fever, no trauma, no other concerning signs or symptoms of red flag back pain such as IV drug use, chronic immunosuppression with steroids etc. Patient reports movement of left upper extremity exacerbates symptoms, rest makes better. She has not taken anything in attempt to alleviate her symptoms. Timing of symptoms has been constant but has been aggravated with left upper extremity motions as noted. She has felt similar episodes to this in the past that have been self-limiting. She does have a significant cardiac history with 3 prior stents, currently on appropriate therapy with aspirin, high intensity statin etc. She does not have any fever, vision changes, systemic symptoms of disease, chest pain, ripping or tearing chest/abdominal pain, shortness of breath, abdominal pain, incontinence, changes in motor or sensory function, no neurologic deficits Review of Systems Review of Systems Fourteen body systems of review of systems have been reviewed. See HPI for pertinent positives and negative responses, other sibley all other systems are negative, non-pertinent or non-contributory Allergies Allergies Allergies Coded Allergies Type Severity Reaction Last Updated Verified venom-honey bee Allergy Severe Shortness of Air 07/20/20 Yes adhesive Allergy Intermediate 07/20/20 Yes cimetidine Allergy Intermediate "toxic" 07/20/20 Yes cimetidine HCl Allergy Intermediate "toxic" 07/20/20 Yes Physical Exam Physical Exam Constitutional: Well developed, well nourished, no acute distress, non-toxic appearance. HENT: Normocephalic, atraumatic, bilateral external ears normal, oropharynx moist, no oral exudates, nose normal. Eyes: PERRLA, EOMI, conjunctiva normal, no discharge. Neck: Normal range of motion, no tenderness, supple, no stridor. Cardiovascular: Heart rate regular, sinus rhythm, no murmurs rubs or gallops Lungs & Thorax: Bilateral breath sounds clear to auscultation Abdomen: Bowel sounds normal, soft, no tenderness, no masses, no pulsatile masses. Nonsurgical abdomen, no peritoneal signs Skin: Warm, dry, no erythema, no rash. Back: No midline tenderness with no palpable or visible abnormalities such as step-off or crepitus, no CVA tenderness. There is focal tenderness to palpation along paraspinal muscles between levels T3-T5 on the left that reproduce patient's symptoms with palpation of muscle belly Extremities: No tenderness, no cyanosis, no clubbing, ROM intact, no edema. Neurologic: Alert and oriented X 3, grossly normal motor & sensory function, no focal deficits noted. Psychologic: Anxious affect, judgement normal, mood normal. EKG EKG EKG ordered and interpreted by myself at 1700 hrs. as sinus rhythm at 74 bpm, unremarkable intervals, left axis deviation, T wave inversions noted in leads aVL, left bundle branch block present with negative Sgarbosa criteria, no STEMI Prior EKG obtained 03/03/2019 was reviewed and identical to EKG obtained today Radiology/Procedures Radiology/Procedures [] Heart Score C/O Chest Pain: No HEART Score for Chest Pain: HEART Score for Chest Pain Response (Comments) Value History Slighlty/Non-Suspicious 0 ECG Nonspecific Repolarizatio 1 Age >45 - < 65 1 Risk Factors >3 Risk Factors or Hx CAD 2 Total 4 Risk Factors: Risk Factors: DM, Current or recent (<one month) smoker, HTN, HLP, family history of CAD, obesity. Risk Scores: Risk Factors: DM, Current or recent (<one month) smoker, HTN, HLP, family history of CAD, obesity. Course & Med Decision Making Course & Med Decision Making Hemodynamically stable patient with HPI and physical examination most consistent with MSK complaint in etiology, discussed most likely diagnosis of muscle strain to left parathoracic muscles EKG obtained and compared to prior, unremarkable. Discussed limited utility in further diagnostic work-up given classic symptoms of muscle sprain/strain. Patient agreed. Patient has prior home narcotics given for other illness, joint decision made to administer IM muscle relaxer while in ER that improved patient's symptoms. Short-term prescription of this will be written with instructions for close PCP follow-up in upcoming 3 to 5 days. Strict return precautions were discussed with good understanding by patient, all questions and concerns addressed prior to ER departure Lyn Disclaimer Lyn Disclaimer This electronic medical record was generated, in whole or in part, using a voice recognition dictation system. Departure Departure: Impression: Primary Impression: Strain of thoracic back region Disposition: 01 DC HOME SELF CARE/HOMELESS Condition: STABLE Referrals: PRAKASH LUU MD (PCP) Patient Instructions: Mid-Back Strain with Rehab-SportsMed Additional Instructions: It is likely that you have experienced a sprain/strain to the muscles on the left portion of your parathoracic spine that is causing you pain. The best treatment for this injury is continued range of motion to prevent a frozen joint. Utilizing heat and following attached instructions with previously prescribed home narcotic medication will help in the acute phase. Given your hi story of CAD, I would avoid any NSAID use. You must call your primary care physician first thing on Tuesday to discuss ER visit today and discuss next steps of care, you might require outpatient referral for physical therapy or other specialist consultation if symptoms do not improve. If any concerning signs or symptoms present prior to outpatient follow-up please do not hesitate to come back for repeat evaluation. It was a pleasure to take care of you and I wish you the best going forward. Scripts Cyclobenzaprine Hcl (CYCLOBENZAPRINE HCL) 5 Mg Tablet 1 TAB PO QHS for muscle spasms, #5 TAB Prov: VALERIA MAURICE DO 10/04/20 VALERIA MAURICE DO Oct 04, 2020 16:59
[2020-10-04] MEDS ORDERED: ASPIRIN CHEWABLE 81 MG TABLET. PO ONE (17:00)
--- NOTE | 2020-10-04 17:13 | EKG ---
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
[2020-10-04] MEDS ORDERED: ORPHENADRINE CITRATE 60 MG/2 ML VIAL. IM ONE (17:15)
[2020-10-04] MEDS ORDERED: CYCL5TAB PO (17:24)
== END 2020-10-04 17:32 | disposition home or self-care (01) ==
LOC: ER 16:55
DX: S29.012A Strain of muscle and tendon of back wall of thorax, initial encounter (principal); M25.512 Pain in left shoulder; F41.9 Anxiety disorder, unspecified; J44.9 Chronic obstructive pulmonary disease, unspecified; K21.9 Gastro-esophageal reflux disease without esophagitis; I10 Essential (primary) hypertension; Z87.891 Personal history of nicotine dependence; Z88.8 Allergy status to other drugs, medicaments and biological substances; Z91.030 Bee allergy status; X58.XXXA Exposure to other specified factors, initial encounter; Y93.89 Activity, other specified; Y92.89 Other specified places as the place of occurrence of the external cause; Y99.8 Other external cause status
CPT/HCPCS: 93005; 96372; 99283; J2360

== ENCOUNTER 2020-12-29 02:57 | Emergency (ER) | payer MEDICARE, MEDICAID ==
[~2020-12-29] VITALS: Ht 152.4 cm; Wt 72.7 kg
[~2020-12-29 02:57] MED LIST changes: +CYCL5TAB PO; +DOXY-181 PO; -DOXY100C14 PO
[2020-12-29 02:59] VITALS: BP 144/82
--- NOTE | 2020-12-29 03:02 | PHYS DOC ---
Past History Past Medical History: Anxiety, COPD, GERD, Hypertension Additional Past Medical Histor: COVID-19, 3 stents Past Surgical History: No Surgical History Additional Past Surgical Histo: SCOT knee repl; 3 card stents;esoph dil;lt wrist repair; rt rad/uln open red Smoking: Quit Greater Than 1 Year Alcohol Use: Heavy Drug Use: None General Adult HPI: HPI: ".. I felt .. like I had a itch down there on inside of my Lt Thigh...it looked like a insect bite.. ..maybe got it the other day .. but it is more itchy tonight.. the ointment I put on it did not help..." Patient is a 70 year old female who presents with complaints of insect bite to left upper thigh. Patient has approximately 8 to 10 cm for comfort area of erythema on the mid inside of left thigh. There is no striation. He is localized with the member of the central bite bruce. There is no adenopathy. No fluctuant abscess. Patient denies any recent travel. No severe ill contacts. Does have significant medical history for anxiety, COPD, GERD, hypertension, COVID-19, coronary artery disease with 3 stents, bilateral knee ablations. Esophageal diet lesions, wrist fracture repair tobacco abuse. Patient does not remember her last tetanus. Patient denies any recent travel. No specific ill contacts. No specific history of immunosuppression. Normally follows with Dr. Schmidt. Review of Systems: Review of Systems: Constitutional: Denies fever or chills Eyes: Denies change in visual acuity HENT: Denies nasal congestion or sore throat Respiratory: Denies cough or shortness of breath Cardiovascular: Denies chest pain or edema GI: Denies abdominal pain, nausea, vomiting, bloody stools or diarrhea : Denies dysuria Musculoskeletal: Denies back pain or joint pain Integument: Insect bite left thigh suspect spider Neurologic: Denies headache, focal weakness or sensory changes Endocrine: Denies polyuria or polydipsia Lymphatic: Denies swollen glands Psychiatric: Denies depression or anxiety Family History: Family History: Noncontributory presentation. Current Medications: Current Meds: See nursing for home meds Allergies: Allergies: Allergies Coded Allergies Type Severity Reaction Last Updated Verified venom-honey bee Allergy Severe Shortness of Air 07/20/20 Yes adhesive Allergy Intermediate 07/20/20 Yes cimetidine Allergy Intermediate "toxic" 07/20/20 Yes cimetidine HCl Allergy Intermediate "toxic" 07/20/20 Yes Physical Exam: PE: Constitutional: , no acute distress, non-toxic appearance. [] HENT: Normocephalic, atraumatic, bilateral external ears normal, oropharynx moist, no oral exudates, nose normal. [] Eyes: PERRLA, EOMI, conjunctiva normal, no discharge. [] Neck: Normal range of motion, no tenderness, supple, no stridor. [] Cardiovascular:Heart rate regular rhythm, no murmur [] Lungs & Thorax: Bilateral breath sounds equal at apex with scattered wheezes on auscultation [] Abdomen: Bowel sounds normal, soft, no tenderness, no masses, no pulsatile masses. [] Obese. Old surgery scars. Skin: Warm, dry, no erythema, no rash. [] Insect bite left thigh as per HPI Back: No tenderness, no CVA tenderness. [] Extremities: No tenderness, no cyanosis, no clubbing, ROM intact, no edema. Arthritic changes. No cording. Neurologic: Alert and oriented X 3, normal motor function, normal sensory function, no focal deficits noted. [] Psychologic: Affect anxious , judgement normal, mood normal. [] EKG: EKG: [] Radiology/Procedures: Radiology/Procedures: [] Heart Score: C/O Chest Pain: N/A Risk Factors: Risk Factors: DM, Current or recent (<one month) smoker, HTN, HLP, family history of CAD, obesity. Risk Scores: Score 0 - 3: 2.5% MACE over next 6 weeks - Discharge Home Score 4 - 6: 20.3% MACE over next 6 weeks - Admit for Clinical Observation Score 7 - 10: 72.7% MACE over next 6 weeks - Early Invasive Strategies Course & Med Decision Making: Course & Med Decision Making Pertinent Labs and Imaging studies reviewed. (See chart for details) Keep left thigh clean and dry. Massage area Polysporin 4 times a day. Take Benadryl 25-50 mg 4 times a day for itching. Take Bactrim DS twice a day for 7 days. Follow-up primary care. Return if any concerns. Advise if a Brown recluse spider bite, will most likely ulcerate. Impression: 1. Insect bite left thigh-suspect brown recluse [] Dragon Disclaimer: Lyn Disclaimer: This electronic medical record was generated, in whole or in part, using a voice recognition dictation system. Departure Departure: Referrals: PRAKASH SCHMIDT MD (PCP) Scripts Sulfamethoxazole/Trimethoprim (BACTRIM DS TABLET) 1 Each Tablet 1 TAB PO BID for cellulitis for 7 Days, #14 TAB 0 Refills Prov: DAVID MCLAUGHLIN MD 12/29/20 Lyn Disclaimer This chart was dictated in whole or in part using Voice Recognition software in a busy, high-work load, and often noisy Emergency Department environment. It may contain unintended and wholly unrecognized errors or omissions. DAVID MCLAUGHLIN MD Dec 29, 2020 03:02
[2020-12-29] MEDS ORDERED: TETANUS AND DIPHTHERIA TOX/PF 0.5 ML VIAL. VAX IM ONE (03:15)
[2020-12-29] MEDS ORDERED: SULF1TAB24 PO (03:16)
[2020-12-29] MEDS ORDERED: diphenhydrAMINE HCL 25 MG CAPSULE PO ONE (03:30)
[2020-12-29] MEDS ORDERED: SMZ/TMP 800/160MG TABLET. PO ONE (03:30)
[2020-12-29] MEDS ORDERED: DIPH,PERTUSS(ACELL),TET VAC/PF 0.5 ML SYRINGE. VAX IM ONE (03:30)
[2020-12-29] MEDS ORDERED: BACITRACIN ZINC TOPICAL OINT PACKET. TP ONE (03:30)
== END 2020-12-29 03:55 | disposition home or self-care (01) ==
LOC: ER 02:57
DX: S70.362A Insect bite (nonvenomous), left thigh, initial encounter (principal); J44.9 Chronic obstructive pulmonary disease, unspecified; K21.9 Gastro-esophageal reflux disease without esophagitis; I10 Essential (primary) hypertension; I25.10 Atherosclerotic heart disease of native coronary artery without angina pectoris; F10.20 Alcohol dependence, uncomplicated; Z87.891 Personal history of nicotine dependence; Y90.9 Presence of alcohol in blood, level not specified; W57.XXXA Bitten or stung by nonvenomous insect and other nonvenomous arthropods, initial encounter; Y93.89 Activity, other specified; Y92.89 Other specified places as the place of occurrence of the external cause; Y99.8 Other external cause status
CPT/HCPCS: 90471; 90715; 99284; Q0163

== ENCOUNTER 2020-12-29 23:08 | Emergency (ER) | payer MEDICARE, MEDICAID ==
[~2020-12-29] VITALS: Ht 152.4 cm; Wt 72.7 kg
[~2020-12-29 23:08] MED LIST changes: +SULF1TAB24 PO
--- NOTE | 2020-12-29 23:23 | PHYS DOC ---
Past History Past Medical History: Anxiety, COPD, GERD, Hypertension Additional Past Medical Histor: COVID-19, 3 stents Past Surgical History: Other Additional Past Surgical Histo: SCOT knee repl; 3 card stents;esoph dil;lt wrist repair; rt rad/uln open red Smoking: Quit Greater Than 1 Year Alcohol Use: Occasionally Drug Use: None Adult General HPI HPI Patient is a 70-year-old female with a past medical history significant for anxiety and COPD who presents to the emergency department with a chief complaint of spider bite. States she was here last night in the emergency department and was given an antibiotic then and given a prescription for antibiotics but was not able to get it today because she does not have a car and [facility] never came and delivered her antibiotics. States that it still red and tender, 5 out of 10, dull and achy and requested pain medication as well. States she did not take anything today for the pain. Denies any fevers, chest pain, shortness of breath, abdominal pain, nausea, vomiting. States she supposed to get her antibiotics in the morning via [facility] delivery. Review of Systems Review of Systems Review of systems otherwise unremarkable except noted in HPI Allergies Allergies Allergies Coded Allergies Type Severity Reaction Last Updated Verified venom-honey bee Allergy Severe Shortness of Air 07/20/20 Yes adhesive Allergy Intermediate 07/20/20 Yes cimetidine Allergy Intermediate "toxic" 07/20/20 Yes cimetidine HCl Allergy Intermediate "toxic" 07/20/20 Yes Physical Exam Physical Exam Constitutional: Well developed, well nourished, no acute distress, non-toxic appearance. [] HENT: Normocephalic, atraumatic, bilateral external ears normal, oropharynx moist, no oral exudates, nose normal. [] Eyes: conjunctiva normal, no discharge. [] Neck: Normal range of motion, no tenderness, supple, no stridor, no lymphadenopathy. [] Cardiovascular:Heart rate regular rhythm, no murmur [] Lungs & Thorax: Bilateral breath sounds clear to auscultation [] Abdomen: soft, no tenderness, no masses, no pulsatile masses. [] Skin: Warm, dry, Extremities: Patient has about a 1 cm lesion on inner left thigh with some surrounding erythema out 6 cm with no crepitus, blisters or drainage. Neurologic: Alert and oriented X 3, normal motor function, normal sensory function, no focal deficits noted. [] Psychologic: Affect normal, judgement normal, mood normal. [] EKG EKG [] Radiology/Procedures Radiology/Procedures [] Heart Score C/O Chest Pain: No Risk Factors: Risk Factors: DM, Current or recent (<one month) smoker, HTN, HLP, family history of CAD, obesity. Risk Scores: Risk Factors: DM, Current or recent (<one month) smoker, HTN, HLP, family history of CAD, obesity. Course & Med Decision Making Course & Med Decision Making Patient is a 70-year-old female who presents with spider bite Vital signs not concerning. Physical exam noted above. Patient given dose of Rocephin IM and dose of prescribed Bactrim in the ED. Given p.o. pain medicine. Discussed all findings with patient and advised to lease picker her antibiotics in the morning by any means necessary as she needs to begin this regimen. Advised to call her primary care physician first thing in the morning to update on ED visit and set up a follow-up as soon as she can this week for a wound check to be sure antibiotics are working. Gave strict return precautions to the ED. Patient grateful, verbalized understanding and agreed with plan of discharge. [] Dragon Disclaimer Dragon Disclaimer This electronic medical record was generated, in whole or in part, using a voice recognition dictation system. Departure Departure: Impression: Primary Impression: Cellulitis Disposition: HOME / SELF CARE / HOMELESS Condition: GOOD Referrals: PRAKASH LUU MD (PCP) Patient Instructions: Cellulitis Additional Instructions: Thank you for coming into the emergency department tonight and allowing us to take care of you. Please read the attached information very carefully to go back over what we discussed. It is very important that you call [facility] first thing in the morning and discuss why they did not deliver your antibiotics and need for antibiotic delivery immediately. Please call your primary care physician first thing in the morning to update on your ED visit and set up a follow-up visit this week as it is very important that you have a wound check to be sure that the antibiotics are working as discussed. Please come back to the ED with new or concerning symptoms as discussed. SHANTE TAPIA MD Dec 29, 2020 23:23
[2020-12-29] MEDS ORDERED: SMZ/TMP 800/160MG TABLET. PO ONE (23:45)
[2020-12-29] MEDS ORDERED: cefTRIAXone IM 1 GM VIAL IM ONE (23:45)
[2020-12-29] MEDS ORDERED: HYDROcodone/APAP 5/325MG 1 TAB TABLET PO ONE (23:45)
[2020-12-30 00:22] VITALS: BP 158/74
== END 2020-12-30 00:27 | disposition home or self-care (01) ==
LOC: ER 23:08
DX: L03.116 Cellulitis of left lower limb (principal); J44.9 Chronic obstructive pulmonary disease, unspecified; K21.9 Gastro-esophageal reflux disease without esophagitis; I10 Essential (primary) hypertension; Z87.891 Personal history of nicotine dependence; Z88.8 Allergy status to other drugs, medicaments and biological substances; Z91.030 Bee allergy status
CPT/HCPCS: 96372; 99283; J0696; 36569; 96374; 99285

== ENCOUNTER 2021-03-27 02:32 | Emergency (ER) | payer MEDICARE, MEDICAID ==
[~2021-03-27] VITALS: Ht 152.4 cm; Wt 78.6 kg
--- NOTE | 2021-03-27 02:51 | PHYS DOC ---
Past History Past Medical History: Anxiety, COPD, GERD, Hypertension Additional Past Medical Histor: COVID-19, 3 stents Past Surgical History: Other Additional Past Surgical Histo: SCOT knee repl; 3 card stents;esoph dil;lt wrist repair; rt rad/uln open red Smoking: Quit Greater Than 1 Year Alcohol Use: None Drug Use: None Adult General Chief Complaint Chief Complaint: Neck Pain HPI HPI Patient is a 70-year-old female who presents to the emergency department with generalized neck discomfort, 6 out of 10, dull and achy in nature. States that she has had chronic neck pain for years and has an appointment with the orthopedist soon but it is aching more than usual. States she has some hydrocodone at home that she took earlier in the day which did help but is worn off now. Denies any other injuries. Denies headache, change in vision, fevers, chest pain, shortness of breath, abdominal pain, nausea, vomiting. States she did not take any other medicines for pain including Tylenol or ibuprofen. Review of Systems Review of Systems Review of systems otherwise unremarkable except noted in HPI Allergies Allergies Allergies Coded Allergies Type Severity Reaction Last Updated Verified venom-honey bee Allergy Severe Shortness of Air 07/20/20 Yes adhesive Allergy Intermediate 07/20/20 Yes cimetidine Allergy Intermediate "toxic" 07/20/20 Yes cimetidine HCl Allergy Intermediate "toxic" 07/20/20 Yes Physical Exam Physical Exam Constitutional: Well developed, well nourished, no acute distress, non-toxic appearance. [] HENT: Normocephalic, atraumatic, bilateral external ears normal, oropharynx moist, no oral exudates, nose normal. [] Eyes: conjunctiva normal, no discharge. [] Neck: Normal range of motion, no tenderness, supple, no stridor. [] Cardiovascular:Heart rate regular rhythm, no murmur [] Lungs & Thorax: Bilateral breath sounds clear to auscultation [] Abdomen: Bowel sounds normal, soft, no tenderness, no masses, no pulsatile masses. [] Skin: Warm, dry, no erythema, no rash. [] Back: No tenderness, Extremities: No tenderness, no cyanosis, no clubbing, ROM intact, no edema. [] Neurologic: Alert and oriented X 3, n no focal deficits noted. [] Psychologic: Affect normal, judgement normal, mood normal. [] Current Patient Data Vital Signs Vital Signs Date Time Temp Pulse Resp B/P (MAP) Pulse Ox O2 Delivery O2 Flow Rate FiO2 03/27/21 02:35 97.6 84 20 156/78 (104) 95 Room Air EKG EKG [] Radiology/Procedures Radiology/Procedures [] Heart Score C/O Chest Pain: No Risk Factors: Risk Factors: DM, Current or recent (<one month) smoker, HTN, HLP, family history of CAD, obesity. Risk Scores: Risk Factors: DM, Current or recent (<one month) smoker, HTN, HLP, family history of CAD, obesity. Course & Med Decision Making Course & Med Decision Making Patient is a 70-year-old female who presents with neck ache Vital signs notable for mild hypertension. Physical exam noted above. No focal neurologic deficits. Patient has hydrocodone at home. Given muscle relaxers for home. Advised on symptom management. Advised to call primary care physician in the morning to set up a follow-up and discuss chronic pain management. Gave return precautions to the ED. Patient grateful, verbalized understanding and agreed with plan of discharge. Dragon Disclaimer Dragon Disclaimer This electronic medical record was generated, in whole or in part, using a voice recognition dictation system. Departure Departure: Impression: Primary Impression: Neck pain Disposition: HOME / SELF CARE / HOMELESS Condition: GOOD Referrals: PRAKASH LUU MD (PCP) Patient Instructions: RICE - Routine Care for Injuries Additional Instructions: Thank you for coming into the emergency department tonight and allowing us to take care of you. Please read the attached information carefully to go over things we discussed. Please continue a Tylenol regimen as well as Benadryl, Lidoderm patches and ice. Please take your hydrocodone as prescribed but be careful not to take more than 3000 mg of Tylenol daily as this can hurt your liver and your hydrocodone does have Tylenol in it. Please take your muscle relaxers as we discussed. Please call your primary care physician in the morning to update on your ED visit and set up a follow-up to discuss chronic pain management. Please come back to the ED with new or concerning symptoms as discussed. SHANTE TAPIA MD Mar 27, 2021 02:51
[2021-03-27] MEDS: KETOROLAC 60 MG/2 ML VIAL. IM ONE (02:55)
[2021-03-27] MEDS: diazePAM 5 MG TABLET. PO ONE (03:00)
[2021-03-27 03:03] VITALS: BP 140/87
== END 2021-03-27 03:08 | disposition home or self-care (01) ==
LOC: ER 02:32
DX: M54.2 Cervicalgia (principal); J44.9 Chronic obstructive pulmonary disease, unspecified; K21.9 Gastro-esophageal reflux disease without esophagitis; I10 Essential (primary) hypertension; Z87.891 Personal history of nicotine dependence
CPT/HCPCS: 99282

== ENCOUNTER → 2021-06-10 | Outpatient (CLI) | payer MEDICARE, MEDICAID ==
[2021-05-04 11:04] VITALS: BP 124/71
[~2021-06-10] MED LIST changes: +CRESTOR40 MG PO; -CYCL-331 PO; +CYCL10TA19 PO; +FLUT1BLS3 IH
--- NOTE | 2021-06-10 16:48 | RAD ---
3 views right fifth digit dated 06/10/2021. COMPARISON: None. CLINICAL INDICATION: Pain. FINDINGS: 3 views of the left small finger show normal bony alignment. No displaced fracture. No periostitis or bone destruction. There is moderate to severe degenerative change at the DIP joint. Mild soft tissue swelling. IMPRESSION: 1. No acute radiographic abnormality. 2. Degenerative changes at the fifth DIP joint. Electronically signed by: Donnie Apodaca MD (06/10/2021 4:45 PM) DEDE
== END ==
LOC: RAD 16:32
PROVIDERS: ATTEND Physician Assistant
DX: M19.042 Primary osteoarthritis, left hand (principal); M79.89 Other specified soft tissue disorders
CPT/HCPCS: 73140

== ENCOUNTER 2021-06-15 04:04 | Emergency (ER) | payer MEDICARE, MEDICAID ==
[~2021-06-15] VITALS: Ht 152.4 cm; Wt 79.0 kg
--- NOTE | 2021-06-15 04:14 | PHYS DOC ---
Past History Past Medical History: Anxiety, COPD, GERD, Hypertension Additional Past Medical Histor: COVID-19, 3 stents, hemorrhoids (DAVID MCLAUGHLIN MD) Past Surgical History: Other Additional Past Surgical Histo: SCOT knee repl; 3 card stents;esoph dil;lt wrist repair; rt rad/uln open red (DAVID MCLAUGHLIN MD) Smoking: Quit Greater Than 1 Year Alcohol Use: None Drug Use: None (DAVID MCLAUGHLIN MD) General Adult HPI: HPI: ".. My breathing really ... bad tonight... it my COPD.. short of breath.. wheezing bad.. " " I am worse than ....when I was... admitted last month for my COPD..." Patient is a 70 year old female who presents with above hx and complaints of COPD exacerbation. Patient has history of seasonal COPD exacerbations. Last admitted for COPD exacerbation in April of this year. Patient history of GERD, hypertension, hyperlipidemia, coronary artery disease, history of previous percutaneous coronary artery stents x3 last in 2015. Degenerative joint disease, degenerative disc disease, esophageal strictures status post prior dilations, left bundle branch block, history of alcohol abuse. And multiple allergies. Patient has not smoked for the last 12 years. Patient has had COVID vaccination, flu vaccination. Patient has never required intubation for her COPD exacerbations. Patient has no home oxygen currently. The pt follows with Dr. Luu (DAVID MCLAUGHLIN MD) Review of Systems: Review of Systems: Constitutional: Denies fever or chills Eyes: Denies change in visual acuity HENT: Denies nasal congestion or sore throat Respiratory: Complains of cough, wheezing, shortness of breath Cardiovascular: Denies chest pain or edema GI: Denies abdominal pain, nausea, vomiting, bloody stools or diarrhea : Denies dysuria Musculoskeletal: Denies back pain or joint pain Integument: Denies rash Neurologic: Denies headache, focal weakness or sensory changes Endocrine: Denies polyuria or polydipsia Lymphatic: Denies swollen glands Psychiatric: Denies depression or anxiety (DAVID MCLAUGHLIN MD) Family History: Family History: Father in 80s because of cerebral aneurysm, mother age of 90 has metastatic breast cancer and CHF (DAVID MCLAUGHLIN MD) Current Medications: Current Meds: See nursing for home meds (DAVID MCLAUGHLIN MD) Allergies: Allergies: Allergies Coded Allergies Type Severity Reaction Last Updated Verified venom-honey bee Allergy Severe Shortness of Air 07/20/20 Yes adhesive Allergy Intermediate 07/20/20 Yes cimetidine Allergy Intermediate "toxic" 07/20/20 Yes cimetidine HCl Allergy Intermediate "toxic" 07/20/20 Yes (ADVID MCLAUGHLIN MD) Physical Exam: PE: Constitutional: Moderate acute distress, non-toxic appearance. [] HENT: Normocephalic, atraumatic, bilateral external ears normal, oropharynx moist, no oral exudates, nose clear rhinorrhea [] Eyes: PERRLA, EOMI, conjunctiva normal, no discharge. [] Neck: Normal range of motion, no tenderness, supple, no stridor. [] Cardiovascular: Irregular heart rate regular rhythm, no murmur [] PMI to the left Lungs & Thorax: Bilateral breath sounds equal apex with scattered wheezing throughout on auscultation [] sitting in tripod position. Does have some intercostal retractions.. Pursed lip breathing Abdomen: Bowel sounds normal, soft, no tenderness, no masses, no pulsatile masses. Old surgery scars. Skin: Warm, diaphoretic,, no erythema, no rash. [] Back: No tenderness, no CVA tenderness. [] Extremities: No tenderness, no cyanosis, no clubbing, ROM intact, some ankle edema, no cording appreciated Neurologic: Alert and oriented X 3, moves all extremities on request, does have distal sensory, is ambulatory,, no focal deficits noted. [] Psychologic: Affect anxious, judgement normal, mood normal. [] (DAVID MCLAUGHLIN MD) EKG: EKG: My interpretation EKG shows a sinus rhythm at 79 bpm. Does have interventricular block as well as contour abnormalities. Is an abnormal EKG. There is some difficulty in interpreting because of patient's respiratory distress has caused a loss of baseline in assessment. [] Time of EKG is 0420 hrs. (DAVID MCLAUGHLIN MD) Radiology/Procedures: Radiology/Procedures: [][address] [address] IMAGING REPORT Signed PATIENT: ALEXY LANGE LACCOUNT: [id number] : 1950 LOCATION: ER AGE: 70 SEX: F EXAM STATUS: REG ER ORD. PHYSICIAN: DAVID MCLAUGHLIN MD REASON: dyspnea , PROCEDURE: PORTABLE CHEST 1V EXAM: CHEST ONE VIEW. HISTORY: Dyspnea. COMPARISON: 05/02/2021. FINDINGS: A frontal view of the chest is obtained. There are no confluent infiltrates. There is no pneumothorax or pleural effusion. The heart is not enlarged. There are atherosclerotic calcifications of the aorta. IMPRESSION: 1. No confluent infiltrates. Electronically signed by: Mike Medina MD (06/15/2021 6:11 AM) [id number] DICTATED AND SIGNED BY: JAQUI MEDINA MD DATE: 06/15/21609 CC: PRAKASH LUU MD; DAVID MCLAUGHLIN MD ~MTH0 0 (DAVID MCLAUGHLIN MD) Heart Score: C/O Chest Pain: Yes HEART Score for Chest Pain: HEART Score for Chest Pain Response (Comments) Value History Moderately Suspicious 1 ECG Nonspecific Repolarizatio 1 Age > 65 2 Risk Factors 1 or 2 Risk Factors 1 Troponin < Normal Limit 0 Total 5 Risk Factors: Risk Factors: DM, Current or recent (<one month) smoker, HTN, HLP, family history of CAD, obesity. Risk Scores: Score 0 - 3: 2.5% MACE over next 6 weeks - Discharge Home Score 4 - 6: 20.3% MACE over next 6 weeks - Admit for Clinical Observation Score 7 - 10: 72.7% MACE over next 6 weeks - Early Invasive Strategies (DAVID MCLAUGHLIN MD) Course & Med Decision Making: Course & Med Decision Making Pertinent Labs and Imaging studies reviewed. (See chart for details) Discussed with Dr. Walsh and Pt. of possible admission if unable to get saturation above 90 on room air. Labs pending at shift change. Will need rule out because of pt.cardiac hx. Endorsed to Dr. Titus at shift change. Impression: 1. COPD Exacerbation 2. Respiratory Failure - Hypoxia 3. Hx. CADz- prior Stents x3 [] (DAVID MCLAUGHLIN MD) Course & Med Decision Making The patient states feeling better and having less coughing. She has been able to maintain her oxygen saturation above 92%. Her repeat troponin is negative. She is stable for discharge at this time. (ELADIO TITUS DO) Dragon Disclaimer: Dragon Disclaimer: This electronic medical record was generated, in whole or in part, using a voice recognition dictation system. (DAVID MCLAUGHLIN MD) Departure Departure: Impression: Primary Impression: COPD exacerbation Disposition: HOME / SELF CARE / HOMELESS Condition: STABLE Referrals: PRAKASH LUU MD (PCP) Patient Instructions: Chronic Obstructive Pulmonary Disease Exacerbation, Ohiq-kl-Tcwa Scripts Prednisone (PREDNISONE) 50 Mg Tablet 1 TAB PO DAILY for COPD, #5 TAB Prov: ELADIO TITUS DO 06/15/21 Dragon Disclaimer This chart was dictated in whole or in part using Voice Recognition software in a busy, high-work load, and often noisy Emergency Department environment. It may contain unintended and wholly unrecognized errors or omissions. (DAVID MCLAUGHLIN MD) Dragon Disclaimer This chart was dictated in whole or in part using Voice Recognition software in a busy, high-work load, and often noisy Emergency Department environment. It may contain unintended and wholly unrecognized errors or omissions. (DAVID MCLAUGHLIN MD) Dragon Disclaimer This chart was dictated in whole or in part using Voice Recognition software in a busy, high-work load, and often noisy Emergency Department environment. It may contain unintended and wholly unrecognized errors or omissions. (DAVID MCLAUGHLIN MD) DAVID MCLAUGHLIN MD Jun 15, 2021 04:14 ELADIO TITUS DO Jun 15, 2021 09:35
[2021-06-15] MEDS ORDERED: IPRATRPIUM/ALBUTEROL 0.5/2.5MG 3 ML NEBU. ONE (04:24)
--- NOTE | 2021-06-15 04:48 | EKG ---
[address] [address] Test Date: 2021-06-15 Test Time: 04:19:15 Pat Name: ALEXY LANGE Department: Room: Gender: F [employer]: : 1950 Requested By: DAVID MCLAUGHLIN Order Number: [id number] Reading MD: Measurements Intervals [place] Rate: 76 P: IA: QRS: 218 QRSD: 134 T: 79 QT: 426 QTc: 484 Interpretive Statements ATRIAL FLUTTER ABNORMAL RIGHT SUPERIOR AXIS DEVIATION NON SPECIFIC INTRAVENTRICULAR BLOCK QRS(T) CONTOUR ABNORMALITY CONSISTENT WITH HIGH LATERAL INFARCT AGE UNDETERMINED CONSISTENT WITH INFERIOR INFARCT PROBABLY OLD ABNORMAL ECG RI6.02 No previous ECG available for comparison
[2021-06-15] MEDS ORDERED: IPRATRPIUM/ALBUTEROL 0.5/2.5MG 3 ML NEBU. NEB ONE (05:00)
[2021-06-15] MEDS ORDERED: ASPIRIN 325 MG TABLET PO ONE (05:00)
[2021-06-15] MEDS ORDERED: AZITHROMYCIN 250 MG TABLET. PO ONE (05:00)
[2021-06-15] MEDS ORDERED: IV RINGERS SOLUTION,LACTATED 1,000 ML IV SCH (05:00)
[2021-06-15] MEDS ORDERED: IV NORMAL SALINE 50ML 50 ML ONE (05:23)
[2021-06-15] MEDS ORDERED: cefTRIAXone SODIUM 1 GM VIAL ONE (05:24)
[2021-06-15 05:28] LABS: BASO # 0.1 x10^3/uL (0.0-0.2); BASO % 1 % (0-3); EOS # 0.9 x10^3/uL (0.0-0.7); EOS % 11 % (0-3); HEMATOCRIT 41.8 % (36.0-47.0); HEMOGLOBIN 13.9 g/dL (12.0-15.5); LYMPH # 2.8 x10^3/uL (1.0-4.8); LYMPH % 34 % (24-48); MEAN CORPUSCULAR HEMOGLOBIN 30 pg (25-35); MEAN CORPUSCULAR HGB CONC 33 g/dL (31-37); MEAN CORPUSCULAR VOLUME 90 fL (79-100); MONO # 0.6 x10^3/uL (0.0-1.1); MONO % 7 % (0-9); NEUT # 3.9 x10^3uL (1.8-7.7); NEUT % 48 % (31-73); PLATELET COUNT 203 x10^3/uL (140-400); RED BLOOD COUNT 4.66 x10^6/uL (3.50-5.40); RED CELL DISTRIBUTION WIDTH 15.2 % (11.5-14.5); WHITE BLOOD COUNT 8.2 x10^3/uL (4.0-11.0)
[2021-06-15 05:37] LABS: CALCIUM 8.6 mg/dL (8.5-10.1); CREATININE 0.7 mg/dL (0.6-1.0); GFR 83.2; POTASSIUM 3.2 mmol/L (3.5-5.1)
[2021-06-15 05:50] LABS: ALBUMIN 3.7 g/dL (3.4-5.0); DIRECT BILIRUBIN 0.2 mg/dL (0.0-0.2); MAGNESIUM 2.1 mg/dL (1.8-2.4); TOTAL BILIRUBIN 0.5 mg/dL (0.2-1.0); TOTAL PROTEIN 6.4 g/dL (6.4-8.2)
[2021-06-15] MEDS ORDERED: methylPREDNISolone SOD SUCC PF 125 MG/2 ML VIAL. IV ONE (06:00)
--- NOTE | 2021-06-15 06:13 | RAD ---
EXAM: CHEST ONE VIEW. HISTORY: Dyspnea. COMPARISON: 05/02/2021. FINDINGS: A frontal view of the chest is obtained. There are no confluent infiltrates. There is no pneumothorax or pleural effusion. The heart is not en larged. There are atherosclerotic calcifications of the aorta. IMPRESSION: 1. No confluent infiltrates. Electronically signed by: Mike Medina MD (06/15/2021 6:11 AM) [id number]
[2021-06-15] MEDS ORDERED: METOPROLOL TART IMMED RELEASE 25 MG TABLET. PO SCH (09:00)
[2021-06-15] MEDS ORDERED: ASPIRIN CHEWABLE 81 MG TABLET. PO ONE (09:15)
[2021-06-15] MEDS ORDERED: PRED50TA PO (09:35)
[2021-06-15 09:40] VITALS: BP 146/77
== END 2021-06-15 10:24 | disposition home or self-care (01) ==
LOC: ER 04:04
DX: J96.01 Acute respiratory failure with hypoxia (principal); J44.1 Chronic obstructive pulmonary disease with (acute) exacerbation; F41.9 Anxiety disorder, unspecified; K21.9 Gastro-esophageal reflux disease without esophagitis; I10 Essential (primary) hypertension; E78.5 Hyperlipidemia, unspecified; I25.10 Atherosclerotic heart disease of native coronary artery without angina pectoris; Z20.822 Contact with and (suspected) exposure to COVID-19; Z87.891 Personal history of nicotine dependence; Z91.030 Bee allergy status; Z88.8 Allergy status to other drugs, medicaments and biological substances
CPT/HCPCS: 36415; 71045; 80048; 80076; 82550; 83690; 83735; 83880; 84443; 84484; 85025; 85379; 85610; 85730; 87426; 93005; 94640; 96365; 96375; 99285; C9803; G0238; J0696; J2930; J7120; U0003

== ENCOUNTER 2021-07-14 14:36 | Emergency (ER) | payer MEDICARE, MEDICAID ==
[~2021-07-14] VITALS: Ht 152.4 cm; Wt 79.0 kg
--- NOTE | 2021-07-14 14:53 | PHYS DOC ---
Past History Past Medical History: Anxiety, COPD, GERD, Hypertension Additional Past Medical Histor: 3 stents, hemorrhoids Past Surgical History: Other Additional Past Surgical Histo: SCOT knee repl; 3 card stents;esoph dil;lt wrist repair; rt rad/uln open red Smoking: Quit Greater Than 1 Year Alcohol Use: None Drug Use: None Adult General Chief Complaint Chief Complaint: SHORTNESS OF BREATH HPI HPI Patient is a 71-year-old female presenting via EMS for COVID contact. Patient who is well-known to our facility and was recently seen, evaluated, and treated for COPD exacerbation with steroids and antibiotics 1 month prior resents today requesting COVID swab. She is unvaccinated and states that a close colleague that she was around approximately 1 week ago informed her that he was positive for the virus. Patient reports she has been at baseline health but after hearing the news was concerned due to slight increase in postnasal drip prompting her to come in for evaluation. Otherwise denies any fever, chest pain, shortness of breath past baseline or other concerning symptoms Review of Systems Review of Systems Fourteen body systems of review of systems have been reviewed. See HPI for pertinent positives and negative responses, other sibley all other systems are negative, non-pertinent or non-contributory Allergies Allergies Allergies Coded Allergies Type Severity Reaction Last Updated Verified venom-honey bee Allergy Severe Shortness of Air 07/14/21 Yes adhesive Allergy Intermediate 07/14/21 Yes cimetidine Allergy Intermediate "toxic" 07/14/21 Yes cimetidine HCl Allergy Intermediate "toxic" 07/14/21 Yes Physical Exam Physical Exam Constitutional: Well developed, well nourished, no acute distress, non-toxic appearance. HENT: Normocephalic, atraumatic, bilateral external ears normal, oropharynx moist, no oral exudates, nose normal. Eyes: PERRLA, EOMI, conjunctiva normal, no discharge. Neck: Normal range of motion, no tenderness, supple, no stridor. Cardiovascular: Heart rate regular, sinus rhythm, no murmurs rubs or gallops Lungs & Thorax: Bilateral breath sounds clear to auscultation Abdomen: Bowel sounds normal, soft, no tenderness, no masses, no pulsatile masses. Nonsurgical abdomen, no peritoneal signs Skin: Warm, dry, no erythema, no rash. Back: No tenderness, no CVA tenderness. Extremities: No tenderness, no cyanosis, no clubbing, ROM intact, no edema. Neurologic: Alert and oriented X 3, grossly normal motor & sensory function, no focal deficits noted. Psychologic: Affect normal, judgement normal, mood normal. Current Patient Data Vital Signs Vital Signs Date Time Temp Pulse Resp B/P (MAP) Pulse Ox O2 Delivery O2 Flow Rate FiO2 07/14/21 14:44 98.1 99 18 147/70 (95) 95 Room Air Vital Signs Date Time Temp Pulse Resp B/P (MAP) Pulse Ox O2 Delivery O2 Flow Rate FiO2 07/14/21 16:06 104 18 151/107 (122) 94 Room Air 07/14/21 14:44 98.1 EKG EKG [] Radiology/Procedures Radiology/Procedures [] Heart Score C/O Chest Pain: No Risk Factors: Risk Factors: DM, Current or recent (<one month) smoker, HTN, HLP, family history of CAD, obesity. Risk Scores: Risk Factors: DM, Current or recent (<one month) smoker, HTN, HLP, family history of CAD, obesity. Course & Med Decision Making Course & Med Decision Making ABCs unremarkable HPI physical exam and ER work-up positive for influenza and COVID-19 Patient reports she has been at baseline health and asymptomatic but presented nearly because she was notified of positive COVID-19 exposure I disclosed given her history and risk factors need for further work-up but patient deferred. She is not vaccinated against COVID-19. As such, appropriate self quarantine and supportive care practices advised with close PCP follow-up recommended when safe to do so Dragon Disclaimer Dragon Disclaimer This electronic medical record was generated, in whole or in part, using a voice recognition dictation system. Departure Departure: Impression: Primary Impression: COVID-19 Additional Impression: Influenza B Disposition: HOME / SELF CARE / HOMELESS Condition: STABLE Referrals: PRAKASH LUU MD (PCP) Additional Instructions: As discussed prior to ER departure, you were tested and found to be positive for COVID-19 and influenza B. You have been at baseline health and asymptomatic and presented today due to close contact only. There are no current medications or anything beyond supportive care that are indicated at present and so, continued use of home inhalers, avoidance of chemicals/fumes/smoke etc., and deep breathing exercises are advised. Please follow CDC recommendations regarding self quarantine protocols especially given the fact that you did not get your COVID-19 vaccination. You should return to the ED if you develop worsening cough, shortness of breath, chest pain, or any other new or concerning symptoms. Problem Qualifiers VALERIA MAURICE DO Jul 14, 2021 14:53
[2021-07-14 15:47] LABS: INFLUENZA B PATIENT NEGATIVE (NEGATIVE)
[2021-07-14 15:50] LABS: INFLUENZA A PATIENT POSITIVE (NEGATIVE)
[2021-07-14 16:06] VITALS: BP 151/107
== END 2021-07-14 16:08 | disposition home or self-care (01) ==
LOC: ER 14:36
DX: U07.1 COVID-19 (principal); J11.1 Influenza due to unidentified influenza virus with other respiratory manifestations; K21.9 Gastro-esophageal reflux disease without esophagitis; I10 Essential (primary) hypertension; Z87.891 Personal history of nicotine dependence
CPT/HCPCS: 87428; 99283-25

== ENCOUNTER 2021-09-06 18:02 | Observation (INO) | payer MEDICARE, MEDICAID ==
[~2021-09-06] VITALS: Ht 152.4 cm; Wt 81.4 kg
[2021-09-06] MEDS ORDERED: IPRATRPIUM/ALBUTEROL 0.5/2.5MG 3 ML NEBU. NEB ONE ×2 (19:00→21:30)
[2021-09-06] MEDS ORDERED: methylPREDNISolone SOD SUCC PF 125 MG/2 ML VIAL. IV ONE (19:00)
[2021-09-06 19:38] LABS: BASO # 0.2 x10^3/uL (0.0-0.2); BASO % 2 % (0-3); EOS # 1.2 x10^3/uL (0.0-0.7); EOS % 15 % (0-3); HEMATOCRIT 47.1 % (36.0-47.0); HEMOGLOBIN 15.4 g/dL (12.0-15.5); LYMPH # 1.5 x10^3/uL (1.0-4.8); LYMPH % 20 % (24-48); MEAN CORPUSCULAR HEMOGLOBIN 30 pg (25-35); MEAN CORPUSCULAR HGB CONC 33 g/dL (31-37); MEAN CORPUSCULAR VOLUME 91 fL (79-100); MONO # 0.5 x10^3/uL (0.0-1.1); MONO % 6 % (0-9); NEUT # 4.2 x10^3uL (1.8-7.7); NEUT % 56 % (31-73); PLATELET COUNT 237 x10^3/uL (140-400); WHITE BLOOD COUNT 7.5 x10^3/uL (4.0-11.0)
[2021-09-06 19:46] LABS: CALCIUM 8.8 mg/dL (8.5-10.1); CREATININE 0.8 mg/dL (0.6-1.0); GFR 71.1; POTASSIUM 3.8 mmol/L (3.5-5.1)
[2021-09-06 20:00] LABS: ALBUMIN 3.8 g/dL (3.4-5.0); ALBUMIN/GLOBULIN RATIO 1.2 (1.0-1.7); TOTAL BILIRUBIN 0.7 mg/dL (0.2-1.0)
--- NOTE | 2021-09-06 20:00 | PHYS DOC ---
Past History Past Medical History: Anxiety, COPD, GERD, Hypertension Additional Past Medical Histor: 3 stents, hemorrhoids; left bundle branch block (MARY BETH RIDDLE APRN) Past Surgical History: Other Additional Past Surgical Histo: SCOT knee repl; 3 card stents;esoph dil;lt wrist repair; rt rad/uln open red (MARY BETH RIDDLE APRN) Smoking: Quit Greater Than 1 Year Alcohol Use: Occasionally Drug Use: None (MARY BETH RIDDLE APRN) General Adult EDM: Chief Complaint: SHORTNESS OF BREATH HPI: HPI: Patient is a 71-year-old female who presents with shortness of breath and cough x1 week. Patient has a history of COPD. No fever. Denies recent illness. "I have this happen sometimes because of my COPD but it has been worse this week and not getting better". Patient's been using inhalers at home with little relief. Denies chest pain. History of anxiety, hypertension, COPD, GERD. (MARY BETH RIDDLE APRN) Review of Systems: Review of Systems: ROS At least 10 ROS systems have been reviewed and are negative except as documented in the HPI. General: Negative except as outlined in HPI above. Skin: Negative except as outlined in HPI above. HEENT: Negative except as outlined in HPI above. Neck: Negative except as outlined in HPI above. Respiratory: Negative except as outlined in HPI above.. Cardiovascular: Negative except as outlined in HPI above. Abdomen: Negative except as outlined in HPI above. : Negative except as outlined in HPI above. Back/MSK: Negative except as outlined in HPI above. Neuro: Negative except as outlined in HPI above. Psych: Negative except as outlined in HPI above. (MARY BETH RIDDLE APRN) Current Medications: Current Meds: Current Medications Medications (Trade) Dose Ordered Sig/Linda Start Time Stop Time Status Last Admin Dose Admin Albuterol/ Ipratropium (Duoneb) 3 ml 1X ONCE 09/06/21 19:00 09/06/21 19:01 DC 09/06/21 19:14 3 ML Methylprednisolone Sodium Succinate (SOLU-Medrol 125MG VIAL) 125 mg 1X ONCE 09/06/21 19:00 09/06/21 19:01 DC 09/06/21 19:14 125 MG (MARY BETH RIDDLE APRN) Allergies: Allergies: Allergies Coded Allergies Type Severity Reaction Last Updated Verified venom-honey bee Allergy Severe Shortness of Air 07/14/21 Yes adhesive Allergy Intermediate 07/14/21 Yes cimetidine Allergy Intermediate "toxic" 07/14/21 Yes cimetidine HCl Allergy Intermediate "toxic" 07/14/21 Yes (MARY BETH RIDDLE FABRIC NORMALIZER) Physical Exam: PE: Constitutional: Well developed, well nourished, no acute distress, non-toxic appearance. [] HENT: bilateral external ears normal, oropharynx moist, no oral exudates Eyes: PERRLA,conjunctiva normal, no discharge. [] Neck: Normal range of motion, no tenderness, supple Cardiovascular:Heart rate regular rhythm, no murmur [] Lungs & Thorax: Inspiratory and expiratory wheezes heard throughout, coarse bilateral lower lobes Abdomen: Bowel sounds normal, soft, no tenderness, no masses Skin: Warm, dry, no erythema, no rash. [] Back: No tenderness, no CVA tenderness. [] Extremities: No tenderness, no cyanosis, no clubbing, ROM intact, no edema. [] Neurologic: Alert and oriented X 3, normal motor function, normal sensory function, no focal deficits noted. [] Psychologic: Affect normal, judgement normal, mood normal. [] (MARY BETH RIDDLE FABRIC NORMALIZER) Current Patient Data: Labs: Laboratory Tests Test 09/06/21 19:07 White Blood Count 7.5 x10^3/uL (4.0-11.0) Red Blood Count 5.20 x10^6/uL (3.50-5.40) Hemoglobin 15.4 g/dL (12.0-15.5) Hematocrit 47.1 % (36.0-47.0) H Mean Corpuscular Volume 91 fL (79-100) Mean Corpuscular Hemoglobin 30 pg (25-35) Mean Corpuscular Hemoglobin Concent 33 g/dL (31-37) Red Cell Distribution Width 14.0 % (11.5-14.5) Platelet Count 237 x10^3/uL (140-400) Neutrophils (%) (Auto) 56 % (31-73) Lymphocytes (%) (Auto) 20 % (24-48) L Monocytes (%) (Auto) 6 % (0-9) Eosinophils (%) (Auto) 15 % (0-3) H Basophils (%) (Auto) 2 % (0-3) Neutrophils # (Auto) 4.2 x10^3uL (1.8-7.7) Lymphocytes # (Auto) 1.5 x10^3/uL (1.0-4.8) Monocytes # (Auto) 0.5 x10^3/uL (0.0-1.1) Eosinophils # (Auto) 1.2 x10^3/uL (0.0-0.7) H Basophils # (Auto) 0.2 x10^3/uL (0.0-0.2) Vital Signs: Vital Signs Date Time Temp Pulse Resp B/P (MAP) Pulse Ox O2 Delivery O2 Flow Rate FiO2 09/06/21 19:21 96 Room Air 09/06/21 18:19 99 28 150/109 (123) (MARY BETH RIDDLE APRN) EKG: EKG: Sinus rhythm. Heart rate [address] elevation or depression. Read by Dr. Bowling. [] (MARY BETH RIDDLE APRN) Radiology/Procedures: Radiology/Procedures: [] (MARY BETH RIDDLE APRN) Heart Score: C/O Chest Pain: No Risk Factors: Risk Factors: DM, Current or recent (<one month) smoker, HTN, HLP, family history of CAD, obesity. Risk Scores: Score 0 - 3: 2.5% MACE over next 6 weeks - Discharge Home Score 4 - 6: 20.3% MACE over next 6 weeks - Admit for Clinical Observation Score 7 - 10: 72.7% MACE over next 6 weeks - Early Invasive Strategies (MARY BETH RIDDLE APRN) Course & Med Decision Making: Course & Med Decision Making Pertinent Labs and Imaging studies reviewed. (See chart for details) [] 71-year-old female presents with shortness of breath and cough for 1 week. Patient does have a history of COPD but states that symptoms have not been improving. Work-up in ER consisted of labs, urinalysis, EKG, chest x-ray. Labs unremarkable. Patient given albuterol treatment. Reports that symptoms have improved but still very short of breath. Patient ambulated to the bathroom and oxygen level dropped down to mid 80s. Took patient a few minutes to recover. Patient is very anxious and feeling very short of breath. Patient is stating that she is unable to go home because of shortness of breath. Rapid Covid swab sent. Patient is not vaccinated for COVID-19. At 2114I spoke with Dr. Zapata who will be accepting patient on med telemetry for COPD exacerbation and PUI. Updated patient on admission status. Advised patient that she would be staying at [facility] for further management. Patient agrees with admission plan and is appreciative. (MARY BETH RIDDLE APRN) Dragon Disclaimer: Dragon Disclaimer: This electronic medical record was generated, in whole or in part, using a voice recognition dictation system. (MARY BETH RIDDLE APRN) Departure Departure: Impression: Primary Impression: COPD exacerbation Additional Impression: Person under investigation for COVID-19 Disposition: ADMITTED INPATIENT Admitting Physician: Bella Zapata (MARY BETH RIDDLE APRN) Condition: STABLE Referrals: PRAKASH LUU MD (PCP) Lyn Disclaimer This chart was dictated in whole or in part using Voice Recognition software in a busy, high-work load, and often noisy Emergency Department environment. It may contain unintended and wholly unrecognized errors or omissions. (DAVID BOWLING MD) Attending Signature Attending Signature I have participated in the care of this patient and I have reviewed and agree with all pertinent clinical information above including history, exam, and recommendations. (DAVID BOWLING MD) MARY BETH RIDDLE APRN Sep 06, 2021 20:00 DAVID BOWLING MD Sep 06, 2021 23:59
[2021-09-06 21:13] LABS: INFLUENZA A PATIENT NEGATIVE (NEGATIVE); INFLUENZA B PATIENT NEGATIVE (NEGATIVE)
--- NOTE | 2021-09-06 21:23 | RAD ---
EXAMINATION: XR CHEST 1V. HISTORY: 71 years Female Reason: SOB Hx: COPD / Spl. COMPARISON: June 15, 2021. Findings: There is chronic appearing interstitial thickening similar to the previous exam with no def inite acute infiltrate. The heart size is normal. There is no effusion or pneumothorax. The mediastinum and jair appear unremarkable. Impression: No definite acute process. Electronically signed by: Carlito Shi MD (09/06/2021 9:21 PM) [id number]
[2021-09-06] MEDS ORDERED: IV NORMAL SALINE 1,000ML 1,000 ML IV SCH (21:30)
--- NOTE | 2021-09-06 21:38 | EKG ---
[address] [address] Test Date: 2021-09-06 Test Time: 19:00:58 Pat Name: ALEXY LANGE Department: Room: Gender: F [employer]: : 1950 Requested By: MARY BETH RIDDLE Order Number: [id number] Reading MD: Measurements Intervals [place] Rate: 85 P: 56 [place]: 162 QRS: -24 QRSD: 124 T: 121 QT: 410 QTc: 494 Interpretive Statements SINUS RHYTHM LEFTWARD AXIS LVH WITH REPOLARIZATION ABNORMALITY ABNORMAL ECG RI6.01 No previous ECG available for comparison
--- NOTE | 2021-09-06 22:04 | NUR ---
The patient, ALEXY LANGE, 71 y/o, F admitted by DANE CAMERON MD, was given written information regarding hospital policies, unit procedures and contact persons. Valuables were checked and logged. Call light at bedside.
[2021-09-06 22:10] VITALS: BP 133/82
--- NOTE | 2021-09-06 22:46 | NUR ---
COVID-19 PCR test canceled by lab due to pt having recent infection in the last 90 days. Pt reports she was Covid+ at the end of June this year. Rapid antigen swab was obtained in ER and resulted negative. Pt not requiring isolation.
[2021-09-06] MEDS ORDERED: GUAI120L35 PO (23:55)
[2021-09-06] MEDS ORDERED: HYDR-2759 PO (23:55)
[2021-09-06] MEDS ORDERED: FLUT16SP21 NS (23:55)
[2021-09-07] MEDS ORDERED: IBUPROFEN 600 MG TABLET. PO PRN
[2021-09-07] MEDS ORDERED: DOCU-109 PO (00:05)
[2021-09-07] MEDS ORDERED: DIPH25CA58 PO (00:07)
[2021-09-07] MEDS ORDERED: guaiFENesin/CODEINE 100mg/10mg 5 ML LIQUID PO PRN (00:15)
[2021-09-07] MEDS ORDERED: DOCUSATE SODIUM 100 MG CAPSULE PO PRN (00:15)
[2021-09-07] MEDS ORDERED: diphenhydrAMINE HCL 25 MG CAPSULE PO PRN (00:15)
[2021-09-07] MEDS ORDERED: IPRATRPIUM/ALBUTEROL 0.5/2.5MG 3 ML NEBU. ONE (05:10)
[2021-09-07] MEDS: IPRATRPIUM/ALBUTEROL 0.5/2.5MG 3 ML NEBU. NEB SCH ×4 (05:20→19:43)
[2021-09-07 05:41] VITALS: BP 114/72
[2021-09-07] MEDS: BUDESONIDE 0.5 MG/2 ML NEBU NEB SCH ×3 (08:30→20:22)
[2021-09-07] MEDS: ASPIRIN CHEWABLE 81 MG TABLET. PO SCH (08:39)
[2021-09-07] MEDS: MONTELUKAST 10 MG TABLET. PO SCH (08:39)
[2021-09-07] MEDS: ATORVASTATIN CALCIUM 20 MG TABLET PO SCH (08:39)
[2021-09-07] MEDS: FLUTICASONE 50MCG/NASAL SPRAY 16GM BOTTLE. NS SCH (08:39)
[2021-09-07] MEDS: PANTOPRAZOLE 40 MG TABLET. PO SCH (08:39)
[2021-09-07] MEDS: METOPROLOL TART IMMED RELEASE 25 MG TABLET. PO SCH ×2 (08:41→20:25)
[2021-09-07] MEDS ORDERED: ACETAMINOPHEN 325 MG TABLET PO PRN (10:30)
[2021-09-07 10:55] VITALS: BP 107/70
[2021-09-07] MEDS ORDERED: CALCIUM CARBONATE 500 MG TAB.CHEW PO PRN (11:00)
[2021-09-07] MEDS ORDERED: HYDROcodone/APAP 5/325MG 1 TAB TABLET PO PRN ×2 (12:15)
[2021-09-07] MEDS: BENZONATATE 100 MG CAPSULE. PO PRN ×2 (12:20→21:14)
[2021-09-07] MEDS ORDERED: methylPREDNISolone SOD SUCC PF 40 MG/ML VIAL. IV SCH (14:00)
[2021-09-07] MEDS ORDERED: ALBUTEROL SULFATE 2.5 MG/3 ML NEBU. NEB PRN (14:15)
--- NOTE | 2021-09-07 14:32 | HP ---
DATE OF SERVICE: 09/07/2021 ADMIT DATE: 09/06/2021 HISTORY OF PRESENT ILLNESS: The patient is a 71-year-old female patient who presented to the Emergency Room with a complaint of shortness of breath, cough with scanty greenish sputum that has been going on for almost a week now. Denied any chest pain. Denied any chills, rigors or fever. Her symptoms have been steadily worsening over the last week, not getting any better and therefore, the patient presented to the Emergency Room. She has been using her inhaler as prescribed at home with little relief. She was extensively evaluated in the Emergency Room and has had lab work and imaging studies. Her lab work was mostly unremarkable, in fact her D-dimer was only 0.42. Her coronavirus rapid antigen testing was negative. Her influenza A and B were negative. Her chest x-ray showed that there is a chronic-appearing interstitial thickening, similar to the previous exam, with no definite acute infiltrate, heart size is normal. There is no effusion or pneumothorax. The mediastinum and jair appears unremarkable. The patient was admitted with acute COPD exacerbation. She was treated with Solu-Medrol as well as albuterol and Atrovent was admitted for further evaluation and treatment. PAST MEDICAL HISTORY: Significant for chronic obstructive pulmonary disease, gastroesophageal reflux disease, hypertension, hyperlipidemia, coronary artery disease status post PCI with stent deployment x 3 in 2016. She has degenerative joint disease and degenerative disk disease. PAST SURGICAL HISTORY: Significant for right ulnar and radial fracture, status post open reduction internal fixation; angioplasty with stent deployment x 3; bilateral total knee arthroplasty; left wrist fracture, status post open reduction internal fixation; tonsillectomy and tubal ligation. ALLERGIES: SHE IS ALLERGIC TO ADHESIVE TAPES, CIMETIDINE, VENOM HONEY BEE AND WASP. FAMILY HISTORY: Her father at age of 78 because of brain tumor and cerebral aneurysm. Mother at age of 91 with metastatic breast cancer. SOCIAL HISTORY: She is , has 2 daughters. She quit smoking 25 years ago. She drinks 1-2 beers on the weekends. Does not use any drugs. She is retired. 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 MEDICATIONS: She is currently on the following medications: She is on diphenhydramine 25 mg once a day, ipratropium bromide, albuterol sulfate by nebulizer 4 times a day, albuterol sulfate 2 puffs every 4-6 hours, rosuvastatin for Crestor 40 mg once a day, metoprolol tartrate 12.5 mg twice a day, aspirin 81 mg once a day, ibuprofen 600 mg 3 times a day. She is on hydrocodone/APAP 5/325 one tablet once a day as needed for pain, guaifenesin/codeine phosphate 5 mL 3 times a day, fluticasone for Trelegy Ellipta 1 inhalation once a day, montelukast 10 mg daily. She is on Flonase 2 sprays to each nostril once a day, Colace 100 mg twice a day, Protonix 40 mg once a day. REVIEW OF SYSTEMS: As per history of present illness. PHYSICAL EXAMINATION: GENERAL: On arrival to the Emergency Room, the patient was clearly tachypneic, tachycardic; however, there was no pallor, jaundice, cyanosis. No lymphadenopathy, no thyromegaly, no jugular venous distention. No lower limb edema. VITAL SIGNS: Her heart rate on admission was 117, blood pressure was 150/109. Her temperature was 98, respiratory rate was 32 and oxygen saturation was 92% on room air. HEAD, EYES, EARS, NOSE, AND THROAT: Normocephalic, atraumatic. NECK: Supple. HEART: Showed normal first and second heart sounds. No gallop or murmur. CHEST: Shows central trachea, equally reduced expansion, reduced air entry, vesicular breath sounds with bilateral diffuse rhonchi. I could not appreciate any crepitation. ABDOMEN: Distended, soft, nontender. NEUROLOGIC: She was grossly intact. LABORATORY DATA: On admission showed a white cell count 7500, hemoglobin 15, hematocrit 47, MCV 91, and platelet count 237,000 with normal manual differential. Her chemistry showed a serum sodium 141, potassium 3.8, chloride 104, bicarbonate 27, anion gap of 10, BUN 6, creatinine 0.8. Estimated GFR was 71 mL per minute. Her glucose was 94. Lactic acid was 1.6. Calcium was 8.8. Her total bilirubin, AST, ALT, alkaline phosphatase were normal. Total protein 7, albumin 3.8. Troponin I high sensitivity was only 12. Her chest x-ray showed that the patient has chronic-appearing interstitial thickening, similar to the previous exam, with no definite acute infiltrate, heart size is normal and there is no effusion or pneumothorax. The mediastinum and jair appears unremarkable. ASSESSMENT AND PLAN: The patient was admitted with acute chronic obstructive pulmonary disease exacerbation. The patient has a multitude of other medical problems including: A. Gastroesophageal reflux disease. B. Hypertension. C. Hyperlipidemia. D. Coronary artery disease status post percutaneous coronary intervention with stent deployment. E. Degenerative joint disease. F. Degenerative disk disease. We will continue with the IV Solu-Medrol. Continue with the bronchodilator, Singulair. I will add Mucinex and doxycycline and follow her on a daily basis. CLIFFORD DR: Roxann TID: [id number]
[2021-09-07 15:00] VITALS: BP 116/72
[2021-09-07] MEDS ORDERED: predniSONE 20 MG TABLET PO ONE (16:30)
[2021-09-07] MEDS: DOXYCYCLINE HYCLATE 100 MG TABLET PO SCH (20:23)
--- NOTE | 2021-09-07 20:48 | PN ---
DATE: 09/07/2021 SUBJECTIVE: The patient is resting, slightly propped up in bed, continues to have recurrent bouts of dry hacking cough with scanty sputum. Continues to have marked chest tightness and wheezing. She is using accessory muscles. When I examined her this afternoon, she was definitely tachypneic, tachycardic. Surprisingly, she is not hypoxic and wheezing can be heard with naked ears, without any stethoscope. PHYSICAL EXAMINATION: GENERAL: When I examined her, there was no pallor, jaundice, cyanosis. No lymphadenopathy, no thyromegaly, no jugular venous distention. No lower limb edema. VITAL SIGNS: Her heart rate was 111, blood pressure was 133/82, temperature 98, respiratory rate was 24 and oxygen saturation was 93% on room air. HEAD, EYES, EARS, NOSE, AND THROAT: Normocephalic, atraumatic. NECK: Supple. HEART: Showed normal first and second heart sounds. No gallop or murmur. CHEST: Shows central trachea, equally reduced expansion, reduced air entry, vesicular breath sounds with bilateral scattered rhonchi. I could not appreciate any crepitation. ABDOMEN: Distended, soft, nontender. NEUROLOGIC: She was grossly intact. Intake and output are incompletely recorded. LABORATORY DATA: She has no lab work done this morning. ASSESSMENT: 1. Acute chronic obstructive pulmonary disease exacerbation. 2. Hypertension. 3. Hyperlipidemia. 4. Gastroesophageal reflux disease. 5. Coronary artery disease, status post percutaneous coronary intervention x3. 6. Degenerative joint disease. 7. Degenerative disc disease. PLAN: To continue with IV Solu-Medrol. Continue with nebulized albuterol and Atrovent. Continue with Singulair and Mucinex. I added doxycycline and discontinued her guaifenesin/codeine. AMM/PRM DR: VALORIE/nick TID: [id number]
[2021-09-07 20:56] VITALS: BP 127/70
[2021-09-07 23:55] VITALS: BP 117/72
[2021-09-08] MEDS: IPRATRPIUM/ALBUTEROL 0.5/2.5MG 3 ML NEBU. NEB SCH ×2 (05:20→12:35)
--- NOTE | 2021-09-08 06:15 | NUR ---
Pt. rested quietly between cares throughout NOC. Cont. to get dyspneic et frequent cough when gets up to BR. No changes from previous assessment.
[2021-09-08 06:18] VITALS: BP 136/77
[2021-09-08 06:37] LABS: HEMATOCRIT 44.5 % (36.0-47.0); HEMOGLOBIN 14.4 g/dL (12.0-15.5); RED BLOOD COUNT 4.87 x10^6/uL (3.50-5.40); RED CELL DISTRIBUTION WIDTH 14.7 % (11.5-14.5); WHITE BLOOD COUNT 11.7 x10^3/uL (4.0-11.0)
[2021-09-08 06:49] LABS: ALBUMIN 3.6 g/dL (3.4-5.0); ALBUMIN/GLOBULIN RATIO 1.3 (1.0-1.7); CALCIUM 8.5 mg/dL (8.5-10.1); CREATININE 0.8 mg/dL (0.6-1.0); GFR 71.1; POTASSIUM 4.4 mmol/L (3.5-5.1); TOTAL BILIRUBIN 0.4 mg/dL (0.2-1.0); TOTAL PROTEIN 6.4 g/dL (6.4-8.2)
[2021-09-08] MEDS: PANTOPRAZOLE 40 MG TABLET. PO SCH (07:45)
[2021-09-08] MEDS: BENZONATATE 100 MG CAPSULE. PO PRN (07:46)
[2021-09-08] MEDS: ASPIRIN CHEWABLE 81 MG TABLET. PO SCH (07:46)
[2021-09-08] MEDS: DOXYCYCLINE HYCLATE 100 MG TABLET PO SCH (07:46)
[2021-09-08] MEDS: MONTELUKAST 10 MG TABLET. PO SCH (07:46)
[2021-09-08] MEDS: ATORVASTATIN CALCIUM 20 MG TABLET PO SCH (07:46)
[2021-09-08] MEDS: METOPROLOL TART IMMED RELEASE 25 MG TABLET. PO SCH (07:47)
[2021-09-08] MEDS: BUDESONIDE 0.5 MG/2 ML NEBU NEB SCH (08:30)
[2021-09-08] MEDS: FLUTICASONE 50MCG/NASAL SPRAY 16GM BOTTLE. NS SCH (09:00)
[2021-09-08] MEDS ORDERED: predniSONE 20 MG TABLET PO SCH (09:00)
[2021-09-08 10:28] VITALS: BP 123/78
[2021-09-08] MEDS ORDERED: DOXY100C3 PO (13:13)
--- NOTE | 2021-09-08 13:43 | NUR ---
discharge note PT discharged at 1343 via ambulation accompanied by security . pt given written and verbal instructions with verbal statement of understanding received.
== END 2021-09-08 14:00 | disposition home or self-care (01) ==
LOC: ER 18:02 → INTOOBSV 21:33 → 1 SOUTH 21:33 → UNDODISIN 09-08 13:44
PROVIDERS: ADMIT Internal Medicine; ATTEND Internal Medicine
DX: J44.1 Chronic obstructive pulmonary disease with (acute) exacerbation (principal); Z20.822 Contact with and (suspected) exposure to COVID-19; I10 Essential (primary) hypertension; I25.10 Atherosclerotic heart disease of native coronary artery without angina pectoris; K21.9 Gastro-esophageal reflux disease without esophagitis; E78.5 Hyperlipidemia, unspecified; M19.90 Unspecified osteoarthritis, unspecified site; Z87.891 Personal history of nicotine dependence; Z95.5 Presence of coronary angioplasty implant and graft; Z96.653 Presence of artificial knee joint, bilateral; Z95.1 Presence of aortocoronary bypass graft; Z90.49 Acquired absence of other specified parts of digestive tract; Z79.899 Other long term (current) drug therapy; Z98.890 Other specified postprocedural states; Z98.51 Tubal ligation status
CPT/HCPCS: 36415; 71045; 80053; 83605; 84484; 85025; 85027; 85379; 87040; 87428; 93005; 94640; 96361; 96374; 96376; 99285; J2920; J2930; J7030; J7512; J7613; Q0163; G0378; G0379

== ENCOUNTER 2021-10-25 17:37 | Emergency (ER) | payer MEDICARE, MEDICAID ==
[~2021-10-25] VITALS: Ht 152.4 cm; Wt 81.4 kg
[~2021-10-25 17:37] MED LIST changes: +DOXY100C3 PO; +FLUT16SP21 NS; +GUAI120L35 PO
--- NOTE | 2021-10-25 18:21 | PHYS DOC ---
Past History Past Medical History: Anxiety, COPD, GERD, Hypertension Additional Past Medical Histor: 3 stents, hemorrhoids; left bundle branch block Past Surgical History: Other Additional Past Surgical Histo: SCOT knee repl; 3 card stents;esoph dil;lt wrist repair; rt rad/uln open red Smoking: Quit Greater Than 1 Year Alcohol Use: Occasionally Drug Use: None General Adult EDM: Chief Complaint: CHEST PAIN HPI: HPI: Patient is a 71 year old female who presents with dizziness, mild dyspnea and palpitations. She reports that symptoms began just shortly prior to arrival, while urinating. No previous similar symptoms. She denies chest pain. She denies syncope, near syncope, headache, numbness, tingling, motor weakness, n/v, abdominal pain, fever, chills. She admits to drinking every weekend and drank yesterday. She denies daily alcohol use. She denies illicit drug use. She has a history of coronary artery disease with stents. She takes aspirin daily. She denies previous history of [place]. She reports that she underwent colonoscopy and polyp removal last week, and this was reportedly uneventful. The patient has a history of known LBBB. Review of Systems: Review of Systems: Constitutional: Denies fever or chills Eyes: Denies change in visual acuity HENT: Denies nasal congestion or sore throat Respiratory: Denies cough or hemoptysis. Reports shortness of breath. Cardiovascular: Denies chest pain or edema. Reports palpitations and feeling of heart racing. GI: Denies abdominal pain, nausea, vomiting, bloody stools : Denies dysuria, reports urinary urgency and frequency Musculoskeletal: Denies back pain or joint pain Integument: Denies rash Neurologic: Denies headache, focal weakness or sensory changes. Reports dizziness/lightheadedness. Denies syncope or near syncope. Denies fall or head injury. Psychiatric: Denies depression or anxiety Current Medications: Current Meds: Current Medications Medications (Trade) Dose Ordered Sig/Linda Start Time Stop Time Status Last Admin Dose Admin Diltiazem HCl (Cardizem Iv Push) 10 mg 1X ONCE 10/25/21 18:30 10/25/21 18:31 Sodium Chloride 1,000 ml @ 1,000 mls/hr 1X ONCE 10/25/21 18:30 10/25/21 19:29 Allergies: Allergies: Allergies Coded Allergies Type Severity Reaction Last Updated Verified venom-honey bee Allergy Severe Shortness of Air 07/14/21 Yes adhesive Allergy Intermediate 07/14/21 Yes cimetidine Allergy Intermediate "toxic" 07/14/21 Yes cimetidine HCl Allergy Intermediate "toxic" 07/14/21 Yes Physical Exam: PE: Constitutional: Well developed, well nourished, no acute distress, non-toxic appearance. She is anxious appearing. HENT: Normocephalic, atraumatic Eyes: PERRL, EOMI, conjunctiva normal, no discharge. No scleral icterus. Neck: Normal range of motion, no tenderness, supple, no stridor. [] Cardiovascular: Irregularly irregular, tachycardic, +2 radial and +2 PT pulses bilaterally. Lungs & Thorax: Bilateral breath sounds clear to auscultation, no R/R/W, no stridor, no tachypnea, no distress. Abdomen: Abdomen is soft, non-distended, normal bowel sounds, mild suprapubic tenderness, no guarding, no rebound, no rigidity, no CVA tenderness Skin: Warm, dry, no erythema, no rash. [] Back: No tenderness, no CVA tenderness. [] Extremities: No tenderness, no cyanosis, no clubbing, ROM intact, no edema. No calf tenderness. Neurologic: Alert and oriented X 3, normal motor function, normal sensory function, no focal deficits noted. [] Psychologic: Mildly anxious, cooperative. Current Patient Data: Vital Signs: Vital Signs Date Time Temp Pulse Resp B/P (MAP) Pulse Ox O2 Delivery O2 Flow Rate FiO2 10/25/21 17:53 98.1 152 28 121/78 (92) 95 Room Air EKG: EKG: EKG is interpreted at 1758 Rhythm is irregularly irregular, tachycardia, atrial fibrillation RVR Rate is 147 bpm [place] is left LBBB (old, per patient) LVH No STEMI Radiology/Procedures: Radiology/Procedures: IMAGING REPORT Signed PATIENT: ALEXY LANGEOUNT: [id number] : 1950 LOCATION: ER AGE: 71 SEX: F EXAM STATUS: REG ER ORD. PHYSICIAN: ANETTE GARCIA DO REASON: dyspnea PROCEDURE: PORTABLE CHEST 1V Exam: Chest one view INDICATION: Dyspnea TECHNIQUE: Frontal view of the chest Comparisons: 09/06/2021 FINDINGS: The cardiomediastinal silhouette and pulmonary vessels are within normal limits. Strandy opacities at the dependent portion lungs likely representing at electasis. No pleural effusion. IMPRESSION: Findings which may relate to mild bibasilar atelectasis. Electronically signed by: Desean Patel MD (10/25/2021 7:24 PM) [facility] DICTATED AND SIGNED BY: DESEAN PATEL MD DATE: 10/25/211921 CC: PRAKASH LUU MD; ANETTE GARCIA DO ~ Heart Score: C/O Chest Pain: No Risk Factors: Risk Factors: DM, Current or recent (<one month) smoker, HTN, HLP, family history of CAD, obesity. Risk Scores: Score 0 - 3: 2.5% MACE over next 6 weeks - Discharge Home Score 4 - 6: 20.3% MACE over next 6 weeks - Admit for Clinical Observation Score 7 - 10: 72.7% MACE over next 6 weeks - Early Invasive Strategies Course & Med Decision Making: Course & Med Decision Making Pertinent Labs and Imaging studies reviewed. (See chart for details) The patient is given IV Diltiazem bolus of 20 mg. HR improved, but RVR persists. She is started on a Diltiazem drip and heparin drip. Heart rate is in the 90s, blood pressure is stable. She continues to deny chest pain, dyspnea is now resolved, palpitations subjectively resolved. I have discussed the findings, differential diagnosis and plan of care with the patient. She requests transfer to [facility], since this is where her onion tier is located. She was accepted for admission at [facility] on the [place]. Accepting physician is Dr. Arreola. The onion tier, Dr. Banks, requested placing the patient on oral Eliquis and stopping the heparin drip, so this was done. The patient is improved and stable at time of transfer to [facility]. Dragon Disclaimer: [place]win Disclaimer: This electronic medical record was generated, in whole or in part, using a voice recognition dictation system. Departure Departure: Impression: Primary Impression: Atrial fibrillation with rapid ventricular response Additional Impression: Left bundle branch block Disposition: SHORT TERM [facility] ([facility] ) Condition: STABLE Referrals: PRAKASH LUU MD (PCP) ANETTE GARCIA DO October 25, 2021 18:21
[2021-10-25] MEDS ORDERED: IV NORMAL SALINE 1,000ML 1,000 ML IV ONE (18:30)
[2021-10-25] MEDS ORDERED: dilTIAZem 25 MG/5 ML VIAL IVP ONE ×2 (18:30)
[2021-10-25 18:45] LABS: BASO # 0.1 x10^3/uL (0.0-0.2); BASO % 1 % (0-3); EOS # 0.3 x10^3/uL (0.0-0.7); EOS % 3 % (0-3); HEMATOCRIT 49.7 % (36.0-47.0); HEMOGLOBIN 16.3 g/dL (12.0-15.5); LYMPH # 2.7 x10^3/uL (1.0-4.8); LYMPH % 29 % (24-48); MEAN CORPUSCULAR HEMOGLOBIN 30 pg (25-35); MEAN CORPUSCULAR HGB CONC 33 g/dL (31-37); MEAN CORPUSCULAR VOLUME 90 fL (79-100); MONO # 0.8 x10^3/uL (0.0-1.1); MONO % 9 % (0-9); NEUT # 5.3 x10^3uL (1.8-7.7); NEUT % 58 % (31-73); PLATELET COUNT 268 x10^3/uL (140-400); RED BLOOD COUNT 5.52 x10^6/uL (3.50-5.40); RED CELL DISTRIBUTION WIDTH 14.1 % (11.5-14.5); WHITE BLOOD COUNT 9.2 x10^3/uL (4.0-11.0)
[2021-10-25 18:59] LABS: CLARITY,URINE CLEAR; COLOR,URINE YELLOW; GLUCOSE,URINE NEG (NEG)
[2021-10-25 19:00] LABS: BACTERIA,URINE 0 /HPF (0-FEW); NITRITE,URINE NEG (NEG); RBC,URINE 0 /HPF (0-2); SQUAMOUS EPITHELIAL CELL,UR OCC /LPF; UROBILINOGEN,URINE 0.2 mg/dL (0.2 mg/dL); WBC,URINE 0 /HPF (0-4)
[2021-10-25] MEDS ORDERED: dilTIAZem VIAL 125 MG in IV NORMAL SALINE 100ML 100 ML IV PRN (19:00)
[2021-10-25] MEDS ORDERED: ASPIRIN ENTERIC COATED 325 MG TABLET.DR. PO ONE (19:00)
[2021-10-25] MEDS ORDERED: HEPARIN for IV BOLUS 10,000 UNIT/10 ML VIAL. IV ONE (19:00)
[2021-10-25] MEDS ORDERED: HEPARIN 25,000UTS/250ML PREMIX 250 ML IV PRN (19:00)
[2021-10-25 19:01] LABS: AMPHETAMINE/METHAMPHETAMINE NEG (NEG); BARBITURATES NEG (NEG); BENZODIAZEPINES NEG (NEG); CANNABINOIDS NEG (NEG); COCAINE NEG (NEG); METHADONE NEG (NEG); OPIATES NEG (NEG); PHENCYCLIDINE NEG (NEG)
[2021-10-25] MEDS ORDERED: IV NORMAL SALINE 100ML 100 ML ONE (19:04)
[2021-10-25 19:05] LABS: CALCIUM 9.3 mg/dL (8.5-10.1); CREATININE 0.8 mg/dL (0.6-1.0); GFR 71.1; POTASSIUM 3.4 mmol/L (3.5-5.1)
[2021-10-25 19:18] LABS: ALBUMIN 3.8 g/dL (3.4-5.0); MAGNESIUM 2.2 mg/dL (1.8-2.4); TOTAL BILIRUBIN 0.4 mg/dL (0.2-1.0); TOTAL PROTEIN 7.5 g/dL (6.4-8.2)
--- NOTE | 2021-10-25 19:26 | RAD ---
Exam: Chest one view INDICATION: Dyspnea TECHNIQUE: Frontal view of the chest Comparisons: 09/06/2021 FINDINGS: The cardiomediastinal silhouette and pulmonary vessels are within normal limits. Strandy opacities at the dependent portion lungs likely representing atelectasis. No pleural effusion . IMPRESSION: Findings which may relate to mild bibasilar atelectasis. Electronically signed by: Desean Novak MD (10/25/2021 7:24 PM) [facility]
[2021-10-25] MEDS ORDERED: HEPARIN for IV BOLUS 10,000 UNIT/10 ML VIAL. IV PRN (20:00)
--- NOTE | 2021-10-25 20:51 | EKG ---
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
[2021-10-25 21:08] VITALS: BP 119/61
[2021-10-25] MEDS ORDERED: APIXABAN 5 MG TABLET. ONE (21:13)
[2021-10-25] MEDS ORDERED: APIXABAN 5 MG TABLET. PO ONE (21:15)
== END 2021-10-25 21:37 | disposition short-term general hospital (02) ==
LOC: ER 17:37
DX: I48.20 Chronic atrial fibrillation, unspecified (principal); I44.7 Left bundle-branch block, unspecified; F41.9 Anxiety disorder, unspecified; J44.9 Chronic obstructive pulmonary disease, unspecified; K21.9 Gastro-esophageal reflux disease without esophagitis; I10 Essential (primary) hypertension; Z87.891 Personal history of nicotine dependence; Z88.8 Allergy status to other drugs, medicaments and biological substances; Z91.030 Bee allergy status
CPT/HCPCS: 36415; 71045; 80053; 80307; 81001; 83735; 83880; 84443; 84484; 85025; 85610; 85730; 93005; 96361; 96365; 96366; 96374; 96375; 99285; G0480; J1644; J3010; J3490; J7030

== ENCOUNTER 2021-10-27 04:19 | Emergency (ER) | payer MEDICARE, MEDICAID ==
[~2021-10-27] VITALS: Ht 162.6 cm; Wt 87.6 kg
--- NOTE | 2021-10-27 04:24 | PHYS DOC ---
Past History Past Medical History: Anxiety, COPD, GERD, Hypertension Additional Past Medical Histor: 3 stents, hemorrhoids; left bundle branch block Past Surgical History: Other Additional Past Surgical Histo: SCOT knee repl; 3 card stents;esoph dil;lt wrist repair; rt rad/uln open red Smoking: Quit Greater Than 1 Year Alcohol Use: Occasionally Drug Use: None Adult General HPI HPI Patient is a 71-year-old female with a past medical history significant for A. fib on Eliquis who presents with chest pain, 5 out of 10, dull and achy in nature which started about 4 5 hours ago but has since resolved in the ED. Denies any recent traumas, travels, illness, fevers, shortness of breath, abdominal pain, nausea, vomiting, diarrhea. Denies any dysuria, hematuria or blood in the stool. States she does have a hemorrhoid that she is had for quite some time and it was bleeding a little bit yesterday and was wondering about treatment for that. Denies any alcohol or drug use. Denies any numbness/weakness/tingling. States he is eating and drinking normally for her. States he is making urine and stool normally for her. Denies any falls Review of Systems Review of Systems Review of systems otherwise unremarkable except noted in HPI Allergies Allergies Allergies Coded Allergies Type Severity Reaction Last Updated Verified venom-honey bee Allergy Severe Shortness of Air 07/14/21 Yes adhesive Allergy Intermediate 07/14/21 Yes cimetidine Allergy Intermediate "toxic" 07/14/21 Yes cimetidine HCl Allergy Intermediate "toxic" 07/14/21 Yes Physical Exam Physical Exam Constitutional: Well developed, well nourished, no acute distress, non-toxic appearance. [] HENT: Normocephalic, atraumatic, bilateral external ears normal, oropharynx moist, no oral exudates, nose normal. [] Eyes: conjunctiva normal, no discharge. [] Neck: Normal range of motion, no tenderness, supple, no stridor. [] Cardiovascular:Heart rate regular rhythm, no murmur [] Lungs & Thorax: Bilateral breath sounds clear to auscultation [] Abdomen: soft, no tenderness, no masses, no pulsatile masses. : Tiny external hemorrhoid, nonthrombosed or bleeding [] Skin: Warm, dry, no erythema, no rash. [] Back: No tenderness, no CVA tenderness. [] Extremities: No tenderness, no cyanosis, no clubbing, ROM intact, no edema. [] Neurologic: Alert and oriented X 3, normal motor function, normal sensory function, able to sit, stand and walk without issue, no focal deficits noted. [] Psychologic: Affect normal, judgement normal, mood normal. [] EKG EKG [] Radiology/Procedures Radiology/Procedures [] Heart Score C/O Chest Pain: Yes HEART Score for Chest Pain: HEART Score for Chest Pain Response (Comments) Value History Slighlty/Non-Suspicious 0 ECG Nonspecific Repolarizatio 1 Age > 65 2 Risk Factors 1 or 2 Risk Factors 1 Troponin < Normal Limit 0 Total 4 Risk Factors: Risk Factors: DM, Current or recent (<one month) smoker, HTN, HLP, family history of CAD, obesity. Risk Scores: Risk Factors: DM, Current or recent (<one month) smoker, HTN, HLP, family history of CAD, obesity. Course & Med Decision Making Course & Med Decision Making Patient is a 71-year-old female who presents to the emergency department with a chief complaint of chest pain Vital signs notable for borderline bradycardia and mild hypertension. Physical exam noted above. EKG with a rate of 56, QRS of 130, QTc 445, no STEMI, left bundle branch morphology. Troponin not concerning. Low risk [place]. D-dimer negative. Rest and laboratory analysis not concerning. Urinalysis not concerning. Patient asymptomatic in the ED, alert and oriented no acute distress and able to take p.o. Discussed all findings with patient and offered further observation and repeat troponins and EKGs. Patient states she was feeling well and was ready to be discharged home and will follow up in the morning with her primary care physician. Gave strict return precautions to the ED. Patient grateful, verbalized understanding and agreed with plan of discharge. Dragon Disclaimer Dragon Disclaimer This electronic medical record was generated, in whole or in part, using a voice recognition dictation system. Departure Departure: Impression: Primary Impression: Chest pain Disposition: HOME / SELF CARE / HOMELESS Condition: STABLE Referrals: PRAKASH LUU MD (PCP) Patient Instructions: Chest Pain (Nonspecific), Hemorrhoids Additional Instructions: Thank you for coming into the emergency department tonight and allowing us to take care of you. Please read the attached information carefully go over things we discussed. Please take all your medications as prescribed. You can stop at the pharmacy and flower picker sitz bath to help with your hemorrhoids. You can also do the suppositories, like Anusol as we discussed and gave to you here in the ED for your hemorrhoids. Please read the attached information carefully on hemorrhoid management at home. Please call your primary care physician this morning as we discussed to discuss your ED visit and set up a follow-up as soon as possible. Please come back with new or concerning symptoms as discussed. SHANTE TAPIA MD October 27, 2021 04:23
[2021-10-27 04:40] VITALS: BP 157/71
[2021-10-27 05:29] LABS: BASO # 0.1 x10^3/uL (0.0-0.2); BASO % 1 % (0-3); EOS # 0.3 x10^3/uL (0.0-0.7); EOS % 5 % (0-3); HEMATOCRIT 45.7 % (36.0-47.0); HEMOGLOBIN 15.1 g/dL (12.0-15.5); LYMPH # 2.5 x10^3/uL (1.0-4.8); LYMPH % 36 % (24-48); MEAN CORPUSCULAR HEMOGLOBIN 30 pg (25-35); MEAN CORPUSCULAR HGB CONC 33 g/dL (31-37); MEAN CORPUSCULAR VOLUME 90 fL (79-100); MONO # 0.6 x10^3/uL (0.0-1.1); MONO % 8 % (0-9); NEUT # 3.6 x10^3uL (1.8-7.7); NEUT % 51 % (31-73); PLATELET COUNT 253 x10^3/uL (140-400); RED BLOOD COUNT 5.06 x10^6/uL (3.50-5.40); RED CELL DISTRIBUTION WIDTH 14.3 % (11.5-14.5)
[2021-10-27 05:35] LABS: CALCIUM 9.2 mg/dL (8.5-10.1); CREATININE 0.7 mg/dL (0.6-1.0); POTASSIUM 4.3 mmol/L (3.5-5.1)
[2021-10-27 05:36] LABS: BACTERIA,URINE 0 /HPF (0-FEW); CLARITY,URINE CLEAR; COLOR,URINE YELLOW; GLUCOSE,URINE NEG (NEG); NITRITE,URINE NEG (NEG); RBC,URINE OCC /HPF (0-2); SQUAMOUS EPITHELIAL CELL,UR FEW /LPF; UROBILINOGEN,URINE 0.2 mg/dL (0.2 mg/dL); WBC,URINE OCC /HPF (0-4)
[2021-10-27 05:41] LABS: ALBUMIN 3.6 g/dL (3.4-5.0); ALBUMIN/GLOBULIN RATIO 1.2 (1.0-1.7); MAGNESIUM 2.2 mg/dL (1.8-2.4); TOTAL BILIRUBIN 0.4 mg/dL (0.2-1.0); TOTAL PROTEIN 6.6 g/dL (6.4-8.2)
[2021-10-27] MEDS: HYDROCORTISONE ACETATE 25 MG SUPP.RECT PR PRN (06:19)
--- NOTE | 2021-10-27 07:28 | EKG ---
[address] [address] Test Date: 2021-10-27 Test Time: 04:34:36 Pat Name: ALEXY LANGE Department: Room: Gender: F Insurance Risk Surveyor: JACOBO : 1950 Requested By: SHANTE TAPIA Order Number: [id number] Reading MD: Measurements Intervals [place] Rate: 59 P: 64 [place]: 176 QRS: -19 QRSD: 130 T: 74 QT: 448 QTc: 448 Interpretive Statements SINUS RHYTHM LEFTWARD AXIS NON SPECIFIC INTRAVENTRICULAR BLOCK ABNORMAL ECG RI6.02 No previous ECG available for comparison
--- NOTE | 2021-10-27 07:38 | EKG ---
[address] [address] Test Date: 2021-10-27 Test Time: 04:40:48 Pat Name: ALEXY LANGE Department: Room: Gender: F Wildlife Manager: JACOBO : 1950 Requested By: SHANTE TAPIA Order Number: [id number] Reading MD: Measurements Intervals [place] Rate: 56 P: 55 [place]: 170 QRS: -18 QRSD: 130 T: 79 QT: 458 QTc: 445 Interpretive Statements SINUS RHYTHM LEFTWARD AXIS NON SPECIFIC INTRAVENTRICULAR BLOCK ABNORMAL ECG RI6.02 Compared to ECG 10/27/2021 04:34:36 No significant changes
== END 2021-10-27 06:30 | disposition home or self-care (01) ==
LOC: ER 04:19
DX: R07.89 Other chest pain (principal); K64.4 Residual hemorrhoidal skin tags; J44.9 Chronic obstructive pulmonary disease, unspecified; K21.9 Gastro-esophageal reflux disease without esophagitis; I10 Essential (primary) hypertension; Z87.891 Personal history of nicotine dependence; Z91.030 Bee allergy status; Z88.8 Allergy status to other drugs, medicaments and biological substances
CPT/HCPCS: 36415; 80053; 81001; 83735; 84484; 85025; 85379; 85610; 85730; 93005; 99284

== ENCOUNTER 2021-11-15 17:35 | Emergency (ER) | payer OTHER, MEDICARE, MEDICAID ==
[~2021-11-15] VITALS: Ht 162.6 cm; Wt 87.6 kg
[2021-11-15 17:40] VITALS: BP 157/71
[2021-11-15] MEDS ORDERED: HYDROcodone/APAP 5/325MG 1 TAB TABLET PO ONE (18:00)
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
[2021-11-15] MEDS ORDERED: HYDR-2155 PO (19:53)
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
== END 2021-11-15 20:26 | disposition home or self-care (01) ==
LOC: ER 17:35
DX: S09.90XA Unspecified injury of head, initial encounter (principal); J44.9 Chronic obstructive pulmonary disease, unspecified; I10 Essential (primary) hypertension; V49.69XA Unspecified car occupant injured in collision with other motor vehicles in traffic accident, initial encounter; Y93.89 Activity, other specified; Y92.410 Unspecified street and highway as the place of occurrence of the external cause; Y99.8 Other external cause status
CPT/HCPCS: 70450; 70486; 71045; 72125; 73090; 99284-25

== ENCOUNTER 2021-11-16 20:01 | Emergency (ER) | payer OTHER, MEDICARE, MEDICAID ==
[~2021-11-16] VITALS: Ht 152.4 cm; Wt 83.8 kg
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
[2021-11-16] MEDS ORDERED: oxyCODONE/APAP 5/325 1 TAB TABLET PO ONE (20:30)
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
[2021-11-16 21:24] LABS: BASO # 0.1 x10^3/uL (0.0-0.2); BASO % 1 % (0-3); EOS # 0.3 x10^3/uL (0.0-0.7); EOS % 5 % (0-3); HEMATOCRIT 45.2 % (36.0-47.0); HEMOGLOBIN 14.9 g/dL (12.0-15.5); LYMPH # 2.1 x10^3/uL (1.0-4.8); LYMPH % 33 % (24-48); MEAN CORPUSCULAR HEMOGLOBIN 30 pg (25-35); MEAN CORPUSCULAR HGB CONC 33 g/dL (31-37); MEAN CORPUSCULAR VOLUME 91 fL (79-100); MONO # 0.6 x10^3/uL (0.0-1.1); MONO % 9 % (0-9); NEUT # 3.3 x10^3uL (1.8-7.7); NEUT % 52 % (31-73); PLATELET COUNT 220 x10^3/uL (140-400); RED BLOOD COUNT 4.99 x10^6/uL (3.50-5.40); RED CELL DISTRIBUTION WIDTH 14.6 % (11.5-14.5); WHITE BLOOD COUNT 6.3 x10^3/uL (4.0-11.0)
[2021-11-16 21:35] LABS: CREATININE 0.6 mg/dL (0.6-1.0); GFR 99.1; POTASSIUM 4.5 mmol/L (3.5-5.1)
[2021-11-16 21:41] LABS: ALBUMIN 3.6 g/dL (3.4-5.0); DIRECT BILIRUBIN 0.1 mg/dL (0.0-0.2); MAGNESIUM 2.2 mg/dL (1.8-2.4); TOTAL BILIRUBIN 0.7 mg/dL (0.2-1.0); TOTAL PROTEIN 6.7 g/dL (6.4-8.2)
[2021-11-16 21:42] LABS: CLARITY,URINE CLEAR; COLOR,URINE YELLOW; GLUCOSE,URINE NEG (NEG)
[2021-11-16 21:43] LABS: BACTERIA,URINE 0 /HPF (0-FEW); NITRITE,URINE NEG (NEG); RBC,URINE 0 /HPF (0-2); SQUAMOUS EPITHELIAL CELL,UR OCC /LPF; UROBILINOGEN,URINE 0.2 mg/dL (0.2 mg/dL); WBC,URINE 0 /HPF (0-4)
[2021-11-16 22:12] VITALS: BP 155/88
[2021-11-16 23:01] LABS: AMPHETAMINE/METHAMPHETAMINE NEG (NEG); BARBITURATES NEG (NEG); BENZODIAZEPINES NEG (NEG); CANNABINOIDS NEG (NEG); COCAINE NEG (NEG); METHADONE NEG (NEG); OPIATES POS (NEG); PHENCYCLIDINE NEG (NEG)
== END 2021-11-16 22:22 | disposition home or self-care (01) ==
LOC: ER 20:01
DX: S06.0X9A Concussion with loss of consciousness of unspecified duration, initial encounter (principal); S20.211A Contusion of right front wall of thorax, initial encounter; S20.01XA Contusion of right breast, initial encounter; S60.222A Contusion of left hand, initial encounter; F41.9 Anxiety disorder, unspecified; I25.10 Atherosclerotic heart disease of native coronary artery without angina pectoris; J44.9 Chronic obstructive pulmonary disease, unspecified; K21.9 Gastro-esophageal reflux disease without esophagitis; I10 Essential (primary) hypertension; E78.5 Hyperlipidemia, unspecified; Z87.891 Personal history of nicotine dependence; Z88.8 Allergy status to other drugs, medicaments and biological substances; Z91.030 Bee allergy status; V43.92XA Unspecified car occupant injured in collision with other type car in traffic accident, initial encounter; Y93.89 Activity, other specified; Y92.89 Other specified places as the place of occurrence of the external cause; Y99.8 Other external cause status
CPT/HCPCS: 36415; 70450; 71250; 73130; 80048; 80076; 80307; 81001; 82550; 83690; 83735; 84443; 84484; 85025; 85610; 85730; 93005; 99285

== ENCOUNTER 2021-11-17 16:21 | Emergency (ER) | payer MEDICARE, MEDICAID ==
[~2021-11-17] VITALS: Ht 152.4 cm; Wt 83.8 kg
[2021-11-17 16:50] VITALS: BP 118/70
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
== END 2021-11-17 17:44 | disposition home or self-care (01) ==
LOC: ER 16:21
DX: S60.022D Contusion of left index finger without damage to nail, subsequent encounter (principal); I25.10 Atherosclerotic heart disease of native coronary artery without angina pectoris; F41.9 Anxiety disorder, unspecified; J44.9 Chronic obstructive pulmonary disease, unspecified; K21.9 Gastro-esophageal reflux disease without esophagitis; I10 Essential (primary) hypertension; Z87.891 Personal history of nicotine dependence; Z91.030 Bee allergy status; Z88.8 Allergy status to other drugs, medicaments and biological substances; X58.XXXD Exposure to other specified factors, subsequent encounter
CPT/HCPCS: 99281